=== PATIENT | male | born 1980 | race Caucasian/White ===

== ENCOUNTER 2019-04-04 08:03 | Outpatient (CLI) | payer OTHER, SELFPAY ==
--- NOTE | 2019-04-12 01:43 | SLEEP_ITS ---
Split-Night Study DATE OF STUDY: 04/04/2019 ORDERING PHYSICIAN: Master Vegas M.D. REASON FOR THE STUDY: Obstructive sleep apnea syndrome. HISTORY: This patient is a 38-year-old male, 68 inches tall, weighing 240 pounds with a body mass index of 36.5. He has a history of congestive heart failure. He frequently snores and it is constantly loud enough that others complain about it. He frequently wakes up at night with heartburn and belching. He occasionally has trouble sleeping with a cold. He does not gasp for breath at night. He frequently has breathing problems at night reported to him by others. He rarely sweats excessively at night. He frequently falls asleep during the day occasionally, involuntarily, but never while driving or with physical effort. He does not have loss of muscle tone with strong emotion, daytime difficulties due to sleepiness because he is unemployed, nor does he feel paralyzed on waking or falling asleep. He occasionally has vivid dreamlike scenes upon awakening or falling asleep. He is never afraid to go to sleep. He occasionally has nightmares, occasionally remembers his dreams, frequently has racing thoughts with constant feelings of sadness, depression and anxiety. He occasionally has muscular tension. Occasionally notices parts of his body jerking. He does not kick at night or have crawly achy feelings in his legs. He does not have jaw pain at night. He does not grind his teeth at night. He occasionally is bothered by pain during the day. He has never awakened with pain at night. He frequently wakes up with stiff or achy muscles in the morning. He has dizziness, fatigue, memory problems, fainting spells, concentration difficulties, depression and feels very stressed. Normal bedtime is 11 p.m., taking an hour to fall asleep typically waking 4-5 times at night for 5 minutes. During this time, he will use the bathroom, eat or smoke a cigarette. He wakes for the day at 9 or 10 am. Weekend schedule reveals that he goes to bed an hour later, wakes up at the same time. He does take naps. A short nap is not refreshing. He is usually drowsy in the morning for 2 hours. He feels better in the afternoon than the morning. MEDICAL COMORBIDITIES: Congestive heart failure, depression, nonrheumatic mitral valve disease, mitral regurgitation, nonischemic congestive cardiomyopathy, acute systolic heart failure, which is currently chronic heart failure, obesity, and dyslipidemia. MEDICATIONS: 1. Carvedilol 1 b.i.d. 2. Furosemide daily. 3. Lisinopril daily. HABITS: Tobacco a half pack per day. Caffeine, soda, and tea 2-3 times per day. No alcohol. DESCRIPTION OF THE STUDY: On the [place] Sleepiness Scale his score 16. This was conducted as a split-night nocturnal polysomnogram using the same and multiple channel system including EOG, EEG, submental EMG, EKG, nasal and oral airflow using thermistors and nasal pressure sensors, chest and abdominal belts, body position data and pulse oximetry. The study was scored using CMS guidelines. During the baseline portion, recording time was 180 minutes. Sleep time 158.4 minutes. Sleep efficiency 88.1%. Sleep latency 2.9 minutes. REM latency 19.5 minutes very short. He had 16 awakenings and spent 18.5 minutes awake after sleep onset. Sleep architecture showed 12.3% stage 1 sleep, 79.8% stage 2 sleep, no stage 3 sleep and 7.9% stage REM. He slept supine 75.6% of this portion. The remainder was nonsupine. Sleep architecture was very fragmented with small, short episodes of REM with interruptions and return to wakefulness. The overall apnea-hypopnea index was 18.6 all obstructive events. He had 2 obstructive apneas, 4 obstructive hypopneas in supine non-REM for an index of 23.3. Three obst
== END 2019-04-04 08:04 | disposition home or self-care (01) ==
LOC: ANHCSM 08:03
PROVIDERS: Visit Provider Specialist
DX: G47.33 Obstructive sleep apnea (adult) (pediatric) (principal)
CPT/HCPCS: 95811

== ENCOUNTER 2019-04-10 22:29 | Observation (INO) | payer OTHER, SELFPAY ==
--- NOTE | ~2019-04-10 | XR_ITS ---
EXAMINATION: XR chest 2V 04/10/2019 23:32 INDICATION: Cough and dyspnea PROCEDURE: 2 view chest COMPARISON: 12/24/2018 FINDINGS: The lungs are clear. The cardiomediastinal silhouette is enlarged There are no pleural eff usions. There is no pneumothorax suspected. IMPRESSION: 1: NO ACUTE CARDIOPULMONARY DISEASE. Reviewed, dictated and finalized at location A. ER COPPER
[2019-04-10 22:46] VITALS: BP 133/92; PULSE 86; RESP 16; TEMP 36.3; O2SAT 97
--- NOTE | 2019-04-10 22:55 | ECG_ITS ---
Measurements Intervals [place] Rate: 84 P: 44 [place]: 162 QRS: -34 QRSD: 169 T: 64 QT: 417 QTc: 495 Interpretive Statements SINUS RHYTHM POSSIBLE LEFT ATRIAL ENLARGEMENT LEFT AXIS DEVIATION LEFT BUNDLE BRANCH BLOCK BASELINE ARTIFACT- I, III, AVL, V1 ABNORMAL ECG Electronically Signed On 04-11-2019 7:00:54 HORSEBACK EXCAVATOR by Fawad Murdock D.O.
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
[2019-04-10 23:27] LABS: Basophils Absolute Auto 0.1 K/mm3 (0.0-0.1); Basophils Percent Auto 0.8 % (0.2-1.2); Eosinophils Absolute Auto 0.4 K/mm3 (0-0.3); Eosinophils Percent Auto 3.7 % (0-4.4); Hematocrit 38.8 % (42.0-52.0); Hemoglobin 13.1 g/dL (14.0-18.0); Immature Granulocyte Absolute 0.04 K/mm3 (0.00-0.031); Immature Granulocyte Percent A 0.4 % (0-0.5); Lymphocytes Absolute Auto 2.87 K/mm3 (0.9-3.2); Lymphocytes Percent Auto 29.5 % (18.3-44.2); Mean Corpuscular HGB Conc 33.8 g/dl (32-36); Mean Corpuscular Hemoglobin 30.5 pg (26-34); Mean Corpuscular Volume 90.2 fl (80-100); Mean Platelet Volume 9.6 fl (7.4-10.4); Monocytes Absolute Auto 0.8 K/mm3 (0.1-0.6); Monocytes Percent Auto 7.8 % (2.6-8.5); Neutrophils Absolute Auto 5.6 K/mm3 (1.3-6.7); Neutrophils Percent Auto 57.8 % (45.5-73.1); Platelet Count Result 307 k/mm3 (150-375); White Blood Count 9.7 K/mm3 (4.5-10.0)
[2019-04-10 23:35] LABS: INR 0.9; Partial Thromboplastin Time 28.6 SECONDS (22.3-36.8); Prothrombin Time 11.4 Seconds (11.1-14.7)
[2019-04-10 23:41] LABS: Blood Urea Nitrogen 13 mg/dL (9-20); Carbon Dioxide 26 mmol/L (22-30); Chloride 100 mmol/L (98-107); Estimated Glomerular Filt Rate > 60; Glucose 105 mg/dL (75-110); Potassium 4.2 mmol/L (3.4-5.0); Sodium 138 mmol/L (137-145)
[2019-04-10 23:48] VITALS: BP 119/78; PULSE 79; RESP 20; O2SAT 98
[2019-04-10 23:53] LABS: NT Pro B Type Natriuretic Pept 1060 PG/ML (5-100); Troponin I < 0.012 ng/mL (0.000-0.034)
[2019-04-11] VITALS (19 sets, daily range): BP systolic 110–146; BP diastolic 55–96; PULSE 75–96; RESP 12–20; TEMP 36.1–36.9; O2SAT 96–100; BMI 38.9
[2019-04-11] MEDS: FUROSEMIDE INJ 40 MG/4 ML VIAL IV PUSH (00:46)
--- NOTE | 2019-04-11 02:16 | ECG_ITS ---
Measurements Intervals [place] Rate: 85 P: 50 [place]: 164 QRS: -39 QRSD: 166 T: 75 QT: 415 QTc: 496 Interpretive Statements SINUS RHYTHM POSSIBLE LEFT ATRIAL ENLARGEMENT LEFT AXIS DEVIATION LEFT BUNDLE BRANCH BLOCK ABNORMAL ECG Electronically Signed On 04-11-2019 8:15:14 BILINGUAL SALES REPRESENTATIVE by Fawad Murdock D.O.
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
[2019-04-11 02:27] LABS: Amphetamine Screen Urine Positive (Negative); Barbiturate Screen Urine Negative (Negative); Benzodiazepines Screen Urine Negative (Negative); Cannabinoid Screen Urine Negative (Negative); Cocaine Screen Urine Negative (Negative); Methadone Screen Urine Negative (Negative); Opiate Screen Urine Negative (Negative); Phencyclidine Screen Urine Negative (Negative)
[2019-04-11 05:07] LABS: Basophils Absolute Auto 0.1 K/mm3 (0.0-0.1); Basophils Percent Auto 0.8 % (0.2-1.2); Eosinophils Absolute Auto 0.4 K/mm3 (0-0.3); Eosinophils Percent Auto 4.1 % (0-4.4); Hematocrit 39.9 % (42.0-52.0); Hemoglobin 13.7 g/dL (14.0-18.0); Immature Granulocyte Absolute 0.04 K/mm3 (0.00-0.031); Immature Granulocyte Percent A 0.5 % (0-0.5); Lymphocytes Percent Auto 27.1 % (18.3-44.2); Mean Corpuscular HGB Conc 34.3 g/dl (32-36); Mean Corpuscular Hemoglobin 30.7 pg (26-34); Mean Corpuscular Volume 89.5 fl (80-100); Mean Platelet Volume 9.4 fl (7.4-10.4); Monocytes Absolute Auto 0.7 K/mm3 (0.1-0.6); Monocytes Percent Auto 7.6 % (2.6-8.5); Neutrophils Absolute Auto 5.3 K/mm3 (1.3-6.7); Neutrophils Percent Auto 59.9 % (45.5-73.1); Platelet Count Result 310 k/mm3 (150-375); Red Blood Count 4.46 M/mm3 (4.6-6.20); Red Cell Distribution Width 12.8 % (11.5-14.5); White Blood Count 8.9 K/mm3 (4.5-10.0)
[2019-04-11 05:22] LABS: Blood Urea Nitrogen 13 mg/dL (9-20); Calcium 9.1 mg/dL (8.4-10.2); Carbon Dioxide 30 mmol/L (22-30); Chloride 96 mmol/L (98-107); Estimated CRCL calculation 131 ml/min; Estimated Glomerular Filt Rate > 60; Glucose 116 mg/dL (75-110); Potassium 3.7 mmol/L (3.4-5.0); Sodium 140 mmol/L (137-145)
[2019-04-11 05:32] LABS: Troponin I < 0.012 ng/mL (0.000-0.034)
--- NOTE | 2019-04-11 05:37 | ADMGEN ---
This patient, Isaiah La, was admitted to IMU Room 212-01. Patient/family oriented to hospital policies and general routines including ID bracelet, bed and alarms, visiting hours, pain management, procedures, bathroom and other care routines, personal items, smoking policy, room service/diet, and visiting hours. Valuables list has been completed. Information on how to activate the Rapid Response Team has been discussed. Patient/Family are encouraged to report perceived risks to care and to ask questions if they do not understand what they are told or what they should do.
[2019-04-11 07:55] LABS: Glucose Point of Care 149 (65-105)
[2019-04-11 08:52] LABS: Troponin I < 0.012 ng/mL (0.000-0.034)
--- NOTE | 2019-04-11 11:13 | PM.IMPN ---
Progress Note: A&P Assessment and Plan (1) Chest pain: Qualifiers: Chest pain type: unspecified Qualified Code(s): R07.9 - Chest pain, unspecified Code(s): R07.9 - Chest pain, unspecified Status: Acute Assessment and Plan: Cardiac chest pain appears unlikley. TROP x3 are negative. Continue to observe in IMU. Continue to watch for any further chest pain. Chest pain atypical appear musculosketal. Awaiting to see cardiology. Pt needs to be medical stable prior to placement. (2) Congestive heart failure: Qualifiers: Heart failure chronicity: acute Heart failure type: unspecified Qualified Code(s): I50.9 - Heart failure, unspecified Code(s): I50.9 - Heart failure, unspecified Status: Chronic Assessment and Plan: CHroic and stable. Systolic CHF. Continue home Coreg, Lisinopril and Lasix. (3) Methamphetamine use: Code(s): F15.10 - Other stimulant abuse, uncomplicated Status: Chronic Assessment and Plan: The patient continues to use IV methamphetamine. pt is going through withdrawl at the moment. (4) IV drug abuse: Code(s): F19.10 - Other psychoactive substance abuse, uncomplicated Status: Chronic Assessment and Plan: Pt going through withdrawl at the moment, pt wants to go to drug rehab program. Awaiting placement. (5) Tobacco dependence: Code(s): F17.200 - Nicotine dependence, unspecified, uncomplicated Status: Chronic Assessment and Plan: Smoking cessation adviced Subjective Date/time seen: 04/11/19 11:13 Interval history: 39 year old male with known nonischemic cardiomyopathy with chronic systolic heart failure known to chronically be an IV drug user for the past 20 years who presented to the [facility] with a complaint of intermittent bilateral chest pain for the past week. Pt denies chest pain today. Pt is going though shakes and shivers by the bedside, withdrawing off methamphetamines. Review of Systems Review of Systems: All systems reviewed & are unremarkable except as noted in HPI and below Constitutional: Constitutional: Reports excessive sweating Comments: Shakes and shivers Cardiovascular: Cardiovascular: Denies chest pain, Denies chest pain at rest, Denies chest pain with activity and Denies dyspnea Respiratory: Respiratory: Denies cough, Denies excessive phlegm production, Denies dyspnea and Denies dyspnea on exertion Gastrointestinal: Gastrointestinal: Denies no additional gastrointestinal complaints Neurologic: Reports tremor(s) Comments: Shivers Exam Const: Nutritional Appearance: obese Orientation/consciousness: patient oriented x3 Other: Shakes and shivers HENMT: Head: normal to inspection General nose exam: Normal external nose present Face and sinus: normal facial exam Mouth: Yes Normal oral and palatal mucosa present and Yes oropharynx normal Eyes: Pupils: Equal, round and reactive pupils present EOM: EOMs intact bilaterally Neck: Neck: supple and no JVD Thyroid: thyroid normal Lymphatic: lymphadenopathy not noted Resp: Effort & Inspection: normal respiratory effort Auscultation: clear to auscultation bilaterally Cardio: Rate: regular rate Rhythm: regular rhythm Heart sounds: no murmurs GI: Inspection: normal to inspection Auscultation: normal bowel sounds Skin: General skin exam: normal color Neuro: General: patient oriented x3 Cranial nerves: Yes CN's II-XII intact bilaterally and Yes Equal, round and reactive pupils present Speech: normal speech Motor exam (neuro): 5/5 motor strength present throughout Sensory Exam: normal sensation Extrem: General: normal to inspection and no edema Other: Iv drug user Psych: Other: Shakes and shivers Objective Data Vital Signs Vital Signs: Vital Signs - 24 hr 04/10/19 22:46 04/10/19 23:48 04/11/19 00:46 Temperature 36.3 C L Pulse Rate 86 79 81 Respiratory Rate 16 20 16 Blood P
[2019-04-11 12:05] LABS: Glucose Point of Care 204 (65-105)
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
[2019-04-11] MEDS: PANTOPRAZOLE 40 MG TABLET PO (17:09)
[2019-04-12] VITALS (16 sets, daily range): BP systolic 118–160; BP diastolic 77–102; PULSE 79–108; RESP 16–22; TEMP 36.1–37; O2SAT 97–100
[2019-04-12] MEDS: NITROGLYCERIN SL 0.4 MG TABLET SUBLINGUAL (00:10)
--- NOTE | 2019-04-12 00:50 | ECG_ITS ---
Measurements Intervals [place] Rate: 86 P: 47 [place]: 167 QRS: -25 QRSD: 170 T: 78 QT: 413 QTc: 497 Interpretive Statements SINUS RHYTHM POSSIBLE LEFT ATRIAL ENLARGEMENT LEFT BUNDLE BRANCH BLOCK ABNORMAL ECG Electronically Signed On 04-12-2019 8:35:02 RN COMPLEX CARE by Fawad Murdock D.O.
[2019-04-12 01:01] LABS: Troponin I < 0.012 ng/mL (0.000-0.034)
[2019-04-12] MEDS: PANTOPRAZOLE 40 MG TABLET PO (08:20)
--- NOTE | 2019-04-12 14:24 | PM.IMPN ---
Progress Note: A&P Assessment and Plan (1) Chest pain: Qualifiers: Chest pain type: unspecified Qualified Code(s): R07.9 - Chest pain, unspecified Code(s): R07.9 - Chest pain, unspecified Status: Acute Assessment and Plan: Cardiac chest pain appears unlikely. TROP x3 are negative. Continue to observe in IMU. Continue to watch for any further chest pain. Chest pain atypical appear musculosketal or drug withdrawl related. Cardiology feels chest pain is non cardiac. Pt had a recent heart cath no significant heart disease noted (2) Congestive heart failure: Qualifiers: Heart failure chronicity: acute Heart failure type: unspecified Qualified Code(s): I50.9 - Heart failure, unspecified Code(s): I50.9 - Heart failure, unspecified Status: Chronic Assessment and Plan: Chronic and stable. Systolic CHF. Continue home Coreg, Lisinopril and Lasix. (3) Methamphetamine use: Code(s): F15.10 - Other stimulant abuse, uncomplicated Status: Chronic Assessment and Plan: The patient continues to use IV methamphetamine. pt is going through withdrawl at the moment. Benzos IV and clonidine orally ordered for pt. (4) IV drug abuse: Code(s): F19.10 - Other psychoactive substance abuse, uncomplicated Status: Chronic Assessment and Plan: Pt going through withdrawl at the moment, difficult to place in drug rehab due to his medical co-morbidities (5) Tobacco dependence: Code(s): F17.200 - Nicotine dependence, unspecified, uncomplicated Status: Chronic Assessment and Plan: Smoking cessation adviced Subjective Date/time seen: 04/12/19 14:24 Interval history: 39 year old male with known nonischemic cardiomyopathy with chronic systolic heart failure known to chronically be an IV drug user for the past 20 years who presented to the [facility] with a complaint of intermittent bilateral chest pain for the past week. Pt denies chest pain today. Pt is going though shakes and shivers by the bedside, withdrawing off methamphetamines. Review of Systems Review of Systems: All systems reviewed & are unremarkable except as noted in HPI and below Constitutional: Constitutional: Reports excessive sweating Cardiovascular: Cardiovascular: Denies chest pain, Denies chest pain at rest, Denies chest pain with activity, Denies dyspnea and Denies dyspnea on exertion Respiratory: Respiratory: Denies cough, Denies excessive phlegm production, Denies dyspnea and Denies dyspnea on exertion Gastrointestinal: Gastrointestinal: Denies no additional gastrointestinal complaints Neurologic: Reports tremor(s) Endocrine: Endocrine: Reports excessive sweating Exam Const: General: cooperative, no acute distress, alert and awake Nutritional Appearance: obese Orientation/consciousness: patient oriented x3 Other: Shakes and shivers HENMT: Head: normal to inspection General nose exam: Normal external nose present Face and sinus: normal facial exam Mouth: Yes Normal oral and palatal mucosa present and Yes oropharynx normal Eyes: Pupils: Equal, round and reactive pupils present EOM: EOMs intact bilaterally Neck: Neck: supple and no JVD Thyroid: thyroid normal Lymphatic: lymphadenopathy not noted Resp: Effort & Inspection: normal respiratory effort Auscultation: clear to auscultation bilaterally Cardio: Rate: regular rate Rhythm: regular rhythm Heart sounds: no murmurs GI: Inspection: normal to inspection Auscultation: normal bowel sounds Skin: General skin exam: normal color Neuro: General: patient oriented x3 Cranial nerves: Yes CN's II-XII intact bilaterally and Yes Equal, round and reactive pupils present Speech: normal speech Motor exam (neuro): 5/5 motor strength present throughout Sensory Exam: normal sensation Extrem: General: normal to inspection and no edema Other: Iv drug user Psych: Mental Status: mental st
--- NOTE | 2019-04-12 16:37 | PM.PNCARD ---
Progress Note: A&P Assessment and Plan (1) Tobacco dependence: Code(s): F17.200 - Nicotine dependence, unspecified, uncomplicated Status: Chronic (2) IV drug abuse: Code(s): F19.10 - Other psychoactive substance abuse, uncomplicated Status: Chronic (3) Chest pain: Qualifiers: Chest pain type: unspecified Qualified Code(s): R07.9 - Chest pain, unspecified Code(s): R07.9 - Chest pain, unspecified Status: Acute Assessment and Plan: So far cardiac enzyme negative, EKG is unremarkable, he had cardiac catheterization last admission showed no significant coronary disease. His pain seems to be due to upper airway infection with pleurisy, he also has a the GERD, symptomatic treatment for the time being, no need for any cardiac further workup (4) Atypical chest pain: Code(s): R07.89 - Other chest pain Status: Acute Assessment and Plan: Likely is noncardiac, had cardiac catheterization last admission. He seems to be pain free now, okay to be discharged home (5) Non-ischemic cardiomyopathy: Code(s): I42.8 - Other cardiomyopathies Status: Acute Assessment and Plan: Currently on Coreg and lisinopril continue Additional Plan Okay to be discharged home, follow up with me in 1-2 weeks Subjective Date/time seen: 04/12/19 16:37 Feels much better today, no shortness breath, orthopnea improved no chest pain Exam Narrative: Exam Narrative: Awake alert oriented x3 not in acute distress Neck is supple no obvious JVD, no carotid bruit Chest: Good air entry bilaterally, lungs are clear to auscultation and percussion bilaterally Cardiovascular: Regular rate and rhythm, 2/6 systolic murmur noted left sternal border Abdomen: Soft nontender bowel sounds positive Extremities: No edema has good pulses distally bilaterally Objective Data Vital Signs Vital Signs: Vital Signs - 24 hr 04/11/19 17:18 04/11/19 18:00 04/11/19 20:00 Temperature 36.1 C L Pulse Rate 96 89 91 Respiratory Rate 20 Blood Pressure 137/91 H Pulse Oximetry 99 04/11/19 20:51 04/11/19 22:00 04/12/19 00:00 Temperature 36.4 C L 36.2 C L Pulse Rate 77 86 99 Respiratory Rate 20 18 Blood Pressure 146/82 H 143/102 H Pulse Oximetry 100 100 04/12/19 00:08 04/12/19 02:00 04/12/19 04:00 Temperature 37.0 C Pulse Rate 87 84 82 Respiratory Rate 22 H Blood Pressure 160/91 H 138/79 Pulse Oximetry 97 97 04/12/19 05:54 04/12/19 08:00 04/12/19 10:00 Temperature 36.1 C L Pulse Rate 87 86 84 Respiratory Rate 20 Blood Pressure 121/85 Pulse Oximetry 97 04/12/19 12:00 04/12/19 14:00 Temperature 36.6 C Pulse Rate 88 87 Respiratory Rate 18 Blood Pressure 129/80 Pulse Oximetry 98 Intake/Output Intake/Output: Intake & Output 04/09/19 04/10/19 04/11/19 04/12/19 23:59 23:59 23:59 23:59 Intake Total 1680 730 Output Total 2150 Balance -470 730 Meds/Results Medications: Active Medications Generic Name Dose Route Start Last Admin Trade Name Freq PRN Reason Stop Dose Admin Carvedilol 12.5 mg 04/12/19 17:00 Coreg PO BID MAYELA Clonidine HCl 0.05 mg 04/12/19 21:00 Catapres PO Q12HR MAYELA Furosemide 40 mg 04/13/19 09:00 Lasix Tablet PO DAILY MAYELA Lisinopril 20 mg 04/13/19 09:00 Prinivil PO QAM MAYELA Lorazepam 0.5 mg 04/11/19 11:31 Ativan Inj IV PUSH Q6H PRN Anxiety Morphine Sulfate 2 mg 04/12/19 01:02 Morphine Sulfate Inj IV PUSH ONCE PRN Chest Pain Nitroglycerin 0.4 mg 04/11/19 02:17 04/12/19 00:10 Nitrostat Subl 0.4 Mg (1/150) SUBLINGUAL 0.4 mg Q5MIN PRN Administration Chest Pain Pantoprazole Sodium 40 mg 04/11/19 17:12 04/12/19 08:20 Protonix PO 40 mg QAM MAYELA Administration Radiology Results: ITS Impressions Chest X-Ray 04/10/19 23:41 IMPRESSION: 1: NO ACUTE CARDIOPULMONARY DISEASE. Labs L
[2019-04-12] MEDS: carvediloL 12.5 MG TABLET PO (18:52)
[2019-04-12] MEDS: LORAZEPAM INJ 2 MG/ML VIAL 0.5 MG IV PUSH (20:14)
[2019-04-13] VITALS (8 sets, daily range): BP systolic 113–128; BP diastolic 68–88; PULSE 83–112; RESP 16–66; TEMP 36.3–36.6; O2SAT 95–100
[2019-04-13] MEDS: LORAZEPAM INJ 2 MG/ML VIAL 0.5 MG IV PUSH (04:37)
[2019-04-13 05:44] LABS: Blood Urea Nitrogen 12 mg/dL (9-20); Calcium 8.9 mg/dL (8.4-10.2); Carbon Dioxide 27 mmol/L (22-30); Chloride 100 mmol/L (98-107); Estimated CRCL calculation 134 ml/min; Estimated Glomerular Filt Rate > 60; Glucose 97 mg/dL (75-110); Sodium 138 mmol/L (137-145)
[2019-04-13] MEDS: lisinopriL 20 MG TABLET PO (09:35)
[2019-04-13] MEDS: FUROSEMIDE 40 MG TABLET PO (09:35)
[2019-04-13] MEDS: carvediloL 12.5 MG TABLET PO (09:35)
[2019-04-13] MEDS: PANTOPRAZOLE 40 MG TABLET PO (09:35)
--- NOTE | 2019-04-13 12:42 | PC.NURSE ---
pt was seen by Daja and was told if ok with Cardiology that he could go home. Pt started to take everything off, tele monitor, gown, etc. Stated that he wanted to leave now, he had a ride on the way. RN explained that Cardiology still had to sign off to agree for him to go home. Pt was very agitated but did allow for RN to put tele back on.
--- NOTE | 2019-04-13 12:50 | PM.DS ---
DS: Diagnosis Admitting Diagnosis Admitting Diagnosis: Chest pain, unspecified Discharge Diagnosis (1) Chest pain: Qualifiers: Chest pain type: unspecified Qualified Code(s): R07.9 - Chest pain, unspecified Code(s): R07.9 - Chest pain, unspecified Status: Acute Assessment and Plan: Cardiac chest pain appears unlikely. TROP x3 are negative. Continue to observe in IMU. Continue to watch for any further chest pain. Chest pain atypical appear musculosketal or drug withdrawl related. Cardiology feels chest pain is non cardiac. Pt had a recent heart cath no significant heart disease noted (2) Congestive heart failure: Qualifiers: Heart failure chronicity: acute Heart failure type: unspecified Qualified Code(s): I50.9 - Heart failure, unspecified Code(s): I50.9 - Heart failure, unspecified Status: Chronic Assessment and Plan: Chronic and stable. Systolic CHF. Continue home Coreg, Lisinopril and Lasix. (3) Methamphetamine use: Code(s): F15.10 - Other stimulant abuse, uncomplicated Status: Chronic Assessment and Plan: The patient continues to use IV methamphetamine. pt is going through withdrawl at the moment. Benzos IV and clonidine orally ordered for pt. (4) IV drug abuse: Code(s): F19.10 - Other psychoactive substance abuse, uncomplicated Status: Chronic Assessment and Plan: Pt going through withdrawl at the moment, difficult to place in drug rehab due to his medical co-morbidities (5) Tobacco dependence: Code(s): F17.200 - Nicotine dependence, unspecified, uncomplicated Status: Chronic Assessment and Plan: Smoking cessation adviced DS: Summary Hospital Course Hospital Course: Admission from April 11, 2019: chest pain for the last week+ Narrative: This is a 39 year old male with known nonischemic cardiomyopathy with chronic systolic heart failure known to chronically be an IV drug user for the past 20 years who presented to the [facility] with a complaint of intermittent bilateral chest pain for the past week. He describes his chest pain as exertional in nature and his pain feels like a tightness . He denies any associated shortness of breath, nausea, or lightheadedness. His last cardiac angiogram was December 2018 and he had a clean cath at that time. He denies any other symptoms such as fevers, cough, shortness of breath, LE swelling, rectal bleeding, dysuria, palpitations or syncope. The patient admits that he last used IV crack this past weekend. He continues to smoke 2-3 cigarettes daily. He would like to get a referral to drug rehab. Tonight he denies any other symptoms. Patient with discharged April 14, 1999 Pre School Teacher was consulted this hospital stable to determine the patient's chest pain was not cardiac related. Patient does have a drug use possible cause for chest. Patient did that he like to go to rehab, unfortunatly there was being space available in rehab. Patient was not going through any withdrawal day of discharge. Patient able to tolerate all meals , slept well and ambulate at baseline. Patient denies SOB, CP, palpitation, extremity numbness, lightheadness, dizziness, constipation, diarrhea, or chills or fever. Patient agree that they are ready for discharge Time Spent with Patient Time attestation: Total time spent providing and/or coordinating discharge services:60 Exam Const: General: cooperative, no acute distress, alert and awake Nutritional Appearance: obese Orientation/consciousness: patient oriented x3 Other: HENMT: Head: normal to inspection General nose exam: Normal external nose present Face and sinus: normal facial exam Mouth: Yes Normal oral and palatal mucosa present and Yes oropharynx normal Eyes: Pupils: Equal, round and reactive pupils present EOM: EOMs intact bilaterally Neck: Neck: supple and no JVD Thyroid: thyroid normal Lympha
== END 2019-04-13 13:50 | disposition home or self-care (01) ==
LOC: ANHED 04-11 02:25 → ANHIMU 04-11 04:51
PROVIDERS: Family Medicine; Admitting Provider Family Medicine; Emergency Provider Emergency Medicine; Visit Provider Family Medicine
DX: R07.89 Other chest pain (principal); I11.0 Hypertensive heart disease with heart failure; I50.22 Chronic systolic (congestive) heart failure; F15.93 Other stimulant use, unspecified with withdrawal; F19.939 Other psychoactive substance use, unspecified with withdrawal, unspecified; F17.210 Nicotine dependence, cigarettes, uncomplicated; K21.9 Gastro-esophageal reflux disease without esophagitis; E78.5 Hyperlipidemia, unspecified; I25.2 Old myocardial infarction; I42.8 Other cardiomyopathies; Z79.899 Other long term (current) drug therapy
CPT/HCPCS: 36415; 71046; 80048; 80307; 83880; 84484; 85025; 85610; 85730; 93005; 96374; 99285; A9270; G0378; G0379; J1940; J2060

== ENCOUNTER 2019-05-27 22:04 | Emergency (ER) | payer OTHER, SELFPAY ==
--- NOTE | ~2019-05-27 | XR_ITS ---
EXAMINATION: XR chest 1V portable DATE: 05/27/2019 22:25 INDICATION: Shortness of breath. TECHNIQUE: A single frontal view of the chest was obtained. COMPARISON: Chest 2 views 04/10/2019 FINDINGS: The chest demonstrates clear lungs without pneumonia, pleural effusion, or pneumothorax. Th e heart size is normal. IMPRESSION: 1. No acute cardiopulmonary disease. Reviewed, dictated and finalized at location A.
[2019-05-27 22:11] VITALS: BP 151/88; PULSE 97; RESP 20; TEMP 36.6; O2SAT 100
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
--- NOTE | 2019-05-27 22:27 | ECG_ITS ---
Measurements Intervals [place] Rate: 85 P: 47 TN: 173 QRS: -27 QRSD: 178 T: 76 QT: 418 QTc: 500 Interpretive Statements SINUS RHYTHM LEFT BUNDLE BRANCH BLOCK ABNORMAL ECG Electronically Signed On 05-28-2019 7:14:03 CDT by Fawad Murdock D.O.
[2019-05-27 22:38] LABS: Basophils Percent Auto 0.4 % (0.2-1.2); Eosinophils Absolute Auto 0.2 K/mm3 (0-0.3); Eosinophils Percent Auto 1.9 % (0-4.4); Immature Granulocyte Absolute 0.04 K/mm3 (0.00-0.031); Immature Granulocyte Percent A 0.4 % (0-0.5); Lymphocytes Absolute Auto 1.56 K/mm3 (0.9-3.2); Lymphocytes Percent Auto 14.6 % (18.3-44.2); Mean Corpuscular HGB Conc 32.6 g/dl (32-36); Mean Corpuscular Hemoglobin 30.2 pg (26-34); Mean Corpuscular Volume 92.9 fl (80-100); Mean Platelet Volume 9.5 fl (7.4-10.4); Monocytes Absolute Auto 0.3 K/mm3 (0.1-0.6); Monocytes Percent Auto 3.1 % (2.6-8.5); Neutrophils Absolute Auto 8.5 K/mm3 (1.3-6.7); Neutrophils Percent Auto 79.6 % (45.5-73.1); Platelet Count Result 356 k/mm3 (150-375); Red Blood Count 4.63 M/mm3 (4.6-6.20); Red Cell Distribution Width 13.2 % (11.5-14.5); White Blood Count 10.7 K/mm3 (4.5-10.0)
[2019-05-27 22:50] LABS: Blood Urea Nitrogen 13 mg/dL (9-20); Calcium 9.6 mg/dL (8.4-10.2); Carbon Dioxide 31 mmol/L (22-30); Chloride 99 mmol/L (98-107); Estimated CRCL calculation 107 ml/min; Estimated Glomerular Filt Rate > 60; Glucose 160 mg/dL (75-110); Potassium 4.4 mmol/L (3.4-5.0); Sodium 135 mmol/L (137-145)
[2019-05-27] MEDS: ACETAMINOPHEN 325 MG TABLET 650 MG PO (22:55)
[2019-05-27 22:59] LABS: NT Pro B Type Natriuretic Pept 2110 PG/ML (5-100)
[2019-05-27 23:30] VITALS: BP 149/87; PULSE 89; RESP 18; O2SAT 99
== END 2019-05-27 23:30 | disposition home or self-care (01) ==
PROVIDERS: Emergency Provider Emergency Medicine
DX: J06.9 Acute upper respiratory infection, unspecified (principal); F17.210 Nicotine dependence, cigarettes, uncomplicated; I50.9 Heart failure, unspecified; I11.0 Hypertensive heart disease with heart failure; E78.5 Hyperlipidemia, unspecified; I25.2 Old myocardial infarction; I42.8 Other cardiomyopathies
CPT/HCPCS: 36415; 71045; 80048; 83880; 85025; 93005; 99283; A9270

== ENCOUNTER 2019-12-04 12:04 | Emergency (ER) | payer OTHER, SELFPAY ==
[2019-12-04 12:06] VITALS: BP 111/73; PULSE 88; RESP 20; TEMP 35.6; O2SAT 99
[2019-12-04 12:21] LABS: Basophils Absolute Auto 0.1 K/mm3 (0.0-0.1); Basophils Percent Auto 0.8 % (0.2-1.2); Eosinophils Absolute Auto 0.2 K/mm3 (0-0.3); Eosinophils Percent Auto 2.1 % (0-4.4); Hematocrit 44.8 % (42.0-52.0); Immature Granulocyte Absolute 0.06 K/mm3 (0.00-0.031); Immature Granulocyte Percent A 0.5 % (0-0.5); Lymphocytes Percent Auto 18.8 % (18.3-44.2); Mean Corpuscular HGB Conc 33.5 g/dl (32-36); Mean Corpuscular Hemoglobin 32.6 pg (26-34); Mean Corpuscular Volume 97.4 fl (80-100); Mean Platelet Volume 9.7 fl (7.4-10.4); Monocytes Absolute Auto 0.7 K/mm3 (0.1-0.6); Monocytes Percent Auto 6.5 % (2.6-8.5); Neutrophils Percent Auto 71.3 % (45.5-73.1); Platelet Count Result 386 k/mm3 (150-375); Red Cell Distribution Width 13.2 % (11.5-14.5); White Blood Count 11.2 K/mm3 (4.5-10.0)
[2019-12-04 12:36] LABS: Alanine Aminotransferase 24 U/L (4-50); Alkaline Phosphatase 91 U/L (38-126); Anion Gap 6 mmol/L (8-16); Aspartate Amino Transferase 32 U/L (17-59); Bilirubin,Total 0.5 mg/dL (0.2-1.3); Blood Urea Nitrogen 21 mg/dL (9-20); Calcium 9.7 mg/dL (8.4-10.2); Carbon Dioxide 29 mmol/L (22-30); Chloride 101 mmol/L (98-107); Estimated CRCL calculation 111 ml/min; Estimated Glomerular Filt Rate > 60; Glucose 130 mg/dL (75-110); Potassium 4.9 mmol/L (3.4-5.0); Sodium 136 mmol/L (137-145)
--- NOTE | 2019-12-04 12:50 | PC.NURSE ---
Patient walked out of ED stating I'm leaving.
== END 2019-12-04 12:50 | disposition left against medical advice (07) ==
LOC: ANHED 12:52
PROVIDERS: PCP Emergency Medicine
DX: R23.1 Pallor (principal)
CPT/HCPCS: 36415; 80053; 85025; 99199

== ENCOUNTER 2020-02-21 21:27 | Observation (INO) | payer OTHER, SELFPAY ==
--- NOTE | ~2020-02-21 | XR_ITS ---
EXAMINATION: XR chest 2V DATE: 02/21/2020 22:11 INDICATION: Shortness of breath and left-sided chest pain. TECHNIQUE: PA and lateral views of the chest were obtained. COMPARISON: Chest radiograph date FINDINGS: The lungs remain clear with no focal airspace opacities, pulmonary edema, pleural effusion or pneumot horax. Cardiomegaly. Single lead pacemaker/AICD with lead tip projecting over the apex of the right v entricle. IMPRESSION: 1. Cardiomegaly. Reviewed, dictated and finalized at location A. AL LOGISTICS MANAGER IMPRESSION: 1. Cardiomegaly.
[2020-02-21 21:30] VITALS: BP 127/87; PULSE 120; RESP 28; TEMP 36.8
[2020-02-21 21:36] VITALS: BP 127/87; PULSE 117; RESP 27; TEMP 36.8; O2SAT 100
--- NOTE | 2020-02-21 21:39 | ECG_ITS ---
Measurements Intervals [place] Rate: 120 P: 48 GA: 139 QRS: -40 QRSD: 170 T: 99 QT: 361 QTc: 510 Interpretive Statements SINUS TACHYCARDIA LEFT AXIS DEVIATION LEFT BUNDLE BRANCH BLOCK ABNORMAL ECG Electronically Signed On 02-22-2020 8:08:00 COSMETIC SALES ASSISTANT by Fawad Murdock D.O.
[2020-02-21] MEDS: ASPIRIN 81 MG CHEWABLE TABLET 324 MG PO (21:50)
[2020-02-21 21:56] LABS: Basophils Absolute Auto 0.1 K/mm3 (0.0-0.1); Basophils Percent Auto 0.6 % (0.2-1.2); Eosinophils Absolute Auto 0.2 K/mm3 (0-0.3); Eosinophils Percent Auto 1.1 % (0-4.4); Hematocrit 40.8 % (42.0-52.0); Hemoglobin 13.6 g/dL (14.0-18.0); Immature Granulocyte Absolute 0.06 K/mm3 (0.00-0.031); Immature Granulocyte Percent A 0.4 % (0-0.5); Lymphocytes Absolute Auto 2.31 K/mm3 (0.9-3.2); Mean Corpuscular HGB Conc 33.3 g/dl (32-36); Mean Corpuscular Hemoglobin 32.6 pg (26-34); Mean Corpuscular Volume 97.8 fl (80-100); Mean Platelet Volume 9.2 fl (7.4-10.4); Monocytes Absolute Auto 0.9 K/mm3 (0.1-0.6); Monocytes Percent Auto 6.1 % (2.6-8.5); Neutrophils Percent Auto 75.8 % (45.5-73.1); Platelet Count Result 356 k/mm3 (150-375); Red Blood Count 4.17 M/mm3 (4.6-6.20); Red Cell Distribution Width 13.5 % (11.5-14.5); White Blood Count 14.5 K/mm3 (4.5-10.0)
[2020-02-21 21:59] LABS: INR 0.9; Prothrombin Time 13.2 Seconds (11.1-14.7)
[2020-02-21 22:00] VITALS: BP 138/98; PULSE 115; RESP 24; O2SAT 99
[2020-02-21 22:00] LABS: Partial Thromboplastin Time 30.6 SECONDS (22.3-36.8)
[2020-02-21 22:43] LABS: Anion Gap 6 mmol/L (8-16); Blood Urea Nitrogen 20 mg/dL (9-20); Calcium 9.1 mg/dL (8.4-10.2); Carbon Dioxide 31 mmol/L (22-30); Chloride 99 mmol/L (98-107); Estimated CRCL calculation 99 ml/min; Estimated Glomerular Filt Rate > 60; Glucose 166 mg/dL (75-110); Troponin I 0.056 ng/mL (0.000-0.034)
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
[2020-02-21 23:00] VITALS: BP 142/78; PULSE 115; RESP 23; O2SAT 96
[2020-02-21 23:05] LABS: NT Pro B Type Natriuretic Pept 1670 PG/ML (5-100)
[2020-02-21 23:28] LABS: Potassium 4.1 mmol/L (3.4-5.0); Sodium 136 mmol/L (137-145)
[2020-02-21] MEDS: MORPHINE SULFATE (*CRX) 4 MG/ML INJ IV PUSH (23:43)
[2020-02-21] MEDS: FUROSEMIDE INJ 40 MG/4 ML VIAL IV PUSH (23:43)
[2020-02-22] VITALS (17 sets, daily range): BP systolic 97–140; BP diastolic 65–101; PULSE 61–118; RESP 18–26; TEMP 36.5–37.1; O2SAT 95–97; BMI 44.4
--- NOTE | 2020-02-22 00:10 | ECG_ITS ---
Measurements Intervals [place] Rate: 112 P: 53 MA: 150 QRS: -42 QRSD: 170 T: 105 QT: 382 QTc: 522 Interpretive Statements SINUS TACHYCARDIA LEFT ATRIAL ENLARGEMENT LEFT AXIS DEVIATION LEFT BUNDLE BRANCH BLOCK ABNORMAL ECG Electronically Signed On 02-22-2020 8:10:14 MANAGEMENT ASSISTANT by Fawad Murdock D.O.
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
--- NOTE | 2020-02-22 00:20 | ADMGEN ---
This patient, Isaiah La, was admitted to IMU Room 213-01. Patient/family oriented to hospital policies and general routines including ID bracelet, bed and alarms, visiting hours, pain management, procedures, bathroom and other care routines, personal items, smoking policy, room service/diet, and visiting hours. Information on how to activate the Rapid Response Team has been discussed. Patient/Family are encouraged to report perceived risks to care and to ask questions if they do not understand what they are told or what they should do.
[2020-02-22 00:56] LABS: Add Urine Microscopic? NO; Appearance Urine Clear (Clear); Bilirubin Urine Negative (Negative); Blood Urine Negative (Negative); Color Urine Yellow (Yellow); Glucose Urine UA Negative (Negative); Ketones Urine Negative (Negative); Leukocyte Esterase Ur Negative LEU/UL (Negative); Nitrate Urine Negative (Negative); Protein Urine Negative (Negative); Specific Grav Ur 1.013 (1.001-1.035); Urobilinogen Urine Negative mg/dL (<2.0)
[2020-02-22 01:11] LABS: Barbiturate Screen Urine Negative (Negative); Benzodiazepines Screen Urine Negative (Negative)
[2020-02-22 01:33] LABS: Troponin I 0.054 ng/mL (0.000-0.034)
[2020-02-22 01:35] LABS: Cannabinoid Screen Urine Negative (Negative); Cocaine Screen Urine Negative (Negative); Methadone Screen Urine Negative (Negative); Opiate Screen Urine Positive (Negative); Phencyclidine Screen Urine Negative (Negative)
[2020-02-22 03:15] LABS: Amphetamine Screen Urine Positive (Negative)
[2020-02-22 03:43] LABS: Basophils Absolute Auto 0.1 K/mm3 (0.0-0.1); Basophils Percent Auto 0.5 % (0.2-1.2); Eosinophils Absolute Auto 0.2 K/mm3 (0-0.3); Eosinophils Percent Auto 1.6 % (0-4.4); Hemoglobin 12.6 g/dL (14.0-18.0); Immature Granulocyte Absolute 0.03 K/mm3 (0.00-0.031); Immature Granulocyte Percent A 0.3 % (0-0.5); Lymphocytes Absolute Auto 2.25 K/mm3 (0.9-3.2); Lymphocytes Percent Auto 19.2 % (18.3-44.2); Mean Corpuscular HGB Conc 33.2 g/dl (32-36); Mean Corpuscular Hemoglobin 31.6 pg (26-34); Mean Corpuscular Volume 95.2 fl (80-100); Mean Platelet Volume 8.9 fl (7.4-10.4); Monocytes Absolute Auto 0.9 K/mm3 (0.1-0.6); Monocytes Percent Auto 7.4 % (2.6-8.5); Neutrophils Absolute Auto 8.3 K/mm3 (1.3-6.7); Platelet Count Result 338 k/mm3 (150-375); Red Blood Count 3.99 M/mm3 (4.6-6.20); Red Cell Distribution Width 13.2 % (11.5-14.5); White Blood Count 11.7 K/mm3 (4.5-10.0)
[2020-02-22 03:50] LABS: Hemoglobin A1C 6.3 % (<5.7)
[2020-02-22 03:56] LABS: Anion Gap 5 mmol/L (8-16); Blood Urea Nitrogen 19 mg/dL (9-20); Carbon Dioxide 32 mmol/L (22-30); Chloride 100 mmol/L (98-107); Estimated CRCL calculation 99 ml/min; Estimated Glomerular Filt Rate > 60; Glucose 114 mg/dL (75-110); Magnesium 2.1 mg/dL (1.6-2.3); Sodium 137 mmol/L (137-145)
[2020-02-22 04:15] LABS: Troponin I 0.055 ng/mL (0.000-0.034)
[2020-02-22 04:22] LABS: Potassium 4.1 mmol/L (3.4-5.0)
--- NOTE | 2020-02-22 09:16 | PM.CNCAR ---
Assessment and Plan Assessment and plan (1) Elevated troponin: Code(s): R77.8 - Other specified abnormalities of plasma proteins Status: Acute Assessment and Plan: Patient is a 39-year-old white man with history of heart failure with reduced ejection fraction with nonischemic cardiomyopathy, status post ICD (01/09/2020, [employer], Dr. Swain), left bundle-branch block, hypertension, dyslipidemia, methamphetamine use (for 20 years), tobacco dependence, medical noncompliance, was seen in cardiac consultation for chief complaint of chest pain. -Troponin I was initially elevated 0.056, then 0.054, then 0.055, with minimal elevation and flat trend not suggestive of non ST elevation myocardial infarction. -his minimal troponin elevation is occurring in the setting of acute on chronic heart failure with reduced ejection fraction. -continue aspirin. -his atypical presenting chest pain is much improved. EKG with chronic left bundle-branch block. -Previously, in the setting of mild flat troponin elevation and acute congestive heart failure, he had LHC on 12/26/2018. RCA: Dominant vessel, showed mid RCA significant irregularity with a 25% disease. -obtain fasting lipid panel. (2) Acute exacerbation of CHF (congestive heart failure): Qualifiers: Heart failure type: unspecified Qualified Code(s): I50.9 - Heart failure, unspecified Code(s): I50.9 - Heart failure, unspecified Status: Acute Assessment and Plan: -he has acute on chronic heart failure with preserved ejection fraction and nonischemic cardiomyopathy, occurring in the setting of noncompliance with a low-sodium diet, noncompliance with his medications, continued methamphetamine use/exposure, and noncompliance with CPAP. -the importance of compliance for these multiple issues was addressed in detail with the patient. -he needs CPAP initiation as an outpatient for his moderate sleep apnea. -continue diuresis with Lasix 40 mg IV b.i.d. with careful monitoring of renal function and electrolytes. Continue his outpatient lisinopril and Aldactone. -increased carvedilol to his outpatient regimen of 25 mg b.i.d. given his persistent resting sinus tachycardia, although he was not compliant with his cardiovascular medications with the exception of Lasix for the last 2 weeks. -obtain interrogation of his recent [employer] ICD. -no need to repeat echo as he had recent echo as below. -Recently, he had an echocardiogram 11/23/19: LV chamber is moderately dilated. LV wall thickness is mildly increased. LV systolic function is severely reduced. The LVEF is 25-30% (abnormal). Right ventricle is top normal in size with low normal systolic function. Left atrium chamber is mildly dilated. There is moderate mitral regurgitation. There is mild tricuspid regurgitation. Moderate elevation of estimated RV systolic pressure. The estimated RV systolic pressure is 50 mmHg. There is trace posterior pericardial effusion. Sinus tachycardia. (3) Methamphetamine use: Code(s): F15.10 - Other stimulant abuse, uncomplicated Status: Chronic Assessment and Plan: -the importance of cessation of methamphetamine use/exposure was emphasized with the patient. (4) Tobacco abuse: Code(s): Z72.0 - Tobacco use Status: Acute Assessment and Plan: -the importance of tobacco cessation was emphasized with the patient. (5) Atypical chest pain: Code(s): R07.89 - Other chest pain Status: Acute Assessment and Plan: -he had atypical chest pain improved with walking and with stretching. -His atypical chest pain is currently much improved. (6) Person under investigation for COVID-19: Code(s): Z20.828 - Contact with and (suspected) exposure to other viral communicable diseases Status: Acute Assessment and Plan: -COVID-19 PCR pending as per primary service. History of Present Illness History of Present Illness Consult date/time: 02/22/20
[2020-02-22] MEDS: carvediloL 12.5 MG TABLET 25 MG PO (10:35)
[2020-02-22] MEDS: SPIRONOLACTONE 25 MG TABLET PO (10:37)
[2020-02-22] MEDS: lisinopriL 20 MG TABLET PO (10:37)
[2020-02-22] MEDS: ASPIRIN 81 MG ENTERIC TABLET PO (10:37)
[2020-02-22] MEDS: ENOXAPARIN 40 MG/0.4 ML SYRINGE SUB-Q (10:38)
[2020-02-22] MEDS: FUROSEMIDE INJ 40 MG/4 ML VIAL IV PUSH ×2 (10:38→20:05)
--- NOTE | 2020-02-22 16:48 | PM.IMPN ---
Progress Note: A&P Assessment and Plan (1) Chest pain at rest: Code(s): R07.9 - Chest pain, unspecified Status: Acute Assessment and Plan: The patient has been placed in Observation status. r/o ACS- Trend troponin, telemetry, monitor for chest pain. Continue morphine IV for chest pain pain. Appreciate Cardiology input. (2) Acute exacerbation of CHF (congestive heart failure): Qualifiers: Heart failure type: unspecified Qualified Code(s): I50.9 - Heart failure, unspecified Code(s): I50.9 - Heart failure, unspecified Status: Acute Assessment and Plan: r/o Acute systolic heart failure exacerbation. (3) Person under investigation for COVID-19: Code(s): Z20.828 - Contact with and (suspected) exposure to other viral communicable diseases Status: Acute Assessment and Plan: The patient has been swabbed for COVID-19. Continue droplet isolation. Continue supportive care. COVID-19 results pending. (4) Abnormal glucose: Code(s): R73.09 - Other abnormal glucose Status: Acute Assessment and Plan: r/o diabetes mellitus. Check HgbA1c. (5) Leukocytosis: Qualifiers: Leukocytosis type: unspecified Qualified Code(s): D72.829 - Elevated white blood cell count, unspecified Code(s): D72.829 - Elevated white blood cell count, unspecified Status: Acute Assessment and Plan: No signs of acute infection. (6) Elevated troponin: Code(s): R77.8 - Other specified abnormalities of plasma proteins Status: Acute Assessment and Plan: r/o ACS vs. troponin leak from heart failure. Trend troponin. (7) HTN (hypertension): Qualifiers: Hypertension type: unspecified Qualified Code(s): I10 - Essential (primary) hypertension Code(s): I10 - Essential (primary) hypertension Status: Chronic Assessment and Plan: Monitor blood pressure. Continue lisinopril and Coreg. (8) Normocytic anemia: Code(s): D64.9 - Anemia, unspecified Status: Chronic Assessment and Plan: Likely anemia of chronic disease. (9) Tobacco dependence: Code(s): F17.200 - Nicotine dependence, unspecified, uncomplicated Status: Chronic Assessment and Plan: Smoking cessation advised Subjective Date/time seen: 02/22/20 16:48 Interval history: 39 year old severe nonischemic cardiomyopathy s/p ACID placement approximately 1 month ago who presented to the hospital today with a complaint of severe left sided chest pain that started while at rest today. Pt is awaiting covid test results, cleared from cardiology point of view can be transferred to medical floor Review of Systems Review of Systems: All systems reviewed & are unremarkable except as noted in HPI and below Exam Const: General: cooperative, alert and awake Nutritional Appearance: obese Orientation/consciousness: patient oriented x3 HENMT: Head: normal to inspection General nose exam: Normal external nose present Face and sinus: normal facial exam Mouth: Yes Normal oral and palatal mucosa present and Yes oropharynx normal Eyes: Pupils: Equal, round and reactive pupils present EOM: EOMs intact bilaterally Neck: Neck: supple and no JVD Thyroid: thyroid normal Resp: Effort & Inspection: tachypneic Cardio: Rate: tachycardic Rhythm: regular rhythm Heart sounds: no murmurs GI: Inspection: normal to inspection Auscultation: normal bowel sounds Skin: General skin exam: normal color and no rashes or lesions noted Neuro: General: patient oriented x3 Cranial nerves: Yes CN's II-XII intact bilaterally and Yes Equal, round and reactive pupils present Speech: normal speech Motor exam (neuro): 5/5 motor strength present throughout Sensory Exam: normal sensation Extrem: General: normal to inspection and edema bilateral Psych: Mental Status: mental status grossly normal Affect: normal affect Objective Data Vit
[2020-02-22 18:38] LABS: SARS-CoV-2 RNA PCR Negative
--- NOTE | 2020-02-22 19:20 | PC.NURSE ---
This patient, Isaiah La, was transferred to [facility] on 02/22/20 at 1915. Personal belongings sent with patient. Report given to Berenice FLORES. Appropriate documentation sent with patient.
[2020-02-22] MEDS: MELATONIN 3 MG TABLET PO (20:05)
[2020-02-22] MEDS: carvediloL 25 MG TABLET PO (20:05)
[2020-02-22] MEDS: HYDROcodone/acetaminophen (*CRX) 5-325 MG TABLET 1 TAB PO (20:09)
[2020-02-23] VITALS (13 sets, daily range): BP systolic 83–126; BP diastolic 56–82; PULSE 76–101; RESP 16–22; TEMP 36–36.6; O2SAT 92–99
[2020-02-23 05:29] LABS: Basophils Absolute Auto 0.1 K/mm3 (0.0-0.1); Basophils Percent Auto 0.8 % (0.2-1.2); Eosinophils Absolute Auto 0.3 K/mm3 (0-0.3); Hematocrit 40.5 % (42.0-52.0); Hemoglobin 13.3 g/dL (14.0-18.0); Immature Granulocyte Absolute 0.02 K/mm3 (0.00-0.031); Immature Granulocyte Percent A 0.2 % (0-0.5); Lymphocytes Absolute Auto 2.23 K/mm3 (0.9-3.2); Lymphocytes Percent Auto 25.7 % (18.3-44.2); Mean Corpuscular HGB Conc 32.8 g/dl (32-36); Mean Corpuscular Hemoglobin 31.5 pg (26-34); Mean Platelet Volume 9.4 fl (7.4-10.4); Monocytes Absolute Auto 0.6 K/mm3 (0.1-0.6); Monocytes Percent Auto 7.2 % (2.6-8.5); Neutrophils Absolute Auto 5.5 K/mm3 (1.3-6.7); Neutrophils Percent Auto 63.1 % (45.5-73.1); Platelet Count Result 343 k/mm3 (150-375); Red Blood Count 4.22 M/mm3 (4.6-6.20); Red Cell Distribution Width 13.2 % (11.5-14.5); White Blood Count 8.7 K/mm3 (4.5-10.0)
[2020-02-23 05:40] LABS: Anion Gap 4 mmol/L (8-16); Blood Urea Nitrogen 24 mg/dL (9-20); Calcium 9.1 mg/dL (8.4-10.2); Carbon Dioxide 34 mmol/L (22-30); Chloride 98 mmol/L (98-107); Cholesterol 196 mg/dL (0-200); Estimated CRCL calculation 90 ml/min; Estimated Glomerular Filt Rate > 60; Glucose 128 mg/dL (75-110); HDL Direct 28 mg/dL; Magnesium 2.2 mg/dL (1.6-2.3); Potassium 4.1 mmol/L (3.4-5.0); Sodium 136 mmol/L (137-145); Triglycerides 216 mg/dL (<150)
[2020-02-23 05:50] LABS: LDL Cholesterol Direct 147 mg/dL
[2020-02-23] MEDS: FUROSEMIDE INJ 40 MG/4 ML VIAL IV PUSH ×2 (08:32→20:07)
[2020-02-23] MEDS: SPIRONOLACTONE 25 MG TABLET PO (08:33)
[2020-02-23] MEDS: lisinopriL 20 MG TABLET PO (08:33)
[2020-02-23] MEDS: ENOXAPARIN 40 MG/0.4 ML SYRINGE SUB-Q (08:33)
[2020-02-23] MEDS: ASPIRIN 81 MG ENTERIC TABLET PO (08:33)
[2020-02-23] MEDS: carvediloL 25 MG TABLET PO ×2 (08:33→20:07)
--- NOTE | 2020-02-23 09:02 | PC.NURSE ---
patient requests to be placed on oxygen. pt reports feeling short of breath after sleeping for extended amounts of time. educated pt on oxygen use and when clinically necessary. continuous pulse ox applied. will monitor oxygen saturations while pt sleeps.
--- NOTE | 2020-02-23 09:46 | PM.PNCARD ---
Progress Note: A&P Assessment and Plan (1) Elevated troponin: Code(s): R77.8 - Other specified abnormalities of plasma proteins Status: Acute Assessment and Plan: Patient is a 39-year-old white man with history of heart failure with reduced ejection fraction with nonischemic cardiomyopathy, status post ICD (01/09/2020, [employer], Dr. Swain), left bundle-branch block, hypertension, dyslipidemia, methamphetamine use (for 20 years), tobacco dependence, medical noncompliance, was seen in cardiac consultation for chief complaint of chest pain. -Troponin I was initially elevated 0.056, then 0.054, then 0.055, with minimal elevation and flat trend not suggestive of non ST elevation myocardial infarction. -his minimal troponin elevation is occurring in the setting of acute on chronic heart failure with reduced ejection fraction. -continue aspirin. -his atypical presenting chest pain is much improved. EKG with chronic left bundle-branch block. -Previously, in the setting of mild flat troponin elevation and acute congestive heart failure, he had LHC on 12/26/2018. RCA: Dominant vessel, showed mid RCA significant irregularity with a 25% disease. -obtained fasting lipid panel with LDL 147, so initiated atorvastatin 40 mg q.h.s.. (2) Acute exacerbation of CHF (congestive heart failure): Qualifiers: Heart failure type: unspecified Qualified Code(s): I50.9 - Heart failure, unspecified Code(s): I50.9 - Heart failure, unspecified Status: Acute Assessment and Plan: -he has acute on chronic heart failure with preserved ejection fraction and nonischemic cardiomyopathy, occurring in the setting of noncompliance with a low-sodium diet, noncompliance with his medications, continued methamphetamine use/exposure, and noncompliance with CPAP. -the importance of compliance for these multiple issues was addressed in detail with the patient. -he needs CPAP initiation as an outpatient for his moderate sleep apnea. -continue diuresis with Lasix 40 mg IV b.i.d. with careful monitoring of renal function and electrolytes. Continue his outpatient lisinopril and Aldactone. -increased carvedilol to his outpatient regimen of 25 mg b.i.d. given his persistent resting sinus tachycardia, although he was not compliant with his cardiovascular medications with the exception of Lasix for the last 2 weeks. -obtain interrogation of his recent [employer] ICD. -no need to repeat echo as he had recent echo as below. -Recently, he had an echocardiogram 11/23/19: LV chamber is moderately dilated. LV wall thickness is mildly increased. LV systolic function is severely reduced. The LVEF is 25-30% (abnormal). Right ventricle is top normal in size with low normal systolic function. Left atrium chamber is mildly dilated. There is moderate mitral regurgitation. There is mild tricuspid regurgitation. Moderate elevation of estimated RV systolic pressure. The estimated RV systolic pressure is 50 mmHg. There is trace posterior pericardial effusion. Sinus tachycardia. (3) Methamphetamine use: Code(s): F15.10 - Other stimulant abuse, uncomplicated Status: Chronic Assessment and Plan: -the importance of cessation of methamphetamine use/exposure was emphasized with the patient. (4) Tobacco abuse: Code(s): Z72.0 - Tobacco use Status: Acute Assessment and Plan: -the importance of tobacco cessation was emphasized with the patient. (5) Atypical chest pain: Code(s): R07.89 - Other chest pain Status: Acute Assessment and Plan: -he had atypical chest pain improved with walking and with stretching. -His atypical chest pain is currently much improved. (6) Person under investigation for COVID-19: Code(s): Z20.828 - Contact with and (suspected) exposure to other viral communicable diseases Status: Acute Assessment and Plan: -COVID-19 PCR negative. Subjective Date/time seen: 02/23/20 09:46 Xiomara
--- NOTE | 2020-02-23 10:19 | PC.NURSE ---
pt continuously dropped while sleeping, into the 70's, 74% being the lowest pulse ox reading noted on the monitor. He would immediately wake himself and return to 97%. RN questioned patient regarding sleep apnea. Stated he had a sleep study performed in March 2019. He has home orders to obtain a cpap machine but has not received it yet. 2L NC placed on patient while sleeping. Will continue to monitor pulse oximetry.
--- NOTE | 2020-02-23 14:59 | PM.IMPN ---
Progress Note: A&P Assessment and Plan (1) Chest pain at rest: Code(s): R07.9 - Chest pain, unspecified Status: Resolved (2) Acute exacerbation of CHF (congestive heart failure): Qualifiers: Heart failure type: unspecified Qualified Code(s): I50.9 - Heart failure, unspecified Code(s): I50.9 - Heart failure, unspecified Status: Acute Assessment and Plan: r/o Acute systolic heart failure exacerbation.Continue to diuresis until mat, Pt really wants to go home mat (3) Person under investigation for COVID-19: Code(s): Z20.828 - Contact with and (suspected) exposure to other viral communicable diseases Status: Ruled-out Assessment and Plan: The patient has been swabbed for COVID-19. RULED OUT (4) Abnormal glucose: Code(s): R73.09 - Other abnormal glucose Status: Acute Assessment and Plan: r/o diabetes mellitus. Check HgbA1c. (5) Leukocytosis: Qualifiers: Leukocytosis type: unspecified Qualified Code(s): D72.829 - Elevated white blood cell count, unspecified Code(s): D72.829 - Elevated white blood cell count, unspecified Status: Acute Assessment and Plan: No signs of acute infection. (6) Elevated troponin: Code(s): R77.8 - Other specified abnormalities of plasma proteins Status: Acute Assessment and Plan: r/o ACS vs. troponin leak from heart failure. Trend troponin. (7) HTN (hypertension): Qualifiers: Hypertension type: unspecified Qualified Code(s): I10 - Essential (primary) hypertension Code(s): I10 - Essential (primary) hypertension Status: Chronic Assessment and Plan: Monitor blood pressure. Continue lisinopril and Coreg. (8) Normocytic anemia: Code(s): D64.9 - Anemia, unspecified Status: Chronic Assessment and Plan: Likely anemia of chronic disease. (9) Tobacco dependence: Code(s): F17.200 - Nicotine dependence, unspecified, uncomplicated Status: Chronic Assessment and Plan: Smoking cessation advised Subjective Date/time seen: 02/23/20 14:59 Interval history: 39 year old severe nonischemic cardiomyopathy s/p ACID placement approximately 1 month ago who presented to the hospital today with a complaint of severe left sided chest pain that started while at rest today. Pt is a smoker and uses methamphetamines. Pt has not been taking his medications correctly, non compliance admitted volume overloaded. Review of Systems Review of Systems: All systems reviewed & are unremarkable except as noted in HPI and below Exam Const: General: cooperative, alert and awake Nutritional Appearance: obese Orientation/consciousness: patient oriented x3 HENMT: Head: normal to inspection General nose exam: Normal external nose present Face and sinus: normal facial exam Mouth: Yes Normal oral and palatal mucosa present and Yes oropharynx normal Eyes: Pupils: Equal, round and reactive pupils present EOM: EOMs intact bilaterally Neck: Neck: supple and no JVD Thyroid: thyroid normal Cardio: Rate: tachycardic Rhythm: regular rhythm Heart sounds: no murmurs GI: Inspection: normal to inspection Auscultation: normal bowel sounds Skin: General skin exam: normal color and no rashes or lesions noted Neuro: General: patient oriented x3 Cranial nerves: Yes CN's II-XII intact bilaterally and Yes Equal, round and reactive pupils present Speech: normal speech Motor exam (neuro): 5/5 motor strength present throughout Sensory Exam: normal sensation Extrem: General: normal to inspection and edema bilateral Psych: Mental Status: mental status grossly normal Affect: normal affect Objective Data Vital Signs Vital Signs: Vital Signs - 24 hr 02/22/20 16:00 02/22/20 19:26 02/22/20 20:00 Temperature 37.1 C 36.9 C Pulse Rate 61 93 85 Respiratory Rate 22 H 20 Blood Pressure 112/88 110/75 Pulse Oximetry 97 95
--- NOTE | 2020-02-23 17:04 | PC.NURSE ---
Interrogation of [employer] ICD completed with equipment borrowed from ED.
[2020-02-23] MEDS: NICOTINE (*PBKC) 14 MG PATCH 1 PATCH TRANSDERM (17:09)
[2020-02-23] MEDS: MELATONIN 3 MG TABLET PO (20:07)
[2020-02-23] MEDS: ATORVASTATIN 40 MG TABLET PO (20:07)
[2020-02-23] MEDS: HYDROcodone/acetaminophen (*CRX) 5-325 MG TABLET 1 TAB PO (20:10)
[2020-02-23] MEDS: MORPHINE SULFATE (*CRX) 4 MG/ML INJ IV PUSH (23:41)
[2020-02-24] VITALS (8 sets, daily range): BP systolic 91–115; BP diastolic 66–83; PULSE 83–96; RESP 17–20; TEMP 30.1–36.6; O2SAT 95–99
[2020-02-24] MEDS: carvediloL 25 MG TABLET PO (08:25)
[2020-02-24] MEDS: NICOTINE (*PBKC) 14 MG PATCH 1 PATCH TRANSDERM (08:25)
[2020-02-24] MEDS: SPIRONOLACTONE 25 MG TABLET PO (08:25)
[2020-02-24] MEDS: ASPIRIN 81 MG ENTERIC TABLET PO (08:25)
[2020-02-24] MEDS: ENOXAPARIN 40 MG/0.4 ML SYRINGE SUB-Q (08:26)
[2020-02-24] MEDS: FUROSEMIDE INJ 40 MG/4 ML VIAL IV PUSH (08:26)
[2020-02-24] MEDS: lisinopriL 20 MG TABLET PO (08:26)
--- NOTE | 2020-02-24 13:06 | PM.DS ---
DS: Discharge Diagnosis Discharge Diagnosis (1) Acute exacerbation of CHF (congestive heart failure): Qualifiers: Heart failure type: unspecified Qualified Code(s): I50.9 - Heart failure, unspecified Code(s): I50.9 - Heart failure, unspecified Status: Acute (2) Elevated troponin: Code(s): R77.8 - Other specified abnormalities of plasma proteins Status: Acute (3) Normocytic anemia: Code(s): D64.9 - Anemia, unspecified Status: Chronic (4) Tobacco abuse: Code(s): Z72.0 - Tobacco use Status: Acute (5) Non-ischemic cardiomyopathy: Code(s): I42.8 - Other cardiomyopathies Status: Acute (6) Impaired glucose tolerance: Code(s): R73.02 - Impaired glucose tolerance (oral) Status: Acute DS: Summary Time Spent with Patient Time attestation: Total time spent providing and/or coordinating discharge services: Exam Narrative: Exam Narrative: HEENT: EOMI, PERRL, sclerae nonicteric, pharyngeal mucosa pink and intact NECK: No JVD CHEST: Clear to auscultation. Normal effort. HEART: NL S1/S2, regular, no murmur ABDOMEN: BS+, soft, nontender, no mass, no bruits EXTREMITIES: No cyanosis, edema, or clubbing NEUROLOGIC: CN intact and symmetric to inspection. MUSCULOSKELETAL: Tone and strength symmetric. PSYCH: Alert. Oriented to person, place, and time. Discharge Plan Discharge Consulting providers: Master Vegas Discharging Clinician: Kulwinder De Leon Patient Disposition: Home, Self-Care Activity: no straining Diet: heart healthy and diabetic Patient Instructions: Heart Failure (DC), Chest Pain (DC) Stand Alone Forms: General Discharge Information Follow-up/Referrals: Master Vegas MD [Physician] - 1 Week Discharge Medications: Continued spironolactone 25 mg Tablet 25 mg PO DAILY RF: 0 furosemide 40 mg tablet 40 mg PO BID RF: 0 carvedilol [Coreg] 12.5 mg tablet 25 mg PO DAILY RF: 0 lisinopril 20 mg Tablet 20 mg PO QAM Qty: 30 RF: 2 Date of admission: 02/21/20 23:22 Primary Care Provider: Mo Barfield Admitting Provider: Tunde Suazo Attending physician on admission: Tunde Suazo Condition: Stable Quality VTE Prophylaxis VTE prophylaxis: pharmacologic ordered
--- NOTE | 2020-02-24 13:25 | PM.PNCARD ---
Progress Note: A&P Assessment and Plan (1) Elevated troponin: Code(s): R77.8 - Other specified abnormalities of plasma proteins Status: Acute Assessment and Plan: Patient is a 39-year-old white man with history of heart failure with reduced ejection fraction with nonischemic cardiomyopathy, status post ICD (01/09/2020, [employer], Dr. Swain), left bundle-branch block, hypertension, dyslipidemia, methamphetamine use (for 20 years), tobacco dependence, medical noncompliance, was seen in cardiac consultation for chief complaint of chest pain. -Troponin I was initially elevated 0.056, then 0.054, then 0.055, with minimal elevation and flat trend not suggestive of non ST elevation myocardial infarction. -his minimal troponin elevation is occurring in the setting of acute on chronic heart failure with reduced ejection fraction. -continue aspirin. -his atypical presenting chest pain is much improved. EKG with chronic left bundle-branch block. -Previously, in the setting of mild flat troponin elevation and acute congestive heart failure, he had LHC on 12/26/2018. RCA: Dominant vessel, showed mid RCA significant irregularity with a 25% disease. -obtained fasting lipid panel with LDL 147, so initiated atorvastatin 40 mg q.h.s.. (2) Acute exacerbation of CHF (congestive heart failure): Qualifiers: Heart failure type: unspecified Qualified Code(s): I50.9 - Heart failure, unspecified Code(s): I50.9 - Heart failure, unspecified Status: Acute Assessment and Plan: -he has acute on chronic heart failure with preserved ejection fraction and nonischemic cardiomyopathy, occurring in the setting of noncompliance with a low-sodium diet, noncompliance with his medications, continued methamphetamine use/exposure, and noncompliance with CPAP. -the importance of compliance for these multiple issues was addressed in detail with the patient. -he needs CPAP initiation as an outpatient for his moderate sleep apnea. -given his episode of hypothermia and diaphoresis with some associated dyspnea on the morning of 02/24/2020, possibly when he was awakening from a brief daytime nap, monitor for apnea and monitor pulse oximetry. -continue diuresis with Lasix 40 mg IV b.i.d. with careful monitoring of renal function and electrolytes. Continue his outpatient lisinopril and Aldactone. -increased carvedilol to his outpatient regimen of 25 mg b.i.d. given his persistent resting sinus tachycardia, although he was not compliant with his cardiovascular medications with the exception of Lasix for the last 2 weeks. -obtained good interrogation of his recent Medtronic ICD 02/23/2020. -no need to repeat echo as he had recent echo as below. -Recently, he had an echocardiogram 11/23/19: LV chamber is moderately dilated. LV wall thickness is mildly increased. LV systolic function is severely reduced. The LVEF is 25-30% (abnormal). Right ventricle is top normal in size with low normal systolic function. Left atrium chamber is mildly dilated. There is moderate mitral regurgitation. There is mild tricuspid regurgitation. Moderate elevation of estimated RV systolic pressure. The estimated RV systolic pressure is 50 mmHg. There is trace posterior pericardial effusion. Sinus tachycardia. (3) Methamphetamine use: Code(s): F15.10 - Other stimulant abuse, uncomplicated Status: Chronic Assessment and Plan: -the importance of cessation of methamphetamine use/exposure was emphasized with the patient. -given his episode of hypothermia, consider possible sepsis with endocarditis, but patient denies any recent IV drug use, with last IV drug use 1 year ago. (4) Tobacco abuse: Code(s): Z72.0 - Tobacco use Status: Acute Assessment and Plan: -the importance of tobacco cessation was emphasized with the patient. (5) Atypical chest pain: Code(s): R07.89 - Other chest pain Status: Acute Assessment and Plan: -he had atypical c
--- NOTE | 2020-02-24 15:44 | PM.DS ---
DS: Admitting Diagnosis Admitting Diagnosis Admitting Diagnosis: chest pain DS: Discharge Diagnosis Discharge Diagnosis (1) Acute exacerbation of CHF (congestive heart failure): Qualifiers: Heart failure type: unspecified Qualified Code(s): I50.9 - Heart failure, unspecified Code(s): I50.9 - Heart failure, unspecified Status: Acute Assessment and Plan: Resolved Encouraged medication adherence and low salt diet. (2) Elevated troponin: Code(s): R77.8 - Other specified abnormalities of plasma proteins Status: Acute Assessment and Plan: due to cardiomyopathy (3) Normocytic anemia: Code(s): D64.9 - Anemia, unspecified Status: Chronic Assessment and Plan: Likely anemia of chronic disease. (4) Tobacco abuse: Code(s): Z72.0 - Tobacco use Status: Acute Assessment and Plan: Encouraged to quit smoking (5) Non-ischemic cardiomyopathy: Code(s): I42.8 - Other cardiomyopathies Status: Acute (6) Impaired glucose tolerance: Code(s): R73.02 - Impaired glucose tolerance (oral) Status: Acute Assessment and Plan: Discussed need to eat regularly and avoid refined sugar DS: Summary Hospital Course Reason for hospitalization: chest discomfort and dyspnea Hospital Course: 39 y/o male with known nonischemic cardiomyopathy was noncompliant with diet and meds. He became increasingly sob with ADLS with associated mild chest discomfort. Troponin was elevated but relatively flat, cxr with cardiomegaly, EKG with LBBB. He responded well to restarting medications and administration of IV furosemide. He was comfortable, tolerating diet, and performin ADLs on day of discharge. Prior to lunch he did experience sweats and lightheadedness that resolved with eating. His cardiac rhythm was sinus during the spell and his vitals remained stable. Time Spent with Patient Time attestation: Total time spent providing and/or coordinating discharge services: 35 min Exam Narrative: Exam Narrative: HEENT: EOMI, PERRL, sclerae nonicteric, pharyngeal mucosa pink and intact NECK: No JVD, adenopathy, or thyromegaly CHEST: Clear to auscultation. Normal effort. HEART: NL S1/S2, regular, no murmur ABDOMEN: BS+, soft, nontender, no mass, no bruits EXTREMITIES: No cyanosis, edema, or clubbing NEUROLOGIC: CN intact and symmetric to inspection. MUSCULOSKELETAL: Tone and strength symmetric. PSYCH: Alert. Oriented to person, place, and time. Discharge Plan Discharge Consulting providers: Master Vegas Discharging Clinician: Kulwinder De Leon Patient Disposition: Home, Self-Care Activity: no straining Diet: heart healthy and diabetic Discharge Instructions: Follow up with [facility] [phone] for further testing to obtain CPAP machine SABRA. Patient Instructions: Heart Failure (DC), Chest Pain (DC), Sleep Apnea (DC), How to Stop Smoking (DC) Stand Alone Forms: General Discharge Information Follow-up/Referrals: Master Vegas MD [Physician] - 1 Week (Needs f/u for med compliance, sleep study for cpap titration, lab. ) Discharge Medications: Continued spironolactone 25 mg Tablet 25 mg PO DAILY RF: 0 furosemide 40 mg tablet 40 mg PO BID RF: 0 carvedilol [Coreg] 12.5 mg tablet 25 mg PO DAILY RF: 0 lisinopril 20 mg Tablet 20 mg PO QAM Qty: 30 RF: 2 Date of admission: 02/21/20 23:22 Primary Care Provider: Mo Barfield Admitting Provider: Tunde Suazo Attending physician on admission: Tunde Suazo Condition: Stable Quality VTE Prophylaxis VTE prophylaxis: pharmacologic ordered
--- NOTE | 2020-02-24 15:55 | PC.NURSE ---
pt scratching at legs, reddened circles around eyes, sat straight up in bed and started to vocalize, I am leaving, I cannot stay here anymore. repeatedly. RN asked the pt why he felt he needed to leave, I am fine. I don't need to be here anymore. . Dr. Webber contacted, stressed the importance that the patient follows up with sleep center for moderate sleep apnea chris and cardiology in [address] Webber would like to discourage discharge and monitor an additional night but will leave final decision up to Hospitalist. When approached, pt declined to stay. Dr. De Leon contacted, will write discharge orders.
== END 2020-02-24 16:30 | disposition home or self-care (01) ==
LOC: ANHED 21:42 → ANHIMU 23:37 → ANHCPC 02-24 13:08 → ANHIMU 02-27 13:27
PROVIDERS: Internal Medicine Cardiovascular Disease; Admitting Provider Family Medicine; Emergency Provider Emergency Medicine; PCP Emergency Medicine; Visit Provider Internal Medicine
DX: R07.89 Other chest pain (principal); R06.02 Shortness of breath; I11.0 Hypertensive heart disease with heart failure; I50.9 Heart failure, unspecified; I42.8 Other cardiomyopathies; R73.09 Other abnormal glucose; D72.829 Elevated white blood cell count, unspecified; R77.8 Other specified abnormalities of plasma proteins; D64.9 Anemia, unspecified; Z20.828 Contact with and (suspected) exposure to other viral communicable diseases; I44.7 Left bundle-branch block, unspecified; E78.5 Hyperlipidemia, unspecified; I25.2 Old myocardial infarction; F17.210 Nicotine dependence, cigarettes, uncomplicated; F15.90 Other stimulant use, unspecified, uncomplicated; Z95.810 Presence of automatic (implantable) cardiac defibrillator; Z79.899 Other long term (current) drug therapy
CPT/HCPCS: 36415; 71046; 80048; 80061; 80307; 81003; 83036; 83735; 83880; 84443; 84484; 85025; 85610; 85730; 93005; 96372; 96374; 96375; 96376; 99285; A9270; C9803; G0378; G0379; J1650; J1940; J2270; U0003

== ENCOUNTER → 2020-04-15 03:26 | Outpatient (CLI) | payer OTHER, SELFPAY ==
[2020-04-15 20:35] LABS: SARS-CoV-2 RNA PCR Negative
== END ==
PROVIDERS: PCP Emergency Medicine; Visit Provider Internal Medicine Critical Care Medicine
DX: Z01.812 Encounter for preprocedural laboratory examination (principal); Z20.822 Contact with and (suspected) exposure to COVID-19
CPT/HCPCS: C9803; U0003; U0005

== ENCOUNTER 2020-04-17 09:06 | Outpatient (CLI) | payer OTHER, SELFPAY ==
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
[2020-05-02 18:29] VITALS: BMI 36.5
== END 2020-04-17 09:07 | disposition home or self-care (01) ==
LOC: ANHCSM 09:07
PROVIDERS: PCP Emergency Medicine; Visit Provider Specialist
DX: G47.33 Obstructive sleep apnea (adult) (pediatric) (principal)
CPT/HCPCS: 95811

== ENCOUNTER 2020-06-05 14:51 | Emergency (ER) | payer OTHER, SELFPAY ==
--- NOTE | ~2020-06-05 | XR_ITS ---
EXAMINATION: XR chest 2V DATE: 06/05/2020 15:30 INDICATION: Shortness of breath TECHNIQUE: PA and lateral views of the chest are obtained. COMPARISON: 02/21/2020 FINDINGS: Cardiomegaly is noted. There is a single lead pacemaker the left chest wall which ends with its lead in the right ventricle. A mild diffuse interstitial pattern is present. There is no pleural effusion or pneumothorax. The visualized osseous structures are unremarkable. IMPRESSION: 1. Cardiomegaly with possible mild pulmonary edema. Reviewed, dictated and finalized at location B.
--- NOTE | 2020-06-05 14:54 | ECG_ITS ---
Measurements Intervals [place] Rate: 70 P: 49 AK: 158 QRS: -38 QRSD: 185 T: 67 QT: 452 QTc: 491 Interpretive Statements SINUS RHYTHM WITH SECOND DEGREE AV BLOCK, TYPE I ([place]) LEFT AXIS DEVIATION LEFT BUNDLE BRANCH BLOCK BASELINE ARTIFACT- I, II, III, AVR, AVL ABNORMAL ECG Electronically Signed On 06-05-2020 17:21:35 CDT by Fawad Murdock D.O.
[2020-06-05 15:01] VITALS: BP 127/97; PULSE 38; RESP 20; TEMP 35.7; O2SAT 99
[2020-06-05 15:09] VITALS: BP 134/75; PULSE 102; RESP 28; O2SAT 100
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
[2020-06-05 15:23] VITALS: PULSE 98
[2020-06-05 15:23] LABS: Basophils Absolute Auto 0.1 K/mm3 (0.0-0.1); Basophils Percent Auto 0.7 % (0.2-1.2); Eosinophils Absolute Auto 0.2 K/mm3 (0-0.3); Eosinophils Percent Auto 1.8 % (0-4.4); Hematocrit 42.7 % (42.0-52.0); Immature Granulocyte Absolute 0.04 K/mm3 (0.00-0.031); Immature Granulocyte Percent A 0.4 % (0-0.5); Lymphocytes Absolute Auto 2.44 K/mm3 (0.9-3.2); Lymphocytes Percent Auto 23.6 % (18.3-44.2); Mean Corpuscular HGB Conc 32.8 g/dl (32-36); Mean Corpuscular Hemoglobin 31.7 pg (26-34); Mean Corpuscular Volume 96.6 fl (80-100); Mean Platelet Volume 9.7 fl (7.4-10.4); Monocytes Absolute Auto 0.8 K/mm3 (0.1-0.6); Monocytes Percent Auto 7.7 % (2.6-8.5); Neutrophils Absolute Auto 6.8 K/mm3 (1.3-6.7); Neutrophils Percent Auto 65.8 % (45.5-73.1); Platelet Count Result 289 k/mm3 (150-375); Red Blood Count 4.42 M/mm3 (4.6-6.20); Red Cell Distribution Width 13.4 % (11.5-14.5); White Blood Count 10.3 K/mm3 (4.5-10.0)
[2020-06-05 15:34] LABS: Anion Gap 5 mmol/L (8-16); Blood Urea Nitrogen 26 mg/dL (9-20); Calcium 9.3 mg/dL (8.4-10.2); Carbon Dioxide 34 mmol/L (22-30); Chloride 99 mmol/L (98-107); Estimated CRCL calculation 84 ml/min; Estimated Glomerular Filt Rate 56; Glucose 138 mg/dL (75-110); Sodium 138 mmol/L (137-145)
[2020-06-05 15:47] LABS: NT Pro B Type Natriuretic Pept 1100 PG/ML (5-100); Troponin I 0.018 ng/mL (0.000-0.034)
[2020-06-05 16:00] VITALS: BP 128/77; PULSE 98; RESP 20; O2SAT 96
[2020-06-05 16:07] LABS: Prothrombin Time 13.4 Seconds (11.1-14.7)
[2020-06-05 16:08] LABS: Partial Thromboplastin Time 30.3 SECONDS (22.3-36.8)
[2020-06-05 17:08] VITALS: BP 134/105; PULSE 82; RESP 19; O2SAT 98
--- NOTE | 2020-06-05 18:05 | PC.NURSE ---
Patient witnessed walking out of the ED at this time through emergency doors. Patient in no distress at this time.
== END 2020-06-05 18:06 | disposition left against medical advice (07) ==
LOC: ANHED 15:38
PROVIDERS: Emergency Provider Emergency Medicine; PCP Physician Assistant
DX: I42.8 Other cardiomyopathies (principal); I44.1 Atrioventricular block, second degree; G47.33 Obstructive sleep apnea (adult) (pediatric); I50.9 Heart failure, unspecified; I11.0 Hypertensive heart disease with heart failure; E78.5 Hyperlipidemia, unspecified; I25.2 Old myocardial infarction; Z95.810 Presence of automatic (implantable) cardiac defibrillator; F17.210 Nicotine dependence, cigarettes, uncomplicated; I51.7 Cardiomegaly; I44.7 Left bundle-branch block, unspecified
CPT/HCPCS: 36415; 71046; 80048; 83735; 83880; 84484; 85025; 85610; 85730; 93005; 99284

== ENCOUNTER 2020-08-11 09:24 | Outpatient (CLI) | payer OTHER, SELFPAY ==
--- NOTE | 2020-08-11 14:03 | WPDSIXMINUTE ---
Six Minute Walk Procedure Procedure Performed Pulmonary Stress Test (6 min walk) Six Minute Walk This is a 6 minutes walk test. The test was performed and interpreted in accordance with the 2014 ERS/ATS task force guidelines. Findings: The patient's resting room air oxygen saturation measured by pulse oximetry was 96% and her heart rate was 45 bpm. Patient ambulated for 305 meters and oxygen saturation remained 92 to 99%. Heart rate at the end of the study was 77 bpm. The patient did not qualify for supplemental oxygen at rest or with ambulation. There are no prior studies for comparison.
--- NOTE | 2020-08-11 14:04 | WPDPFTINT ---
PFT Procedure Performed PFT Procedure Performed Spirometry with Pre/Post Bronchodilator Plethysmography (Lung Vol) Diffusing Cap (DLCO) Flow Vol Loop PFT Interpretation This is a pulmonary function test with pre and post-bronchodilator spirometry, plethysmography and diffusing capacity. The test was performed and results interpreted in accordance with the 2019 and 2005 ATS/ERS Task Force guidelines respectively using the Global Lung Function Initiative-2012 reference equations. Patient demonstrated good effort and cooperation. Reproducibility criteria were met. The quality of the pre bronchodilator spirometry maneuver was Grade B and post bronchodilator spirometry maneuver was Grade B. Findings: Spirometry: The contour the inspiratory and expiratory flow tracing are normal. The pre bronchodilator FVC is 2.90 L, 60% predicted. The pre bronchodilator FEV1 is 2.34 L, 60% predicted. The FEV1: FVC ratio was 81%. The post bronchodilator FVC 2.87 L, representing 1% decrease. The post bronchodilator FEV1 is 2.28 L, representing a 3% decrease. Plethysmography,: The total lung capacity is 5.48 L, 84% predicted. Functional residual capacity is 2.52 L, 77% predicted. The residual volume is 2.43 L, 137% predicted. Diffusing capacity: The absolute diffusion capacity is 22.5, 71% predicted. The diffusing capacity corrected for alveolar volume is 5.37, 109% predicted. Impression: The spirometry is normal without evidence of an obstructive abnormality. There is no significant improvement after inhaling a single dose of albuterol. The lung volumes are normal. The FEV1is moderately decreased with normal expiratory flows and no evidence of an obstructive or restrictive abnormality, This is an abnormal but nonspecific finding. The absolute diffusing capacity is mildly decreased and normalizes when corrected for alveolar volume. There are no prior studies for comparison
== END 2020-08-11 09:25 | disposition home or self-care (01) ==
PROVIDERS: PCP Physician Assistant; Visit Provider Internal Medicine Critical Care Medicine
DX: R06.02 Shortness of breath (principal); Z72.0 Tobacco use
CPT/HCPCS: 94060; 94618; 94726; 94729

== ENCOUNTER → 2020-11-11 04:26 | Outpatient (CLI) | payer OTHER, SELFPAY ==
[2020-11-11 18:19] LABS: SARS-CoV-2 RNA PCR Negative
== END ==
PROVIDERS: PCP Family Medicine; Visit Provider Family Medicine
DX: R50.9 Fever, unspecified (principal); Z20.822 Contact with and (suspected) exposure to COVID-19
CPT/HCPCS: C9803; U0003; U0005

== ENCOUNTER 2021-01-28 12:39 | Outpatient (CLI) | payer OTHER, SELFPAY ==
--- NOTE | ~2021-01-28 | XR_ITS ---
EXAMINATION: XR chest 2V DATE: 01/28/2021 13:10 INDICATION: Shortness of breath. TECHNIQUE: Frontal and lateral views of the chest were obtained. COMPARISON: Chest 2 views 06/05/2020, chest CT 12/24/2018 FINDINGS: The lung volumes are small. No pneumonia, pleural effusion, or pneumothorax. Cardiomegaly i s noted. There is a left chest pacer/defibrillator with lead in right ventricle. IMPRESSION: 1. Cardiomegaly. Reviewed, dictated and finalized at location A. RAL OPERATIONS AGENT IMPRESSION: 1. Cardiomegaly.
--- NOTE | ~2021-01-28 | NM_ITS ---
EXAMINATION: NM pulmonary perfusion DATE: 01/28/2021 13:12 INDICATION: Shortness of breath. TECHNIQUE: 5 mCi Tc-99m MAA was administered intravenously for perfusion images. Scintigraphic image s of the chest were obtained. COMPARISON: Chest 2 views 01/28/2021 FINDINGS: Perfusion images show a small defect in left upper lobe. IMPRESSION: 1. Pulmonary embolism absent (low probability for pulmonary embolism). Reviewed, dictated and finalized at location A. ESS CLERK
== END 2021-01-28 12:40 | disposition home or self-care (01) ==
LOC: ANHIMG 12:40
PROVIDERS: PCP Family Medicine; Visit Provider Nurse Practitioner Family
DX: R06.02 Shortness of breath (principal); I50.9 Heart failure, unspecified; I51.7 Cardiomegaly
CPT/HCPCS: 71046; 78580; A9540

== ENCOUNTER 2021-05-12 09:04 | Inpatient (IN) | payer OTHER, SELFPAY ==
[2021-05-12] VITALS (25 sets, daily range): BP systolic 134–168; BP diastolic 72–109; PULSE 79–100; RESP 20–247; TEMP 35.7–36.9; O2SAT 80–99; BMI 45.2; BMI 48.5
--- NOTE | 2021-05-12 | ECHO_ITS ---
Patient Info Name: Isaiah La Age: 41 years : 1980 Gender: Male Ht: 69 in Wt: 306 lbs BSA: 2.67 m2 HR: 90 bpm BP: 147 / 109 mmHg Heart Rhythm: Sinus Rhythm Exam Date: 05/12/2021 2:22 PM Exam Location: [facility] Patient Status: Inpatient Admit Date: 05/12/2021 Staff Ordering Physician: Ilya Zamora M.A., MD Cloud Software Engineer: Chilo Johnson RDCS, RT Attending Provider: Ilya Zamora M.A., MD Referring Physician: Jesse ALEMAN; Exam Type: CA echo dop color flow w con Study Info Indications I50.9 - Heart failure, unspecified Complete two-dimensional, color flow and Doppler transthoracic echocardiogram is performed with contrast to opacify the left ventricle and to improve the deliniation of the left ventricle endocardial borders. Strain analysis performed. Summary 1. Complete two-dimensional, color flow and Doppler transthoracic echocardiogram is performed with contrast to opacify the left ventricle and to improve the deliniation of the left ventricle endocardial borders. 2. Strain analysis performed. 3. Left ventricular chamber dimension is severely enlarged. 4. Left ventricular systolic function is severely reduced, estimated at 15-20%. 5. Left ventricular septal wall motion is abnormal with septal motion related to bundle branch block. 6. The left ventricular diastolic function is abnormal. 7. Global longitudinal strain is abnormal at -5 %. 8. Left atrial chamber dimension is mildly enlarged. 9. There is severe mitral valve regurgitation. 10. There is mild to moderate tricuspid valve regurgitation. 11. Severe pulmonary hypertension, estimated pulmonary arterial systolic pressure is 86 mmHg. 12. There is mild pulmonic regurgitation. Left Ventricle Left ventricular chamber dimension is severely enlarged. Left ventricular systolic function is severely reduced, estimated at 15-20%. Left ventricular septal wall motion is abnormal with septal motion related to bundle branch block. The left ventricular diastolic function is abnormal. Global longitudinal strain is abnormal at -5 %. Right Ventricle Right ventricular chamber dimension is normal. Right ventricular systolic function is normal. Left Atria Left atrial chamber dimension is mildly enlarged. Right Atria Right atrial chamber dimension is normal. Atrial Septum Intact interatrial septum visualized by color flow imaging. Aortic Valve The aortic valve is probable trileaflet. There is mild aortic valve sclerosis. There is no aortic valve stenosis. There is trace aortic valve regurgitation. Pulmonic Valve The pulmonic valve is normal. There is no pulmonic valve stenosis. There is mild pulmonic regurgitation. Mitral Valve The mitral valve has normal leaflets. There is no mitral valve stenosis. There is severe mitral valve regurgitation. Tricuspid Valve The tricuspid valve leaflets are normal. There is no significant tricuspid valve stenosis. There is mild to moderate tricuspid valve regurgitation. Severe pulmonary hypertension, estimated pulmonary arterial systolic pressure is 86 mmHg. Pericardium/Pleural The pericardium appears normal. There is trivial pericardial effusion. Inferior Vena Cava Dilated inferior vena cava with >50% collapse upon inspiration consistent with elevated right atrial pressure, 15 mmHg. Aorta The aortic root size at the sinus of Valsalva is normal. The prox ascending aorta size is normal. Left Ventricular Ou
--- NOTE | ~2021-05-12 | XR_ITS ---
EXAMINATION: XR chest 1V portable INDICATION: Shortness of breath TECHNIQUE: Portable AP chest at 0948 hours COMPARISON: 01/28/2021 FINDINGS: Cardiomegaly is noted. There is a mild diffuse interstitial pattern. A single lead pacemake r of the left chest wall ends with lead in the right ventricle. There is no pleural effusion or pneum othorax. IMPRESSION: 1. Cardiomegaly with mild pulmonary edema. Reviewed, dictated and finalized at location B.
--- NOTE | ~2021-05-12 | CT_ITS ---
EXAMINATION: CTA chest PE protocol DATE: 05/12/2021 10:10 INDICATION: Shortness of breath. Elevated d-dimer. TECHNIQUE: Computed tomography (CT) pulmonary angiogram of the chest was performed with 100 mL Omnipa que-350 intravenous contrast. Additional 3D reconstructions utilizing coronal maximum intensity proje ction (MIP) were performed. Automated exposure control and iterative reconstruction technique were em ployed. The dose-length product was 942.06 mGy-cm. COMPARISON: None FINDINGS: Excellent contrast opacification of the pulmonary arteries. There is mild streak artifact from dense contrast in the superior vena cava and right atrium. Mild to moderate scattered respiratory motion ar tifact most prominent at the bilateral lung bases which decreases sensitivity and specificity in some of the segmental and subsegmental pulmonary arteries primarily in the basilar segments of the bilate ral lower lobes. No definite pulmonary embolism. Subtle mosaic attenuation throughout both lungs most likely atelectasis related to suboptimal inspiratory effort although differential would include less likely minimal pulmonary edema or even less likely pneumonia. No pleural effusion. Cardiomegaly with prominent left ventricular enlargement. Single lead pacemaker/AICD with lead tip terminating near th e apex of the right ventricle. No pericardial effusion. Thoracic aorta is normal in caliber with no d issection. No pathologically enlarged thoracic lymphadenopathy. Recess portion of the upper abdomen a re unremarkable. Mild thoracic spondylosis. IMPRESSION: 1. No pulmonary embolism. Sensitivity decreased in some of the smaller segmental and subsegmental pul monary arteries at the lung bases due to respiratory motion. 2. Subtle mosaic attenuation which in order of likelihood could represent atelectasis related to subo ptimal inspiratory effort, minimal pulmonary edema or pneumonia. 3. Cardiomegaly with prominent left ventricular enlargement. Reviewed, dictated and finalized at location A. IMPRESSION: 1. No pulmonary embolism. Sensitivity decreased in some of the smaller segmenta l and subsegmental pulmonary arteries at the lung bases due to respiratory trina on. 2. Subtle mosaic attenuation which in order of likelihood could represent atele ctasis related to suboptimal inspiratory effort, minimal pulmonary edema or pne umonia. 3. Cardiomegaly with prominent left ventricular enlargement.
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
--- NOTE | 2021-05-12 09:17 | ECG_ITS ---
Measurements Intervals [place] Rate: 81 P: 59 NM: 167 QRS: -35 QRSD: 181 T: 91 QT: 400 QTc: 466 Interpretive Statements SINUS RHYTHM WITH FREQUENT SUPRAVENTRICULAR PREMATURE COMPLEXES TYPE 1 SECOND-DEGREE AV BLOCK POSSIBLE RIGHT ATRIAL ENLARGEMENT [0.25mV P WAVE] LEFT ATRIAL ENLARGEMENT [-0.15mV P WAVE IN V1/V2] MARKED LEFT AXIS DEVIATION [QRS AXIS < -30] LEFT BUNDLE BRANCH BLOCK [120+ ms QRS DURATION, 80+ ms Q/S IN V1/V2, 85+ ms R IN I/aVL/V5/V6] ABNORMAL ECG COMPARED TO ECG 06/05/2020 14:57:54 NO SIGNIFICANT CHANGES Electronically Signed On 05-12-2021 11:22:40 CDT by Geovanni Eid M.D.
[2021-05-12 09:29] LABS: Basophils Absolute Auto 0.1 K/mm3 (0.0-0.1); Basophils Percent Auto 0.8 % (0.2-1.2); Eosinophils Absolute Auto 0.2 K/mm3 (0-0.3); Eosinophils Percent Auto 2.1 % (0-4.4); Hematocrit 44.7 % (42.0-52.0); Hemoglobin 14.2 g/dL (14.0-18.0); Immature Granulocyte Absolute 0.03 K/mm3 (0.00-0.031); Immature Granulocyte Percent A 0.3 % (0-0.5); Lymphocytes Absolute Auto 2.08 K/mm3 (0.9-3.2); Lymphocytes Percent Auto 20.1 % (18.3-44.2); Mean Corpuscular HGB Conc 31.8 g/dl (32-36); Mean Corpuscular Hemoglobin 31.4 pg (26-34); Mean Corpuscular Volume 98.9 fl (80-100); Mean Platelet Volume 9.4 fl (7.4-10.4); Monocytes Absolute Auto 0.8 K/mm3 (0.1-0.6); Monocytes Percent Auto 7.6 % (2.6-8.5); Neutrophils Absolute Auto 7.2 K/mm3 (1.3-6.7); Neutrophils Percent Auto 69.1 % (45.5-73.1); Platelet Count Result 362 k/mm3 (150-375); Red Blood Count 4.52 M/mm3 (4.6-6.20); Red Cell Distribution Width 14.1 % (11.5-14.5); White Blood Count 10.4 K/mm3 (4.5-10.0)
[2021-05-12] MEDS: IPRATROPIUM BR 0.02% INH SOLN 0.5 MG/2.5 ML VIAL INHALATION (09:34)
[2021-05-12] MEDS: ALBUTEROL SULFATE NEB 2.5 MG/0.5 ML INH 5 MG INHALATION (09:34)
[2021-05-12 09:38] LABS: Alanine Aminotransferase 27 U/L (4-50); Albumin Level 4.2 g/dL (3.5-5.1); Alkaline Phosphatase 121 U/L (38-126); Anion Gap 6 mmol/L (8-16); Aspartate Amino Transferase 45 U/L (17-59); Bilirubin,Total 0.3 mg/dL (0.2-1.3); Blood Urea Nitrogen 28 mg/dL (9-20); Carbon Dioxide 33 mmol/L (22-30); Chloride 100 mmol/L (98-107); Estimated CRCL calculation 93 ml/min; Estimated Glomerular Filt Rate 60; Glucose 146 mg/dL (65-110); Magnesium 2.2 mg/dL (1.6-2.3); Potassium 4.1 mmol/L (3.4-5.0); Sodium 139 mmol/L (137-145)
[2021-05-12 09:47] LABS: NT Pro B Type Natriuretic Pept 3440 pg/mL (5-100)
[2021-05-12 09:48] LABS: Partial Thromboplastin Time 30.5 SECONDS (22.3-36.8); Prothrombin Time 12.7 Seconds (11.1-14.7)
[2021-05-12 09:51] LABS: D Dimer 0.71 ug/mL (<0.48)
[2021-05-12 09:54] LABS: Troponin I 0.048 ng/mL (0.000-0.034)
[2021-05-12 11:14] LABS: Troponin I 0.048 ng/mL (0.000-0.034)
[2021-05-12] MEDS: FUROSEMIDE INJ 40 MG/4 ML VIAL IV PUSH ×2 (12:11→16:05)
[2021-05-12] MEDS: methylPREDNISolone SOD SUCC 125 MG VIAL IV PUSH (12:11)
[2021-05-12] MEDS: ASPIRIN 81 MG CHEWABLE TABLET 324 MG PO (12:11)
--- NOTE | 2021-05-12 12:54 | ADMGEN ---
This patient, Isaiah La, was admitted to IMU Room 202-01. Patient/family oriented to hospital policies and general routines including ID bracelet, bed and alarms, visiting hours, pain management, procedures, bathroom and other care routines, personal items, smoking policy, room service/diet, and visiting hours. Information on how to activate the Rapid Response Team has been discussed. Patient/Family are encouraged to report perceived risks to care and to ask questions if they do not understand what they are told or what they should do.
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
[2021-05-12 13:56] LABS: Magnesium 2.2 mg/dL (1.6-2.3)
[2021-05-12 14:16] LABS: Troponin I 0.047 ng/mL (0.000-0.034)
[2021-05-12 14:26] LABS: Hemoglobin A1C 6.7 % (<5.7)
[2021-05-12 14:28] LABS: Procalcitonin 0.2 ng/mL
[2021-05-12] MEDS: PERFLUTREN LIPID MICROSPHERES 1.5 ML VIAL DILUTED TO 10 ML TOTAL VOLUME IV PUSH (14:29)
--- NOTE | 2021-05-12 14:47 | PM.CNCAR ---
Assessment and Plan Assessment and plan (1) Congestive heart failure due to cardiomyopathy: Code(s): I50.9 - Heart failure, unspecified; I42.9 - Cardiomyopathy, unspecified Status: Acute Assessment and Plan: Acute on chronic systolic heart failure. Multifactorial decompensation. This is in part related to worsening cardiomyopathy, mitral regurgitation as well as dietary indiscretion. IV furosemide 40 mg IV q.12 hours. Carvedilol 25 mg p.o. b.i.d. and continue losartan 100 mg daily. Patient is also on spironolactone 25 mg daily and this will be continued and up titrated as able. Patient has follow-up at [facility]. intake and output and daily weights. 2D echocardiogram with Doppler to be ordered and reviewed. Basic metabolic panel daily. Intake/output and daily weights (2) Obstructive sleep apnea: Code(s): G47.33 - Obstructive sleep apnea (adult) (pediatric) Status: Acute Assessment and Plan: Will order respiratory therapy to set up BiPAP (3) Elevated troponin: Code(s): R77.8 - Other specified abnormalities of plasma proteins Status: Acute Assessment and Plan: This is not related to acute coronary syndrome. Will DC further troponin. His troponin elevation is related heart failure not acute coronary syndrome (4) HTN (hypertension): Qualifiers: Hypertension type: unspecified Qualified Code(s): I10 - Essential (primary) hypertension Code(s): I10 - Essential (primary) hypertension Status: Chronic Assessment and Plan: Elevated. Resume the above medications and will up titrate spironolactone and add to regimen as needed (5) Tobacco dependence: Code(s): F17.200 - Nicotine dependence, unspecified, uncomplicated Status: Chronic Assessment and Plan: Tobacco abuse consult performed (6) Drug use: Code(s): F19.90 - Other psychoactive substance use, unspecified, uncomplicated Status: Acute Assessment and Plan: Drug use/methamphetamine counseling performed (7) Left bundle branch block (LBBB): Code(s): I44.7 - Left bundle-branch block, unspecified Status: Acute Assessment and Plan: Certainly an etiology to his cardiomyopathy. Reportedly in the process of having an LV lead placed for resynchronization which I am in agreement with. This will be performed at [place] (8) Non-ischemic cardiomyopathy: Code(s): I42.8 - Other cardiomyopathies Status: Acute Assessment and Plan: Worsening (9) Mitral regurgitation: Qualifiers: Cardiac valve disease etiology: nonrheumatic Qualified Code(s): I34.0 - Nonrheumatic mitral (valve) insufficiency Code(s): I34.0 - Nonrheumatic mitral (valve) insufficiency Status: Acute Assessment and Plan: Likely worsening and related to dilated cardiomyopathy (10) Tobacco abuse: Code(s): Z72.0 - Tobacco use Status: Acute History of Present Illness History of Present Illness Consult date/time: 05/12/21 14:47 Requesting physician: Ilya Zamora M.A., MD Consult reason: congestive heart failure Reason For Visit: Congestive Heart Failure Narrative: Reason for consultation: Congestive heart failure Requesting provider: Dr. Zamora Date of service 05/12/2021 History patient 41-year-old male who has a history of severe nonischemic cardiomyopathy. He does have a history of methamphetamine use. Formally saw Dr. richard and now sees Dr. Pérez at [facility]. He came to the hospital because of worsening shortness of breath. He states that Dr. Pérez recommended him be admitted a couple weeks ago he tried to avoid admission. Regardless so he has been having worsening shortness of breath for a few weeks and especially bad over the past couple of days. He has had worsening swelling also during the same timeframe. He is still smoking but has been compliant with medications. He also states that
[2021-05-12] MEDS: NICOTINE (*PBKC) 21 MG PATCH 1 PATCH TRANSDERM (16:03)
[2021-05-12] MEDS: HYDROcodone/acetaminophen (*CRX) 5-325 MG TABLET 1 TAB PO (16:08)
[2021-05-12 18:36] LABS: Troponin I 0.041 ng/mL (0.000-0.034)
--- NOTE | 2021-05-12 19:58 | ECG_ITS ---
Measurements Intervals [place] Rate: 82 P: 54 NM: 177 QRS: -35 QRSD: 186 T: 81 QT: 449 QTc: 527 Interpretive Statements SINUS RHYTHM WITH FREQUENT SUPRAVENTRICULAR PREMATURE COMPLEXES POSSIBLE RIGHT ATRIAL ENLARGEMENT [0.25mV P WAVE] LEFT ATRIAL ENLARGEMENT [-0.15mV P WAVE IN V1/V2] MARKED LEFT AXIS DEVIATION [QRS AXIS < -30] LEFT BUNDLE-BRANCH BLOCK BLOCKED PREMATURE ATRIAL CONTRACTIONS ABNORMAL ECG Electronically Signed On 05-13-2021 13:54:04 CDT by Geovanni Eid M.D.
[2021-05-12 20:11] LABS: Troponin I 0.037 ng/mL (0.000-0.034)
[2021-05-12] MEDS: NITROGLYCERIN SL 0.4 MG TABLET SUBLINGUAL (20:12)
[2021-05-12] MEDS: MORPHINE SULFATE (*CRX) 4 MG/ML INJ IV PUSH (20:44)
[2021-05-12] MEDS: carvediloL 25 MG TABLET PO (21:08)
[2021-05-13] VITALS (17 sets, daily range): BP systolic 95–149; BP diastolic 48–96; PULSE 51–112; RESP 12–24; TEMP 36.2–36.8; O2SAT 91–99
[2021-05-13] MEDS: HYDROcodone/acetaminophen (*CRX) 5-325 MG TABLET 1 TAB PO (02:43)
--- NOTE | 2021-05-13 05:05 | ECG_ITS ---
Measurements Intervals [place] Rate: 57 P: 54 [place]: 173 QRS: -12 QRSD: 190 T: 38 QT: 527 QTc: 517 Interpretive Statements SINUS BRADYCARDIA WITH FREQUENT SUPRAVENTRICULAR PREMATURE COMPLEXES 2:1 HEART BLOCK RIGHT ATRIAL ENLARGEMENT [0.3mV P WAVE] LEFT ATRIAL ENLARGEMENT [-0.15mV P WAVE IN V1/V2] LEFT BUNDLE-BRANCH BLOCK ABNORMAL ECG Electronically Signed On 05-13-2021 14:01:38 CDT by Geovanni Eid M.D.
[2021-05-13 08:14] LABS: Basophils Percent Auto 0.1 % (0.2-1.2); Hematocrit 43.7 % (42.0-52.0); Hemoglobin 14.1 g/dL (14.0-18.0); Immature Granulocyte Absolute 0.09 K/mm3 (0.00-0.031); Immature Granulocyte Percent A 0.5 % (0-0.5); Lymphocytes Absolute Auto 0.76 K/mm3 (0.9-3.2); Lymphocytes Percent Auto 4.3 % (18.3-44.2); Mean Corpuscular HGB Conc 32.3 g/dl (32-36); Mean Corpuscular Hemoglobin 31.1 pg (26-34); Mean Corpuscular Volume 96.5 fl (80-100); Mean Platelet Volume 9.5 fl (7.4-10.4); Monocytes Absolute Auto 0.6 K/mm3 (0.1-0.6); Monocytes Percent Auto 3.5 % (2.6-8.5); Neutrophils Percent Auto 91.6 % (45.5-73.1); Platelet Count Result 363 k/mm3 (150-375); Red Blood Count 4.53 M/mm3 (4.6-6.20); Red Cell Distribution Width 13.8 % (11.5-14.5); White Blood Count 17.5 K/mm3 (4.5-10.0)
[2021-05-13 08:25] LABS: Alanine Aminotransferase 26 U/L (4-50); Albumin Level 4.1 g/dL (3.5-5.1); Alkaline Phosphatase 111 U/L (38-126); Anion Gap 7 mmol/L (8-16); Aspartate Amino Transferase 45 U/L (17-59); Bilirubin,Total 0.5 mg/dL (0.2-1.3); Blood Urea Nitrogen 32 mg/dL (9-20); Carbon Dioxide 31 mmol/L (22-30); Chloride 98 mmol/L (98-107); Estimated CRCL calculation 108 ml/min; Estimated Glomerular Filt Rate > 60; Glucose 181 mg/dL (65-110); Magnesium 2.5 mg/dL (1.6-2.3); Potassium 4.3 mmol/L (3.4-5.0); Sodium 136 mmol/L (137-145)
--- NOTE | 2021-05-13 09:33 | PM.PNCARD ---
Progress Note: A&P Assessment and Plan (1) Congestive heart failure due to cardiomyopathy: Code(s): I50.9 - Heart failure, unspecified; I42.9 - Cardiomyopathy, unspecified Status: Acute Assessment and Plan: Acute on chronic systolic heart failure. Multifactorial decompensation. This is in part related to worsening cardiomyopathy, mitral regurgitation as well as dietary indiscretion and continued methamphetamine use. Continue IV furosemide 40 mg IV q.12 hours. Will switch losartan to Entresto 24/26 mg p.o. b.i.d.. DC spironolactone given his gynecomastia. Will up titrate Entresto before increasing carvedilol (2) Obstructive sleep apnea: Code(s): G47.33 - Obstructive sleep apnea (adult) (pediatric) Status: Acute Assessment and Plan: BiPAP (3) Elevated troponin: Code(s): R77.8 - Other specified abnormalities of plasma proteins Status: Acute Assessment and Plan: This is not related to acute coronary syndrome. (4) HTN (hypertension): Qualifiers: Hypertension type: unspecified Qualified Code(s): I10 - Essential (primary) hypertension Code(s): I10 - Essential (primary) hypertension Status: Chronic Assessment and Plan: Elevated. Changes as detailed above (5) Tobacco dependence: Code(s): F17.200 - Nicotine dependence, unspecified, uncomplicated Status: Chronic Assessment and Plan: Tobacco abuse consult performed (6) Drug use: Code(s): F19.90 - Other psychoactive substance use, unspecified, uncomplicated Status: Acute Assessment and Plan: Drug use/methamphetamine counseling performed (7) Left bundle branch block (LBBB): Code(s): I44.7 - Left bundle-branch block, unspecified Status: Acute Assessment and Plan: Certainly an etiology to his cardiomyopathy. Reportedly in the process of having an LV lead placed for resynchronization which I am in agreement with. This will be performed at [place] (8) Non-ischemic cardiomyopathy: Code(s): I42.8 - Other cardiomyopathies Status: Acute Assessment and Plan: Worsening (9) Mitral regurgitation: Qualifiers: Cardiac valve disease etiology: nonrheumatic Qualified Code(s): I34.0 - Nonrheumatic mitral (valve) insufficiency Code(s): I34.0 - Nonrheumatic mitral (valve) insufficiency Status: Acute Assessment and Plan: Likely worsening and related to dilated cardiomyopathy (10) Tobacco abuse: Code(s): Z72.0 - Tobacco use Status: Acute Subjective Date/time seen: 05/13/21 09:33 Interval history: 41 old non ischemic cardiomyopathy admitted for worsening shortness of breath Date of service 05/13/2021: He now admits that he is still routinely using methamphetamines. He does describe some vague chest discomfort especially at night or when he is lying down. Shortness of breath has improved and swelling has improved. Review of Systems Review of Systems: All systems reviewed & are unremarkable except as noted in HPI and below Constitutional: Constitutional: Denies excessive sweating, Denies headache(s) and Reports weakness Eyes: Eyes: Denies blurry vision ENT: Reports Normal hearing present, Denies headache(s) and Denies neck pain Cardiovascular: Cardiovascular: Denies chest pain, Reports pedal edema, Reports leg edema, Reports dyspnea and Reports dyspnea on exertion Respiratory: Respiratory: Reports dyspnea and Reports dyspnea on exertion Gastrointestinal: Gastrointestinal: Denies abdominal pain Genitourinary: Genitourinary: Denies dysuria Musculoskeletal: Musculoskeletal: Denies neck pain Integumentary/Breasts: Skin/Breast: Denies dry skin Neurologic: Reports Normal hearing present, Denies headache(s) and Reports weakness Psychiatric: Psychiatric: Denies anxiety Endocrine: Endocrine: Denies excessive sweating Hematologic/Lymphatic: Hematologic/Lymphatic: Denies
[2021-05-13] MEDS: FUROSEMIDE INJ 40 MG/4 ML VIAL IV PUSH ×2 (11:20→17:24)
[2021-05-13] MEDS: SACUBITRIL/VALSARTAN 24-26 MG TABLET 1 TAB PO ×2 (11:20→20:25)
[2021-05-13] MEDS: ENOXAPARIN 40 MG/0.4 ML SYRINGE SUB-Q (11:20)
[2021-05-13] MEDS: carvediloL 25 MG TABLET PO ×2 (11:22→20:25)
[2021-05-13] MEDS: NICOTINE (*PBKC) 21 MG PATCH 1 PATCH TRANSDERM (14:19)
--- NOTE | 2021-05-13 16:20 | PC.NURSE ---
[facility] flyer was given to patient.
--- NOTE | 2021-05-13 16:35 | PM.IMPN ---
Progress Note: A&P Additional Plan 41 years old male with past medical history of CHF hypertension methamphetamine abuse presented to the hospital with shortness of breath started 1 week ago worsening gradually worsening associated with cough and wheezing 1)Acute Resp Distress: 2/2 acute on chronic systolic heart failure. Multifactorial decompensation. This is in part related to worsening cardiomyopathy, mitral regurgitation as well as dietary indiscretion. Appreciate cardiology help C/w lasix Strict I/O's Keep K>4, mag>2 c/w coreg Started on entresto Needs outpatient psychosocial help for drug abuse 2)DVT ppx:Lovenox 3)Code:Full 4)Dispo:pending improvement Time Spent With Patient Time with patient: 15 - 25 minutes Subjective Date/time seen: 05/13/21 16:35 no acute events overnight Review of Systems Review of Systems: All systems reviewed & are unremarkable except as noted in HPI and below Constitutional: Constitutional: Reports no additional constitutional complaints Eyes: Eyes: Reports no additional eye complaints ENT: Reports system reviewed and no additional complaints, except as documented Cardiovascular: Cardiovascular: Reports leg edema Respiratory: Respiratory: Reports dyspnea Gastrointestinal: Gastrointestinal: Reports no additional gastrointestinal complaints Musculoskeletal: Musculoskeletal: Reports no additional musculoskeletal complaints Psychiatric: Psychiatric: Reports no additional psychiatric complaints Exam Const: General: no acute distress HENMT: Mouth: Yes Abnormal oral and palatal mucosa present Eyes: Sclera: sclerae normal Pupils: Equal, round and reactive pupils present Neck: Neck: supple Resp: Other: decreased breath sounds B/L Cardio: Rate: regular rate Rhythm: regular rhythm GI: GI Palp: Yes Soft to palpation Auscultation: normal bowel sounds Skin: General skin exam: normal color Extrem: General: pedal edema Psych: Mental Status: mental status grossly normal Objective Data Vital Signs Vital Signs: Vital Signs - 24 hr 05/12/21 16:56 05/12/21 17:09 05/12/21 18:00 Temperature 96.2 F L Pulse Rate 89 89 Respiratory Rate 26 H 24 H Blood Pressure 154/98 H Pulse Oximetry 93 94 05/12/21 19:44 05/12/21 20:56 05/12/21 21:10 Temperature 97.4 F L Pulse Rate 81 81 Respiratory Rate 247 H 20 Blood Pressure 152/84 H Pulse Oximetry 95 91 92 05/12/21 22:00 05/13/21 00:00 05/13/21 01:53 Temperature 97.6 F Pulse Rate 86 85 85 Respiratory Rate 20 Blood Pressure 130/77 Pulse Oximetry 91 05/13/21 04:00 05/13/21 06:00 05/13/21 07:40 Temperature 97.9 F 97.7 F Pulse Rate 76 80 112 H Respiratory Rate 24 H 12 Blood Pressure 149/96 H 142/85 H Pulse Oximetry 98 98 05/13/21 08:00 05/13/21 10:00 05/13/21 11:22 Temperature Pulse Rate 63 76 79 Respiratory Rate 12 Blood Pressure Pulse Oximetry 99 05/13/21 12:00 05/13/21 14:00 Temperature 97.4 F L Pulse Rate 74 64 Respiratory Rate 12 Blood Pressure 147/75 H Pulse Oximetry 99 Intake/Output Intake/Output: Intake & Output 05/10/21 05/11/21 05/12/21 05/13/21 23:59 23:59 23:59 23:59 Intake Total 720 1580 Output Total 850 2700 Balance -130 -1120 Meds/Results Medications: Active Medications Generic Name Dose Route Start Last Admin Trade Name Freq PRN Reason Stop Dose Admin Hydrocodone Bitart/Acetaminophen 1 tab 05/12/21 13:04 05/13/21 02:43 Hydrocodone/Acetaminophen (*Crx) 5-325 Mg Tablet PO 1 tab Q4H PRN Administration Moderate Pain (4-6) Albuterol 2.5 mg 05/12/21 13:08 Albuterol Sulfate Neb 2.5 Mg/0.5 Ml Inh INHALATION Q6HRT PRN Shortness Of Breath Bisacodyl 5 mg 05/12/21 13:04 Bisacodyl 5 Mg Tablet Ec PO DAILY PRN Constipation Carvedilol 25 mg 05/13/21 09:00 05/13/21 11:22 Carvedilol 25 Mg Tablet PO 25 mg Q12HR MAYELA Administration Chlordiazepoxide HCl 25 mg 05/12
[2021-05-13 17:30] LABS: Basophils Percent Auto 0.2 % (0.2-1.2); Hematocrit 43.4 % (42.0-52.0); Immature Granulocyte Absolute 0.06 K/mm3 (0.00-0.031); Immature Granulocyte Percent A 0.3 % (0-0.5); Lymphocytes Absolute Auto 1.09 K/mm3 (0.9-3.2); Lymphocytes Percent Auto 5.9 % (18.3-44.2); Mean Corpuscular HGB Conc 32.3 g/dl (32-36); Mean Corpuscular Hemoglobin 31.3 pg (26-34); Mean Corpuscular Volume 96.9 fl (80-100); Mean Platelet Volume 9.7 fl (7.4-10.4); Monocytes Absolute Auto 0.9 K/mm3 (0.1-0.6); Monocytes Percent Auto 4.7 % (2.6-8.5); Neutrophils Absolute Auto 16.3 K/mm3 (1.3-6.7); Neutrophils Percent Auto 88.9 % (45.5-73.1); Platelet Count Result 372 k/mm3 (150-375); Red Blood Count 4.48 M/mm3 (4.6-6.20); Red Cell Distribution Width 14.1 % (11.5-14.5); White Blood Count 18.3 K/mm3 (4.5-10.0)
[2021-05-13 17:40] LABS: Alanine Aminotransferase 26 U/L (4-50); Albumin Level 4.1 g/dL (3.5-5.1); Alkaline Phosphatase 114 U/L (38-126); Anion Gap 5 mmol/L (8-16); Aspartate Amino Transferase 38 U/L (17-59); Bilirubin,Total 0.3 mg/dL (0.2-1.3); Blood Urea Nitrogen 30 mg/dL (9-20); Calcium 8.8 mg/dL (8.4-10.2); Carbon Dioxide 34 mmol/L (22-30); Chloride 98 mmol/L (98-107); Estimated CRCL calculation 108 ml/min; Estimated Glomerular Filt Rate > 60; Glucose 297 mg/dL (65-110); Sodium 137 mmol/L (137-145)
[2021-05-14] VITALS (14 sets, daily range): BP systolic 100–131; BP diastolic 69–86; PULSE 41–74; RESP 20–24; TEMP 35.6–36.4; O2SAT 90–100
[2021-05-14] MEDS: MELATONIN 3 MG TABLET PO (03:22)
[2021-05-14 05:46] LABS: Magnesium 2.5 mg/dL (1.6-2.3)
[2021-05-14] MEDS: ENOXAPARIN 40 MG/0.4 ML SYRINGE SUB-Q (08:40)
[2021-05-14] MEDS: FUROSEMIDE INJ 40 MG/4 ML VIAL IV PUSH (08:40)
[2021-05-14] MEDS: NICOTINE (*PBKC) 21 MG PATCH 1 PATCH TRANSDERM (08:41)
[2021-05-14] MEDS: carvediloL 25 MG TABLET PO (08:44)
[2021-05-14] MEDS: SACUBITRIL/VALSARTAN 24-26 MG TABLET 1 TAB PO (08:44)
[2021-05-14 08:52] LABS: Glucose Point of Care 113 mg/dl (65-105)
--- NOTE | 2021-05-14 10:22 | PM.PNCARD ---
Progress Note: A&P Assessment and Plan (1) Congestive heart failure due to cardiomyopathy: Code(s): I50.9 - Heart failure, unspecified; I42.9 - Cardiomyopathy, unspecified Status: Acute Assessment and Plan: Acute on chronic systolic heart failure. Multifactorial decompensation. This is in part related to worsening cardiomyopathy, mitral regurgitation as well as dietary indiscretion and continued methamphetamine use. Continue IV furosemide 40 mg IV q.12 hours. Continue Entresto and carvedilol. Up titrate Entresto as able (2) Obstructive sleep apnea: Code(s): G47.33 - Obstructive sleep apnea (adult) (pediatric) Status: Acute Assessment and Plan: BiPAP (3) Elevated troponin: Code(s): R77.8 - Other specified abnormalities of plasma proteins Status: Acute Assessment and Plan: This is not related to acute coronary syndrome. (4) HTN (hypertension): Qualifiers: Hypertension type: unspecified Qualified Code(s): I10 - Essential (primary) hypertension Code(s): I10 - Essential (primary) hypertension Status: Chronic Assessment and Plan: Elevated. Changes as detailed above (5) Tobacco dependence: Code(s): F17.200 - Nicotine dependence, unspecified, uncomplicated Status: Chronic Assessment and Plan: Tobacco abuse consult performed (6) Drug use: Code(s): F19.90 - Other psychoactive substance use, unspecified, uncomplicated Status: Acute Assessment and Plan: Drug use/methamphetamine counseling performed (7) Left bundle branch block (LBBB): Code(s): I44.7 - Left bundle-branch block, unspecified Status: Acute Assessment and Plan: Certainly an etiology to his cardiomyopathy. Reportedly in the process of having an LV lead placed for resynchronization which I am in agreement with. This will be performed at [facility] (8) Non-ischemic cardiomyopathy: Code(s): I42.8 - Other cardiomyopathies Status: Acute Assessment and Plan: Worsening (9) Mitral regurgitation: Qualifiers: Cardiac valve disease etiology: nonrheumatic Qualified Code(s): I34.0 - Nonrheumatic mitral (valve) insufficiency Code(s): I34.0 - Nonrheumatic mitral (valve) insufficiency Status: Acute Assessment and Plan: Severe and related to dilated cardiomyopathy (10) Tobacco abuse: Code(s): Z72.0 - Tobacco use Status: Acute (11) Heart block: Code(s): I45.9 - Conduction disorder, unspecified Status: Acute Assessment and Plan: He is going out of 2-1 heart block. Will have X-IO interrogate his device and increase his lower rate limit to 50 beats per minute. Subjective Date/time seen: 05/14/21 10:22 Interval history: 41 old non ischemic cardiomyopathy admitted for worsening shortness of breath Date of service 05/13/2021: He now admits that he is still routinely using methamphetamines. He does describe some vague chest discomfort especially at night or when he is lying down. Shortness of breath has improved and swelling has improved. Date of service 05/14/2021: Wants to go home. Swelling and shortness of breath or still present but better. No chest discomfort this morning. He is going in and out of 2-1 heart block with heart rate around 40 and he does start to pace Review of Systems Review of Systems: All systems reviewed & are unremarkable except as noted in HPI and below Constitutional: Constitutional: Denies excessive sweating, Denies headache(s) and Reports weakness Eyes: Eyes: Denies blurry vision ENT: Reports Normal hearing present, Denies headache(s) and Denies neck pain Cardiovascular: Cardiovascular: Denies chest pain, Reports pedal edema, Reports leg edema, Reports dyspnea and Reports dyspnea on exertion Respiratory: Respiratory: Reports dyspnea and Reports dyspnea on exertion Gastrointestinal: Gastrointestinal:
--- NOTE | 2021-05-14 13:28 | PM.IMPN ---
Progress Note: A&P Assessment and Plan (1) Congestive heart failure due to cardiomyopathy: Code(s): I50.9 - Heart failure, unspecified; I42.9 - Cardiomyopathy, unspecified Status: Acute Assessment and Plan: Chest x-ray with cardiomegaly and mild pulmonary edema CTA negative for PE, subtle mosaic attenuation could represent atelectasis minimal pulmonary edema or pneumonia. BNP elevated at 3440. Patient treated for Acute on chronic systolic CHF exacerbation Monitor intake and output Daily weights Cardiology consult IV diuresis with Lasix 40 mg IV b.i.d. Also on Entresto and Coreg. Switched from losartan to Entresto. Spironolactone discontinued due to gynecomastia. Echo with ejection fraction 15-20%, left ventricular septal wall motion abnormal related to left bundle branch block, severe pulmonary hypertension with estimated pulmonary artery systolic pressure 86 mm Hg severe mitral regurgitation and [id number] tricuspid regurgitation (2) Obstructive sleep apnea: Code(s): G47.33 - Obstructive sleep apnea (adult) (pediatric) Status: Acute Assessment and Plan: Resume home medication Uses BiPAP at night Currently given CPAP at night (3) Impaired glucose tolerance: Code(s): R73.02 - Impaired glucose tolerance (oral) Status: Acute Assessment and Plan: Monitor (4) Elevated troponin: Code(s): R77.8 - Other specified abnormalities of plasma proteins Status: Acute Assessment and Plan: Probably NSTEMI type 2 secondary to demand ischemia secondary to CHF echo cardiology consult (5) Normocytic anemia: Code(s): D64.9 - Anemia, unspecified Status: Chronic Assessment and Plan: Workup as outpatient (6) HTN (hypertension): Qualifiers: Hypertension type: unspecified Qualified Code(s): I10 - Essential (primary) hypertension Code(s): I10 - Essential (primary) hypertension Status: Chronic Assessment and Plan: Uncontrolled pending home medication reconciliation Coreg was restarted (7) Methamphetamine use: Code(s): F15.10 - Other stimulant abuse, uncomplicated Status: Chronic Assessment and Plan: Counseling (8) Mitral regurgitation: Qualifiers: Cardiac valve disease etiology: nonrheumatic Qualified Code(s): I34.0 - Nonrheumatic mitral (valve) insufficiency Code(s): I34.0 - Nonrheumatic mitral (valve) insufficiency Status: Acute Assessment and Plan: Pending echo Additional Plan DVT ppx:Lovenox Code:Full Dispo:pending improvement Subjective Date/time seen: 05/14/21 13:28 Interval history: 41 old non ischemic cardiomyopathy admitted for worsening shortness of breath Overnight has been bradycardic. Biology following. Feeling tired denies any shortness of breath leg swelling is getting better. No fever chills cough no chest pain Review of Systems Review of Systems: All systems reviewed & are unremarkable except as noted in HPI and below Exam Narrative: Const: General: no acute distress HENMT: Mouth: Yes Abnormal oral and palatal mucosa present Eyes: Sclera: sclerae normal Pupils: Equal, round and reactive pupils present Neck: Neck: supple Resp: Other: decreased breath sounds B/L no respiratory distress Cardio: Rate: Bradycardic Rhythm: regular rhythm sinus rhythm on telemetry GI: GI Palp: Yes Soft to palpation Auscultation: normal bowel sounds Skin: General skin exam: normal color Extrem: General: 1+ edema bilateral lower extremity, no cyanosis or clubbing Psych: Mental Status: mental status grossly normal Objective Data Vital Signs Vital Signs: Vital Signs - 24 hr 05/13/21 14:00 05/13/21 16:00 05/13/21 18:00 Temperature 97.1 F L Pulse Rate 64 78 68 Respiratory Rate 12 Blood Pressure 143/75 H Pulse Oximetry 98 05/13/21 19:58 05/13/21 20:00 05/13/21 20:25 Temperature 98.3 F Pulse Rate 54 L 57
--- NOTE | 2021-05-14 15:16 | PCCCNOTE ---
On 05/14/21, the student, [Ceci Gutierrez], provided care and completed [facility] documentation on this patient. I have reviewed the student's documentation and agree with the findings.
--- NOTE | 2021-05-14 18:27 | PM.DS ---
DS: Admitting Diagnosis Discharge Date 05/14/21 Admitting Diagnosis chest pain shortness of breath DS: Discharge Diagnosis Discharge Diagnosis (1) Congestive heart failure due to cardiomyopathy: Code(s): I50.9 - Heart failure, unspecified; I42.9 - Cardiomyopathy, unspecified Status: Acute Assessment and Plan: Chest x-ray with cardiomegaly and mild pulmonary edema CTA negative for PE, subtle mosaic attenuation could represent atelectasis minimal pulmonary edema or pneumonia. BNP elevated at 3440. Patient treated for Acute on chronic systolic CHF exacerbation Monitor intake and output Daily weights Cardiology consult IV diuresis with Lasix 40 mg IV b.i.d. Also on Entresto and Coreg. Switched from losartan to Entresto. Spironolactone discontinued due to gynecomastia. Echo with ejection fraction 15-20%, left ventricular septal wall motion abnormal related to left bundle branch block, severe pulmonary hypertension with estimated pulmonary artery systolic pressure 86 mm Hg severe mitral regurgitation and [id number] tricuspid regurgitation (2) Obstructive sleep apnea: Code(s): G47.33 - Obstructive sleep apnea (adult) (pediatric) Status: Acute Assessment and Plan: Resume home medication Uses BiPAP at night Currently given CPAP at night (3) Impaired glucose tolerance: Code(s): R73.02 - Impaired glucose tolerance (oral) Status: Acute Assessment and Plan: Monitor (4) Elevated troponin: Code(s): R77.8 - Other specified abnormalities of plasma proteins Status: Acute Assessment and Plan: Probably NSTEMI type 2 secondary to demand ischemia secondary to CHF echo cardiology consult (5) Normocytic anemia: Code(s): D64.9 - Anemia, unspecified Status: Chronic Assessment and Plan: Workup as outpatient (6) HTN (hypertension): Qualifiers: Hypertension type: unspecified Qualified Code(s): I10 - Essential (primary) hypertension Code(s): I10 - Essential (primary) hypertension Status: Chronic Assessment and Plan: Uncontrolled pending home medication reconciliation Coreg was restarted (7) Methamphetamine use: Code(s): F15.10 - Other stimulant abuse, uncomplicated Status: Chronic Assessment and Plan: Counseling (8) Mitral regurgitation: Qualifiers: Cardiac valve disease etiology: nonrheumatic Qualified Code(s): I34.0 - Nonrheumatic mitral (valve) insufficiency Code(s): I34.0 - Nonrheumatic mitral (valve) insufficiency Status: Acute Assessment and Plan: echo with ejection fraction 15-20% (9) AV block: Code(s): I44.30 - Unspecified atrioventricular block Status: Acute Assessment and Plan: patient had in an out to is to 1 heart block. Device interrogation was done and lower rate limit was increased to 50 beats per minute by Cardiology during the hospital stay DS: Summary Hospital Course Hospital Course: patient left against medical advice. Regarding his hospital course see above Time Spent with Patient Time attestation: Total time spent providing and/or coordinating discharge services: 20 minutes in documentation Exam Narrative: Const: General: no acute distress HENMT: Mouth: Yes Abnormal oral and palatal mucosa present Eyes: Sclera: sclerae normal Pupils: Equal, round and reactive pupils present Neck: Neck: supple Resp: Other: decreased breath sounds B/L no respiratory distress Cardio: Rate: Bradycardic Rhythm: regular rhythm sinus rhythm on telemetry GI: GI Palp: Yes Soft to palpation Auscultation: normal bowel sounds Skin: General skin exam: normal color Extrem: General: 1+ edema bilateral lower extremity, no cyanosis or clubbing Psych: Mental Status: mental status grossly normal DS: Data Data Completed and Pending Completed studies during hospitalization: Exam Type: CA echo dop color flow w con
--- NOTE | 2021-05-14 18:28 | PC.NURSE ---
Patient notified of risks of leaving AMA. [ Dorian and Dr. Eid ] notified. Follow up instructions given to patient. Patient signed AMA form. IV removed, monitor removed.
== END 2021-05-14 18:26 | disposition left against medical advice (07) | DRG 194 ==
LOC: ANHED 11:19 → ANHIMU 11:46
PROVIDERS: Internal Medicine; Admitting Provider Internal Medicine; Emergency Provider Nurse Practitioner Family; PCP Family Medicine; Visit Provider Internal Medicine
DX: I11.0 Hypertensive heart disease with heart failure (principal); I50.23 Acute on chronic systolic (congestive) heart failure; G47.33 Obstructive sleep apnea (adult) (pediatric); R73.02 Impaired glucose tolerance (oral); I21.A1 Myocardial infarction type 2; D64.9 Anemia, unspecified; F15.10 Other stimulant abuse, uncomplicated; I34.0 Nonrheumatic mitral (valve) insufficiency; I44.0 Atrioventricular block, first degree; E78.5 Hyperlipidemia, unspecified; L30.9 Dermatitis, unspecified; I42.0 Dilated cardiomyopathy; F17.210 Nicotine dependence, cigarettes, uncomplicated; I25.2 Old myocardial infarction
CPT/HCPCS: 36415; 71045; 71275; 80053; 82948; 83036; 83735; 83880; 84145; 84443; 84484; 85025; 85380; 85610; 85730; 93005; 93306; 94640; 96372; 96374; 96375; 96376; 99285; A9270; C8929; G0378; G0379; J1650; J1940; J2270; J2930; Q9957; Q9967

== ENCOUNTER 2021-06-04 10:22 | Outpatient (CLI) | payer OTHER, SELFPAY ==
[2021-06-04 10:50] LABS: Anion Gap 4 mmol/L (8-16); Blood Urea Nitrogen 30 mg/dL (9-20); Calcium 8.7 mg/dL (8.4-10.2); Carbon Dioxide 34 mmol/L (22-30); Chloride 97 mmol/L (98-107); Estimated Glomerular Filt Rate 60; Glucose 199 mg/dL (65-110); Potassium 5.2 mmol/L (3.4-5.0); Sodium 135 mmol/L (137-145)
== END 2021-06-04 10:23 | disposition home or self-care (01) ==
PROVIDERS: PCP Family Medicine
DX: I42.0 Dilated cardiomyopathy (principal)
CPT/HCPCS: 36415; 80048

== ENCOUNTER 2021-08-04 10:06 | Outpatient (CLI) | payer MEDICARE, MEDICAID, SELFPAY ==
[2021-08-04 10:54] LABS: Anion Gap 4 mmol/L (8-16); Blood Urea Nitrogen 26 mg/dL (9-20); Calcium 9.1 mg/dL (8.4-10.2); Carbon Dioxide 37 mmol/L (22-30); Chloride 97 mmol/L (98-107); Estimated Glomerular Filt Rate 47; Glucose 129 mg/dL (65-110); Potassium 3.2 mmol/L (3.4-5.0); Sodium 138 mmol/L (137-145)
[2021-08-04 11:04] LABS: NT Pro B Type Natriuretic Pept 3270 pg/mL (5-100)
== END 2021-08-04 10:07 | disposition home or self-care (01) ==
LOC: ANHLAB 10:15
PROVIDERS: PCP Family Medicine
DX: I50.42 Chronic combined systolic (congestive) and diastolic (congestive) heart failure (principal); R60.9 Edema, unspecified; R06.02 Shortness of breath
CPT/HCPCS: 36415; 80048; 83880

== ENCOUNTER 2021-11-06 11:08 | Outpatient (CLI) | payer MEDICARE, MEDICAID, SELFPAY ==
--- NOTE | ~2021-11-06 | US_ITS ---
EXAMINATION: US renal BI DATE: 11/06/2021 11:55 INDICATION: Chronic kidney disease stage III TECHNIQUE: Multiple grayscale and Doppler ultrasound images of the kidneys were obtained. COMPARISON: None. FINDINGS: The right kidney measures 11.3 x 6.5 x 6.9 cm. The left kidney measures 11.2 x 6.9 x 5.3 cm . The kidneys demonstrate normal parenchymal echogenicity. There is no hydronephrosis. The bladder is normal. IMPRESSION: 1. Normal kidneys without hydronephrosis. Reviewed, dictated and finalized at location B.
[2021-11-06 12:21] LABS: Appearance Urine Clear (Clear); Bilirubin Urine Negative (Negative); Blood Urine Negative (Negative); Color Urine Yellow (Yellow); Glucose Urine UA 2+ mg/dL (Negative); Ketones Urine Negative (Negative); Leukocyte Esterase Ur Negative LEU/UL (Negative); Nitrate Urine Negative (Negative); Protein Urine Negative (Negative); Specific Grav Ur 1.015 (1.001-1.035); Urobilinogen Urine 0.2 mg/dL (<2.0)
[2021-11-06 12:26] LABS: Total Protein Urine Random 19 mg/dL
[2021-11-06 12:31] LABS: Sodium Urine Random 87 meq/L
[2021-11-06 12:36] LABS: Mucus Urine Rare /lpf; RBC Urine 0-2 /hpf (0-2); WBC Urine 0-3 /hpf
[2021-11-06 12:43] LABS: Add Urine Microscopic? YES
[2021-11-06 12:48] LABS: Complement C3 162 mg/dL (88-165)
[2021-11-06 12:49] LABS: Albumin Level 4.4 g/dL (3.5-5.1); Anion Gap 15 mmol/L (8-16); Blood Urea Nitrogen 27 mg/dL (9-20); Calcium 9.4 mg/dL (8.4-10.2); Carbon Dioxide 33 mmol/L (22-30); Chloride 90 mmol/L (98-107); Estimated Glomerular Filt Rate 51; Glucose 130 mg/dL (65-110); Phosphorus 4.8 mg/dL (2.5-4.5); Potassium 2.8 mmol/L (3.4-5.0); Sodium 138 mmol/L (137-145)
[2021-11-06 12:58] LABS: Eosinophil Urine None Seen % (None Seen)
[2021-11-10 14:11] LABS: Total Protein/Creatinine Ratio 279 mg/g creat (25-148)
[2021-11-10 17:20] LABS: Albumin 3.5 g/dL (3.8-4.8); Alpha 1 Globulin 0.4 g/dL (0.2-0.3); Beta 1 Globulin 0.6 g/dL (0.4-0.6); Gamma Globulin 2.1 g/dL (0.8-1.7); Protein, Total 8.1 g/dL (6.1-8.1)
[2021-11-11 08:19] LABS: Kappa\\Lambda Light Chains 1.28 (0.26-1.65); Lambda Light Chain 56.5 mg/L (5.7-26.3)
[2021-11-12 13:14] LABS: Anti Glomerular Basement Memb <1.0 AI (<1.0)
[2021-11-12 23:15] LABS: ANCA Screen Negative (Negative)
== END 2021-11-06 11:09 | disposition home or self-care (01) ==
LOC: ANHIMG 11:24
PROVIDERS: PCP Family Medicine; Visit Provider Internal Medicine Nephrology
DX: I12.9 Hypertensive chronic kidney disease with stage 1 through stage 4 chronic kidney disease, or unspecified chronic kidney disease (principal); N18.31 Chronic kidney disease, stage 3a; R80.8 Other proteinuria; E11.29 Type 2 diabetes mellitus with other diabetic kidney complication
CPT/HCPCS: 36415; 76775; 80069; 81001; 81050; 82570; 82595; 83520; 83883; 84155; 84156; 84165; 84166; 84300; 85999; 86036; 86038; 86160; 86225

== ENCOUNTER 2021-11-12 13:43 | Outpatient (CLI) | payer MEDICARE, MEDICAID, SELFPAY ==
[2021-11-12 15:55] LABS: Albumin Level 3.9 g/dL (3.5-5.1); Anion Gap 10 mmol/L (8-16); Blood Urea Nitrogen 19 mg/dL (9-20); Calcium 9.3 mg/dL (8.4-10.2); Carbon Dioxide 31 mmol/L (22-30); Chloride 98 mmol/L (98-107); Estimated Glomerular Filt Rate 55; Glucose 151 mg/dL (65-110); Magnesium 2.2 mg/dL (1.6-2.3); Phosphorus 3.9 mg/dL (2.5-4.5); Potassium 3.4 mmol/L (3.4-5.0); Sodium 139 mmol/L (137-145)
== END 2021-11-12 13:44 | disposition home or self-care (01) ==
PROVIDERS: PCP Family Medicine; Referring Provider Internal Medicine Nephrology; Visit Provider Internal Medicine Nephrology
DX: E87.6 Hypokalemia (principal)
CPT/HCPCS: 36415; 80069; 83735

== ENCOUNTER 2022-11-03 21:29 | Observation (INO) | payer OTHER, SELFPAY ==
[2022-11-03] VITALS (7 sets, daily range): BP systolic 116–137; BP diastolic 79–93; PULSE 70–92; RESP 20–30; TEMP 36.7; O2SAT 92–97
--- NOTE | ~2022-11-03 | XR_ITS ---
EXAMINATION: XR chest 2V DATE: 11/03/2022 22:35 INDICATION: Chest pain TECHNIQUE: PA and lateral views of the chest are obtained. COMPARISON: 05/12/2021 FINDINGS: Cardiomegaly is noted. There are minimal airspace opacities of the right lung base. No pleu ral effusion or pneumothorax. A triple lead cardiac pacemaker of the left chest wall ends with leads in expected locations. There is mild thoracic spondylosis. IMPRESSION: 1. Cardiomegaly. 2. Minimal airspace opacity of the right lung base, consistent with atelectasis versus pneumonia vers us pulmonary edema. Reviewed, dictated and finalized at location F. IMPRESSION: 1. Cardiomegaly. 2. Minimal airspace opacity of the right lung base, consistent with atelectasis versus pneumonia versus pulmonary edema.
--- NOTE | 2022-11-03 22:03 | ECG_ITS ---
Measurements Intervals Page Rate: 78 P: 128 TN: 134 QRS: -75 QRSD: 197 T: -30 QT: 479 QTc: 547 Interpretive Statements ELECTRONIC ATRIAL PACEMAKER WITH INHIBITION ELECTRONIC VENTRICULAR PACEMAKER NO FURTHER INTERPRETATION IS POSSIBLE ATYPICAL ECG COMPARED TO ECG 05/13/2021 05:12:20 ELECTRONIC PACEMAKER NOW PRESENT Electronically Signed On 11-04-2022 6:34:47 CDT by Fawad Murdock D.O.
[2022-11-03 22:55] LABS: Basophils Absolute Auto 0.1 K/mm3 (0.0-0.1); Basophils Percent Auto 0.7 % (0.2-1.2); Eosinophils Absolute Auto 0.2 K/mm3 (0-0.3); Eosinophils Percent Auto 2.2 % (0-4.4); Hematocrit 46.8 % (42.0-52.0); Hemoglobin 15.6 g/dL (14.0-18.0); Immature Granulocyte Absolute 0.02 K/mm3 (0.00-0.031); Immature Granulocyte Percent A 0.2 % (0-0.5); Lymphocytes Percent Auto 18.9 % (18.3-44.2); Mean Corpuscular HGB Conc 33.3 g/dl (32-36); Mean Corpuscular Hemoglobin 31.4 pg (26-34); Mean Corpuscular Volume 94.2 fl (80-100); Monocytes Absolute Auto 0.6 K/mm3 (0.1-0.6); Monocytes Percent Auto 6.1 % (2.6-8.5); Neutrophils Absolute Auto 7.6 K/mm3 (1.3-6.7); Neutrophils Percent Auto 71.9 % (45.5-73.1); Platelet Count Result 325 k/mm3 (150-375); Red Blood Count 4.97 M/mm3 (4.6-6.20); Red Cell Distribution Width 13.9 % (11.5-14.5); White Blood Count 10.6 K/mm3 (4.5-10.0)
[2022-11-03 23:07] LABS: Alanine Aminotransferase 20 U/L (6-50); Alkaline Phosphatase 135 U/L (38-126); Anion Gap 7 mmol/L (8-16); Aspartate Amino Transferase 30 U/L (17-59); Bilirubin,Total 1.1 mg/dL (0.2-1.3); Blood Urea Nitrogen 17 mg/dL (9-20); Calcium 9.3 mg/dL (8.4-10.2); Carbon Dioxide 33 mmol/L (22-30); Chloride 97 mmol/L (98-107); Estimated CRCL calculation 105 ml/min; Estimated Glomerular Filt Rate > 60; Glucose 123 mg/dL (65-110); Potassium 3.5 mmol/L (3.4-5.0); Sodium 137 mmol/L (137-145)
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
[2022-11-04] VITALS (19 sets, daily range): BP systolic 104–147; BP diastolic 54–99; PULSE 70–86; RESP 16–26; TEMP 36.4–36.6; O2SAT 93–98; BMI 41.1; BMI 39.8
[2022-11-04] LABS: Magnesium 2.1 mg/dL (1.6-2.3)
--- NOTE | 2022-11-04 | ECHO_ITS ---
Patient Info Name: Isaiah La Age: 42 years : 1980 Gender: Male Ht: 68 in Wt: 262 lbs BSA: 2.44 m2 HR: 73 bpm BP: 128 / 73 mmHg Heart Rhythm: Sinus Rhythm Technical Quality: Poor Exam Date: 11/04/2022 11:42 AM Exam Location: [facility] Pulmonary Exam Room: 251 Patient Status: Inpatient Admit Date: 11/04/2022 Staff Ordering Physician: Enmanuel Muñoz MD Dynamic Balancer: Hawa Shahid RDCS Attending Provider: Oleg Rosado MD Referring Physician: Wanda RUIZ; Exam Type: CA echo dop color flow w con Study Info Indications - chf AICD Complete two-dimensional, color flow and Doppler transthoracic echocardiogram is performed with contrast to opacify the left ventricle and to improve the deliniation of the left ventricle endocardial borders. Contrast/Agitated Saline Contrast/Ag. Saline: Definity Amount: 2.00 ml Administered By: Hawa Shahid [facility] Existing IV Access: Yes IV Access Condition: patent with no signs of infiltration Reason for Poor Study: patient body habitus Summary 1. Severe left ventricular dilation with severe global systolic dysfunction/low ejection fraction. 2. Moderate left atrial enlargement. 3. Mild mitral regurgitation. 4. Permanent pacemaker/ICD leads are visualized. 5. Compared with echocardiogram in April of 2021 LV ejection fraction may be slightly improved and mitral regurgitation is no longer severe. Left Ventricle Left ventricular chamber dimension is severely enlarged. Left ventricular systolic function is severely reduced, estimated at 15-20%. The left ventricular diastolic function is grade I diastolic dysfunction. Right Ventricle Right ventricular chamber dimension is mildly enlarged. Linear artifact in right ventricle suggestive of catheter(s), pacemaker lead(s), or ICD lead(s). Left Atria Left atrial chamber dimension is moderately enlarged. Right Atria Right atrial chamber dimension is mildly enlarged. Linear artifact in the right atrium suggestive of catheter(s), pacemaker lead(s), or ICD lead(s). Aortic Valve The aortic valve is normal. Pulmonic Valve The pulmonic valve is not well visualized. Mitral Valve The mitral valve has normal leaflets. There is mild mitral valve regurgitation. Tricuspid Valve The tricuspid valve leaflets are normal. There is mild tricuspid valve regurgitation. Pericardium/Pleural The pericardium appears normal. Aorta The aortic root size at the sinus of Valsalva is normal. Left Ventricular Outflow Tract Name Value Normal LVOT 2D LVOT Diameter 2.13 cm LVOT Doppler LVOT Peak Gradient 3 mmHg LVOT Mean Gradient 2 mmHg LVOT VTI 14.27 cm LVOT VTI/AV VTI Ratio 0.61 LVOT Stroke Volume 51.03 ml LVOT CO 13.75 l/min LVOT CI 6.01 L/min/m2 Pulmonic Valve Name Value Normal
[2022-11-04 00:04] LABS: Prothrombin Time 13.8 Seconds (11.1-14.7)
[2022-11-04 00:05] LABS: Partial Thromboplastin Time 33.2 SECONDS (22.3-36.8)
[2022-11-04 00:12] LABS: NT Pro B Type Natriuretic Pept 5170 pg/mL (19.9-100)
[2022-11-04] MEDS: FUROSEMIDE INJ 40 MG/4 ML VIAL IV PUSH ×2 (01:08→08:47)
[2022-11-04 03:08] LABS: Appearance Urine Clear (Clear); Bacteria Urine None Seen /hpf; Bilirubin Urine Negative (Negative); Blood Urine Negative (Negative); Color Urine Yellow (Yellow); Glucose Urine UA Negative (Negative); Ketones Urine Negative (Negative); Leukocyte Esterase Ur Negative LEU/UL (Negative); Nitrate Urine Negative (Negative); Non Pathogenic Casts 0-2; Protein Urine Trace mg/dL (Negative); RBC Urine 0-2 /hpf (0-2); Specific Grav Ur 1.007 (1.001-1.035); Squamous Epithelial Cell Urine None seen /hpf (Few); Urobilinogen Urine 0.2 mg/dL (<2.0); WBC Urine 0-5 /hpf; pH Urine 7.5 (5.0-9.0)
[2022-11-04 03:13] LABS: Add Urine Microscopic? YES
[2022-11-04 03:26] LABS: Troponin I 0.033 ng/mL (0.000-0.034)
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
--- NOTE | 2022-11-04 04:31 | ADMGEN ---
This patient, Isaiah La, was admitted to 2 Medical Room 251-01. Patient/family oriented to hospital policies and general routines including ID bracelet, bed and alarms, visiting hours, pain management, procedures, bathroom and other care routines, personal items, smoking policy, room service/diet, and visiting hours. Information on how to activate the Rapid Response Team has been discussed. Patient/Family are encouraged to report perceived risks to care and to ask questions if they do not understand what they are told or what they should do.
[2022-11-04] MEDS: BELLADONNA ALK/PHENOB ELIX 10 ML, MAG HYDROX/ALUMINUM HYD/SIMETH 30 ML, LIDOCAINE HCL 2... PO (06:24)
[2022-11-04] MEDS: AZITHROMYCIN 500 MG/NS 250 ML 500 MG/250 ML BAG 150 MG IVPB (06:27)
[2022-11-04] MEDS: SODIUM CHLORIDE 0.9% IV 1,000 ML 65 ML IV CONT (06:44)
[2022-11-04] MEDS: ALBUTEROL SULFATE NEB 2.5 MG/3 ML INH INHALATION ×2 (07:55→11:14)
[2022-11-04] MEDS: IPRATROPIUM BR 0.02% INH SOLN 0.5 MG/2.5 ML VIAL INHALATION ×2 (07:55→11:14)
[2022-11-04] MEDS: carvediloL 12.5 MG TABLET PO (08:48)
[2022-11-04] MEDS: cefTRIAXone 2 GM/NS 100 ML 2 GM/100 ML BAG IVPB (08:48)
[2022-11-04] MEDS: LOSARTAN POTASSIUM 50 MG TABLET PO (08:48)
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
[2022-11-04] MEDS: PERFLUTREN LIPID MICROSPHERES 1.5 ML VIAL DILUTED TO 10 ML TOTAL VOLUME IV PUSH (11:40)
--- NOTE | 2022-11-04 14:07 | PC.NURSE ---
On 11/04/22, the student, [Debi Bryant], provided care and completed [facility] documentation on this patient. I have reviewed the student's documentation and agree with the findings.
--- NOTE | 2022-11-04 14:18 | IVDEFINITY ---
Prior to administration of IV Definity the patient was educated on the risks and benefits of the imaging enhancing agent including potential adverse side effects. The patient verbalized understanding. Allergies were verified. No exclusion criteria were identified and at least one of the following inclusion criteria were met: 1) physician request, 2) patient technically difficult to image (per the [place] [employer] guidelines of two or more segments not discernable within the apical view), or 3) questionable left ventricular function. ?
--- NOTE | 2022-11-05 10:31 | PM.DS ---
DS: Admitting Diagnosis Discharge Date 11/04/22 Admitting Diagnosis CHF exacerbation DS: Discharge Diagnosis Discharge Diagnosis (1) Acute on chronic systolic heart failure: Code(s): I50.23 - Acute on chronic systolic (congestive) heart failure Status: Acute DS: Summary Hospital Course Hospital Course: patient admitted with CHF exacerbation. He left AMA Time Spent with Patient Time attestation: Total time spent providing and/or coordinating discharge services: Discharge Plan Discharge Consulting providers: Phoebe Neville; Fawad Murdock; Francis Baxter Discharging Clinician: Oleg Rosado Patient Disposition: Left Against Medical Advice Patient Instructions: Heart Failure (GEN), How to Stop Smoking (DC) Discharge Medications: No Action losartan 100 mg tablet 50 mg PO DAILY furosemide 40 mg tablet 80 mg PO DAILY Rx Instructions: Take 1 tablet by mouth daily until further instructions from your Travelers' Aid Worker carvedilol [Coreg] 12.5 mg tablet 12.5 mg PO Q12H Rx Instructions: Take 1 tablet by mouth twice daily until further instructions from your Travelers' Aid Worker potassium chloride 20 mEq tablet extended release 20 meq PO DAILY Rx Instructions: pt states he takes 20meq in the AM and 10meq in the PM Ozempic 0.25 mg or 0.5 mg (2 mg/3 mL) pen injector 0.25 mg SUBCUT WEEKLY Date of admission: 11/04/22 02:05 Primary Care Provider: Citlaly,Kenyatta Admitting Provider: Enmanuel Muñoz V. Attending physician on admission: Oleg Rosado Condition: Stable
== END 2022-11-04 15:00 | disposition left against medical advice (07) ==
LOC: ANHED 11-04 02:16 → ANH2MED 11-04 03:05
PROVIDERS: Admitting Provider Internal Medicine; Emergency Provider Emergency Medicine; PCP Family Medicine; Visit Provider Hospitalist
DX: I11.0 Hypertensive heart disease with heart failure (principal); I50.23 Acute on chronic systolic (congestive) heart failure; Z95.810 Presence of automatic (implantable) cardiac defibrillator; I34.0 Nonrheumatic mitral (valve) insufficiency; J44.9 Chronic obstructive pulmonary disease, unspecified; E78.5 Hyperlipidemia, unspecified; I25.2 Old myocardial infarction; I42.8 Other cardiomyopathies; R91.8 Other nonspecific abnormal finding of lung field; G47.33 Obstructive sleep apnea (adult) (pediatric); F17.210 Nicotine dependence, cigarettes, uncomplicated; F15.10 Other stimulant abuse, uncomplicated; Z82.49 Family history of ischemic heart disease and other diseases of the circulatory system; Z79.85 Long-term (current) use of injectable non-insulin antidiabetic drugs; Z79.899 Other long term (current) drug therapy
CPT/HCPCS: 36415; 71046; 80053; 81001; 83735; 83880; 84484; 85025; 85610; 85730; 93005; 94640; 96374; 96375; 96376; 99285; A9270; C8929; G0378; J0456; J0696; J1940; J7030; Q9957

== ENCOUNTER 2023-09-12 16:13 | Inpatient (IN) | payer MEDICARE, MEDICAID, SELFPAY ==
[2023-09-12] VITALS (14 sets, daily range): BP systolic 111–136; BP diastolic 72–88; PULSE 102–113; RESP 15–30; TEMP 36.3–36.4; O2SAT 86–99; BMI 37.0
--- NOTE | ~2023-09-12 | XR_ITS ---
EXAMINATION: XR chest 2V Exam Date/Time: 09/12/2023 16:50 CDT HISTORY: cp Comparison: None. RESULT: Lines, tubes, and devices: Left chest pacer/CD with intact leads. Lungs and pleura: Moderate diffuse interstitial opacities. Streaky subsegmental bibasilar airspace o pacities. Cardiomediastinal silhouette: Stable cardiomegaly. Other: No acute osseous or upper abdominal finding. IMPRESSION: Moderate interstitial edema. Subsegmental bibasilar atelectasis/consolidation. Reviewed, dictated and finalized at location K.
--- NOTE | ~2023-09-12 | US_ITS ---
US abdomen limited INDICATION: Elevated bilirubin PROCEDURE: Realtime right upper abdominal ultrasound. COMPARISON: No prior studies for comparison. FINDINGS: The pancreas is normal without focal mass or pancreatic ductal dilation. Liver echotexture is normal without focal mass or intrahepatic biliary dilatation. There is normal directional flow i n the portal vein. The gallbladder is normal without stones, gallbladder wall thickening or pericholecystic fluid. Comm on bile duct measures 6 mm. No sonographic Johnson's sign. IMPRESSION: 1: Normal limited abdominal ultrasound. Reviewed, dictated and finalized at location B.
--- NOTE | ~2023-09-12 | US_ITS ---
EXAMINATION: US venous doppler [facility] DATE: 09/12/2023 21:55 INDICATION: bilateral lower extremity edema . TECHNIQUE: Grayscale images without and with compression and Doppler images of the bilateral lower ex tremity veins were obtained. COMPARISON: 12/28/2018 FINDINGS: The right common femoral vein, profunda (deep) femoral vein, femoral vein, popliteal vein, peroneal v ein, posterior tibial veins, and greater saphenous vein are patent. The left common femoral vein, profunda (deep) femoral vein, femoral vein, popliteal vein, peroneal v ein, posterior tibial veins, and greater saphenous vein are patent. IMPRESSION: Patent bilateral lower extremity veins. No evidence of deep venous thrombosis. Reviewed, dictated and finalized at location K.
--- NOTE | 2023-09-12 16:22 | ECG_ITS ---
Test Date: 2023-09-12 16:13:13 Measurements Intervals [place] Rate: 112 P: 41 ID: [id number] QRS: -42 QRSD: 166 T: 75 QT: 386 QTc: 528 Interpretive Statements ATRIAL SENSE- ELECTRONIC VENTRICULAR PACEMAKER UNDERLING SINUS TACHYCARDIA BASELINE ARTIFACT- I, II, III, AVR, AVL NO FURTHER INTERPRETATION IS POSSIBLE ABNORMAL ECG No previous ECG available for comparison Electronically Signed On 09-13-2023 07:08:21 CDT by Fawad Murdock D.O.
[2023-09-12] MEDS: ASPIRIN 81 MG CHEWABLE TABLET 324 MG PO (16:34)
[2023-09-12 16:57] LABS: Basophils Absolute Auto 0.1 K/mm3 (0.0-0.1); Eosinophils Absolute Auto 0.4 K/mm3 (0-0.3); Eosinophils Percent Auto 6.4 % (0-4.4); Hematocrit 37.4 % (42.0-52.0); Hemoglobin 11.3 g/dL (14.0-18.0); Immature Granulocyte Absolute 0.01 K/mm3 (0.00-0.031); Immature Granulocyte Percent A 0.2 % (0-0.5); Lymphocytes Absolute Auto 0.91 K/mm3 (0.9-3.2); Mean Corpuscular HGB Conc 30.2 g/dl (32-36); Mean Corpuscular Hemoglobin 30.5 pg (26-34); Mean Corpuscular Volume 100.8 fl (80-100); Mean Platelet Volume 10.8 fl (7.4-10.4); Monocytes Absolute Auto 0.4 K/mm3 (0.1-0.6); Monocytes Percent Auto 6.3 % (2.6-8.5); Neutrophils Absolute Auto 4.3 K/mm3 (1.3-6.7); Neutrophils Percent Auto 71.1 % (45.5-73.1); Platelet Count Result 259 k/mm3 (150-375); Red Blood Count 3.71 M/mm3 (4.6-6.20); Red Cell Distribution Width 18.1 % (11.5-14.5); White Blood Count 6.1 K/mm3 (4.5-10.0)
[2023-09-12] MEDS: BUMETANIDE INJ 1 MG/4 ML VIAL IV PUSH (17:01)
[2023-09-12 17:07] LABS: Alanine Aminotransferase 25 U/L (6-50); Alkaline Phosphatase 94 U/L (38-126); Anion Gap 13 mmol/L (4-12); Aspartate Amino Transferase 42 U/L (17-59); Bilirubin,Total 3.8 mg/dL (0.2-1.3); Blood Urea Nitrogen 26 mg/dL (9-20); Carbon Dioxide 25 mmol/L (22-30); Chloride 98 mmol/L (98-107); Estimated CRCL calculation 64 ml/min; Estimated Glomerular Filt Rate 47; Glucose 124 mg/dL (65-110); Lipase 54 U/L (23-300); Sodium 136 mmol/L (137-145)
--- NOTE | 2023-09-12 17:07 | PC.NURSE ---
Pt requesting to get out of bed to pee. RN told pt he was not to get out of bed as he is a fall risk and had a near syncope earlier today. Pt stated, I'm not a baby, I guarantee I won't be staying here long. I'll piss all over everywhere. I don't care who it gets on. RN educated pt on how to properly use a urinal. When trying to verify pt name and before giving medication pt refused to give RN his real name and and then used a baby voice when giving his name and stating If I'm treated like a child, I will act like one
[2023-09-12 17:11] LABS: INR 1.4; Prothrombin Time 17.8 Seconds (11.1-14.7)
[2023-09-12 17:19] LABS: Troponin I 0.033 ng/mL (0.000-0.034)
[2023-09-12 17:57] LABS: NT Pro B Type Natriuretic Pept 8750 pg/mL (19.9-100)
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
--- NOTE | 2023-09-12 18:42 | PC.NURSE ---
This RN saw pt attempting to get out of bed, this RN entered pt room and asked what he was doing. Pt stated I'm leaving and I'm taking my IV's with me. Nobody has been in to see me . This RN told pt that he has been seen by an ED provider and that this nurse has been in the room to check on him as well. This RN informed EDP who came to bedside and educated pt on the importance of staying and being admitted to the hospital and the risks involved with leaving AMA. Pt agreeable to stay and be admitted
[2023-09-12] MEDS: ONDANSETRON INJ 4 MG/2 ML VIAL IV PUSH (18:45)
[2023-09-12] MEDS: MORPHINE SULFATE (*CRX) 4 MG/ML INJ IV PUSH (18:47)
--- NOTE | 2023-09-12 20:24 | ADMGEN ---
This patient, Isaiah La, was admitted to IMU Room 205-02. Patient/family oriented to hospital policies and general routines including ID bracelet, bed and alarms, visiting hours, pain management, procedures, bathroom and other care routines, personal items, smoking policy, room service/diet, and visiting hours. Information on how to activate the Rapid Response Team has been discussed. Patient/Family are encouraged to report perceived risks to care and to ask questions if they do not understand what they are told or what they should do. Patient arrived on the unit at 1925.
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
[2023-09-12 20:50] LABS: Immature Reticulocyte Fraction 29.8 % (3.0-15.9); Reticulocyte Hemoglobin Conten 29.1 pg (28.2-36.6); Reticulocyte Percent 3.99 % (0.7-4.3); Reticulocytes Absolute 0.16 10^6/uL (0.02-0.10)
[2023-09-12 21:00] LABS: Bilirubin,Total 4.1 mg/dL (0.2-1.3); Lactate Dehydrogenase 392 U/L (120-246)
[2023-09-12 21:06] LABS: Iron 82 ug/dL (49-181)
[2023-09-12 21:16] LABS: Percent Iron Saturation 16 % (20-50)
[2023-09-12 21:17] LABS: Troponin I 0.043 ng/mL (0.000-0.034)
[2023-09-12 22:07] LABS: Folic Acid 8.2 ng/mL (2.76->20)
[2023-09-13] VITALS (25 sets, daily range): BP systolic 84–118; BP diastolic 57–85; PULSE 73–114; RESP 12–24; TEMP 36.3–36.8; O2SAT 92–100; BMI 37.0
[2023-09-13 00:33] LABS: Troponin I 0.047 ng/mL (0.000-0.034)
[2023-09-13] MEDS: ACETAMINOPHEN 325 MG TABLET 650 MG PO ×3 (00:56→20:57)
[2023-09-13] MEDS: carvediloL 12.5 MG TABLET PO ×3 (00:57→20:57)
[2023-09-13] MEDS: MORPHINE SULFATE (*CRX) 2 MG/ML INJ IV PUSH ×4 (01:47→18:49)
[2023-09-13 04:37] LABS: Hematocrit 36.2 % (42.0-52.0); Hemoglobin 11.1 g/dL (14.0-18.0); Mean Corpuscular HGB Conc 30.7 g/dl (32-36); Mean Corpuscular Hemoglobin 31.1 pg (26-34); Mean Corpuscular Volume 101.4 fl (80-100); Mean Platelet Volume 10.8 fl (7.4-10.4); Platelet Count Result 232 k/mm3 (150-375); Red Blood Count 3.57 M/mm3 (4.6-6.20); Red Cell Distribution Width 18.2 % (11.5-14.5); White Blood Count 8.4 K/mm3 (4.5-10.0)
[2023-09-13 04:48] LABS: Alanine Aminotransferase 91 U/L (6-50); Albumin Level 3.8 g/dL (3.5-5.1); Alkaline Phosphatase 88 U/L (38-126); Anion Gap 9 mmol/L (4-12); Aspartate Amino Transferase 149 U/L (17-59); Bilirubin,Total 4.5 mg/dL (0.2-1.3); Blood Urea Nitrogen 31 mg/dL (9-20); Calcium 9.1 mg/dL (8.4-10.2); Carbon Dioxide 27 mmol/L (22-30); Chloride 95 mmol/L (98-107); Estimated CRCL calculation 47 ml/min; Estimated Glomerular Filt Rate 33; Glucose 116 mg/dL (65-110); Potassium 5.3 mmol/L (3.4-5.0); Sodium 131 mmol/L (137-145)
[2023-09-13 04:55] LABS: Hemoglobin A1C 6.2 % (<5.7)
[2023-09-13] MEDS: ENOXAPARIN 40 MG/0.4 ML SYRINGE SUB-Q (08:30)
[2023-09-13 11:10] LABS: Glucose Point of Care 137 mg/dl (65-105)
--- NOTE | 2023-09-13 15:05 | PM.IMPN ---
Progress Note: A&P Assessment and Plan (1) CHF exacerbation: Code(s): I50.9 - Heart failure, unspecified Status: Acute Assessment and Plan: Patient presents with SOB, CP and near-syncope while doing a 6 minute walking test EKG showing atrial sensed electronic ventricular pacer CXR showing moderate interstitial edema. BNP 8750. Troponin up but flat at 0.047. Hypoxic on supplemental O2 Echo 10/2022 EF 15-20% with Grade I diastolic dysfunction and mild MR. Acute on chronic systolic congestive heart failure exacerbation. He was started on IV Bumex. Cr 1.6 but climbed to 2.2. Potassium 5.3. BP 88/61 today Could be worsening cardiac failure with HoTN, elevated LFTs and worsening renal failure Hold Bumex and supplemental potassium. Order Echo. Cards consult may need Dobutamine (2) Acute on chronic renal failure: Code(s): N17.9 - Acute kidney failure, unspecified; N18.9 - Chronic kidney disease, unspecified Status: Acute Assessment and Plan: Baseline Cr last year was 1.1-1.4 mostly. Cr 1.6 on admission but now at 2.2 Related to diuretics and/or poor renal perfusion and/or recent drug use Bumex stopped. Anti-HTN meds stopped. Follow UOP, electrolytes and renal function. (3) Chest pain: Code(s): R07.9 - Chest pain, unspecified Status: Acute Assessment and Plan: Probably demand ischemia from poor EF EKG unhelpful Troponin elevated to 0.047 As above (4) Near syncope: Code(s): R55 - Syncope and collapse Status: Acute Assessment and Plan: Related to heart failure probably with inability to provide adequate perfusion with exertion. DDimer elevated. LE venous dopplers negative for DVT. Consider VQ scan but feel PE less likely. (5) Hyperbilirubinemia: Code(s): E80.6 - Other disorders of bilirubin metabolism Status: Acute Assessment and Plan: On admisison, LFTs normal except for TBili of 3.8 that is all indirect. Probably [place]. AST/ALT elevated today felt related to hepatin congestion possibly RUQ US showing no acute findings and no mention of dilated IVC Follow (6) Non-ischemic cardiomyopathy: Code(s): I42.8 - Other cardiomyopathies Status: Acute Assessment and Plan: As above (7) Anemia: Code(s): D64.9 - Anemia, unspecified Status: Acute Assessment and Plan: Hgb in the 11 range. TIBC 516 with TSat 16% but ferritin normal at 128. B12, folate and TSH normal Follow (8) Type 2 diabetes mellitus: Code(s): E11.9 - Type 2 diabetes mellitus without complications Status: Acute Assessment and Plan: A1c 6.2. The patient's blood glucose was reviewed on 09/12 Glucose remains well controlled. Continue AccuCheks covering with sliding scale. Hypoglycemia protocol available as needed. (9) Obstructive sleep apnea: Code(s): G47.33 - Obstructive sleep apnea (adult) (pediatric) Status: Acute Assessment and Plan: Auto-bipap ordered (10) Tobacco abuse: Code(s): Z72.0 - Tobacco use Status: Acute Assessment and Plan: Educated about the benefits of smoking cessation Plan DVT prophylaxis - Lovenox Code status - full Subjective Date/time seen: 09/13/23 15:05 Interval history: 43yo male with CHF with reduced EF,, NICMP status post ICD implantation, HTN, CKD, CARRIE, DM, former methamphetamine user, and history of noncompliance who presented to the ED via EMS for evaluation of shortness of breath and near syncope. Patient not on home oxygen. No chest pain currently but did have chest pain earlier today that he describes radiating down from his right shoulder that lasted 4-5 minutes and associated with shortness of breath. He describes it as ?light? as 3/10 pain. It seemed to improve with deep breathing. It improved with putting his arm over his head. He admits to taking OxyContin from his girlfriend.
[2023-09-13 16:14] LABS: Glucose Point of Care 124 mg/dl (65-105)
[2023-09-13] MEDS: ONDANSETRON INJ 4 MG/2 ML VIAL IV PUSH (18:49)
[2023-09-13 19:24] LABS: Amphetamine Screen Urine Positive (Negative); Barbiturate Screen Urine Negative (Negative); Benzodiazepines Screen Urine Negative (Negative); Cannabinoid Screen Urine Negative (Negative); Cocaine Screen Urine Negative (Negative); Methadone Screen Urine Negative (Negative); Opiate Screen Urine Positive (Negative); Phencyclidine Screen Urine Negative (Negative)
[2023-09-13 19:49] LABS: Alanine Aminotransferase 126 U/L (6-50); Albumin Level 3.8 g/dL (3.5-5.1); Alkaline Phosphatase 79 U/L (38-126); Anion Gap 10 mmol/L (4-12); Aspartate Amino Transferase 182 U/L (17-59); Bilirubin,Total 3.8 mg/dL (0.2-1.3); Blood Urea Nitrogen 36 mg/dL (9-20); Calcium 8.8 mg/dL (8.4-10.2); Carbon Dioxide 28 mmol/L (22-30); Chloride 91 mmol/L (98-107); Estimated CRCL calculation 47 ml/min; Estimated Glomerular Filt Rate 33; Glucose 124 mg/dL (65-110); Potassium 4.6 mmol/L (3.4-5.0); Sodium 129 mmol/L (137-145)
[2023-09-13 20:31] LABS: Glucose Point of Care 134 mg/dl (65-105)
[2023-09-13] MEDS: DOBUTamine 250 MG/D5W 250 ML 250 MG/250 ML BAG 33.12 MG IV CONT (21:35)
[2023-09-14] VITALS (25 sets, daily range): BP systolic 81–106; BP diastolic 43–75; PULSE 68–93; RESP 20–24; TEMP 36.2–36.6; O2SAT 90–99
--- NOTE | 2023-09-14 | ECHO_ITS ---
Patient Info Name: Isaiah La Age: 43 years : 1980 Gender: Male Ht: 68 in Wt: 243 lbs BSA: 2.35 m2 HR: 74 bpm BP: 91 / 60 mmHg Technical Quality: Fair Exam Date: 09/14/2023 9:55 AM Exam Location: Echo Lab Patient Status: Inpatient Admit Date: 09/13/2023 Staff Ordering Physician: Ketan Rausch MD Complaint Inspector: Chilo Thompson RDCS Attending Provider: Ketan Rausch MD Exam Type: CA echo dop color flow w con Study Info Indications - CHF Complete two-dimensional, color flow and Doppler transthoracic echocardiogram is performed with contrast to opacify the left ventricle and to improve the deliniation of the left ventricle endocardial borders. Contrast/Agitated Saline Contrast/Ag. Saline: Definity Amount: 5.00 ml Existing IV Access: Yes Summary 1. Left ventricular chamber dimension is severely enlarged. 2. Left ventricular systolic function is severely reduced, estimated at 15-20%. 3. There is mildly increased left ventricular wall thickness. 4. Right ventricular systolic function is normal. 5. Left atrial chamber dimension is severely enlarged. 6. Right atrial chamber dimension is mildly enlarged. 7. There is moderate to severe mitral valve regurgitation. 8. There is moderate tricuspid valve regurgitation. 9. Dilated inferior vena cava with <50% collapse upon inspiration consistent with elevated right atrial pressure, 15 mmHg. Left Ventricle Left ventricular chamber dimension is severely enlarged. Left ventricular systolic function is severely reduced, estimated at 15-20%. There is mildly increased left ventricular wall thickness. Right Ventricle Linear artifact in right ventricle suggestive of catheter(s), pacemaker lead(s), or ICD lead(s). Right ventricular chamber dimension is normal. Right ventricular systolic function is normal. Left Atria Left atrial chamber dimension is severely enlarged. Right Atria Linear artifact in the right atrium suggestive of catheter(s), pacemaker lead(s), or ICD lead(s). Right atrial chamber dimension is mildly enlarged. Atrial Septum Intact interatrial septum visualized by color flow imaging. Aortic Valve The aortic valve is probable trileaflet. There is no aortic valve stenosis. There is no aortic valve regurgitation. Pulmonic Valve The pulmonic valve is not well visualized. Mitral Valve There is moderate to severe mitral valve regurgitation. Tricuspid Valve There is moderate tricuspid valve regurgitation. Pericardium/Pleural There is no pericardial effusion. Inferior Vena Cava Dilated inferior vena cava with <50% collapse upon inspiration consistent with elevated right atrial pressure, 15 mmHg. Aorta The aortic root size at the sinus of Valsalva is normal. Left Ventricular Outflow Tract Name Value Normal LVOT 2D LVOT Diameter 2.27 cm LVOT Doppler LVOT Peak Gradient 3 mmHg LVOT Mean Gradient 2 mmHg LVOT VTI 12.50 cm LVOT VTI/AV VTI Ratio 0.68 LVOT Stroke Volume 50.69 ml LVOT CO 4.01 l/min LVOT
--- NOTE | 2023-09-14 01:41 | PC.NURSE ---
Patient blood pressure 81/43 (55), asymptomatic. Paged at [phone], returned call at 0139. No new orders at this time.
[2023-09-14] MEDS: ACETAMINOPHEN 325 MG TABLET 650 MG PO ×3 (02:55→13:23)
[2023-09-14] MEDS: DOBUTamine 250 MG/D5W 250 ML 250 MG/250 ML BAG 33.12 MG IV CONT ×2 (04:35→12:10)
[2023-09-14 04:59] LABS: Basophils Absolute Auto 0.1 K/mm3 (0.0-0.1); Basophils Percent Auto 0.8 % (0.2-1.2); Eosinophils Absolute Auto 0.5 K/mm3 (0-0.3); Eosinophils Percent Auto 6.8 % (0-4.4); Hematocrit 34.3 % (42.0-52.0); Hemoglobin 10.6 g/dL (14.0-18.0); Immature Granulocyte Absolute 0.03 K/mm3 (0.00-0.031); Immature Granulocyte Percent A 0.4 % (0-0.5); Lymphocytes Absolute Auto 0.86 K/mm3 (0.9-3.2); Mean Corpuscular HGB Conc 30.9 g/dl (32-36); Mean Corpuscular Hemoglobin 30.9 pg (26-34); Mean Platelet Volume 11.2 fl (7.4-10.4); Monocytes Absolute Auto 0.7 K/mm3 (0.1-0.6); Monocytes Percent Auto 8.7 % (2.6-8.5); Neutrophils Absolute Auto 5.7 K/mm3 (1.3-6.7); Neutrophils Percent Auto 72.3 % (45.5-73.1); Platelet Count Result 214 k/mm3 (150-375); Red Blood Count 3.43 M/mm3 (4.6-6.20); Red Cell Distribution Width 17.5 % (11.5-14.5); White Blood Count 7.9 K/mm3 (4.5-10.0)
[2023-09-14 05:08] LABS: Alanine Aminotransferase 124 U/L (6-50); Albumin Level 3.8 g/dL (3.5-5.1); Alkaline Phosphatase 87 U/L (38-126); Anion Gap 8 mmol/L (4-12); Aspartate Amino Transferase 151 U/L (17-59); Bilirubin,Total 3.9 mg/dL (0.2-1.3); Blood Urea Nitrogen 36 mg/dL (9-20); Calcium 8.9 mg/dL (8.4-10.2); Carbon Dioxide 33 mmol/L (22-30); Chloride 90 mmol/L (98-107); Estimated CRCL calculation 47 ml/min; Estimated Glomerular Filt Rate 33; Glucose 119 mg/dL (65-110); Magnesium 2.2 mg/dL (1.6-2.3); Phosphorus 3.7 mg/dL (2.5-4.5); Potassium 3.6 mmol/L (3.4-5.0); Sodium 131 mmol/L (137-145)
[2023-09-14] MEDS: LORazepam INJ (*CRX) 2 MG/ML VIAL 1 MG IV PUSH (05:08)
--- NOTE | 2023-09-14 05:36 | PC.NURSE ---
Pt has not voided during this shift. Attempted to bladder scan, patient refused. Patient educated, still refused.
[2023-09-14 07:11] LABS: Glucose Point of Care 133 mg/dl (65-105)
[2023-09-14] MEDS: carvediloL 12.5 MG TABLET PO (08:32)
[2023-09-14] MEDS: ENOXAPARIN 40 MG/0.4 ML SYRINGE SUB-Q (08:32)
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
[2023-09-14] MEDS: PERFLUTREN LIPID MICROSPHERES 1.5 ML VIAL DILUTED TO 10 ML TOTAL VOLUME IV PUSH (10:28)
--- NOTE | 2023-09-14 10:28 | IVDEFINITY ---
Prior to administration of IV Definity the patient was educated on the risks and benefits of the imaging enhancing agent including potential adverse side effects. The patient verbalized understanding. Allergies were verified. No exclusion criteria were identified and at least one of the following inclusion criteria were met: 1) physician request, 2) patient technically difficult to image (per the [place] [employer]ocardi[employer] guidelines of two or more segments not discernable within the apical view), or 3) questionable left ventricular function. ?
[2023-09-14] MEDS: BUMETANIDE INJ 1 MG/4 ML VIAL 2 MG IV PUSH (10:55)
[2023-09-14] MEDS: metOLazone 5 MG TABLET PO (10:55)
[2023-09-14 11:24] LABS: Glucose Point of Care 134 mg/dl (65-105)
--- NOTE | 2023-09-14 13:24 | PM.IMPN ---
Progress Note: A&P Assessment and Plan (1) CHF exacerbation: Code(s): I50.9 - Heart failure, unspecified Status: Acute Assessment and Plan: Patient presents with SOB, CP and near-syncope while doing a 6 minute walking test EKG showing atrial sensed electronic ventricular pacer CXR showing moderate interstitial edema. BNP 8750. Troponin up but flat at 0.047. Hypoxic on supplemental O2 Echo 10/2022 EF 15-20% with Grade I diastolic dysfunction and mild MR. Acute on chronic systolic congestive heart failure exacerbation. He was started on IV Bumex. Cr 1.6 but climbed to 2.2. Potassium 5.3. BP 88/61 today Could be worsening cardiac failure with HoTN, elevated LFTs and worsening renal failure Order Echo. Cards consult ON Dobutamine and bumex (2) Acute on chronic renal failure: Code(s): N17.9 - Acute kidney failure, unspecified; N18.9 - Chronic kidney disease, unspecified Status: Acute Assessment and Plan: Baseline Cr last year was 1.1-1.4 mostly. Cr 1.6 on admission but now at 2.2 Related to diuretics and/or poor renal perfusion and/or recent drug use Bumex stopped. Anti-HTN meds stopped. Follow UOP, electrolytes and renal function. (3) Chest pain: Code(s): R07.9 - Chest pain, unspecified Status: Acute Assessment and Plan: Probably demand ischemia from poor EF EKG unhelpful Troponin elevated to 0.047 As above (4) Near syncope: Code(s): R55 - Syncope and collapse Status: Acute Assessment and Plan: Related to heart failure probably with inability to provide adequate perfusion with exertion. DDimer elevated. LE venous dopplers negative for DVT. Consider VQ scan but feel PE less likely. (5) Hyperbilirubinemia: Code(s): E80.6 - Other disorders of bilirubin metabolism Status: Acute Assessment and Plan: On admisison, LFTs normal except for TBili of 3.8 that is all indirect. Probably [place]. AST/ALT elevated today felt related to hepatin congestion possibly RUQ US showing no acute findings and no mention of dilated IVC Follow (6) Non-ischemic cardiomyopathy: Code(s): I42.8 - Other cardiomyopathies Status: Acute Assessment and Plan: As above (7) Anemia: Code(s): D64.9 - Anemia, unspecified Status: Acute Assessment and Plan: Hgb in the 11 range. TIBC 516 with TSat 16% but ferritin normal at 128. B12, folate and TSH normal Follow (8) Type 2 diabetes mellitus: Code(s): E11.9 - Type 2 diabetes mellitus without complications Status: Acute Assessment and Plan: A1c 6.2. The patient's blood glucose was reviewed on 09/12 Glucose remains well controlled. Continue AccuCheks covering with sliding scale. Hypoglycemia protocol available as needed. (9) Obstructive sleep apnea: Code(s): G47.33 - Obstructive sleep apnea (adult) (pediatric) Status: Acute Assessment and Plan: Auto-bipap ordered (10) Tobacco abuse: Code(s): Z72.0 - Tobacco use Status: Acute Assessment and Plan: Educated about the benefits of smoking cessation Plan DVT prophylaxis - Lovenox Code status - full Subjective Date/time seen: 09/14/23 13:24 Interval history: 43yo male with CHF with reduced EF,, NICMP status post ICD implantation, HTN, CKD, CARRIE, DM, former methamphetamine user, and history of noncompliance who presented to the ED via EMS for evaluation of shortness of breath and near syncope. Patient not on home oxygen. No chest pain currently but did have chest pain earlier today that he describes radiating down from his right shoulder that lasted 4-5 minutes and associated with shortness of breath. He describes it as ?light? as 3/10 pain. It seemed to improve with deep breathing. It improved with putting his arm over his head. He admits to taking OxyContin from his girlfriend. He has a history of IV drug use
[2023-09-14 14:54] LABS: Haptoglobin 56 mg/dL (43-212)
--- NOTE | 2023-09-15 16:39 | PM.DS ---
DS: Admitting Diagnosis Discharge Date 09/14/23 Admitting Diagnosis Shortness of breath and near syncope. DS: Discharge Diagnosis Discharge Diagnosis (1) CHF exacerbation: Code(s): I50.9 - Heart failure, unspecified Status: Acute Assessment and Plan: Patient presents with SOB, CP and near-syncope while doing a 6 minute walking test EKG showing atrial sensed electronic ventricular pacer CXR showing moderate interstitial edema. BNP 8750. Troponin up but flat at 0.047. Hypoxic on supplemental O2 Echo 10/2022 EF 15-20% with Grade I diastolic dysfunction and mild MR. Acute on chronic systolic congestive heart failure exacerbation. He was started on IV Bumex. Cr 1.6 but climbed to 2.2. Potassium 5.3. BP 88/61 today Could be worsening cardiac failure with HoTN, elevated LFTs and worsening renal failure Order Echo. Cards consult ON Dobutamine and bumex (2) Acute on chronic renal failure: Code(s): N17.9 - Acute kidney failure, unspecified; N18.9 - Chronic kidney disease, unspecified Status: Acute Assessment and Plan: Baseline Cr last year was 1.1-1.4 mostly. Cr 1.6 on admission but now at 2.2 Related to diuretics and/or poor renal perfusion and/or recent drug use Bumex stopped. Anti-HTN meds stopped. Follow UOP, electrolytes and renal function. (3) Chest pain: Code(s): R07.9 - Chest pain, unspecified Status: Acute Assessment and Plan: Probably demand ischemia from poor EF EKG unhelpful Troponin elevated to 0.047 As above (4) Near syncope: Code(s): R55 - Syncope and collapse Status: Acute Assessment and Plan: Related to heart failure probably with inability to provide adequate perfusion with exertion. DDimer elevated. LE venous dopplers negative for DVT. Consider VQ scan but feel PE less likely. (5) Hyperbilirubinemia: Code(s): E80.6 - Other disorders of bilirubin metabolism Status: Acute Assessment and Plan: On admisison, LFTs normal except for TBili of 3.8 that is all indirect. Probably [place]. AST/ALT elevated today felt related to hepatin congestion possibly RUQ US showing no acute findings and no mention of dilated IVC Follow (6) Non-ischemic cardiomyopathy: Code(s): I42.8 - Other cardiomyopathies Status: Acute Assessment and Plan: As above (7) Anemia: Code(s): D64.9 - Anemia, unspecified Status: Acute Assessment and Plan: Hgb in the 11 range. TIBC 516 with TSat 16% but ferritin normal at 128. B12, folate and TSH normal Follow (8) Type 2 diabetes mellitus: Code(s): E11.9 - Type 2 diabetes mellitus without complications Status: Acute Assessment and Plan: A1c 6.2. The patient's blood glucose was reviewed on 09/12 Glucose remains well controlled. Continue AccuCheks covering with sliding scale. Hypoglycemia protocol available as needed. (9) Obstructive sleep apnea: Code(s): G47.33 - Obstructive sleep apnea (adult) (pediatric) Status: Acute Assessment and Plan: Auto-bipap ordered (10) Tobacco abuse: Code(s): Z72.0 - Tobacco use Status: Acute Assessment and Plan: Educated about the benefits of smoking cessation DS: Summary Hospital Course Hospital Course: 43yo male with CHF with reduced EF,, NICMP status post ICD implantation, HTN, CKD, CARRIE, DM, former methamphetamine user, and history of noncompliance who presented to the ED via EMS for evaluation of shortness of breath and near syncope. Patient not on home oxygen. No chest pain currently but did have chest pain earlier today that he describes radiating down from his right shoulder that lasted 4-5 minutes and associated with shortness of breath. He describes it as ?light? as 3/10 pain. It seemed to improve with deep breathing. It improved with putting his arm over his head. He admits to taking OxyContin from his gi
== END 2023-09-14 15:16 | disposition left against medical advice (07) | DRG 291 ==
LOC: ANHED 18:30 → ANHIMU 18:59
PROVIDERS: Physician Assistant; Admitting Provider Internal Medicine; Emergency Provider Emergency Medicine; PCP Family Medicine; Visit Provider Family Medicine
DX: I13.0 Hypertensive heart and chronic kidney disease with heart failure and stage 1 through stage 4 chronic kidney disease, or unspecified chronic kidney disease (principal); I50.23 Acute on chronic systolic (congestive) heart failure; N17.9 Acute kidney failure, unspecified; E11.22 Type 2 diabetes mellitus with diabetic chronic kidney disease; E78.5 Hyperlipidemia, unspecified; E80.6 Other disorders of bilirubin metabolism; F15.10 Other stimulant abuse, uncomplicated; F17.210 Nicotine dependence, cigarettes, uncomplicated; G47.33 Obstructive sleep apnea (adult) (pediatric); I42.8 Other cardiomyopathies; I25.2 Old myocardial infarction; N18.30 Chronic kidney disease, stage 3 unspecified; R55 Syncope and collapse; Z95.810 Presence of automatic (implantable) cardiac defibrillator; Z91.199 Patient's noncompliance with other medical treatment and regimen due to unspecified reason; Z79.85 Long-term (current) use of injectable non-insulin antidiabetic drugs
CPT/HCPCS: 36415; 71046; 76705; 80053; 80307; 82247; 82248; 82607; 82728; 82746; 82948; 83010; 83036; 83540; 83550; 83615; 83690; 83735; 83880; 84100; 84443; 84484; 85025; 85027; 85046; 85380; 85610; 85730; 93005; 93970; 96372; 96374; 96375; 96376; 99285; A9270; C8929; G0378; J1250; J1650; J1939; J2060; J2270; J2405; Q9957

== ENCOUNTER 2024-07-28 21:30 | Observation (INO) | payer MEDICARE, MEDICAID, SELFPAY ==
--- NOTE | ~2024-07-28 | CT_ITS ---
Clinical Indication: Chest pain, abdominal pain CT Scan of the Chest, Abdomen, and Pelvis with Contrast: Technique: Contiguous sections were acquired throughout the chest, abdomen, and pelvis after intraven ous administration of 100 cc of Omnipaque 350. Dose reduction technique was used on this scan by swati deleon automated exposure control and iterative reconstruction technique. The dose-length product (DL P) was 1435.78 mGy-cm. Comparison 05/12/2021 Findings: There is no evidence of any significant mediastinal, hilar or axillary lymphadenopathy. There is mild cardiomegaly, with pacemaker device. No central pulmonary embolus. There is no evidence of pleural or pericardial effusion. The lungs are clear. No pulmonary nodules or infiltrates are noted. The liver, spleen, gallbladder, adrenals and kidneys are within normal limits. Suspected peripancreat ic inflammatory change. No evidence of aortic aneurysm. No lymphadenopathy. No bowel obstruction or bowel wall thickening. There is no evidence to suggest acute appendicitis. Urinary bladder is unremarkable. No pelvic mass. No pelvic ascites. Impression: Suspected acute pancreatitis, though exam is somewhat degraded by motion artifact. No other acute reality identified. Reviewed, dictated and finalized at [facility]. Impression: Suspected acute pancreatitis, though exam is somewhat degraded by motion artifa ct. No other acute reality identified.
--- NOTE | ~2024-07-28 | XR_ITS ---
Portable chest x-ray Comparison: 09/12/2023 Clinical History: Shortness of breath Findings: Lungs are clear, without focal consolidation or pleural effusion. Cardiomediastinal silho uette is stable, with pacemaker device. Bones and soft tissues are unremarkable. Impression: Clear lungs. Stable cardiomegaly with pacemaker device. Reviewed, dictated and finalized at location . Impression: Clear lungs. Stable cardiomegaly with pacemaker device.
--- OUTSIDE RECORDS SUMMARY | 2024-07-28 21:33 | XMS_ITS | Patient Health Record ---
Author Organization [facility] Address [address] [place] [address] Care Team Providers Care Database Admin Name Role Phone Ritu Hubbard Primary Care Provider Reason For Referral No Information Medications Medication SIG (Take, Route, Fr equency, Duration) Notes Start Date End Date Status Nicotine 21 MG/24HR 1 patch to skin [place] sdermal Once a day Not-Taking Social History Tobacco Use: Social History Observation Description Date Details (start date - stop date) Current Smoker NA - NA Dont use, Tobacco Use/Smoking Question Answer Notes Are you a current smoker How often do you smoke cigarettes? every day How many cigarettes a day do you smoke? 6-10 Are you interested in quitting? Thinking about q uitting Problems Problem Type SNOMED Code ICD Code Onset Dates Problem Status W/U Status Risk Notes Problem [id number] Anxiety (F41.9) Active confirmed Problem [id number] Tobacco use disorder (F17.200) Active confirmed Plan Of Treatment No Information Insurance Providers Payer Name Payer Address Payer Phone Subscriber Number Group Number Insured Name Patient Relationship to Insured Coverage Start Date Coverage End Date [facility] [address] [address] [place] [address] [id number] Isaiah La Self - patient is the insured 7 Medical (General) History Medical History History ICD Code Substance Use Disorder Surgical History Surgery Date(Month/Year) Extractions
--- OUTSIDE RECORDS SUMMARY | 2024-07-28 21:33 | XMS_ITS | Clinical Summary ---
Author Organization [facility] Facility Address [address] [place] [address] Care Team Providers Care C.O.D. Audit Clerk Name Role Phone Unavailable Primary Care Provider Unavailabl e Social History Tobacco Use Types Packs/Day Years Used Date Smoking Tobacco: Never Assessed Sex and Gender Information Value Date Recorded Sex Assigned at Not on file Legal Sex Male 12:14 PM EDT Gender Identity Not on file Sexual Orientation Not on file Plan of Treatment Health Maintenance Due Date Last Done Comments Hepatitis B Vaccine (1 of 3 - 19+ 3-dose series) 04/05 Pneumococcal Vaccine: Peds ( 0 to 5 Years) and At-Risk Patients (6 to 49 Years) (1 of 2 - PCV) 1997 Diabetes: Ophthalmology Exam 12/26/2021 Diabetes: Pedal Pulse Checked 12/26/2021 Diabetes: Sensory Foot Exam 12/26/2021 Diabetes: Visual Foot Exam 12/26/2021 Diabetes: Hemoglobin A1C 03/27/2022 12/25/2021 Influenza Vaccine (Season Ended) 2024 Insurance Medicare
--- OUTSIDE RECORDS SUMMARY | 2024-07-28 21:33 | XMS_ITS | Continuity of Care Document ---
Author Organization [facility] Address [address] [place] [address] Phone Care Team Providers Care Leguillon Debeader Name Role Phone Rubina uDran MD Unavailable Unavailabl e Allergies, Adverse Reactions, [...] Diagnoses Date Provider Providers Copied on [facility], [address], [place], [place], [address] , tel: [phone] Cynthia No Information 1 [address] [place], [place], [address]. tel:[phone] [facility], [address], [place], [place], [address] , [place] tel: [phone] Cynthia ADMINISTRTVE ENCOUNT NEC 1 Renee [address] [place], [place], [address]. tel:[phone] [facility], [address], [place], [place], [address] , tel: [phone] Cynthia ATTN REMOVAL OF SUTURESOPEN WOUND CHEST-COMPL 0 Renee [address] [place], [place], [address]. tel:[phone] [employer] [facility], [address], [place], [place], [address] , [place] tel: [phone] Cynthia IATROGENIC PNEUMOTHORAXTOBACCO USE DISORDER 0 Duran Rubina. [address] [place], [place], [address]. tel:[phone] [employer] [facility], [address], [place], [place], [address] , [place] tel: [phone] Cynthia VENEREAL DIS CONTACT 3-201 0 Duran [address]ina. [address] [place], [place], [address]. tel:[phone] [employer], [address], [place], [place], [address] , tel: [phone] Cynthia MIXED HYPERLIPIDEMIALONG-T ERM USE MEDS NEC 0- 0 Duran Rubina. [address] [place], [place], [address]. tel:[phone] [employer], [address], [place], [place], [address] , [place] tel: [phone] Cynthia CHEST PAIN NOS 3 0 Duran [address]ina. [address] [place], [place], [address]. tel:[phone] [employer] [facility], [address], [place], [place], [address] , [place] tel: [phone] [place] SCREEN LIPOID DISORDERSOBESITY NOSROUTINE MEDICAL EXAM 9 Duran Rubina. [address] [place], [place], [address]. tel:[phone] [employer], [address], [place], [place], [address] , [place] tel: [phone] [place] HISTORY OF TOBACCO USE 9 Duran Rubina. [address] [place], [place], [address]. tel:[phone] Family History Family Member Type Diagnosis Age At Onset No Information Payers Payer name Insurance type Covered libertarian ID Authoriza tion(s) No Information Social History [...]
[2024-07-28 21:34] VITALS: BP 113/88; PULSE 88; RESP 22; TEMP 36.3; O2SAT 98
--- NOTE | 2024-07-28 21:37 | ECG_ITS ---
Test Date: 2024-07-28 21:56:16 Measurements Intervals [place] Rate: 69 P: 147 AL: 162 QRS: 188 QRSD: 173 T: 15 QT: 466 QTc: 502 Interpretive Statements ELECTRONIC ATRIAL PACEMAKER ELECTRONIC VENTRICULAR PACEMAKER BASELINE ARTIFACT- I, III, AVL NO FURTHER INTERPRETATION IS POSSIBLE ATYPICAL ECG Compared to ECG 09/12/2023 16:13:13 Sinus tachycardia no longer present Electronically Signed On 07-29-2024 07:21:40 CDT by Fawad Murdock D.O.
[2024-07-28 21:43] VITALS: BP 127/80; PULSE 85; RESP 28; TEMP 36.6; O2SAT 95
[2024-07-28 21:48] VITALS: PULSE 74; O2SAT 95
[2024-07-28 21:53] LABS: Basophils Absolute Auto 0.1 K/mm3 (0.0-0.1); Basophils Percent Auto 0.9 % (0.2-1.2); Eosinophils Absolute Auto 0.2 K/mm3 (0-0.3); Eosinophils Percent Auto 2.9 % (0-4.4); Hematocrit 42.8 % (42.0-52.0); Hemoglobin 12.6 g/dL (14.0-18.0); Immature Granulocyte Absolute 0.02 K/mm3 (0.00-0.031); Immature Granulocyte Percent A 0.3 % (0-0.5); Lymphocytes Percent Auto 14.7 % (18.3-44.2); Mean Corpuscular HGB Conc 29.4 g/dl (32-36); Mean Corpuscular Volume 91.8 fl (80-100); Mean Platelet Volume 10.1 fl (7.4-10.4); Monocytes Absolute Auto 0.5 K/mm3 (0.1-0.6); Monocytes Percent Auto 6.6 % (2.6-8.5); Neutrophils Absolute Auto 5.6 K/mm3 (1.3-6.7); Neutrophils Percent Auto 74.6 % (45.5-73.1); Platelet Count Result 237 k/mm3 (150-375); Red Blood Count 4.66 M/mm3 (4.6-6.20); White Blood Count 7.5 K/mm3 (4.5-10.0)
[2024-07-28 22:04] LABS: INR 1.4; Prothrombin Time 17.1 Seconds (11.1-14.7)
--- OUTSIDE RECORDS SUMMARY | 2024-07-28 22:06 | XMS_ITS | Continuity of Care Document ---
Author Organization [facility] Address [address] [place] [address] Phone Care Team Providers Care Trailhead Construction Worker Name Role Phone Rubina Duran MD Unavailable [...] Diagnoses Date Provider Providers Copied on Encounter [facility], [address], [place], [place], [address] , tel: [phone] Cynthia No Information 1 Duran Rubina. [address] [place], [place], [address]. tel:[phone] [facility], [address], [place], [place], [address] , [place] tel: [phone] Cynthia ADMINISTRTVE ENCOUNT NEC 1 Duran Rubina. [address] [place], [place], [address]. tel:[phone] [facility], [address], [place], [place], [address] , tel: [phone] Cynthia OPEN WOUND CHEST-COMPLATTN REMOVAL OF SUTURES 0 Renee Shawh. [address] [place], [place], [address]. tel:[phone] [employer], [address], [place], [place], [address] , [place] tel: [phone] Cynthia TOBACCO USE DISORDERIATROGENIC PNEUMOTHORAX 0 Duran Rubina. [address] [place], [place], [address]. tel:[phone] [employer] [facility], [address], [place], [place], [address] , [place] tel: [phone] Cynthia VENEREAL DIS CONTACT [place]- 3-201 0 Duran Ruibna. [address] [place], [place], [address]. tel:[phone] [employer], [address], [place], [place], [address] , [place] tel: [phone] Cynthia LONG-TERM USE MEDS NECMIXED HYPERLIPIDEMIA 0-201 0 Duran Rubina. [address] [place], [place], [address]. tel:[phone] [employer], [address], [place], [place], [address] , [place] tel: [phone] Cynthia CHEST PAIN NOS 3201 0 Duran Rubina. [address] [place], [place], [address]. tel:[phone] [employer], [address], [place], [place], [address] , [place] tel: [phone] [place] ROUTINE MEDICAL EXAMOBESITY NOSSCREEN LIPOID DISORDERS 9 Duran Rubina. [address] [place], [place], [address]. tel:[phone] [employer], [address], [place], [place], [address] , [place] tel: [phone] Cynthia HISTORY OF TOBACCO USE 9 Duran Rubina. [address] [place], [place], [address]. tel:[phone] Family History Family Member Type Diagnosis Age At Onset No Information Payers Payer name Insurance type Covered constitution party ID Authoriza tion(s) No Information Social History [...]
--- OUTSIDE RECORDS SUMMARY | 2024-07-28 22:06 | XMS_ITS | Clinical Summary ---
Author Organization [facility] Facility Address [address] [place] [address] Care Team Providers Care Head Coach Name Role Phone Unavailable Primary Care Provider [...]
[2024-07-28 22:15] LABS: Hypochromasia 1+; Platelet Estimate Adequate (Adequate); Schistocytes None Seen
--- NOTE | 2024-07-28 22:46 | ECG_ITS ---
Test Date: 2024-07-28 23:01:49 Measurements Intervals [place] Rate: 73 P: -46 IN: 159 QRS: 193 QRSD: 168 T: 27 QT: 445 QTc: 491 Interpretive Statements ELECTRONIC ATRIAL PACEMAKER ELECTRONIC VENTRICULAR PACEMAKER BASELINE ARTIFACT- I, II, III, AVR, AVL, AVF, V4-V6 NO SIGNIFICANT CHANGE ATYPICAL ECG Compared to ECG 07/28/2024 21:56:16 No significant changes Electronically Signed On 07-29-2024 07:21:09 CDT by Fawad Murdock D.O.
[2024-07-28] MEDS: ACETAMINOPHEN 325 MG TABLET 650 MG PO (22:56)
[2024-07-28 23:25] LABS: Alanine Aminotransferase 20 U/L (6-50); Albumin Level 4.3 g/dL (3.5-5.1); Alkaline Phosphatase 113 U/L (38-126); Anion Gap 11 mmol/L (4-12); Aspartate Amino Transferase 47 U/L (17-59); Bilirubin,Total 1.1 mg/dL (0.2-1.3); Blood Urea Nitrogen 34 mg/dL (9-20); Calcium 9.4 mg/dL (8.4-10.2); Carbon Dioxide 27 mmol/L (22-30); Chloride 99 mmol/L (98-107); Estimated CRCL calculation 70 ml/min; Estimated Glomerular Filt Rate 55; Glucose 109 mg/dL (65-110); Potassium 4.8 mmol/L (3.4-5.0); Sodium 137 mmol/L (137-145); Total Protein 8.3 g/dL (6.3-8.2)
[2024-07-28 23:38] LABS: Influenza A QL RT-PCR Negative (Negative); Influenza B QL RT-PCR Negative (Negative); RSV RNA, RT-PCR Negative (Negative); SARS-CoV-2 RNA PCR Negative (Negative)
[2024-07-28] MEDS: diazePAM INJ (*CRX) 10 MG/2 ML SYRINGE 5 MG IV PUSH (23:57)
[2024-07-28] MEDS: ASPIRIN 81 MG CHEWABLE TABLET 324 MG PO (23:58)
[2024-07-29 00:23] LABS: NT Pro B Type Natriuretic Pept 9670 pg/mL (19.9-100); Troponin I 0.049 ng/mL (0.000-0.034)
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
[2024-07-29 00:47] LABS: Ethanol < 10 mg/dL (<10)
[2024-07-29] MEDS: BUMETANIDE INJ 1 MG/4 ML VIAL IV PUSH (00:51)
--- NOTE | 2024-07-29 00:56 | ECG_ITS ---
Test Date: 2024-07-29 00:59:10 Measurements Intervals [place] Rate: 71 P: 217 [place]: 158 QRS: 202 QRSD: 170 T: 30 QT: 457 QTc: 498 Interpretive Statements ELECTRONIC ATRIAL PACEMAKER WITH INHIBITION ELECTRONIC VENTRICULAR PACEMAKER NO FURTHER INTERPRETATION IS POSSIBLE ATYPICAL ECG Compared to ECG 07/28/2024 23:01:49 No significant changes Electronically Signed On 07-29-2024 07:20:13 CDT by Fawad Murdock D.O.
[2024-07-29 01:00] VITALS: BP 103/78; PULSE 72; RESP 22; O2SAT 97
--- NOTE | 2024-07-29 01:11 | PC.NURSE ---
Pt is attempting to provide a urine sample at this time.
[2024-07-29 01:26] VITALS: BP 105/70; PULSE 75; RESP 27; O2SAT 94
[2024-07-29 01:37] LABS: Add Urine Microscopic? YES; Appearance Urine Clear (Clear); Bacteria Urine None Seen /hpf; Bilirubin Urine Negative (Negative); Blood Urine Negative (Negative); Color Urine Yellow (Yellow); Glucose Urine UA Negative (Negative); Ketones Urine Negative (Negative); Leukocyte Esterase Ur Negative LEU/UL (Negative); Nitrate Urine Negative (Negative); Non Pathogenic Casts 0-2; Protein Urine 2+ mg/dL (Negative); RBC Urine 0-2 /hpf (0-2); Specific Grav Ur 1.043 (1.001-1.035); Squamous Epithelial Cell Urine None Seen /hpf (Few); WBC Urine 0-5 /hpf (0-3); pH Urine 5.5 (5.0-9.0)
[2024-07-29 01:45] VITALS: BP 112/76; PULSE 76; RESP 18
[2024-07-29 01:51] LABS: Troponin I 0.051 ng/mL (0.000-0.034)
[2024-07-29 01:51] LABS: Amphetamine Screen Urine Positive (Negative); Barbiturate Screen Urine Negative (Negative); Benzodiazepines Screen Urine Negative (Negative); Cannabinoid Screen Urine Negative (Negative); Cocaine Screen Urine Negative (Negative); Methadone Screen Urine Negative (Negative); Opiate Screen Urine Negative (Negative); Phencyclidine Screen Urine Negative (Negative)
[2024-07-29] MEDS: HALOPERIDOL LACTATE 5 MG/ML VIAL IM (01:54)
[2024-07-29 02:02] LABS: Lipase 118 U/L (23-300)
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
[2024-07-29 02:24] LABS: Creatine Kinase 154 U/L (55-170); Magnesium 1.9 mg/dL (1.6-2.3)
[2024-07-29] MEDS: HEPARIN SODIUM 5,000 UNITS/ML VIAL 4000 UNITS IV PUSH (02:32)
[2024-07-29] MEDS: HEPARIN SOD/D5W 100 UNITS/ML 25,000 UNITS/250 ML BAG 10 UNITS IV CONT (02:34)
--- NOTE | 2024-07-29 03:30 | PC.NURSE ---
Per Hospitalist Akbar, heparin medication will be discontinued.
--- NOTE | 2024-07-29 03:30 | PC.NURSE ---
Pt refuses to wear gown.
--- NOTE | 2024-07-29 03:36 | ADMGEN ---
This patient, Isaiah La, was admitted to IMU Room 212-01. Patient/family oriented to hospital policies and general routines including ID bracelet, bed and alarms, visiting hours, pain management, procedures, bathroom and other care routines, personal items, smoking policy, room service/diet, and visiting hours. Information on how to activate the Rapid Response Team has been discussed. Patient/Family are encouraged to report perceived risks to care and to ask questions if they do not understand what they are told or what they should do.
--- NOTE | 2024-07-29 03:54 | PC.NURSE ---
Pt brought to IMU from ED. Pt drowsy upon arrival to IMU. Frequent tremors to BLE. Pt dozing off while staff attempting to ask him questions. Pt states he is falling aslpeep because he has sleep apnea. Pt requested AMA papers. Staff attempted to to discuss benefits of further medical treatment and evaluation. Pt belligerent and cursing at staff. Dr. Webber in IMU. States pt is appropriate to leave AMA. RN removed peripheral IV. Pt signed AMA papers. Pt able to dress self without difficulty. All of pt's belongings sent with pt. Security staff walked pt out of facility. Pt ambulated with steady gait. chief wharfinger and warehouse driver aware.
== END 2024-07-29 03:48 | disposition left against medical advice (07) ==
LOC: ANHED 07-29 02:17 → ANHIMU 07-29 02:58
PROVIDERS: Student in an Organized Health Care Education/Training Program; Admitting Provider Internal Medicine; Emergency Provider Physician Assistant; PCP Family Medicine; Visit Provider Internal Medicine
DX: I13.0 Hypertensive heart and chronic kidney disease with heart failure and stage 1 through stage 4 chronic kidney disease, or unspecified chronic kidney disease (principal); E11.22 Type 2 diabetes mellitus with diabetic chronic kidney disease; N18.31 Chronic kidney disease, stage 3a; I50.23 Acute on chronic systolic (congestive) heart failure; R18.8 Other ascites; R79.89 Other specified abnormal findings of blood chemistry; G47.31 Primary central sleep apnea; G47.33 Obstructive sleep apnea (adult) (pediatric); F17.210 Nicotine dependence, cigarettes, uncomplicated; F15.20 Other stimulant dependence, uncomplicated; I25.2 Old myocardial infarction; I42.8 Other cardiomyopathies; E78.5 Hyperlipidemia, unspecified; F32.A Depression, unspecified; F41.9 Anxiety disorder, unspecified; Z20.822 Contact with and (suspected) exposure to COVID-19; Z79.01 Long term (current) use of anticoagulants; Z79.82 Long term (current) use of aspirin; Z79.899 Other long term (current) drug therapy; Z91.199 Patient's noncompliance with other medical treatment and regimen due to unspecified reason; Z95.0 Presence of cardiac pacemaker; Z99.89 Dependence on other enabling machines and devices
CPT/HCPCS: 36415; 71045; 71275; 74174; 80053; 80307; 81001; 82077; 82550; 83690; 83735; 83880; 84484; 85025; 85610; 85730; 87637; 93005; 96365; 96372; 96375; 99285; A9270; G0378; J1630; J1644; J1939; J3360; Q9967

== ENCOUNTER 2024-10-25 03:52 | Inpatient (IN) | payer MEDICARE, MEDICAID, SELFPAY ==
--- OUTSIDE RECORDS SUMMARY | 2010-10-26 19:00 | XMS_ITS | Continuity of Care Document ---
Author Organization [facility] Address [address] [place] [address] Phone Care Team Providers Care Pharmacy Data Analyst Name Role Phone Rubina Duran MD Unavailable Unavailabl e Allergies, Adverse Reactions, Alerts Substance Reaction Status Criticality No Known Drug Allergies Other Active No I nformation Medications Medication Instructions Dosage Effective Dates (start - stop) Status Comments CHANTIX 1 MG TABLET 1 BID - Active CHANTIX 1MG TABS 1 BID - No Longer Active Advance Directives Directive Yes / No Effective Date File Name No Information Encounters Encounter Description Practice Location Reason(s) For Visit Diagnoses Date Provider Providers Copied on Encounter [facility], [address], [place], [place], [id number] , tel: [phone] Cynthia No Information 1 Duran Rubina. [address] [place], [place], [id number]. tel:[phone] [facility], [address], [place], [place], [id number] , [place] tel: [phone] Cynthia ADMINISTRTVE ENCOUNT NEC 1 Duran Rubina. [address] [place], [place], [address]. tel:[phone] [facility], [address], [place], [place], [address] , tel: [phone] Cynthia OPEN WOUND CHEST-COMPLATTN REMOVAL OF SUTURES 0 Renee Shawh. [address] [place], [place], [id number]. tel:[phone] [facility], [address], [place], [place], [address] , [place] tel: [phone] Cynthia TOBACCO USE DISORDERIATROGENIC PNEUMOTHORAX 0 Duran Rubina. [address] [place], [place], [address]. tel:[phone] [facility], [address], [place], [place], [address] , [place] tel: [phone] Cynthia VENEREAL DIS CONTACT [place]- 3-201 0 Duran Rubina. [address] [place], [place], [address]. tel:[phone] [facility], [address], [place], [place], [address] , [place] tel: [phone] Cynthia LONG-TERM USE MEDS NECMIXED HYPERLIPIDEMIA 0-201 0 Duran Rubina. [address] [place], [place], [address]. tel:[phone] [facility], [address], [place], [place], [address] , [place] tel: [phone] Cynthia CHEST PAIN NOS 3201 0 Duran Rubina. [address] [place], [place], [address]. tel:[phone] [facility], [address], [place], [place], [address] , [place] tel: [phone] [facility] ROUTINE MEDICAL EXAMOBESITY NOSSCREEN LIPOID DISORDERS 9 Duran Rubina. [address] [place], [place], [id number]. tel:[phone] [facility], [address], [place], [place], [address] , [place] tel: [phone] Cynthia HISTORY OF TOBACCO USE 9 Duran Rubina. [address] [place], [place], [address]. tel:[phone] Family History Family Member Type Diagnosis Age At Onset No Information Payers Payer name Insurance type Covered republican ID Authoriza tion(s) No Information Social History Type Description Quantity Date Captured Comments Sex Male Smoking Status No Information Chief Complaint And Reason For Visit No Information Reason For Referral Reason For Referral No Information History Of Present Illness Encounter Date Complaint History Of Prese nt Illness No Information Functional Status Date Functional Assessmen t No Information Instructions Date Instruction Additional Infor mation No Information Assessments Type Assessment Date No Information Patient Care Teams Name Effective Dates (start - stop) Status Members No Information
[2024-10-25] VITALS (20 sets, daily range): BP systolic 101–131; BP diastolic 66–97; PULSE 70–93; RESP 15–22; TEMP 36.3–36.6; O2SAT 92–100; BMI 36.4
--- NOTE | ~2024-10-25 | US_ITS ---
EXAMINATION: US renal BI DATE: 10/28/2024 12:42 INDICATION: Elevated creatinine TECHNIQUE: Multiple ultrasound grayscale images of the kidneys were obtained. COMPARISON: None. FINDINGS: The right kidney measures 12.0 x 6.3 x 4.6 cm. The left kidney measures 11.4 x 6.9 x 5.3 cm. The kidneys demonstrate normal echogenicity. Mild right hydronephrosis. No hydronephrosis in the left kidney. No stones identified. The bladder is normal. IMPRESSION: 1. Mild right hydronephrosis. Otherwise normal kidneys. Reviewed, dictated and finalized at location A.
--- NOTE | ~2024-10-25 | US_ITS ---
EXAMINATION: US abdomen limited DATE: 10/25/2024 08:02 INDICATION: Right upper quadrant abdominal pain. Possible cholecystitis. TECHNIQUE: Multiple grayscale and Doppler ultrasound images of the abdomen were obtained. COMPARISON: None FINDINGS: The pancreatic head and body are normal in appearance. The pancreatic tail is not visualized. Visualized proximal inferior vena cava is normal. Liver has normal echogenicity. There is suggestion of subtle liver surface nodularity on the larger [id number] images however this is not appreciated on the high- resolution high frequency images and this remains equivocal. No liver lesion identified. No intrahepatic biliary duct dilation suspected. Portal venous flow was seen in the hepatopetal, normal direction but with increased pulsatility which can be seen in the setting of congestive heart failure or other cause of elevated right heart pressure. The gallbladder is normal in appearance. There is no cholelithiasis. The common bile duct measures 6 mm, which is normal. Sonographic Johnson sign was reported as negative by the grinder operator external tool. IMPRESSION: 1. Increased portal venous pulsatility consistent with congestive heart failure. 2. Normal gallbladder with no cholelithiasis with negative sonographic Johnson's sign. 3. Suggestion of some liver surface nodularity on the larger [id number]-ma-[id number] images which is not appreciated on the single high-resolution image which remains equivocal for cirrhosis. Reviewed, dictated and finalized at location A. IMPRESSION: 1. Increased portal venous pulsatility consistent with congestive heart failure . 2. Normal gallbladder with no cholelithiasis with negative sonographic Johnson's sign. 3. Suggestion of some liver surface nodularity on the larger [id number]-[id number] imag es which is not appreciated on the single high-resolution image which remains e quivocal for cirrhosis.
--- NOTE | ~2024-10-25 | CT_ITS ---
EXAMINATION: CT abdomen pelvis wo con DATE: 10/25/2024 06:41 INDICATION: Diffuse abdominal pain TECHNIQUE: Computed tomography (CT) of the abdomen and pelvis was performed without intravenous contrast. Automated exposure control and iterative reconstruction technique were employed. The dose-length product was 1382.60 mGy-cm. COMPARISON: 07/28/2024 FINDINGS: Mild emphysema. Moderate radial megaly with prominent left ventricular enlargement. Small amount of atherosclerotic coronary artery calcification. Dual lead pacemaker/AICD seen with leads projecting over the expected locations of the right atrium and right ventricle. No pericardial or pleural effusion. Mild bilateral gynecomastia. Diffuse hepatic steatosis with suggestion of some liver surface nodularity suspicious for cirrhosis. Spleen, pancreas, bilateral adrenal glands and kidneys are normal. Mild and wall thickening of the decompressed gallbladder. Bladder is normal. Bowels including the appendix are normal. There is diffuse intra-abdominal and body wall edema along with small amount of ascites scattered throughout the abdomen and pelvis and extending to a small left inguinal hernia. No abscess or free intraperitoneal gas. No pathologically enlarged abdominal or pelvic lymphadenopathy. Mild thoracic spondylosis and mild bilateral hip osteoarthritis. Relatively symmetric moderate bilateral sa croiliitis with multiple cortical erosions and surrounding ill-defined subarticular sclerosis along the iliac side of the bilateral sacroiliac joints. IMPRESSION: 1. Moderate cardiomegaly. 2. Diffuse intra-abdominal and body wall edema as well as small amount of ascites likely related to congestive heart failure. 3. Diffuse hepatic steatosis with suggestion of some liver surface nodularity raising some suspicion for cirrhosis. 4. Wall thickening of the gallbladder due to at least in part to decompressed state which would argue against acute cholecystitis. This could also be due to congestive heart failure or chronic cholecystitis. If there is continued clinical concern for acute cholecystitis could consider HIDA scan for further evaluation. 5. Mild emphysema. 6. Moderate bilateral sacroiliitis which is relatively symmetric, which can be seen with ankylosing spondylitis, enteropathic arthritis and rheumatoid arthritis with differential also including psoriatic arthritis and reactive arthritis and osteoarthritis. Reviewed, dictated and finalized at location A. IMPRESSION: 1. Moderate cardiomegaly. 2. Diffuse intra-abdominal and body wall edema as well as small amount of ascit es likely related to congestive heart failure. 3. Diffuse hepatic steatosis with suggestion of some liver surface nodularity r aising some suspicion for cirrhosis. 4. Wall thickening of the gallbladder due to at least in part to decompressed s lanier which would argue against acute cholecystitis. This could also be due to c ongestive heart failure or chronic cholecystitis. If there is continued clinica l concern for acute cholecystitis could consider HIDA scan for further evaluati on. 5. Mild emphysema. 6. Moderate bilateral sacroiliitis which is relatively symmetric, which can be seen with ankylosing spondylitis, enteropathic arthritis and rheumatoid arthrit is with differential also including psoriatic arthritis and reactive arthritis and osteoarthritis.
--- NOTE | ~2024-10-25 | XR_ITS ---
EXAM/PROCEDURE: XR chest 2V - 10/25/2024 4:25 CDT HISTORY: 44 years old Male with sob TECHNIQUE: Two view(s) of the chest. COMPARISON: 07/28/2024 FINDINGS: LUNGS/ PLEURA: Mild vascular congestion, bilateral interstitial and alveolar opacities. HEART/ MEDIASTINUM: Mild cardiomegaly is unchanged. BONES: No acute osseous abnormality. OTHER: Visualized upper abdomen is unremarkable. Triple lead AICD with intact leads. IMPRESSION: Moderate cardiomegaly and pulmonary vascular congestion. Superimposed infection cannot be excluded. Reviewed, dictated and finalized at location N.
--- NOTE | 2024-10-25 04:02 | ECG_ITS ---
Test Date: 2024-10-25 04:05:26 Measurements Intervals [place] Rate: 74 P: 184 CT: 164 QRS: 191 QRSD: 176 T: 27 QT: 448 QTc: 499 Interpretive Statements ELECTRONIC ATRIAL PACEMAKER ELECTRONIC BIVENTRICULAR PACEMAKER ABNORMAL RHYTHM ECG Compared to ECG 07/29/2024 00:59:10 No significant changes Electronically Signed On 10-25-2024 11:37:32 CDT by Vito Reyes M.D.
[2024-10-25 04:33] LABS: Hematocrit 42.4 % (42.0-52.0); Hemoglobin 12.8 g/dL (14.0-18.0); Immature Granulocyte Percent A 0.4 % (0-0.5); Lymphocytes Absolute Auto 1.27 K/mm3 (0.9-3.2); Mean Corpuscular HGB Conc 30.2 g/dl (32-36); Mean Corpuscular Hemoglobin 26.8 pg (26-34); Mean Corpuscular Volume 88.7 fl (80-100); Nucleated Red Blood Cells Absolute Auto 0.000 K/mm3 (0.0-0.012); Nucleated Red Blood Cells Perc 0.0 % (0.0-0.2); Platelet Count Result 296 k/mm3 (150-375); Red Blood Count 4.78 M/mm3 (4.6-6.20); White Blood Count 5.7 K/mm3 (4.5-10.0)
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
--- OUTSIDE RECORDS SUMMARY | 2024-10-25 04:47 | XMS_ITS | Patient Health Record ---
Author Organization [facility] Address [address] [place] [address] Care Team Providers Care Manager Division Name Role Phone Ritu Hubbard Primary Care Provider Reason For Referral No Information Medications Medication SIG (Take, Route, Fr equency, Duration) Notes Start Date End Date Status Nicotine 21 MG/24HR 1 patch to skin [place] sdermal Once a day Not-Taking Social History [...] Problem Status W/U Status Risk Notes Problem Anxiety (26423976) Anxiety (F41.9) Active confirmed Problem Tobacco use (772859668) Tobacco use disorder (F17.200) Active confirmed Plan Of Treatment No Information Insurance Providers Payer Name Payer Address Payer Phone Subscriber Number Group Number Insured Name Patient Relationship to Insured Coverage Start Date Coverage End Date [facility] [address] [address] [place] [address] [id number] Isaiah La Self - patient is the insured 7 Medical (General) History Medical History History ICD Code Substance Use Disorder Surgical History Surgery Date(Month/Year) Extractions
--- OUTSIDE RECORDS SUMMARY | 2024-10-25 04:47 | XMS_ITS | Encounter Summary ---
Author Organization [facility] Address [facility] [place] [address] Care Team Providers Care Construction Secretary Name Role Phone Kenyatta Boucher Primary Care Provider [phone] Tone Cisneros MD Unavailable [phone] Dre Matamoros MD Unavailable Robel Basilio MD Unavailable [phone] Carmela Paez MD Unavailable [phone] Minh Sánchez MD Unavailable [phone] Stevo Wild MD Unavailable [phone] Encounter Details Date Type Department Care Team (Late st Contact Info) Description 01/08/2022 Clipabout Message Enc [facility] [facility], [address] [place] [address] Tone Cisneros MD [address] [facility] [address] [place] [address] Cardiac rehab Social History Tobacco Use Types Packs/Day Years Used Date Smoking Tobacco: Every Day Cigarettes 0.5 25 Smokeless Tobacco: Never Alcohol Use Standard Drinks/Week Comments Never 0 (1 standard drink = 0.6 oz pur e alcohol) AUDIT-C Answer Date Recorded Frequency of Alcohol Consumption Never 07/29/2019 Average Number of Drinks Not on file 020 Frequency of Binge Drinking Not on file 08/2019 PHQ-2 Answer Date Recorded PHQ-2 Score - If the patient scores above 3, please move on to questions 3-9 3 12/28/2021 Sex and Gender Information Value Date Recorded Sex Assigned at Male 04/15/2023 8:00 AM DAM TENDER Legal Sex Male 6:53 PM CDT Gender Identity Male 10/12/2021 6:16 AM CDT Sexual Orientation Straight 10/29/2021 5: 40 AM CDT COVID-19 Exposure Response Date Recorded In the last 10 days, have yo u been in contact with someone who was confirmed or suspected to have Coronavirus/COVID-19? No / Unsure 01/01/2022 1:27 PM DAM TENDER documented as of this encounter Functional Status * RETIRED Are you deaf or do you have serious difficulty hearing Answer Date of Assessment Author Status No 08/18/2021 1:47 PM CDT Activ e * RETIRED Are you blind or do you have serious difficulty seeing, even when wearing glasses? Answer Date of Assessment Author Status No 08/18/2021 1:47 PM CDT Activ e * Do you have serious difficulty walking or climbing stairs? Answer Date of Assessment Author Status No 08/18/2021 1:47 PM CDT Radha Dior RN Active * Do you have difficulty dressing or bathing? Answer Date of Assessment Author Status No 08/18/2021 1:47 PM CDT Radha Dior RN Active * Because of a physical, mental, or emotional condition, do you have difficulty doing errands alone such as visiting a doctor's office or shopping? Answer Date of Assessment Author Status No 08/18/2021 1:47 PM CDT Radha Dior RN Active documented as of this encounter Mental Status * Because of a physical, mental, or emotional condition, do you have serious difficulty concentrating, remembering, or making decisions? Answer Entry Date Author Status No 08/18/2021 1:47 PM CDT Radha Dior RN Active documented in this encounter Plan of Treatment Upcoming Encounters Date Type Department Care Team (Late st Contact Info) Description 10/29/2024 11:20 AM CDT Office Visit [facility] Family Medicine - [place] [address], [address] [place] [address] Kenyatta Boucher, [address] [facility] [place] [address] 10/29/2024 1:40 PM CDT Office Visit [facility]ispecialty Care - [facility] [address] [facility] [address] [facility], [address] [place] [address] Robel Basilio MD [address] [facility], [address] [place] [address] 12/17/2024 2:00 PM CDT Office Visit [facility] [facility], [address] [place] [address] Dre Matamoros MD [address] [facility]. [address] [place] [address] 01/14/2025 3:05 PM DAM TENDER Allied Health/Nurse Visit [facility] [facility], [address] [place] [address] Stevo Junior MD [facility]. [address] [place] [address] documented as of this encounter Visit Diagnoses Not on filedocumented in this encounter Additional Health Concerns Infection Onset Date Last Indicated Resolved Time COVID-19 Rule Out 06/24/2023 06/24/2023 06/24/2023 2:10 PM CDT Assessment Noted Time PHQ-9 Depression Total Score: 12 022 1:24 PM DAM TENDER documented as of this encounter Care Teams Construction Secretary Relationship Specialty Start Date End Date Kenyatta Boucher DO [address] [place] [address] PCP - General FAMILY PRACTICE 12/25/21 Tone Cisneros MD [address] [facility] [address] [place] [address] Consulting Physician CARDIOVASCULAR DISEASE 05/04/23 Dre Matamoros MD [facility]. [address] [place] [address] Consulting Physician CLINICAL CARDIAC ELECTROPHYSIOLOGY 05/04/23 Robel Basilio MD [address] [facility] [address] [place] [address] Consulting Physician NEPHROLOGY 05/04/23 Carmela Paez MD [facility] [address] [place], [place] [address] Consulting Physician ANESTHESIOLOGY PAIN MEDICINE 05/04/23 Minh Sánchez MD [address] [facility] [address] [place] [address] Consulting Physician Internal Medicine Pulmonary Disease 05/04/23 Stevo Wild MD [address] [place] [phone] Surgeon SURGERY 08/28/23 documented as of this encounter
--- OUTSIDE RECORDS SUMMARY | 2024-10-25 04:48 | XMS_ITS | Encounter Summary ---
Author Organization [facility] Address [address] [place] [address] Phone Care Team Providers Care Automobile Mechanic Helper Name Role Phone Violetta Trinidad Primary Care Provider + Romeo Neville MD Primary Care Provider [phone] Kenyatta Boucher DO Primary Care Provider [phone] Encounter Details Date Type Department Care Team (Late st Contact Info) Description 07/04/2020 Telephone [facility] Cardiology [address] [facility] [address] [place] [address] [place] [address] Tomas[address] Du, [facility] Social History Tobacco Use Types Packs/Day Years Used Date Smoking Tobacco: Every Day Smokeless Tobacco: Never AUDIT-C Answer Date Recorded Q1: How often do you have a drink containing alc ohol? Never 06/12/2020 Average Number of Drinks Not on file 021 Frequency of Binge Drinking Not on file 05/23 Sex and Gender Information Value Date Recorded Sex Assigned at Not on file Legal Sex Male 11:31 PM BOXING TRAINER Gender Identity Male 02/10/2021 5:34 PM BOXING TRAINER Sexual Orientation Straight 02/10/2021 5: 34 PM BOXING TRAINER documented as of this encounter Plan of Treatment Not on file documented as of this encounter Visit Diagnoses Not on filedocumented in this encounter Additional Health Concerns Infection Onset Date Last Indicated Resolved Time COVID: Suspected 09/08/2023 09/08/2023 09/08/2023 6:41 PM CDT COVID: Suspected 09/27/2023 09/27/2023 09/27/2023 6:33 AM CDT Ring Surveillance: CRE 10/09/2024 10/09/202410/16 7:26 PM CDT documented as of this encounter Care Teams Automobile Mechanic Helper Relationship Specialty Start Date End Date Violetta Trinidad PA PCP - General 04/01/20 08/02/21 Romeo Neville MD [address] [place] [address] PCP - General Family Medicine 08/03/21 09/07/23 Kenyatta Boucher DO [address] [address] [place] [address] PCP - General Family Medicine 09/08/23 documented as of this encounter
--- OUTSIDE RECORDS SUMMARY | 2024-10-25 04:48 | XMS_ITS | Clinical Summary ---
Author Organization [facility] Address [facility] [place] [address] Care Team Providers Care Ignition Expert Name Role Phone CitlalyKenyatta hendrix Primary Care Provider [phone] Tone Cisneros MD Unavailable [phone] Dre Matamoros MD Unavailable Robel Basilio MD Unavailable [phone] Carmela Paez MD Unavailable [phone] Minh Sánchez MD Unavailable [phone] Stevo Wild MD Unavailable [phone] Allergies Active Allergy Reactions Criticality Noted Date Comments Semaglutide(0.25 Or 0.5mg-Dos) Nausea Only 09/2024 Medications apixaban (ELIQUIS) 5 MG tabletIndicati ons:Type 2 diabetes mellitus with other circulatory complication, without long-term current use of insulin ([facility]),Prima ry hypertension Take 1 tablet by mouth twice daily 60 tablet 1 025 Active potassium chloride CR (KLOR-CON M) 20 MEQ tabletIndicati ons:Stage 3a chronic kidney disease (CKD) ([facility]),Esse ntial hypertension,T ype 2 diabetes mellitus with stage 3a chronic kidney disease, without long-term current use of insulin ([facility]),Hypok alemia Take 2 tablets (40 mEq total) by mouth daily. 180 tablet 3 025 Active bumetanide (BUMEX) 1 MG tabletIndicati ons:Chronic systolic heart failure ([facility]) Take 2 tablets by mouth twice daily 120 tablet 2 025 Active aspirin EC (EQ ASPIRIN ADULT LOW DOSE) 81 MG tabletIndicati ons:Obstructiv e sleep apnea syndrome,Smoke r Take 1 tablet (81 mg total) by mouth daily. 90 tablet 3 025 Active Additional Information Patient not taking.Reported on 10/04/2024 ivabradine (CORLANOR) 5 MG tabletIndicati ons:Heart failure with reduced ejection fraction ([facility]) Take 1 tablet (5 mg total) by mouth 2 (two) times daily with meals. 60 tablet 6 025 Active allopurinol (ZYLOPRIM) 100 MG tablet Take 1 tablet (100 mg total) by mouth daily. Active famotidine (PEPCID) 20 MG tabletIndicati ons:Gastroesop hageal Reflux Disease Take 1 tablet (20 mg total) by mouth 2 (two) times daily. Indications: Gastroesophageal Reflux Disease 60 tablet 1 025 Active busPIRone (BUSPAR) 10 MG tablet Take 1 tablet (10 mg total) by mouth 2 (two) times daily. 025 Active albuterol sulfate HFA 108 (90 Base) MCG/ACT inhalerIndicat ions:Shortness of breath INHALE 2 PUFFS BY MOUTH EVERY 6 HOURS NEEDED FOR WHEEZING 9 g 025 Active atorvastatin (LIPITOR) 40 MG tabletIndicati ons:Typical atrial flutter ([facility]) TAKE 1 TABLET BY MOUTH NIGHTLY AT BEDTIME 90 tablet 025 Active albuterol sulfate HFA 108 (90 Base) MCG/ACT inhalerIndicat ions:Shortness of breath INHALE 2 PUFFS BY MOUTH EVERY 6 HOURS NEEDED FOR WHEEZING 9 g 025 2024 Discontinued atorvastatin (LIPITOR) 40 MG tablet Take 1 tablet (40 mg total) by mouth nightly at bedtime. 2024 Discontinued(R eorder) Active Problems Problem Noted Date Diagnosed Date CHF exacerbation ([facility]) 09/01/2024 Acute on chronic systolic CH F (congestive heart failure) ([facility]) 07/29/2024 CHF (congestive heart failure) ([facility]) 06/20/2024 Suicidal behavior with attem pted self-injury ([facility]) 04/23/2024 Morbid (severe) obesity due to excess calories 0 03/01/2024 Acute exacerbation of CHF (c ongestive heart failure) ([facility]) 10/10/2023 Right lower lobe pneumonia 09/27/2023 Sepsis ([facility]) 09/27/2023 CHAN (acute kidney injury) 09/16/2023 Acute cholecystitis 08/28/2023 AMS (altered mental status) 06/22/2023 Acute and chronic respirator y failure with hypoxia ([facility]) 05/20/2023 Acute respiratory failure ([facility]) 04/22 Cervical facet joint syndrome 03/24/2023 Typical atrial flutter ([facility]) 024 Cervical radiculopathy 01/25/2023 CVA (cerebral vascular accident) ([facility]) 12/28/2022 Congestive heart failure wit h left ventricular diastolic dysfunction, acute ([facility]) 04/03/2022 Methamphetamine addiction ([facility]) 07/2021 Substance abuse 12/27/2021 Automatic implantable cardiac defibrillator in s itu 11/20/2021 Heart failure with reduced e jection fraction ([facility]) 08/28/2021 Edema of lower extremity 08/28/2021 Nicotine dependence 08/28/2021 Dyspnea on exertion 08/28/2021 Hypoxemia requiring supplemental oxygen 08/15/19 22 Diabetes mellitus ([facility]) 07/22/2021 Hyperlipidemia 07/22/2021 Hypertriglyceridemia 07/22/2021 Uncontrolled type 2 diabetes mellitus 07/22/2021 Stage 3a chronic kidney disease (CKD) 06/16/2021 Morbid obesity 11/10/2020 Obstructive sleep apnea syndrome 11/10/2020 Acute on chronic combined sy stolic and diastolic heart failure ([facility]) 08/26/2020 Essential hypertension 08/26/2020 Nonischemic dilated cardiomyopathy ([facility]) 08/26/2020 Nonrheumatic mitral valve regurgitation 08/27/19 Chest pain 07/30/2019 Smoker 02/06/2019 Chronic systolic heart failure ([facility]) 02/01/2019 Heart valve disorder 01/09/2019 Methamphetamine dependence, episodic ([facility] 01/09/2019 Resolved Problems Problem Noted Date Diagnosed Date Resolved Date Acute on chronic heart failu re ([facility]) 02/28/2023 06/11/2024 HF (heart failure) ([facility]) 05/27/2022 06/11/2024 CHF exacerbation ([facility]) 08/17/2021 08/22/2021 Hypoxia 08/14/2021 06/11/2024 Shortness of breath 08/14/2021 06/12/19 25 Chronic obstructive lung dis ease ([facility]) 06/16/2021 12/22/2021 Congestive heart failure ([facility]) 11/10/2020 06/11/2024 Dyslipidemia 08/26/2020 11/20/2021 Encounters Date Type Department Care Team Description 10/19/2024 Telephone [facility] [address], [address] [place] [phone] Kenyatta Boucher DO Problem 10/18/2024 Telephone [facility] [place] [address] Roz Dior RN Follow Up Call (CHF discharge callback) 10/16/2024 Travel 10/15/2024 3:00 PM CDT Allied Health/Nurse Visit [facility], [facility] [address] [place] [address] Dre Matamoros MD Remote Device Check 10/12/2024 Telephone [facility] [address], [address] [place] [address] Kenyatta Boucher DO TCM 10/11/2024 Scan HEALTH INFO SRVCS Scanned, Doc [facility] 10/08/2024 Hospital Follow-up Call [facility] [place] [address] Jessica Hollins LPN Follow Up Call ([facility] 10/04-10/06/24) 10/07/2024 Scan HEALTH INFO SRVCS Scanned, [facility] 10/04/2024 10:34 AM CDT - 10/06/2024 2:33 AM CDT Hospital Encounter [facility] [place] [address] Tomeka Lobato MD D'Souza, Dominique C, MD Filipova, Hana, MD Cardiac Problem Discharge Disposition: Left Against Medical Advice 10/04/2024 9:30 AM CDT Office Visit [facility], [address] [address] Tone Cisneros MD Hospital Follow Up (CHF exacerbation) 10/04/2024 Telephone [facility] Family [facility] - [place] [address], [address] [place] [address] Kenyatta Boucher DO Information 10/04/2024 Travel 09/25/2024 Home Care Visit [facility] Home Care [address] [place] [address] Nancy Vargas, RN CASE COMMUNICATION 09/21/2024 1:23 PM CDT - 09/21/2024 11:59 PM CDT Hospital Encounter [facility] [place] [address] Kenyatta Boucher DO Discharge Disposition: Home or Self Care (Routine Discharge) 09/21/2024 1:00 PM CDT Office Visit [facility] [address], [address] [place] [phone] Kenyatta Boucher DO TCM (Pt here for hospital follow up. Pt also c/o not being able to hold anything down. He said he is even throwing up his medication. He said this has been going on since leaving the hospital. Pt says he has not used meth in some time and has stopped smoking. [facility] lab ) 09/21/2024 Telephone [facility] [address], [address] [place] [phone] Kenyatta Boucher DO Results 09/21/2024 Results Follow-Up [facility] [address], [address] [place] [phone] Kenyatta Boucher DO VITAMIN D 25 OH, CBC W/DIFF AUTOMATED, COMPREHENSIVE METABOLIC PANEL, PRO-BRAIN NATRIURETIC PEPTIDE 09/21/2024 Travel 09/20/2024 Telephone [facility] [address], [address] [place] [phone] Kenyatta Boucher DO TCM (Tcm/) 09/18/2024 Telephone [facility] [address], [address] [place] [phone] Kenyatta Boucher DO TCM 09/13/2024 8:30 AM CDT Home Care Visit [address] [place], [place] [id number] April Farr, WELT SEWER VISIT 09/12/[address] [place] [address] [place] [address] Kenyatta Boucher DO Advise 09/11/2024 5:01 PM CDT - 09/17/2024 1:16 PM CDT Hospital Encounter [facility] [place] [address] Shilo Bray MD,PHD Yong Pelayo MD Lamonica, Kandace C, MD Duenas, Vincent J, MD Helmholt, Jennifer, NP Shortness Of Breath Discharge Disposition: Left Against Medical Advice 09/11/2024 Travel 09/11/2024 Telephone [facility] [address], [address] [place] [address] Citlaly, Kenyatta, DO Information 09/07/2024 Telephone [facility], [address] [address] Elizabeth Ojeda, TREE SURGEON HELPER Advise 09/07/2024 Telephone [facility] [address], [address] [place] [phone] Citlaly, Kenyatta, DO TCM 09/07/2024 Hospital Follow-up Call [facility] [place] [address] Jessica Hollins LPN Follow Up Call ([facility] 09/01-08/1724) 09/01/2024 1:59 AM CDT - 09/06/2024 6:05 PM CDT Hospital Encounter [facility] [place] [address] Shilo Bray MD,PHD Yong Pelayo MD Duenas, Vincent J, MD Smith, Lavada J, Daniela Ariza, Rosana Vogel, ANILA Shortness Of Breath Discharge Disposition: Left Against Medical Advice 09/01/2024 Travel 08/27/2024 1:30 PM CDT Office Visit [facility], [address] [address] Tone Cisneros MD Follow Up (CHF) 08/27/2024 Orders Only [facility], [address] [address] Tone Cisneros MD 08/27/2024 Travel 08/15/2024 Telephone [facility] [address], [address] [place] [phone] Kenyatta Boucher DO Problem; Returned Call 08/13/2024 Patient Outreach [facility] [address], [address] [place] [phone] Malcom Garcia CPhT Medication (Ozempic 1mg Medication adherence review.// ) 08/03/2024 Telephone [facility] [address], [address] [place] [phone] Kenyatta Boucher DO TCM 08/03/2024 Hospital Follow-up Call [facility] [place] [address] Jessica Hollins LPN Follow Up Call ([facility] 07/29-08/02/24) 07/29/2024 4:13 PM CDT - 08/02/2024 1:47 PM CDT Hospital Encounter [facility] [place] [address] Med Torrez MD McHale, Sara A, MD Jerkovich, Adria, MD Tran, Emerson Pederson MD Shortness Of Breath Discharge Disposition: Left Against Medical Advice 07/29/2024 Scan [facility] HEALTH INFO SRVCS Scanned, Doc Med Group CT (SCAN); Image (SCAN) 07/29/2024 Travel from Last 3 Months Family History Medical History Relation Comments Alcohol Abuse Father Cancer Father Lung cancer Depression Father Arthritis Maternal Grandfather Cancer Maternal Grandfather Cancer Hyperlipidemia Maternal Grandfather Hypertension Maternal Grandfather Alcohol Abuse Maternal Grandmother Arthritis Maternal Grandmother CHF Arthritis Mother Hypertension Mother Alcohol Abuse Paternal Grandfather Early Paternal Grandfather Heart Disease Paternal Grandfather Hyperlipidemia Paternal Grandfather Relation Status Comments Father Lung cancer Maternal Grandfather Lung cancer Maternal Grandmother Alive Mother Paternal Grandfather Social History Tobacco Use Types Packs/Day Years Used Date Smoking Tobacco: Some Days Cigarettes 0.5 26.6 Started: 03/1998 Passive Smoke Exposure: Current Smokeless Tobacco: Never Tobacco Cessation:Ready to Q uit: No; Counseling Given: Yes Comments:Wish i never started Alcohol Use Standard Drinks/Week Comments Never 0 (1 standard drink = 0.6 oz pur e alcohol) B1300 Health Literacy Answer Date Recor ded How often do you need to hav e someone help you when you read instructions, pamphlets, or other written material from your doctor or pharmacy? Never 10/04/2024 [employer] Answer Date Recorded In the past 12 months has [address], [email or web address], or water [employer] threatened to shut off services in your home? No 10/04/2024 Humiliation, Afraid, Rape, and Kick questionnair e Answer Date Recorded Within the last year, have y ou been afraid of your partner or ex-partner? No 10/04/2024 Within the last year, have y ou been humiliated or emotionally abused in other ways by your partner or ex-partner? No Within the last year, have y ou been kicked, hit, slapped, or otherwise physically hurt by your partner or ex-partner? No 10/04/2024 Within the last year, have y ou been raped or forced to have any kind of sexual activity by your partner or ex-partner? No 10/04/2024 Social Connection and Isolation Panel [NHANES] A nswer Date Recorded In a typical week, how many times do you talk on the phone with family, friends, or neighbors? Patient declined 10/04/2024 How often do you get togethe r with friends or relatives? Patient declined 10/04/2024 How often do you attend tenriism or zoroastrianism serv ices? Patient declined 10/04/2024 Do you belong to any clubs o r organizations such as tenriism groups, unions, fraternal or athletic groups, or school groups? Patient declined 10/04/2024 How often do you attend meet ings of the clubs or organizations you belong to? Patient declined 10/04/2024 Are you , , di vorced, , never , or living with a partner? Never 10/04/2024 AUDIT-C Answer Date Recorded Q1: How often do you have a drink containing alcohol? Never 10/04/2024 Q2: How many drinks containi ng alcohol do you have on a typical day when you are drinking? Patient does not drink Q3: How often do you have si x or more drinks on one occasion? Never 10/04/2024 Overall Financial Resource Strain (CARDIA) Answe r Date Recorded How hard is it for you to pa y for the very basics like food, housing, medical care, and heating? Very hard 10/04/2024 PHQ-2 Answer Date Recorded Patient Health Questionnaire-2 Score 6 03/01/2024 [facility] - Occupational Stress Questionnaire Answer Date Recorded Do you feel stress - tense, restless, nervous, or anxious, or unable to sleep at night because your mind is troubled all the time - these days? Not at all 10/04/2024 Exercise Vital Sign Answer Date Recorde d On average, how many days pe r week do you engage in moderate to strenuous exercise (like a brisk walk)? 0 days 10/04/2024 On average, how many minutes do you engage in exercise at this level? 0 min 10/04/2024 Hunger Vital Sign Answer Date Recorded Within the past 12 months, y ou worried that your food would run out before you got the money to buy more. Never true 10/05/19 25 Within the past 12 months, t he food you bought just didn't last and you didn't have money to get more. Never true 10/04/2024 PRAPARE - Transportation Answer Date Re corded In the past 12 months, has l ack of transportation kept you from medical appointments or from getting medications? No 09/21 In the past 12 months, has l ack of transportation kept you from meetings, work, or from getting things needed for daily living? No 10/04/2024 Housing Stability Vital Sign Answer Forrest e Recorded In the last 12 months, was t here a time when you were not able to pay the mortgage or rent on time? No 05/18/2023 In the last 12 months, how many places have you lived? 1 05/18/2023 In the last 12 months, was t here a time when you did not have a steady place to sleep or slept in a fdc (including now)? No 05/18/2023 Housing Stability Vital Sign Answer Forrest e Recorded In the last 12 months, was t here a time when you were not able to pay the mortgage or rent on time? No 10/04/2024 In the past 12 months, how m any times have you moved where you were living? 1 10/04/2024 At any time in the past 12 m [facility], were you homeless or living in a fdc (including now)? 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 Legal Sex Male 6:53 PM CDT Gender Identity Male 10/12/2021 6:16 AM CDT Sexual Orientation Straight 10/29/2021 5: 40 AM CDT Last Filed Vital Signs Vital Sign Reading Time Taken Comments Blood Pressure 112/83 10/05/2024 11:41 PM CDT Pulse 71 10/05/2024 11:41 PM CDT Temperature 36.4 C (97.6 F) 10/05/2024 11:41 PM CDT Respiratory Rate 20 10/05/2024 11:4 1 PM CDT Oxygen Saturation 100% 10/05/2024 11: 41 PM CDT Inhaled Oxygen Concentration - - Weight 112.5 kg (248 lb 0.3 oz) 025 10:33 AM CDT Height 172.7 cm (5' 8) 10/04/2024 10:3 3 AM CDT Body Mass Index 37.71 10/04/2024 10:33 AM CDT Plan of Treatment Upcoming Encounters Date Type Department Care Team (Late st Contact Info) Description 10/29/2024 11:20 AM CDT Office Visit [facility] Family [facility] - [place] [address] [place] [address] Kenyatta Boucher, DO [address] [place] [address] 10/29/2024 1:40 PM CDT Office Visit [facility] Multispecialty Care - [facility] [address] [place] [address] Robel Basilio MD [address] [place] [address] 12/17/2024 2:00 PM CDT Office [facility] [address] [place] [address] Dre Matamoros MD [facility]. [address] [place] [address] 01/14/2025 3:05 PM DEPUTY SHERIFF LIEUTENANT Allied Health/Nurse [facility], [address] [place] [address] Stevo Junior MD [facility] [place] [address] Health Maintenance Due Date Last Done Comments Colorectal Cancer Screening Colonoscopy (10 Years) 1978 Kidney Health Evaluation 1978 Annual Physical 1981 DTaP, Tdap and Td Vaccines (1 - Tdap) 1997 Hepatitis B Vaccines (1 of 3 - 19+ 3-dose series) 1997 Pneumococcal Vaccine: Pediatrics (0 to 5 Years) and At-Risk Patients (6 to 49 Years) (1 of 2 - PCV) 1997 COVID-19 Vaccine ( - season) 2024 Hemoglobin A1C 04/06/2025 10/04/2024, 10/2024, 06/20/2024, Additional history exists Lipid Panel 10/05/2025 10/05/2024, 0502/2024, 04/30/2024, Additional history exists Diabetes: Retinopathy Eye Exam 06/14/2026 06/14/2024 PHQ-2 (Physician [place]) Completed 03/01/2024 Hepatitis C Completed 10/09/2024, 09/21, 06/26/2023 Meningococcal B Vaccine Aged Out No l onger eligible based on patient's age to complete this topic Meningococcal Vaccine Aged Out No dante bessy eligible based on patient's age to complete this topic RSV Immunizations Under 20 Months Aged Out No longer eligible based on patient's age to complete this topic Goals Goal Patient Goal Type Associated Problems Recent Progress Patient-Stated? Author Patient will return to prior living situation and remain independent in ADLs upon discharge from hospital Lifestyle No Felisha Rene, RN Health - patient able to perform ADLs independently Lifestyle No Lukas Palmer RN Interventions Community Resource Recommendations Community Resource Services Recommended Domains Addressed Status Status Reason/Outcome Date/Time [facility] Financial Assistance Financial Resource Strain Recommended 10/05/2024 7:17 AM CDT [facility] [employer] Book Assistance Financial Resource Strain Recommended 10/05/2024 7:17 AM CDT [facility] Financial Assistance Financial Resource Strain Recommended 10/05/2024 7:17 AM CDT Clinic, [facility] Psychiatry [place] [employer] Detoxification, Safe Housing: Substance Use, Short Term Detoxification, Sober Living Community, Substance Use Recovery Home Tobacco Use, Depression Recommended 09/12/2024 3:32 PM CDT [facility], Mental Health Residential Treatment, Safe Housing: Substance Use, Severe Mental Illness Half-Way, Short Term Detoxification, Sober Living Community, Substance Use Recovery Home Tobacco Use, Depression Recommended 09/12/2024 3:32 PM CDT [facility] Healthcare and Family Services ([facility]) - Healthcare and Family Services ([facility]) Medical Benefits Mental Health Services, Substance Use Services Tobacco Use, Depression Recommended 09/12/2024 3:32 PM CDT from Last 12 Months Medical Devices Implanted Type Area Harp Regulator Device Identifier Shelf Expiration Date Model / Serial / Lot Mdt Icd Med Surg Rn-11/13/2021 Implanted:10/23 by Dre Matamoros MD (Quantity not on file) ICD [employer] CARDIAC RHYTHM AND HEART FAILURE - DIV M [id number] / [id number] / Description:MRI Conditional under following conditions: Static magnetic field of 1.5 T or 3 T, Max spatial gradient field of 2000 Gauss/cm, max slew rate of 200 T/m/s , 1.5 T max whole body GABBI or 2 W/kg in Normal Operating Mode, Head GABBI 3.2 W/kg or less; 3T GABBI must be B1+DIDIER of 2.8 mT or less if isocenter is below C7, No GABBI restrictions on 3 T if isocenter is at or above C7, Implant must be in right or left pectoral Rv Lead- 0 Implanted:Qty: 1 on 01/09/2020 by Farrukh Swain MD Lead Implant Right: Ventricle [employer] CARDIAC RHYTHM AND HEART FAILURE - DIV M [id number] / [id number] / Description:APEX Ra Lead-11/13/2021 Implanted:Qty: 1 on 11/13/2021 by Dre Matamoros MD Lead Implant Right: Atrium [employer] CARDIAC RHYTHM AND HEART FAILURE - DIV M [id number] / [id number] / Description:APPENDAGE Lv Lead-11/13/2021 Implanted:Qty: 1 on 11/13/2021 by Dre Matamoros MD Lead Implant Left: Ventricle [employer] CARDIAC RHYTHM AND HEART FAILURE - DIV M [id number] / [id number] V / Description:Postero-Lateral Cardiac Vein Mesh Bard Marlex 3 X 6 [id number] - [id number] Implanted:Qty: 1 on 05/18/2023 by Lenin Michaud MD at [facility] Mesh Left: Inguinal [employer] - DIV C R [employer] [id number] 10/18/2026 [id number] / / [id number] Procedures Procedure Name Priority Date/Time Associated Diagnosis Comments POCT GLUCOSE - DOCKED DEVICE Routine 10/05/2024 7:44 PM CDT POCT GLUCOSE - DOCKED DEVICE Routine 10/05/2024 3:51 PM CDT POCT GLUCOSE - DOCKED DEVICE Routine 10/05/2024 11:28 AM CDT LIPID PANEL Routine 10/05/2024 6:10 AM CDT MAGNESIUM Routine 10/05/2024 6:10 AM CDT COMPREHENSIVE METABOLIC PANEL Routine 10/05/2024 6:10 AM CDT CBC W/DIFF AUTOMATED Routine 10/05/2024 6:10 AM CDT POCT GLUCOSE - DOCKED DEVICE Routine 10/05/2024 5:45 AM CDT POCT GLUCOSE - DOCKED DEVICE Routine 10/04/2024 8:11 PM CDT DRUG SCREEN RAPID STAT 10/04/2024 2:3 4 PM CDT MAGNESIUM Routine 10/04/2024 1:11 PM CDT TROPONIN, QUANT STAT 10/04/2024 1:11 PM CDT COMPREHENSIVE METABOLIC PANEL STAT 10/04/2024 11:48 AM CDT LACTIC ACID TIMED 10/04/2024 11:40 AM CDT XR CHEST PORTABLE STAT 10/04/2024 11: 32 AM CDT HEMOGLOBIN, GLYCOSYLATED Routine 10/04/2024 11:00 AM CDT PRO-BRAIN NATRIURETIC PEPTIDE STAT 10/04/2024 11:00 AM CDT TROPONIN, QUANT STAT 10/04/2024 11:00 AM CDT CBC W/DIFF AUTOMATED STAT 10/04/2024 11:00 AM CDT ECG 12-LEAD Routine 10/04/2024 10:56 AM CDT CRITICAL CARE Routine 10/04/2024 10:50 AM CDT PRO-BRAIN NATRIURETIC PEPTIDE STAT 09/21/2024 1:28 PM CDT Type 2 diabetes mellitus with other circulatory complication, without long-term current use of insulin ([facility]) Methamphetamine addiction ([facility]) Typical atrial flutter ([facility]) JOSÉ MIGUEL (generalized anxiety disorder) Gastroesophageal reflux disease without esophagitis Acute respiratory distress COMPREHENSIVE METABOLIC PANEL STAT 09/21/2024 1:28 PM CDT Type 2 diabetes mellitus with other circulatory complication, without long-term current use of insulin ([facility]) Methamphetamine addiction ([facility]) Typical atrial flutter ([facility]) JOSÉ MIGUEL (generalized anxiety disorder) Gastroesophageal reflux disease without esophagitis CBC W/DIFF AUTOMATED STAT 09/21/2024 1:28 PM CDT Type 2 diabetes mellitus with other circulatory complication, without long-term current use of insulin ([facility]) Methamphetamine addiction ([facility]) Typical atrial flutter ([facility]) JOSÉ MIGUEL (generalized anxiety disorder) Gastroesophageal reflux disease without esophagitis VITAMIN D, 25 OH Routine 09/21/2024 1:28 PM CDT Vitamin D deficiency POCT GLUCOSE - DOCKED DEVICE Routine 09/17/2024 11:01 AM CDT PRO-BRAIN NATRIURETIC PEPTIDE Routine 09/17/2024 9:14 AM CDT MAGNESIUM STAT 09/17/2024 9:14 AM CDT BASIC METABOLIC PANEL STAT 09/17/2024 9:14 AM CDT CBC W/DIFF AUTOMATED STAT 09/17/2024 9:14 AM CDT POCT GLUCOSE - DOCKED DEVICE Routine 09/17/2024 5:39 AM CDT POCT GLUCOSE - DOCKED DEVICE Routine 09/16/2024 7:48 PM CDT POCT GLUCOSE - DOCKED DEVICE Routine 09/16/2024 3:14 PM CDT MAGNESIUM Routine 09/16/2024 12:56 PM CDT COMPREHENSIVE METABOLIC PANEL Routine 09/16/2024 12:56 PM CDT CBC W/DIFF AUTOMATED Routine 09/16/2024 12:56 PM CDT POCT GLUCOSE - DOCKED DEVICE Routine 09/16/2024 11:02 AM CDT POCT GLUCOSE - DOCKED DEVICE Routine 09/16/2024 6:17 AM CDT POCT GLUCOSE - DOCKED DEVICE Routine 09/15/2024 8:02 PM CDT POCT GLUCOSE - DOCKED DEVICE Routine 09/15/2024 3:02 PM CDT POCT GLUCOSE - DOCKED DEVICE Routine 09/15/2024 11:03 AM CDT BASIC METABOLIC PANEL Routine 09/15/2024 7:09 AM CDT POCT GLUCOSE - DOCKED DEVICE Routine 09/15/2024 6:22 AM CDT POCT GLUCOSE - DOCKED DEVICE Routine 09/14/2024 8:04 PM CDT POCT GLUCOSE - DOCKED DEVICE Routine 09/14/2024 4:33 PM CDT POCT GLUCOSE - DOCKED DEVICE Routine 09/14/2024 11:29 AM CDT BASIC METABOLIC PANEL Routine 09/14/2024 6:01 AM CDT POCT GLUCOSE - DOCKED DEVICE Routine 09/14/2024 5:14 AM CDT POCT GLUCOSE - DOCKED DEVICE Routine 09/13/2024 8:10 PM CDT POCT GLUCOSE - DOCKED DEVICE Routine 09/13/2024 4:13 PM CDT POCT GLUCOSE - DOCKED DEVICE Routine 09/13/2024 10:29 AM CDT BASIC METABOLIC PANEL Routine 09/13/2024 6:17 AM CDT POCT GLUCOSE - DOCKED DEVICE Routine 09/13/2024 5:26 AM CDT POCT GLUCOSE - DOCKED DEVICE Routine 09/12/2024 4:39 PM CDT POCT GLUCOSE - DOCKED DEVICE Routine 09/12/2024 12:30 PM CDT TROPONIN, QUANT STAT 09/12/2024 6:00 AM CDT COMPREHENSIVE METABOLIC PANEL STAT 09/12/2024 6:00 AM CDT MAGNESIUM STAT 09/12/2024 6:00 AM CDT PROTHROMBIN TIME, VENOUS STAT 09/12/2024 6:00 AM CDT CBC W/DIFF AUTOMATED STAT 09/12/2024 6:00 AM CDT POCT GLUCOSE - DOCKED DEVICE Routine 09/11/2024 11:03 PM CDT MAGNESIUM STAT 09/11/2024 5:27 PM CDT PRO-BRAIN NATRIURETIC PEPTIDE STAT 09/11/2024 5:27 PM CDT TROPONIN, QUANT STAT 09/11/2024 5:27 PM CDT COMPREHENSIVE METABOLIC PANEL STAT 09/11/2024 5:27 PM CDT CBC W/DIFF AUTOMATED STAT 09/11/2024 5:27 PM CDT ECG 12-LEAD Routine 09/11/2024 5:20 PM CDT XR CHEST PORTABLE STAT 09/11/2024 5:0 3 PM CDT POCT GLUCOSE - DOCKED DEVICE Routine 09/06/2024 3:33 PM CDT POCT GLUCOSE - DOCKED DEVICE Routine 09/06/2024 11:07 AM CDT PRO-BRAIN NATRIURETIC PEPTIDE Routine 09/06/2024 6:09 AM CDT CBC W/DIFF AUTOMATED Routine 09/06/2024 6:09 AM CDT BASIC METABOLIC PANEL Routine 09/06/2024 6:09 AM CDT POCT GLUCOSE - DOCKED DEVICE Routine 09/06/2024 5:37 AM CDT POCT GLUCOSE - DOCKED DEVICE Routine 09/05/2024 7:33 PM CDT POCT GLUCOSE - DOCKED DEVICE Routine 09/05/2024 3:37 PM CDT POCT GLUCOSE - DOCKED DEVICE Routine 09/05/2024 11:18 AM CDT POCT GLUCOSE - DOCKED DEVICE Routine 09/05/2024 5:20 AM CDT CBC W/DIFF AUTOMATED Routine 09/05/2024 5:10 AM CDT BASIC METABOLIC PANEL Routine 09/05/2024 5:10 AM CDT POCT GLUCOSE - DOCKED DEVICE Routine 09/04/2024 7:19 PM CDT POCT GLUCOSE - DOCKED DEVICE Routine 09/04/2024 3:20 PM CDT POCT GLUCOSE - DOCKED DEVICE Routine 09/04/2024 10:24 AM CDT CBC W/DIFF AUTOMATED Routine 09/04/2024 6:09 AM CDT BASIC METABOLIC PANEL Routine 09/04/2024 6:09 AM CDT POCT GLUCOSE - DOCKED DEVICE Routine 09/04/2024 5:46 AM CDT POCT GLUCOSE - DOCKED DEVICE Routine 09/03/2024 7:28 PM CDT POCT GLUCOSE - DOCKED DEVICE Routine 09/03/2024 3:20 PM CDT POCT GLUCOSE - DOCKED DEVICE Routine 09/03/2024 11:04 AM CDT MAGNESIUM Routine 09/03/2024 6:12 AM CDT BASIC METABOLIC PANEL Routine 09/03/2024 6:12 AM CDT CBC W/DIFF AUTOMATED Routine 09/03/2024 6:12 AM CDT POCT GLUCOSE - DOCKED DEVICE Routine 09/03/2024 5:44 AM CDT POCT GLUCOSE - DOCKED DEVICE Routine 09/02/2024 7:32 PM CDT POCT GLUCOSE - DOCKED DEVICE Routine 09/02/2024 2:40 PM CDT POCT GLUCOSE - DOCKED DEVICE Routine 09/02/2024 10:53 AM CDT BASIC METABOLIC PANEL Routine 09/02/2024 7:31 AM CDT CBC W/DIFF AUTOMATED Routine 09/02/2024 7:31 AM CDT MAGNESIUM Routine 09/02/2024 7:31 AM CDT PROTHROMBIN TIME, VENOUS Routine 09/02/2024 7:31 AM CDT POCT GLUCOSE - DOCKED DEVICE Routine 09/02/2024 6:05 AM CDT POCT GLUCOSE - DOCKED DEVICE Routine 09/01/2024 8:04 PM CDT POCT GLUCOSE - DOCKED DEVICE Routine 09/01/2024 2:47 PM CDT DRUG SCREEN RAPID Routine 09/01/2024 11: 40 AM CDT POCT GLUCOSE - DOCKED DEVICE Routine 09/01/2024 11:07 AM CDT POCT GLUCOSE - DOCKED DEVICE Routine 09/01/2024 6:19 AM CDT LACTIC ACID W REFLEX (SEPSIS) TIMED 09/01/2024 4:32 AM CDT CTA CHEST PE PROTOCOL STAT 09/01/2024 3:33 AM CDT XR CHEST PORTABLE STAT 09/01/2024 2:4 0 AM CDT CULTURE, BACTERIA, BLOOD STAT 09/01/2024 2:15 AM CDT PRO-BRAIN NATRIURETIC PEPTIDE Routine 09/01/2024 2:15 AM CDT TROPONIN, QUANT Routine 09/01/2024 2:15 AM CDT MAGNESIUM STAT 09/01/2024 2:15 AM CDT LACTIC ACID W REFLEX (SEPSIS) STAT 09/01/2024 2:15 AM CDT COMPREHENSIVE METABOLIC PANEL STAT 09/01/2024 2:15 AM CDT CBC W/DIFF AUTOMATED STAT 09/01/2024 2:15 AM CDT CULTURE, BACTERIA, BLOOD STAT 09/01/2024 2:05 AM CDT ECG 12-LEAD STAT 09/01/2024 2:01 AM CDT COMPREHENSIVE METABOLIC PANEL Routine 08/02/2024 6:00 AM CDT MAGNESIUM Routine 08/02/2024 6:00 AM CDT CBC W/DIFF AUTOMATED Routine 08/02/2024 6:00 AM CDT COMPREHENSIVE METABOLIC PANEL Routine 08/01/2024 5:47 AM CDT MAGNESIUM Routine 08/01/2024 5:47 AM CDT CBC W/DIFF AUTOMATED Routine 08/01/2024 5:47 AM CDT CBC W/DIFF AUTOMATED Routine 07/31/2024 5:45 AM CDT MAGNESIUM Routine 07/31/2024 5:45 AM CDT BASIC METABOLIC PANEL Routine 07/31/2024 5:45 AM CDT POCT GLUCOSE - DOCKED DEVICE Routine 07/30/2024 7:18 PM CDT POCT GLUCOSE - DOCKED DEVICE Routine 07/30/2024 3:32 PM CDT POCT GLUCOSE - DOCKED DEVICE Routine 07/30/2024 10:32 AM CDT LACTIC ACID Routine 07/30/2024 9:42 AM CDT BASIC METABOLIC PANEL Routine 07/30/2024 6:54 AM CDT CBC W/DIFF AUTOMATED Routine 07/30/2024 6:54 AM CDT POCT GLUCOSE - DOCKED DEVICE Routine 07/30/2024 5:44 AM CDT DRUG SCREEN RAPID STAT 07/30/2024 3:2 0 AM CDT POCT GLUCOSE - DOCKED DEVICE Routine 07/29/2024 8:37 PM CDT BLOOD GAS, ARTERIAL LAB STAT 07/29/2024 8:25 PM CDT TROPONIN, QUANT STAT 07/29/2024 6:27 PM CDT XR CHEST PORTABLE STAT 07/29/2024 5:0 3 PM CDT POCT GLUCOSE - DOCKED DEVICE Routine 07/29/2024 4:45 PM CDT ECG 12-LEAD Routine 07/29/2024 4:40 PM CDT PROCALCITONIN (PCT) STAT 07/29/2024 4 :31 PM CDT TSH W/REFLEX STAT 07/29/2024 4:31 PM CDT MAGNESIUM STAT 07/29/2024 4:31 PM CDT PRO-BRAIN NATRIURETIC PEPTIDE STAT 07/29/2024 4:31 PM CDT LACTIC ACID W REFLEX (SEPSIS) STAT 07/29/2024 4:31 PM CDT TROPONIN, QUANT STAT 07/29/2024 4:31 PM CDT COMPREHENSIVE METABOLIC PANEL STAT 07/29/2024 4:31 PM CDT CBC W/DIFF AUTOMATED STAT 07/29/2024 4:[address] GENERIC 07/29/2024 IMAGE GENERIC 07/29/2024 DIABETIC RETINOPATHY EXAM (NEGATIVE)(SCAN ORDER) Routine 06/14/2024 HC EIA QL HEPATITIS ABC B AG Routine 06/26/2023 4:00 AM CDT from Last 3 Months or Most Recently Relevant to Health Maintenance Results * (ABNORMAL) POCT glucose (10/05/2024 7:44 PM CDT) Only the most recent of55 resultswithin the time period is included. GLUCOSE POC 109(H) 70 - 99 mg/dL 10/05/2024 7:55 PM CDT [facility] 10/05/2024 7:44 PM CDT us Pearl Cortes MD POCT ORDERABLES - DEVICE Final Result [facility] [address] [place] [address], [place] [phone] * (ABNORMAL) COMPREHENSIVE METABOLIC PANEL (10/05/2024 6:10 AM CDT) Only the most recent of10 resultswithin the time period is included. GLUCOSE 75 70 - 99 MG/DL 10/05/2024 8:00 AM CDT [facility] BUN 33(H) 7 - 18 MG/DL 10/05/2024 8:00 AM CDT [facility] CREATININE S/P/B 2.08(H) 0.7 - 1.3 MG/DL 10/05/2024 8:00 AM CDT [facility] SODIUM S/P/B 136 136 - 145 MMOL/L 10/05/2024 8:00 AM CDT [facility] POTASSIUM S/P/B 3.5 3.5 - 5.1 MMOL/L 10/05/2024 8:00 AM T [facility] CHLORIDE S/P/B 101 97 - 115 MMOL/L 10/05/2024 8:00 AM T [facility] CO2 28.8 21 - 32 MMOL/L 10/05/2024 8:00 AM T [facility] CALCIUM S/P/B 9.3 8.5 - 10.1 MG/DL 10/05/2024 8:00 AM T [facility] BILIRUBIN TOTAL S/P/B 2.9(H) 0.2 - 1.2 MG/DL 10/05/2024 8:00 AM T [facility] Comment: THIS ASSAY IS NOT RECOMMENDED FOR PATIENTS UNDERGOING TREATMENT WITH ELTROMBOPAG DUE TO THE POTENTIAL FOR FALSELY ELEVATED RESULTS. TOTAL PROTEIN S/P/B 7.5 6.4 - 8.2 G/DL 10/05/2024 8:00 AM T [facility] ALBUMIN S/P/B 3.0(L) 3.4 - 5.0 G/DL 10/05/2024 8:00 AM T [facility] AST 61(H) 15 - 37 U/L 10/05/2024 8:00 AM [facility] ALT 99(H) 16 - 60 U/L 10/05/2024 8:00 AM T [facility] ALKALINE PHOSPHATASE S/P/B 137(H) 50 - 136 U/L 10/05/2024 8:00 AM [facility] ANION GAP 6.2 2 - 10 MMOL/L 10/05/2024 8:00 AM T [facility] BUN CREATININE RATIO 15.9 6 - 26 10/05/2024 8:00 AM CDT [facility] A/G RATIO 0.7(L) 1.0 - 2.0 RATIO 10/05/2024 8:00 AM CDT [facility] GFR ESTIMATE 39(L) >90 ML/MIN/1.7 3 M2 10/05/2024 8:00 AM CDT [facility] Comment: NOTE: eGFR is not calculated for patients <18 years of age or gender unknown. This is an estimated GFR calculation using the new CKD EPI creatinine equation without race and so does not require a correction factor for race. This estimated GFR should not be used for calculating drug doses. 10/05/2024 6:10 AM CDT Mikki Moraes MD LABORATORY Final Res ult [facility] [address] [place] [id number], * (ABNORMAL) LIPID PANEL (10/05/2024 6:10 AM CDT) CHOLESTEROL 95 <200 MG/DL 10/05/2024 8:04 AM CDT [facility] TRIGLYCERIDES 83 <150 MG/DL 10/05/2024 8:04 AM CDT [facility] HDL 19(L) >40.0 MG/DL 10/05/2024 8:04 AM CDT [facility] LDL (CALCULATED) 59 <100 MG/DL 10/05/2024 8:04 AM CDT [facility] Comment:CALCULATED USING THE FRIEDEWALD EQUATION NON HDL CHOLESTEROL 76 <130 MG/DL 10/05/2024 8:04 AM CDT [facility] CHOL/HDL RATIO 5.0(H) 0.0 - 4.5 10/05/2024 8:04 AM CDT [facility] VLDL CALCULATION 17 5 - 55 MG/DL 10/05/2024 8:04 AM CDT [facility] LIPID INTERPRETATION 10/05/2024 8:04 AM CDT [facility] Comment: [facility] REPORT RECOMMENDATIONS: ADULT CHILD LOW RISK: CHOLESTEROL <200 <170 TRIGLYCERIDE <150 --- HDL >=60 --- LDL <100 <110 BORDERLINE: CHOLESTEROL 200-239 170-199 TRIGLYCERIDE 150-199 --- HDL 40-59 --- LDL 100-159 110-129 HIGH RISK: CHOLESTEROL >=240 >=200 TRIGLYCERIDE >=200 --- HDL <40 --- LDL >=160 >=130 10/05/2024 6:10 AM CDT Mikki Moraes MD LABORATORY Final Res ult [facility] [address] [place] [id number], [place] [phone] * (ABNORMAL) CBC W/DIFF AUTOMATED (10/05/2024 6:10 AM CDT) Only the most recent of18 resultswithin the time period is included. WBC 5.87 4.5 - 11.0 x10'3/uL 10/05/2024 7:47 AM CDT [facility] RBC 4.43(L) 4.70 - 6.10 x10'6/uL 10/05/2024 7:47 AM CDT [facility] HGB 11.7(L) 14.0 - 18.0 G/DL 10/05/2024 7:47 AM CDT [facility] HCT 38.4(L) 43.0 - 54.0 % 10/05/2024 7:47 AM CDT [facility] MCV 86.7 80.0 - 94.0 FL 10/05/2024 7:47 AM CDT [facility] MCH 26.4(L) 27.0 - 31.0 PG 10/05/2024 7:47 AM CDT [facility] MCHC 30.5(L) 32.0 - 36.0 G/DL 10/05/2024 7:47 AM CDT [facility] RDW 22.4(H) 11.5 - 14.5 % 10/05/2024 7:47 AM CDT [facility] PLT 234 130 - 400 x10'3/uL 10/05/2024 7:47 AM CDT [facility] MPV 10.9 9.3 - 12.2 FL 10/05/2024 7:47 AM CDT [facility] DIFFERENTIAL TYPE AUTOMATED DIFFERENTIAL 10/05/2024 8:19 AM CDT [facility] NEUTROPHILS % 66.6 % 10/05/2024 8:19 AM CDT [facility] LYMPHOCYTES % 18.7 % 10/05/2024 8:19 AM CDT [facility] MONOCYTES % 9.0 % 10/05/2024 8:19 AM T [facility] EOSINOPHILS 4.1 % 10/05/2024 8:19 AM CDT [facility] BASOPHILS 1.4 % 10/05/2024 8:19 AM CDT [facility] IMMATURE GRANS % 0.2 % 10/06/19 8:19 AM CDT [facility] ABS. NEUTROPHILS 3.91 1.80 - 7.70 x10'3/uL 10/05/2024 8:19 AM CDT [facility] ABS. LYMPHOCYTES 1.10 1.00 - 4.80 x10'3/uL 10/05/2024 8:19 AM CDT [facility] ABS. MONOCYTES 0.53 0.30 - 0.82 x10'3/uL 10/05/2024 8:19 AM CDT [facility] ABS. EOSINOPHILS 0.24 0.04 - 0.54 x10'3/uL 10/05/2024 8:19 AM CDT [facility] ABS. BASOPHILS 0.08 0.01 - 0.08 x10'3/uL 10/05/2024 8:19 AM CDT [facility] ABS. IMMATURE GRANULOCYTES 0.01 0.00 - 0.49 x10'3/uL 10/05/2024 8:19 AM CDT [facility] RBC MORPHOLOGY SLIDE REVIEWED 2024 8:19 AM CDT [facility] ANISO 2+ 10/05/2024 8:19 AM CDT [facility] POLY 1+ 10/05/2024 8:19 AM CDT [facility] PLT EST. ADEQUATE 10/05/2024 8:19 AM CDT [facility] 10/05/2024 6:10 AM CDT Mikki Moraes MD LABORATORY Final Res ult [facility] [address] [place] [address], * MAGNESIUM (10/05/2024 6:10 AM CDT) Only the most recent of13 resultswithin the time period is included. MAGNESIUM 1.8 1.8 - 2.4 MG/DL 10/05/2024 8:00 AM CDT [facility] 10/05/2024 6:10 AM CDT us Mikki Moraes MD LABORATORY Final Res ult [facility] [address] [place] [address], [place] [phone] * (ABNORMAL) DRUG SCREEN RAPID (10/04/2024 2:34 PM CDT) Only the most recent of3 resultswithin the time period is included. Pathologist [facility] AMPHETAMINE (U) POSITIVE(A) NEGATIVE 10/05/19 2:59 PM CDT [facility] BARBITURATES SCREEN (U) NEGATIVE NEGATIVE 10/04/2024 2:59 PM CDT [facility] BENZODIAZEPINES SCREEN (U) NEGATIVE NEGATIVE 10/04/2024 2:59 PM CDT [facility] CANNABINOIDS SCREEN (U) NEGATIVE NEGATIVE 10/04/2024 2:59 PM CDT [facility] COCAINE METABOLITES (U) NEGATIVE NEGATIVE 10/04/2024 2:59 PM CDT [facility] METHADONE (U) NEGATIVE NEGATIVE 10/04/2024 2:59 PM CDT [facility] OPIATE SCREEN (U) POSITIVE(A) NEGATIVE 2024 2:59 PM CDT [facility] PHENCYCLIDINE PCP (U) NEGATIVE NEGATIVE 10/04/2024 2:59 PM CDT [facility] Comment: NOTE: RESULTS OF THIS DRUG SCREEN SHOULD BE USED FOR MEDICAL PURPOSES ONLY AND NOT FOR LEGAL OR EMPLOYMENT PURPOSES. POSITIVE RESULTS ARE NOT CONFIRMED. MEDICATIONS CONTAINING EPHEDRINE MAY CAUSE FALSE POSITIVE AMPHETAMINE CALL [phone], LAB, TO REQUEST CONFIRMATION TESTING. IF CREATININE IS <40 mg/dL. RECOLLECTION IS SUGGESTED. AMPHETAMINE- 500 NG/ML BARBITURATE- 200 NG/ML BENZODIAZEPINES- 200 NG/ML THC- 50 NG/ML COCAINE- 150 NG/ML METHADONE- 300 NG/ML OPIATE- 300 MG/ML PCP- 25 NG/ML CREATININE (U) 216.0 39 - 259 MG/DL 10/04/2024 2:59 PM CDT [facility] URINE SPECIMEN / Unknown 10/04/2024 2:34 PM CDT Mikki Moraes MD URINE ORDERABLES Final Re sult Performing Organization Address City/[facility]/ZIP Co de Phone Number [facility] [address] [place] [address], * (ABNORMAL) TROPONIN, QUANT (10/04/2024 1:11 PM CDT) Only the most recent of7 resultswithin the time period is included. TROPONIN I HIGH SENSITIVITY 130(HH) <79 ng/L 10/04/2024 1:49 PM CDT [facility] Comment: NOT CALLED PER CRITICAL VALUE POLICY HIGH DOSES OF BIOTIN, TROPONIN-SPECIFIC AUTOANTIBODIES, AND ANTIBODY THERAPY CONTAINING HAMA MAY INTERFERE WITH THIS TEST RESULT. CORRELATION TO CLINICAL HISTORY AND PRESENTATION RECOMMENDED. 10/04/2024 1:11 PM CDT Tomeka Lobato MD LABORATORY Final Result Performing Organization Address City/[facility] Co de Phone Number [facility] [address] [place] [address], * (ABNORMAL) LACTIC ACID - SINGLE (10/04/2024 11:40 AM CDT) Only the most recent of2 resultswithin the time period is included. LACTIC ACID VENOUS 2.3(H) 0.4 - 2.0 MMOL/L 10/04/2024 12:33 PM CDT [facility] Comment: Critical Result(s) Called at: 12:32:36 on 10/04/2024 by: YUSUF MCMULLEN to and read back by:CHRISTIANE OSBORN AN ORDER FOR A REPEAT LACTIC ACID TEST IS REQUIRED WITHIN 6 HOURS OF DIAGNOSIS ON A PATIENT WITH SEVERE SEPSIS. 10/04/2024 11:4 0 AM CDT Tone Cisneros MD LABORATORY Final Resul t [facility] [address] [place] [address], * XR CHEST PORTABLE (10/04/2024 11:32 AM CDT) Only the most recent of4 resultswithin the time period is included. Anatomical Region Laterality Modality Chest Radiographic Yanira ging 10/04/2024 11:4 3 AM CDT Impressions 10/04/2024 11:51 AM CDT IMPRESSION: Cardiomegaly. Moderate pulmonary vascular congestion with possible mild interstitial edema. Ordered By: GÉNESIS ROBERT Interpreted By: Navin Li, 10/04/2024 11:43 AM Narrative 10/04/2024 11:51 AM CDT [facility] [address] [place], [place] [address] IMAGING STUDIES: XR CHEST PORTABLE DATE: 10/04/2024 10:53 AM HISTORY: fluid overload 44-year-old male. Reported low ejection fraction of 10%. ICD. History of drug use. COMPARISON: Chest portable 09/11/2024 DISCUSSION: Portable AP semiupright view of the chest. Left chest multi lead ICD with stable position of the leads. Stable cardiomegaly. Moderate pulmonary vascular congestion is most prominent in the lower lungs with possible mild interstitial edema. Left lower lung is obscured due to the cardiomegaly. No appreciable focal pulmonary opacity. Degenerative changes spine and shoulders. Procedure Note Navin Li MD - 10/04/2024 [facility] [address] [place], [place] [address] IMAGING STUDIES: XR CHEST PORTABLEDATE: 10/04/2024 10:53 AM HISTORY: fluid overload 44-year-old male. Reported low ejectionfraction of 10%. ICD. History of drug use. COMPARISON: Chest portable 09/11/2024 DISCUSSION: Portable AP semiupright view of the chest. Left chest multi lead ICD with stable position of the leads. Stablecardiomegaly. Moderate pulmonary vascular congestion is most prominent inthe lower lungs with possible mild interstitial edema. Left lower lung is obscured due to the cardiomegaly. No appreciable focalpulmonary opacity. Degenerative changes spine and shoulders. IMPRESSION: Cardiomegaly. Moderate pulmonary vascular congestion with possible mildinterstitial edema. Ordered By: GÉNESIS ROBERT Interpreted By: Navin Li, 10/04/2024 11:43 AM Génesis Robert FACS [employer] Final Resul t * (ABNORMAL) PRO-BRAIN NATRIURETIC PEPTIDE (10/04/2024 11:00 AM CDT) Only the most recent of7 resultswithin the time period is included. PRO-B TYPE NATRIURETIC PEPTIDE 6,900(H) <125 PG/ML 10/04/2024 11:35 AM CDT [facility] Comment: CUT POINTS ESTABLISHED BY [employer] ON NT PROBNP (ICON) STUDY (2006). AGE INDEPENDENT: <300 PG/ML HAS A 99% NEGATIVE PREDICTIVE VALUE FOR EXCLUDING ACUTE CHF <50 YEARS: >450 PG/ML IS CONSISTENT WITH ACUTE CHF 50-75 YEARS: >900 PG/ML IS CONSISTENT WITH ACUTE CHF >75 YEARS: >1800 PG/ML IS CONSISTENT WITH ACUTE CHF IN PATIENTS WITH RENAL INSUFFICIENCY (GFR <60), >1200 PG/ML YIELDS A DIAGNOSTIC SENSITIVITY AND SPECIFICITY OF 89% AND 72% FOR ACUTE CHF. 10/04/2024 11:0 0 AM CDT Tomeka Lobato MD LABORATORY Final Result Performing Organization Address City/[facility]/ZIP Co de Phone Number [facility] [address] [place] [address], * (ABNORMAL) HEMOGLOBIN, GLYCATED (10/04/2024 11:00 AM CDT) HGB A1C 6.4(H) <5.7 % 10/04/2024 2:49 PM CDT [facility] Comment: ADA GUIDELINES 2010 5.7 TO 6.4% INCREASED RISK OF DIABETES > OR = 6.5% CONSISTENT WITH DIABETES ESTIMATED AVG GLUCOSE 137 mg/dL 10/04/2024 2:49 PM CDT [facility] 10/04/2024 11:0 0 AM CDT Mikki Moraes MD LABORATORY Final Res ult Performing Organization Address City/[facility]/ZIP Co de Phone Number [facility] [address] [place] [address], * ECG 12 lead (10/04/2024 10:56 AM CDT) Only the most recent of4 resultswithin the time period is included. 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1980 Requested By: GÉNESIS ROBERT Order Number: [id number] Reading MD: Chun Gan Measurements Intervals [place] Rate: 69 P: 119 ME: 171 QRS: 183 QRSD: 172 T: 22 QT: 430 QTc: 463 Interpretive Statements ELECTRONIC ATRIAL PACEMAKER ELECTRONIC VENTRICULAR PACEMAKER ABNORMAL RHYTHM ECG Compared to ECG 09/11/2024 17:20:31 No significant changes Other ischemic changes, not STEMI Preliminary EKG Interpretation by Tomeka Lobato M.D us Génesis Robert FACS TEACHER ECG ORDERABLES Final Resul t [facility] RAD * Critical Care (10/04/2024 10:50 AM CDT) Tomeka Rajput MD - 10/04/2024 10:50 AM CDT Tomeka Lobato MD 10/04/2024 1:29 PM Critical Care Performed by: Tomeka Lobato MD Authorized by: Mikki Moraes MD Critical care provider statement: Critical care time (minutes): 45 Critical care time was exclusive of: Separately billable procedures and treating other patients and teaching time Critical care was necessary to treat or prevent imminent or life-threatening deterioration of the following conditions: Cardiac failure Critical care was time spent personally by me on the following activities: Development of treatment plan with patient or surrogate, discussions with consultants, evaluation of patient's response to treatment, examination of patient, obtaining history from patient or surrogate, ordering and performing treatments and interventions, ordering and review of laboratory studies, ordering and review of radiographic studies, pulse oximetry, re-evaluation of patient's condition and review of old charts Care discussed with: admitting provider Mikki Moraes MD PROCEDURE/MINOR SURGICAL ORDERABLES Final Result * VITAMIN D 25 OH (09/21/2024 1:28 PM CDT) VITAMIN D 25 HYDROXY S/P/B 54 30 - 100 NG/ML 09/21/2024 2:20 PM CDT [facility] Comment: INTERPRETATION DEFICIENT <20 INSUFFICIENT 20-29 SUFFICIENT 30-100 09/21/2024 1:28 PM CDT us Kenyatta Citlaly DO LABORATORY Final Result [facility] [address] [place] [address], [place] [phone] * (ABNORMAL) BASIC METABOLIC PANEL (09/17/2024 9:14 AM CDT) Only the most recent of11 resultswithin the time period is included. GLUCOSE 147(H) 70 - 99 MG/DL 09/17/2024 9:47 AM CDT [facility] BUN 29(H) 7 - 18 MG/DL 09/17/2024 9:47 AM CDT [facility] CREATININE S/P/B 1.60(H) 0.7 - 1.3 MG/DL 09/17/2024 9:47 AM CDT [facility] SODIUM S/P/B 134(L) 136 - 145 MMOL/L 09/17/2024 9:47 AM CDT [facility] POTASSIUM S/P/B 4.2 3.5 - 5.1 MMOL/L 09/17/2024 9:47 AM CDT [facility] CHLORIDE S/P/B 99 97 - 115 MMOL/L 09/17/2024 9:47 AM CDT [facility] CO2 29.4 21 - 32 MMOL/L 09/17/2024 9:47 AM CDT [facility] CALCIUM S/P/B 8.9 8.5 - 10.1 MG/DL 09/17/2024 9:47 AM CDT [facility] ANION GAP 5.6 2 - 10 MMOL/L 09/17/2024 9:47 AM CDT [facility] BUN CREATININE RATIO 18.1 6 - 26 09/17/2024 9:47 AM CDT [facility] GFR ESTIMATE 53(L) >90 ML/MIN/1.7 3 M2 09/17/2024 9:47 AM CDT [facility] Comment: NOTE: eGFR is not calculated for patients <18 years of age or gender unknown. This is an estimated GFR calculation using the new CKD EPI creatinine equation without race and so does not require a correction factor for race. This estimated GFR should not be used for calculating drug doses. 09/17/2024 9:14 AM CDT Giovanna Marrero TREE SURGEON HELPER LABORATORY Final Resul t [facility] [address] [place] [address], * (ABNORMAL) PROTHROMBIN TIME, VENOUS (09/12/2024 6:00 AM CDT) Only the most recent of2 resultswithin the time period is included. PROTIME 20.0(H) 10.2 - 12.9 SEC 09/12/2024 6:48 AM CDT [facility] INR 1.8 09/12/2024 6:48 AM CDT [facility] Comment: Recommended INR Therapeutic Goals: 2.0-3.0 Routine Therapy 2.5-3.5 Mechanical Prosthetic Valves (High Risk) 09/12/2024 6:00 AM CDT Yong Pelayo MD LABORATORY Final Resul t Performing Organization Address City/[facility] Co de Phone Number [facility] [address] [place] [address], * LACTIC ACID W REFLEX (SEPSIS) (09/01/2024 4:32 AM CDT) Only the most recent of3 resultswithin the time period is included. LACTIC ACID VENOUS 1.2 0.4 - 2.0 MMOL/L 09/01/2024 5:13 AM CDT [facility] 09/01/2024 4:32 AM CDT Shilo Bray MD,PHD LABORATORY Final Resu lt Performing Organization Address [facility] Co de Phone Number [facility] [address] [place] [address], * CTA CHEST PE PROTOCOL (09/01/2024 3:33 AM CDT) Anatomical Region Laterality Modality Chest Computed Tomogra phy 09/01/2024 3:39 AM CDT Impressions 09/01/2024 3:46 AM CDT IMPRESSION: 1. No discrete intraluminal filling defect is seen to suggest acute central, lobar, or segmental pulmonary thromboembolic disease. 2. Mosaic attenuation throughout both lungs that is nonspecific and could be due to small vessel versus small airway disease. 3. Cardiomegaly. 4. Prominence of the main pulmonary artery suggesting elevated pulmonary arterial pressures. 5. Reflux of contrast into the inferior vena cava and hepatic veins indicating elevated right atrial pressure. Referred By: Interpreted By: Sylvain Lester DO, 09/01/2024 3:39 AM Narrative 09/01/2024 3:46 AM CDT [facility] [address] [place], [place] [address] EXAMINATION: CTA CHEST PE PROTOCOL EXAM DATE: 09/01/2024 3:08 AM CLINICAL HISTORY: Shortness of breath for the past couple days. COMPARISON: Chest radiographs 09/01/2024 and 07/29/2024. TECHNIQUE: Axial CT angiography of the chest was performed following intravenous administration of 100 mL of Isovue 370. Coronal and sagittal reformatted images were obtained and reviewed. Coronal maximum intensity projection sequence (MIPS) and 3-D spin reconstruction were obtained and reviewed. A radiation dose lowering technique was used for this procedure, which may include, but is not limited to, dose reduction technique, automated exposure control, the use of iterative reconstruction, ALARA (As Low As Reasonably Achievable) techniques, and Image Gently techniques. FINDINGS: PULMONARY ARTERIAL TREE: There is adequate opacification of the central, lobar, and segmental pulmonary arterial tree; however patient respiratory motion artifact degrades evaluation of the subsegmental pulmonary arterial tree. No discrete intraluminal filling defect is seen to suggest acute central, lobar, or segmental pulmonary thromboembolic disease. MEDIASTINUM: There is cardiomegaly without pericardial effusion. The thoracic aorta is normal in caliber. There is a left anterior chest wall 3-lead pacemaker with lead tips in the right atrium, right ventricle, and coronary sinus. There is prominence of the main pulmonary artery measuring approximately 33 mm in diameter suggesting elevated pulmonary arterial pressures. There are mildly prominent mediastinal and hilar lymph nodes that are likely secondary to chronic congestion. There is no internal mammary chain, axillary, or supraclavicular adenopathy. PLEURAL SPACES: There is no pleural effusion or pneumothorax. LUNGS: Patient respiratory motion artifact degrades evaluation of the lung parenchyma. There is mosaic attenuation throughout both lungs that is nonspecific and could be due to small vessel versus small airway disease. No focal pulmonary consolidation is seen. ABDOMEN: There is reflux of contrast into the inferior vena cava and hepatic veins indicating elevated right atrial pressure. MUSCULOSKELETAL: There is no destructive osseous lesion. Mild degenerative disc disease affects the mid thoracic spine. Procedure Note Sylvain Lester DO - 09/01/2024 [facility] [address] [place], [place] [address] EXAMINATION: CTA CHEST PE PROTOCOL EXAM DATE: 09/01/2024 3:08 AM CLINICAL HISTORY: Shortness of breath for the past couple days. COMPARISON: Chest radiographs 09/01/2024 and 07/29/2024. TECHNIQUE: Axial CT angiography of the chest was performed followingintravenous administration of 100 mL of Isovue 370. Coronal and sagittalreformatted images were obtained and reviewed. Coronal maximum intensityprojection sequence (MIPS) and 3-D spin reconstruction were obtained andreviewed. A radiation dose lowering technique was used for this procedure,which may include, but is not limited to, dose reduction technique,automated exposure control, the use of iterative reconstruction, ALARA (AsLow As Reasonably Achievable) techniques, and Image Gently techniques. FINDINGS: PULMONARY ARTERIAL TREE: There is adequate opacification of the central, lobar, and segmentalpulmonary arterial tree; however patient respiratory motion artifactdegrades evaluation of the subsegmental pulmonary arterial tree. Nodiscrete intraluminal filling defect is seen to suggest acute central,lobar, or segmental pulmonary thromboembolic disease. MEDIASTINUM: There is cardiomegaly without pericardial effusion. The thoracic aorta isnormal in caliber. There is a left anterior chest wall 3-lead pacemakerwith lead tips in the right atrium, right ventricle, and coronary sinus.There is prominence of the main pulmonary artery measuring [id number] mm in diameter suggesting elevated pulmonary arterial pressures. Thereare mildly prominent mediastinal and hilar lymph nodes that are likelysecondary to chronic congestion. There is no internal mammary chain,axillary, or supraclavicular adenopathy. PLEURAL SPACES: There is no pleural effusion or pneumothorax. LUNGS: Patient respiratory motion artifact degrades evaluation of the lungparenchyma. There is mosaic attenuation throughout both lungs that isnonspecific and could be due to small vessel versus small airway disease.No focal pulmonary consolidation is seen. ABDOMEN: There is reflux of contrast into the inferior vena cava and hepatic veinsindicating elevated right atrial pressure. MUSCULOSKELETAL: There is no destructive osseous lesion. Mild degenerative disc diseaseaffects the mid thoracic spine. IMPRESSION: 1. No discrete intraluminal filling defect is seen to suggest acutecentral, lobar, or segmental pulmonary thromboembolic disease. 2. Mosaic attenuation throughout both lungs that is nonspecific and couldbe due to small vessel versus small airway disease. 3. Cardiomegaly. 4. Prominence of the main pulmonary artery suggesting elevated pulmonaryarterial pressures. 5. Reflux of contrast into the inferior vena cava and hepatic veinsindicating elevated right atrial pressure. Referred By: Interpreted By: Sylvain Lester DO, 09/01/2024 3:39 AM Shilo Bray MD,PHD CT Final Resu lt * CULTURE, BACTERIA, BLOOD (09/01/2024 2:15 AM CDT) Only the most recent of2 resultswithin the time period is included. Pathologist [facility] SPEC DESCRIPTION BLOOD 09/01/2024 2:12 AM CDT [facility] SPECIAL REQUESTS NO SPECIAL REQUEST 09/01/2024 2:12 AM CDT [facility] CULTURE RESULT NO GROWTH 5 DAYS 09/06/2024 9:07 AM CDT [facility] BLOOD SPECIMEN OBTAINED FOR BLOOD CULTURE / Unknown 09/01/2024 2:15 AM CDT 09/01/2024 2:25 AM CDT us Shilo Bray MD,PHD MICROBIOLOGY - GENERAL ORD ERABLES Final Result [facility] [address] [place] [address], [place] [phone] * (ABNORMAL) ARTERIAL BLOOD GAS (07/29/2024 8:25 PM CDT) Pathologist [facility] PH ARTERIAL 7.48(H) 7.35 - 7.45 07/29/2024 8:34 PM CDT [facility] PCO2 35.0 35.0 - 45.0 MMHG 07/29/2024 8:34 PM CDT [facility] PO2 104.0 83.0 - 108.0 MMHG 07/29/2024 8:34 PM CDT [facility] TOTAL CO2 ARTERIAL 27.2(H) 19.0 - 24.0 MMOL/L 07/29/2024 8:34 PM CDT [facility] BASE EXCESS 2.8 0.0 - 3.0 MMOL/L 07/29/2024 8:34 PM CDT [facility] O2 SATURATION 98 94.0 - 98.0 % 07/29/2024 8:34 PM CDT [facility] BICARB ARTERIAL 26.1 21.0 - 28.0 MMOL/L 07/29/2024 8:34 PM CDT [facility] MADHU TEST MADHU TEST PERFORMED 07/29/2024 8:32 PM CDT [facility] O2 ADMIN ARTERIAL 50 07/29/2024 8:32 PM CDT [facility] DRAW SITE ARTERIAL LT RADIAL 07/29/2024 8:32 PM CDT [facility] 07/29/2024 8:25 PM CDT us Iman Lake DO LABORATORY Final Result [facility] [address] [place] [address], * PROCALCITONIN (PCT) (07/29/2024 4:31 PM CDT) Pathologist [facility] PROCALCITONIN 0.17 0.00 - 0.49 NG/ML 07/30/2024 12:07 AM CDT [facility] 07/29/2024 4:31 PM CDT Med Torrez MD LABORATORY Final Result Performing Organization Address City/[facility] Co de Phone Number [facility] [address] [place] [address], [place] [phone] * TSH W/REFLEX (07/29/2024 4:31 PM CDT) TSH 1.190 0.358 - 3.74 uIU/ML 07/29/2024 5:26 PM CDT [facility] Comment: HIGH DOSES OF BIOTIN MAY INTERFERE WITH THIS TEST RESULT. CORRELATION TO CLINICAL HISTORY AND PRESENTATION RECOMMENDED. FREE T4 NOT INDICATED 07/29/2024 4:31 PM CDT Med Torrez MD LABORATORY Final Result Performing Organization Address [facility] de Phone Number [facility] [address] [place] [address], [place] [phone] * CT GENERIC (07/29/2024) Anatomical Region Laterality Modality Other 07/29/2024 [employer] [facility] Scanned SCANNING Final Resu lt * IMAGE GENERIC (07/29/2024) Anatomical Region Laterality Modality Other 07/29/2024 [employer] [facility] Scanned SCANNING Final Resu lt * DIABETIC RETINOPATHY EXAM (NEGATIVE) (06/14/2024) [employer] [facility] Scanned SCANNING Final Resu lt Performing Organization Address City/[facility] Co de Phone Number [facility] * HEPATITIS A,B,& C (06/26/2023 4:00 AM CDT) HEPATITIS B SURFACE AG NON-REACTI VE NON-REACTI VE 06/26/2023 6:36 AM CDT [facility] HEP B CORE TOTAL AB NON-REACTI VE NON-REACTI VE 06/26/2023 6:36 AM CDT [facility] HEP B SURFACE AB NON-REACTI VE 06/26/2023 6:36 AM CDT [facility] HAV IGM NON-REACTI VE NON-REACTI VE 06/26/2023 6:36 AM CDT [facility] HEPATITIS C AB NON-REACTI VE NON-REACTI VE 06/26/2023 6:36 AM CDT [facility] 06/26/2023 4:00 AM CDT Emerson Stapleton MD LABORATORY Final Result Performing Organization Address [facility]/State/ZIP Co de Phone Number [facility] [address] [place] [address], [place] [phone] from Last 3 Months or Most Recently Relevant to Health Maintenance Insurance MEDICAID Member Subscriber Plan / Payer (Ef fective 2022-Present) Name:Isaiah La Relation to Subscriber:Self Name:Isaiah La Payer ID:Not on file Group ID:Not on file Type:Not on file [address] Advance Directives Documents on File Type Date Recorded Patient Hot Frame Tender Expl anation Advance Directives and Living Will 08/06/2024 7:32 AM 07/31/2024 POA FOR HEALTH CARE * Full Code (Latest Code Status on File) Date Activated Date Inactivated Comments 10/04/2024 2:10 PM 10/06/2024 4:47 AM * Full Code Date Activated Date Inactivated Comments 09/11/2024 10:54 PM 09/17/2024 3:22 PM * Full Code Date Activated Date Inactivated Comments 09/01/2024 8:31 AM 09/06/2024 8:10 PM * Full Code Date Activated Date Inactivated Comments 09/01/2024 4:55 AM 09/01/2024 8:30 AM * Full Code Date Activated Date Inactivated Comments 07/29/2024 5:55 PM 08/02/2024 3:57 PM Care Teams Ignition Expert Relationship Specialty Start Date End Date Kenyatta Boucher DO [address] [place] [address] [id number] PCP - General FAMILY PRACTICE 12/25/21 Tone Cisneros MD Three [facility] [address] [place] [address] [phone] Consulting Physician CARDIOVASCULAR DISEASE 05/04/23 Dre Matamoros MD Three [facility]. [address] [place] [address] [phone] Consulting Physician CLINICAL CARDIAC ELECTROPHYSIOLOGY 05/04/23 Robel Basilio MD 3 [facility] [address] [place] [address] Consulting Physician NEPHROLOGY 05/04/23 Carmela Paez MD Three [facility] [address] [place] [address] Consulting Physician ANESTHESIOLOGY PAIN MEDICINE 05/04/23 Minh Sánchez MD 3 [facility] [address] [place] [address] Consulting Physician Internal Medicine Pulmonary Disease 05/04/23 Stevo Wild MD [address] [place] [address] [phone] Surgeon SURGERY 08/28/23
--- OUTSIDE RECORDS SUMMARY | 2024-10-25 04:48 | XMS_ITS | Encounter Summary ---
Author Organization [facility] Address [facility] [place] [address] Care Team Providers Care Digital Editor Name Role Phone Romeo Neville MD Primary Care Provider [phone] Kenyatta Boucher DO Primary Care Provider [phone] Tone Cisneros MD Unavailable [phone] Dre Matamoros MD Unavailable Robel Basilio MD Unavailable [phone] Carmela Paez MD Unavailable [phone] Minh Sánchez MD Unavailable [phone] Stevo Wild MD Unavailable [phone] Encounter Details Date Type Department Care Team (Late st Contact Info) Description 10/06/2021 [employer] Message [facility] THREE [facility], [address] [place], [place] [phone] Dre Matamoros MD Three [facility]. [address] [place], [place] [phone] To feel better Social History Tobacco Use Types Packs/Day Years Used Date Smoking Tobacco: Every Day Cigarettes 0.5 25 Smokeless Tobacco: Never Alcohol Use Standard Drinks/Week Comments Never 0 (1 standard drink = 0.6 oz pur e alcohol) AUDIT-C Answer Date Recorded Frequency of Alcohol Consumption Never 07/29/2019 Average Number of Drinks Not on file 020 Frequency of Binge Drinking Not on file 08/2019 Sex and Gender Information Value Date Recorded Sex Assigned at Male 04/15/2023 8:00 AM AUTOMOTIVE INSTRUCTOR Legal Sex Male 6:53 PM CDT Gender Identity Male 10/12/2021 6:16 AM CDT Sexual Orientation Straight 10/29/2021 5: 40 AM CDT COVID-19 Exposure Response Date Recorded In the last 10 days, have yo u been in contact with someone who was confirmed or suspected to have Coronavirus/COVID-19? 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 Thanks Yamilet documented in this encounter Plan of Treatment Upcoming Encounters Date Type Department Care Team (Late st Contact Info) Description 10/29/2024 11:20 AM CDT Office Visit [facility] [place] [address], [address] [place] [address] Kenyatta Boucher, DO [address] [facility] [place] [address] 10/29/2024 1:40 PM CDT Office Visit [facility] [address] [facility], [facility] [address] [place] [address] Robel Basilio MD [address] [place] [address], [facility] [address] [place] [address] 12/17/2024 2:00 PM CDT Office Visit [facility], [facility] [address] [place] [address] Dre Matamoros MD [facility]. [facility] [address] [place] [address] 01/14/2025 3:05 PM AUTOMOTIVE INSTRUCTOR Allied Health/Nurse Visit [facility], [facility] [address] [place], [place] [address] Stevo Junior MD [facility]. [facility] [address] [place], [place] [address] documented as of this encounter Visit Diagnoses Not on filedocumented in this encounter Additional Health Concerns Infection Onset Date Last Indicated Resolved Time COVID-19 Rule Out 11/13/2021 11/13/2021 11/13/2021 9:58 AM CDT COVID-19 Rule Out 06/24/2023 06/24/2023 06/24/2023 2:10 PM CDT documented as of this encounter Care Teams Digital Editor Relationship Specialty Start Date End Date Romeo Neville MD PCP - General HOSPITALIST 08/21/21 12/24/21 Kenyatta Boucher DO [address] [place] [address] [phone] PCP - General FAMILY PRACTICE 12/25/21 Tone Cisneros MD Three [facility] [address] [place], [place] [phone] Consulting Physician CARDIOVASCULAR DISEASE 05/04/23 Dre Matamoros MD Three [facility]. [address] [place], [place] [phone] Consulting Physician CLINICAL CARDIAC ELECTROPHYSIOLOGY 05/04/23 Robel Basilio MD 3 [facility], [address] [place], [place] [phone] Consulting Physician NEPHROLOGY 05/04/23 Carm[facility] [address] [place], [place] [phone] Consulting Physician ANESTHESIOLOGY PAIN MEDICINE 05/04/23 Minh S[facility]chez MD [facility] [address] [place] [address] Consulting Physician Internal Medicine Pulmonary Disease 05/04/23 Stevo Wild MD [address] [place] [address] Surgeon SURGERY 08/28/23 documented as of this encounter
--- OUTSIDE RECORDS SUMMARY | 2024-10-25 04:48 | XMS_ITS | Encounter Summary ---
Author Organization [facility] Address [address] [place] [address] Care Team Providers Care Weigh Machine Operator Name Role Phone Kenyatta Boucher DO Primary Care Provider [phone] Tone Cisneros MD Unavailable [phone] Dre Matamoros MD Unavailable Robel Basilio MD Unavailable [phone] Carmela Paez MD Unavailable [phone] Minh Sánchez MD Unavailable [phone] Stevo Wild MD Unavailable [phone] Encounter Details Date Type Department Care Team (Late st Contact Info) Description 06/22/2022 Viewfinityt Message Enc [facility] Medical Group Family Medicine - [address], [address] [place] [address] Kenyatta Boucher DO [address] [place] [address] Info Social History Tobacco Use Types Packs/Day Years Used Date Smoking Tobacco: Every Day Cigarettes 0.5 25 Smokeless Tobacco: Never Comments:I wish i never woul d have started. Alcohol Use Standard Drinks/Week Comments Never 0 (1 standard drink = 0.6 oz pur e alcohol) Humiliation, Afraid, Rape, and Kick questionnair e Answer Date Recorded Within the last year, have y ou been afraid of your partner or ex-partner? No 04/04/2022 Within the last year, have y ou been humiliated or emotionally abused in other ways by your partner or ex-partner? No Within the last year, have y ou been kicked, hit, slapped, or otherwise physically hurt by your partner or ex-partner? No 04/04/2022 Within the last year, have y ou been raped or forced to have any kind of sexual activity by your partner or ex-partner? No 04/04/2022 AUDIT-C Answer Date Recorded Frequency of Alcohol Consumption Never 07/29/2019 Average Number of Drinks Not on file 020 Frequency of Binge Drinking Not on file 08/2019 Overall Financial Resource Strain (CARDIA) Answe r Date Recorded How hard is it for you to pa y for the very basics like food, housing, medical care, and heating? Not very hard 04/04/2022 PHQ-2 Answer Date Recorded Patient Health Questionnaire-2 Score 0 06/02/2022 Hunger Vital Sign Answer Date Recorded Within the past 12 months, y ou worried that your food would run out before you got the money to buy more. Never true 04/04/19 23 Within the past 12 months, t he food you bought just didn't last and you didn't have money to get more. Never true 04/04/2022 PRAPARE - Transportation Answer Date Re corded In the past 12 months, has l ack of transportation kept you from medical appointments or from getting medications? No 03/24 In the past 12 months, has l ack of transportation kept you from meetings, work, or from getting things needed for daily living? No 04/04/2022 Housing Stability Vital Sign Answer Forrest e Recorded In the last 12 months, was t here a time when you were not able to pay the mortgage or rent on time? No 04/04/2022 In the last 12 months, how many places have you lived? 1 04/04/2022 In the last 12 months, was t here a time when you did not have a steady place to sleep or slept in a fpc (including now)? No 04/04/2022 Sex and Gender Information Value Date Recorded Sex Assigned at Male 04/15/2023 8:00 AM PUBLIC HEALTH VETERINARIAN Legal Sex Male 6:53 PM CDT Gender Identity Male 10/12/2021 6:16 AM CDT Sexual Orientation Straight 10/29/2021 5: 40 AM CDT COVID-19 Exposure Response Date Recorded In the last 10 days, have yo u been in contact with someone who was confirmed or suspected to have Coronavirus/COVID-19? No / Unsure 06/23/2022 10:52 AM CDT documented as of this encounter Functional Status * Are you deaf or do you have serious difficulty hearing Answer Date of Assessment Author Status No 05/27/2022 5:00 PM CDT Oanh Bates RN Active * Are you blind or do you have serious difficulty seeing, even when wearing glasses? Answer Date of Assessment Author Status No 05/27/2022 5:00 PM CDT Oanh Bates RN Active * Do you have serious difficulty walking or climbing stairs? Answer Date of Assessment Author Status No 05/27/2022 5:51 PM CDT Oanh Bates RN Active * Do you have difficulty dressing or bathing? Answer Date of Assessment Author Status No 05/27/2022 5:51 PM CDT Oanh Bates RN Active * Because of a physical, mental, or emotional condition, do you have difficulty doing errands alone such as visiting a doctor's office or shopping? Answer Date of Assessment Author Status No 05/27/2022 5:51 PM CDT Oanh Bates RN Active documented as of this encounter Mental Status * Because of a physical, mental, or emotional condition, do you have serious difficulty concentrating, remembering, or making decisions? Answer Entry Date Author Status No 05/27/2022 5:51 PM CDT Oanh Bates RN Active documented in this encounter Plan of Treatment Upcoming Encounters Date Type Department Care Team (Late st Contact Info) Description 10/29/2024 11:20 AM CDT Office Visit [facility] Medical Group Family Medicine - [address], [address] [place] [address] Kenyatta Boucher DO [address] [place] [address] 10/29/2024 1:40 PM CDT Office Visit [facility] Medical Group Multispecialty Care - [facility] 3 [facility], [facility] [address] [place] [address] Robel Basilio MD 3 [facility], [address] [place] [address] 12/17/2024 2:00 PM CDT Office Visit [facility] THREE [facility], [address] [place] [address] Dre Matamoros MD Three [facility]. [address] [place] [address] 01/14/2025 3:05 PM PUBLIC HEALTH VETERINARIAN Allied Health/Nurse Visit [facility] THREE [facility], [facility] [address] [place] [address] Stevo Junior MD Three [facility]. [facility] [address] [place] [address] documented as of this encounter Visit Diagnoses Not on filedocumented in this encounter Additional Health Concerns Infection Onset Date Last Indicated Resolved Time COVID-19 Rule Out 06/24/2023 06/24/2023 06/24/2023 2:10 PM CDT Assessment Noted Time PHQ-9 Depression Total Score: 0 02/05/20 22 1:34 PM PUBLIC HEALTH VETERINARIAN documented as of this encounter Care Teams Weigh Machine Operator Relationship Specialty Start Date End Date Kenyatta Boucher DO [address] [place] [address] PCP - General FAMILY PRACTICE 12/25/21 Tone Cisneros MD Three [facility] [address] [place] [address] Consulting Physician CARDIOVASCULAR DISEASE 05/04/23 Dre Matamoros MD Three [facility]. [facility] [address] [place] [address] Consulting Physician CLINICAL CARDIAC ELECTROPHYSIOLOGY 05/04/23 Robel Basilio MD 3 [facility], [facility] [address] [place] [address] Consulting Physician NEPHROLOGY 05/04/23 Carmela Paez MD Three [facility] [address] [place] [address] Consulting Physician ANESTHESIOLOGY PAIN MEDICINE 05/04/23 Minh Sánchez MD 3 Health system [address] [place] [address] Consulting Physician Internal Medicine Pulmonary Disease 05/04/23 Stevo Wild MD [address] [place] [id number] Surgeon SURGERY 08/28/23 documented as of this encounter
--- OUTSIDE RECORDS SUMMARY | 2024-10-25 04:48 | XMS_ITS | Encounter Summary ---
Author Organization [facility] Address [address] [place] [address] Care Team Providers Care Ux Information Architect Name Role Phone Citlaly, Kenyatta Primary Care Provider [phone] Tone Cisneros MD Unavailable [phone] Dre Matamoros MD Unavailable Robel Basilio MD Unavailable [phone] Carmela Paez MD Unavailable [phone] Minh Sánchez MD Unavailable [phone] Stevo Wild MD Unavailable [phone] Reason for Visit * Reason Onset Date Comments Returned Call 05/08/2024 Encounter Details Date Type Department Care Team (Late st Contact Info) Description 05/08/2024 [employer] Message Enc [facility] Medical [facility] Family Medicine - [place] [address] [facility], [address] [place] [address] Aaliyah [facility] Provider Scale and BP cuff Social History Tobacco Use Types Packs/Day Years Used Date Smoking Tobacco: Some Days Cigarettes 0.5 25 Started: 03/1998; Last attempted to quit: 03/2023 Passive Smoke Exposure: Past Smokeless Tobacco: Never Comments:Wish i never starte d Alcohol Use Standard Drinks/Week Comments Never 0 (1 standard drink = 0.6 oz pur e alcohol) [facility] Utilities Answer Date Recorded In the past 12 months has th e electric, gas, oil, or water company threatened to shut off services in your home? No 10/11/2023 Humiliation, Afraid, Rape, and Kick questionnair e Answer Date Recorded Within the last year, have y ou been afraid of your partner or ex-partner? No 10/11/2023 Within the last year, have y ou been humiliated or emotionally abused in other ways by your partner or ex-partner? No Within the last year, have y ou been kicked, hit, slapped, or otherwise physically hurt by your partner or ex-partner? No 10/11/2023 Within the last year, have y ou been raped or forced to have any kind of sexual activity by your partner or ex-partner? No 10/11/2023 AUDIT-C Answer Date Recorded Frequency of Alcohol Consumption Never 07/29/2019 Average Number of Drinks Not on file 020 Frequency of Binge Drinking Not on file 08/2019 Overall Financial Resource Strain (CARDIA) Answe r Date Recorded How hard is it for you to pa y for the very basics like food, housing, medical care, and heating? Not hard at all 10/11/2023 PHQ-2 Answer Date Recorded Patient Health Questionnaire-2 Score 6 03/01/2024 Hunger Vital Sign Answer Date Recorded Within the past 12 months, y ou worried that your food would run out before you got the money to buy more. Never true 10/11/19 24 Within the past 12 months, t he food you bought just didn't last and you didn't have money to get more. Never true 10/11/2023 PRAPARE - Transportation Answer Date Re corded In the past 12 months, has l ack of transportation kept you from medical appointments or from getting medications? No 09/22 In the past 12 months, has l ack of transportation kept you from meetings, work, or from getting things needed for daily living? No 10/11/2023 Housing Stability Vital Sign Answer Forrest e [...] place to sleep or slept in a halfway (including now)? No 05/18/2023 Housing Stability Vital Sign Answer Forrest e Recorded In the last 12 months, was t here a time when you were not able to pay the mortgage or rent on time? No 10/11/2023 In the past 12 months, how m any times have you moved where you were living? 1 10/11/2023 At any time in the past 12 m [facility], were you homeless or living in a halfway (including now)? No 10/11/2023 Sex and Gender Information Value Date Recorded Sex Assigned at Male 04/15/2023 8:00 AM DIRECTOR OF STUDENT AID Legal Sex Male 6:53 PM CDT Gender Identity Male 10/12/2021 6:16 AM CDT Sexual Orientation Straight 10/29/2021 5: 40 AM CDT documented as of this encounter Functional Status * Are you deaf or do you have serious difficulty hearing Answer Date of Assessment Author Status No 10/11/2023 2:02 AM CDT Raffi Fernandes RN Active * Are you blind or do you have serious difficulty seeing, even when wearing glasses? Answer Date of Assessment Author Status No 10/11/2023 2:02 AM ELVIAT Raffi Fernandes RN Active * Do you have serious difficulty walking or climbing stairs? Answer Date of Assessment Author Status No 10/11/2023 2:02 AM ELVIAT Raffi Fernandes RN Active * Do you have difficulty dressing or bathing? Answer Date of Assessment Author Status No 10/11/2023 2:02 AM ELVIAT Raffi Fernandes RN Active * Because of a physical, mental, or emotional condition, do you have difficulty doing errands alone such as visiting a doctor's office or shopping? Answer Date of Assessment Author Status No 10/11/2023 2:02 AM ELVIAT Raffi Fernandes RN Active documented as of this encounter Mental Status * Because of a physical, mental, or emotional condition, do you have serious difficulty concentrating, remembering, or making decisions? Answer Entry Date Author Status No 10/11/2023 2:02 AM Raffi Zhang RN Active documented in this encounter Progress Notes * Stacey Bradley MA - 05/09/2024 2:52 PM CDT Patient will be in tomorrow morning between 8:30am - 9:00am to pickling tank operator the scale & BP cuff. documented in this encounter Plan of Treatment Upcoming Encounters Date Type Department Care Team (Late st Contact Info) Description 10/29/2024 11:20 AM CDT Office Visit [facility] Family Medicine - [place] [address] [facility], [address] [place] [id number] Kenyatta Boucher, DO [address] [facility] [place] [address] 10/29/2024 1:40 PM CDT Office Visit [facility] Multispecialty Care - [facility] 3 [facility], [address] [place] [id number] Robel Basilio MD 3 [facility], [address] [place] [address] 12/17/2024 2:00 PM CDT Office Visit [facility] [address] [facility], [address] [place] [address] Dre Matamoros MD [facility]. [address] [place] [address] 01/14/2025 3:05 PM DIRECTOR OF STUDENT AID Allied Health/Nurse Visit [facility] [address] [facility], [address] [place] [address] Stevo Junior MD [facility]. [address] [place] [address] documented as of this encounter Goals Goal Patient Goal Type Associated Problems Recent Progress Patient-Stated? Author Patient will return to prior living situation and remain independent in ADLs upon discharge from hospital Lifestyle No Felisha Rene RN documented as of this encounter Visit Diagnoses Not on filedocumented in this encounter Additional Health Concerns Assessment Noted Time PHQ-9 Depression Total Score: 19 024 1:50 PM CDT documented as of this encounter Care Teams Ux Information Architect Relationship Specialty Start Date End Date Kenyatta Boucher DO [address] [place] [address] PCP - General FAMILY PRACTICE 12/25/21 Tone Cisneros MD Three [facility] [address] [place] [address] Consulting Physician CARDIOVASCULAR DISEASE 05/04/23 Dre Matamoros MD Three [facility]. [facility] [address] [place], [place] [address] Consulting Physician CLINICAL CARDIAC ELECTROPHYSIOLOGY 05/04/23 Robel Basilio MD 3 [facility], [facility] [address] [place] [address] Consulting Physician NEPHROLOGY 05/04/23 Carmela Paez MD Three [facility] [address] [place] [address] Consulting Physician ANESTHESIOLOGY PAIN MEDICINE 05/04/23 Minh Sánchez MD 3 [facility] [address] [place] [address] Consulting Physician Internal Medicine Pulmonary Disease 05/04/23 Stevo Wild MD [address] [place] [id number] Surgeon SURGERY 08/28/23 documented as of this encounter
--- OUTSIDE RECORDS SUMMARY | 2024-10-25 04:48 | XMS_ITS | Encounter Summary ---
Author Organization [facility] Address [address] [place] [address] Care Team Providers Care Reporting Consultant Name Role Phone Citlaly, Kenyatta Primary Care Provider Tone Cisneros MD Unavailable [phone] Dre Matamoros MD Unavailable Robel Basilio MD Unavailable [phone] Carmela Paez MD Unavailable [phone] Minh Sánchez MD Unavailable [phone] Stevo Wild MD Unavailable [phone] Encounter Details Date Type Department Care Team (Late st Contact Info) Description 08/18/2022 MyChart Message Enc [facility] - [facility] [address] [place] [id number] Aaliyah, [facility] Provider Air Quality Message Social History Tobacco Use Types Packs/Day Years [...] place to sleep or slept in a skilled nursing (including now)? No 04/04/2022 Sex and Gender Information Value Date Recorded Sex Assigned at Male 04/15/2023 8:00 AM ART LIBRARIAN Legal Sex Male 6:53 PM CDT Gender Identity Male 10/12/2021 6:16 AM CDT Sexual Orientation Straight 10/29/2021 5: 40 AM CDT COVID-19 Exposure Response Date Recorded In the last 10 days, have edwin de guzman been in contact with someone who was confirmed or suspected to have Coronavirus/COVID-19? No / Unsure 08/02/2022 12:25 PM CDT documented as of this encounter [...] Description 10/29/2024 11:20 AM CDT Office Visit [facility] Family Medicine - [place] [address] [facility], [address] [place] [address] Kenyatta Boucher, [address] [place] [address] 10/29/2024 1:40 PM CDT Office Visit [facility] Medical Group Multispecialty Care - [facility] [address] [facility] [address], [address] [place] [address] Robel Basilio MD 3 [facility], [address] [place] [address] 12/17/2024 2:00 PM CDT [facility] [address] [facility] [address], [address] [place] [address] Dre Matamoros MD Three [facility]. [address] [place] [address] 01/14/2025 3:05 PM ART LIBRARIAN [facility] [address] [place] [address] Stevo Junior MD Three [facility]. [address] [place] [address] documented as of this encounter Visit Diagnoses Not on filedocumented in this encounter Additional Health Concerns Infection Onset Date Last Indicated Resolved Time COVID-19 Rule Out 06/24/2023 06/24/2023 06/24/2023 2:10 PM CDT Assessment Noted Time PHQ-9 Depression Total Score: 0 02/05/20 1:34 PM ART LIBRARIAN documented as of this encounter Care Teams Reporting Consultant Relationship Specialty Start [place] [address] [place] [address] [place] [address] PCP - General FAMILY PRACTICE 12/25/21 Tone Cisneros MD [address] [facility] [address] [place] [address] Consulting Physician CARDIOVASCULAR DISEASE 05/04/23 Dre Matamoros MD Three [facility]. [address] [place] [address] Consulting Physician CLINICAL CARDIAC ELECTROPHYSIOLOGY 05/04/23 Robel Basilio MD 3 [facility], [facility] [address] [place] [address] Consulting Physician NEPHROLOGY 05/04/23 Carmela Paez MD Three [facility] [address] [place] [address] Consulting Physician ANESTHESIOLOGY PAIN MEDICINE 05/04/23 Minh Sánchez MD 3 [facility] [address] [place] [address] Consulting Physician Internal Medicine Pulmonary Disease 05/04/23 Stevo Wild MD [address] [place] [id number] Surgeon SURGERY 08/28/23 documented as of this encounter
--- OUTSIDE RECORDS SUMMARY | 2024-10-25 04:48 | XMS_ITS | Clinical Summary ---
Author Organization [facility] Address [address] [place] [address] Care Team Providers Care Maintenance Department Technician Name Role Phone Kenyatta Boucher DO Primary Care Provider [phone] Source Comments [facility],non-owned Affiliates and Associated Physician Practices is amultiple site organization consisting of ambulatory clinics and hospital sitesin [place], [place], [place] and [place]. This disclosure is being madepursuant to the Care Everywhere program and may not contain all information available regarding this patient. 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 AGENT Gender Identity Not on file Sexual Orientation Not on file Plan of Treatment Health Maintenance Due Date Last Done Comments COLOGUARD (AGES 45-75) - COL ON CA SCREENING 1978 COLON MONITORING 1978 COLONOSCOPY - COLON CA SCREENING 1978 CT COLONOGRAPHY - COLON CA SCREENING 1978 Colorectal Cancer Screening 1978 FIT - COLON CA SCREENING 1978 FLEX SIG - COLON CA SCREENING 1978 HIV SCREENING 1993 DTAP/TDAP/TD VACCINES (1 - Tdap) 1997 HEPATITIS B VACCINE (1 of 3 - 19+ 3-dose series) 1997 COVID-19 VACCINE (2023-2 5 season) 2023 DEPRESSION SCREENING 02/22/2024 MEDICARE AWV CALENDAR YEAR 2024 INFLUENZA VACCINE (#1) 2024 ZOSTER VACCINE (1 of 2) 2028 LIPID TESTING 06/21/2029 06/21/2024 HEPATITIS C SCREENING Completed 06/26/2023 HIB VACCINE Aged Out No longer eligi ble based on patient's age to complete this topic HPV VACCINE Aged Out No longer eligi ble based on patient's age to complete this topic MENINGOCOCCAL (Group B) VACC INE SHARED DECISION-MAKING Aged Out No longer eligibl e based on patient's age to complete this topic MENINGOCOCCAL GROUPS A/C/Y/W VACCINE Aged Out No longer eligible b ased on patient's age to complete this topic PNEUMOCOCCAL VACCINE Aged Out No long er eligible based on patient's age to complete this topic Insurance [facility] MANAGED MEDICARE ADV [facility] MANAGED MEDICARE ADV Care Teams Maintenance Department Technician Relationship Specialty Start Date End Date Kenyatta Boucher DO [address] [place] [address] PCP - General Family Medicine 11/15/23
--- OUTSIDE RECORDS SUMMARY | 2024-10-25 04:48 | XMS_ITS | Encounter Summary ---
Author Organization [facility] Address [address] [place] [address] Care Team Providers Care Construction Carpenter Name Role Phone Kenyatta Boucher DO Primary Care Provider [phone] Tone Cisneros MD Unavailable [phone] Dre Matamoros MD Unavailable Robel Basilio MD Unavailable [phone] Carmela Paez MD Unavailable [phone] Minh Sánchez MD Unavailable [phone] Stevo Wild MD Unavailable [phone] Encounter Details Date Type Department Care Team (Late st Contact Info) Description 11/17/[address] [facility] Family Medicine - [address], [address] [place] [address] Kenyatta Boucher DO [address] [place] [address] diabetes eye exam Social History Tobacco Use Types Packs/Day Years Used Date Smoking Tobacco: Some Days Cigarettes 0.5 25 Started: 03/1998; Last attempted to quit: 03/2023 Passive Smoke Exposure: Past Smokeless Tobacco: Never Comments:Wish i never starte d Alcohol Use Standard Drinks/Week Comments Never 0 (1 standard drink = 0.6 oz pur e alcohol) [facility] Utilities Answer Date Recorded In the past [...] Date Recorded Patient Health Questionnaire-2 Score 6 09/12/2023 Hunger Vital Sign Answer Date Recorded Within [...] place to sleep or slept in a long term (including now)? No 05/18/2023 Housing Stability Vital Sign Answer Ofrrest e Recorded In the last 12 months, was t here a time when you were not able to pay the mortgage or rent on time? No 10/11/2023 In the past 12 months, how m any times have you moved where you were living? 1 10/11/2023 At any time in the past 12 m [facility], were you homeless or living in a long term (including now)? No 10/11/2023 Sex and Gender Information Value Date Recorded Sex Assigned at Male 04/15/2023 8:00 AM PATROL SERGEANT Legal Sex Male 6:53 PM CDT Gender [...] AM CDT Raffi Fernandes RN Active * Do you have serious difficulty walking or climbing stairs? Answer Date of Assessment Author Status No 10/11/2023 2:02 AM CDT Raffi Fernandes RN Active * Do you have difficulty dressing or bathing? Answer Date of Assessment Author Status No 10/11/2023 2:02 AM CDT Raffi Fernandes RN Active * Because of a physical, mental, or emotional condition, do you have difficulty doing errands alone such as visiting a doctor's office or shopping? Answer Date of Assessment Author Status No 10/11/2023 2:02 AM CDT Raffi Fernandes RN Active documented as of this encounter Mental Status * Because of a physical, mental, or emotional condition, do you have serious difficulty concentrating, remembering, or making decisions? Answer Entry Date Author Status No 10/11/2023 2:02 AM CDT Raffi Fernandes RN Active documented in this encounter Plan of Treatment Upcoming Encounters Date Type Department Care Team (Late st Contact Info) Description 10/29/2024 11:20 AM CDT Office Visit [facility] Family Medicine - [place] [address] [facility], [address] [place] [address] Citlaly Kenyatta, DO [address] [place] [address] 10/29/2024 1:40 PM CDT Office Visit [facility] Multispecialty Care - [facility] [address] [facility], [address] [place] [address] Robel Basilio MD [address] [place] [address], [facility] [address] [place] [address] 12/17/2024 2:00 PM CDT [facility], [address] [place] [address] Dre Matamoros MD [facility]. [address] [place] [address] 01/14/2025 3:05 PM PATROL SERGEANT Allied Health/[facility]urse [facility], [address] [place], [place] [address] Stevo Junior MD [facility]. [address] [place], [place] [address] documented as of this encounter Goals Goal [...] as of this encounter Care Teams Construction Carpenter Relationship Specialty Start Date End Date Kenyatta Boucher DO [facility] [place], [place] [id number] PCP - General FAMILY PRACTICE 12/25/21 Tone Cisneros MD Three [facility] [address] [place], [place] [id number] Consulting Physician CARDIOVASCULAR DISEASE 05/04/23 Dre Matamoros MD Three [facility]. [facility] [address] [place], [place] [address] Consulting Physician CLINICAL CARDIAC ELECTROPHYSIOLOGY 05/04/23 Robel Basilio MD 3 [facility] [address] [place], [place] [address] Consulting Physician NEPHROLOGY 05/04/23 Carmela Paez MD Three [facility] [address] [place], [place] [address] Consulting Physician ANESTHESIOLOGY PAIN MEDICINE 05/04/23 Minh Sánchez MD 3 [facility] [address] [place], [place] [address] Consulting Physician Internal Medicine Pulmonary Disease 05/04/23 Stevo Wild MD [address] [place] [id number] Surgeon SURGERY 08/28/23 documented as of this encounter
--- OUTSIDE RECORDS SUMMARY | 2024-10-25 04:48 | XMS_ITS | Encounter Summary ---
Author Organization [facility] Address [facility] [place] [address] Care Team Providers Care Lpn Private Duty Name Role Phone Kenyatta Boucher Primary Care Provider [phone] Tone Cisneros MD Unavailable [phone] Dre Matamoros MD Unavailable Robel Basilio MD Unavailable [phone] Carmela Paez MD Unavailable [phone] Minh Sánchez MD Unavailable [phone] Stevo Wild MD Unavailable [phone] Encounter Details Date Type Department Care Team (Late st Contact Info) Description 02/28/2023 CardioMind Message Enc [facility] THREE [facility], [address] [place], [place] [id number] Dre Matamoros MD Three [facility]. [facility] [address] [place] [address] Mis leading information Social History Tobacco Use Types Packs/Day Years Used Date Smoking Tobacco: Every Day Cigarettes 0.5 25 Smokeless Tobacco: Never Comments:I wish i never woul d have started. Alcohol Use Standard Drinks/Week Comments Never 0 (1 standard drink = 0.6 oz pur e alcohol) [facility] Utilities Answer Date Recorded In the past 12 months has th e electric, gas, oil, or water company threatened to shut off services in your home? No 02/28/2023 Humiliation, Afraid, Rape, and Kick questionnair e Answer Date Recorded Within the last year, have y ou been afraid of your partner or ex-partner? No 02/28/2023 Within the last year, have y ou been humiliated or emotionally abused in other ways by your partner or ex-partner? No Within the last year, have y ou been kicked, hit, slapped, or otherwise physically hurt by your partner or ex-partner? No 02/28/2023 Within the last year, have y ou been raped or forced to have any kind of sexual activity by your partner or ex-partner? No 02/28/2023 AUDIT-C Answer Date Recorded Frequency of Alcohol Consumption Never 07/29/2019 Average Number of Drinks Not on file 020 Frequency of Binge Drinking Not on file 08/2019 Overall Financial Resource Strain (CARDIA) Answe r Date Recorded How hard is it for you to pa y for the very basics like food, housing, medical care, and heating? Not hard at all 02/28/2023 PHQ-2 Answer Date Recorded Patient Health Questionnaire-2 Score 0 01/31/2023 Hunger Vital Sign Answer Date Recorded Within the past 12 months, y ou worried that your food would run out before you got the money to buy more. Never true 02/28/19 24 Within the past 12 months, t he food you bought just didn't last and you didn't have money to get more. Never true 02/28/2023 PRAPARE - Transportation Answer Date Re corded In the past 12 months, has l ack of transportation kept you from medical appointments or from getting medications? No 09/2023 In the past 12 months, has l ack of transportation kept you from meetings, work, or from getting things needed for daily living? No 02/28/2023 Housing Stability Vital Sign Answer Forrest e Recorded In the last 12 months, was t here a time when you were not able to pay the mortgage or rent on time? No 02/28/2023 In the last 12 months, how many places have you lived? 1 02/28/2023 In the last 12 months, was t here a time when you did not have a steady place to sleep or slept in a intermediate (including now)? No 02/28/2023 Sex and Gender Information Value Date Recorded Sex Assigned at Male 04/15/2023 8:00 AM RIBBON BLOCKMAKER Legal Sex Male 6:53 PM CDT Gender Identity Male 10/12/2021 6:16 AM CDT Sexual Orientation Straight 10/29/2021 5: 40 AM CDT documented as of this encounter Functional Status * Question Answer Date of Assessment Author Status Do you have serious difficulty walking or climbing stairs? No 02/28/2023 2:45 PM Irene Velez RN Acti ve * Question Answer Date of Assessment Author Status Do you have difficulty dressing or bathing? No 02/28/2023 2:45 PM Irene Velez RN Active Because of a physical, mental, or emotional condition, do you have difficulty doing errands alone such as visiting a doctor's office or shopping? No 02/28/2023 2:45 PM Maye Velez RN Active * Are you deaf or do you have serious difficulty hearing Answer Date of Assessment Author Status No 02/28/2023 2:45 PM Irene Velez R N Active * Are you blind or do you have serious difficulty seeing, even when wearing glasses? Answer Date of Assessment Author Status No 02/28/2023 2:45 PM Irene Velez R N Active * Do you have serious difficulty walking or climbing stairs? Answer Date of Assessment Author Status No 02/28/2023 2:45 PM Irene Velez R N Active * Do you have difficulty dressing or bathing? Answer Date of Assessment Author Status No 02/28/2023 2:45 PM Irene Velez R N Active * Because of a physical, mental, or emotional condition, do you have difficulty doing errands alone such as visiting a doctor's office or shopping? Answer Date of Assessment Author Status No 02/28/2023 2:45 PM RIBBON BLOCKMAKER Krisby, Irene M, R N Active * Question Answer Date of Assessment Author Status Are you deaf or do you have serious difficulty hearing No 02/28/2023 2:45 PM Irene Velez RN Active Are you blind or do you have serious difficulty seeing, even when wearing glasses? No 02/28/2023 2:45 PM Irene Velez RN Active * Calculated C-SSRS Risk Score (Lifetime/Recent) Answer Date of Assessment Author Status No Risk Indicated 02/28/2023 2:45 PM Irene Velez RN Active * [place] Suicide Severity Rating Scale (Screener/Recent Self-Report) Question Answer Date of Assessment Author Status 1. Wish to be (Past 1 Month) No 02/28/2023 2:45 PM Irene Velez RN Activ e 2. Non-Specific Active Suicidal Thoughts (Past 1 Month) No 02/28/2023 2:45 PM Irene Velez RN Activ e 6. Suicidal Behavior (Lifetime) No 02/28/2023 2:45 PM Irene Velez RN Activ e documented as of this encounter Mental Status * Question Answer Entry Date Author Status Because of a physical, mental, or emotional condition, do you have serious difficulty concentrating, remembering, or making decisions? No 02/28/2023 2:45 PM Irene Velez RN Active * Because of a physical, mental, or emotional condition, do you have serious difficulty concentrating, remembering, or making decisions? Answer Entry Date Author Status No 02/28/2023 2:45 PM Irene Velez R N Active documented in this encounter Progress Notes * Yamilet Harris PA-C - 03/02/2023 2:08 PM CST We will send a message to admitting team about it as they would have been managing this. Ale Woodard ON BLOCKMAKER * Yamilet Harris PA-C - 03/01/2023 10:29 AM CST MICKEYI. ON BLOCKMAKER documented in this encounter Plan of Treatment Upcoming Encounters Date Type Department Care Team (Late st Contact Info) Description 10/29/2024 11:20 AM CDT Office Visit [facility] Family Medicine - [place] [address], [address] [place] [address] Kenyatta Boucher, DO [address] [facility] [place] [address] 10/29/2024 1:40 PM CDT Office Visit [facility] Multispecialty Care - [facility] [address] [facility], [address] [place] [address] Robel Basilio MD [address] [place] [address], [facility] [address] [place] [address] 12/17/2024 2:00 PM CDT Office Visit [facility] THREE [facility], [address] [place] [address] Dre Matamoros MD [facility]. [address] [place] [address] 01/14/2025 3:05 PM RIBBON BLOCKMAKER Allied Health/Nurse [facility], [address] [place], [place] [address] Stevo Junior MD [facility]. [address] [place], [place] [address] documented as of this encounter Goals Goal Patient Goal Type Associated Problems Recent Progress Patient-Stated? Author Patient will return to prior living situation and remain independent in ADLs upon discharge from hospital Lifestyle No Felisha Rene, RN documented as of this encounter Visit Diagnoses Not on filedocumented in this encounter Additional Health Concerns Infection Onset Date Last Indicated Resolved Time COVID-19 Rule Out 06/24/2023 06/24/2023 06/24/2023 2:10 PM CDT Assessment Noted Time PHQ-9 Depression Total Score: 0 02/05/20 1:34 PM RIBBON BLOCKMAKER documented as of this encounter Care Teams Lpn Private Duty Relationship Specialty Start Date End Date Kenyatta Boucher DO [address] [place], [place] [id number] PCP - General FAMILY PRACTICE 12/25/21 Tone Cisneros MD Three [facility] [address] [place], [place] [id number] Consulting Physician CARDIOVASCULAR DISEASE 05/04/23 Dre Matamoros MD [facility]. [facility] [address] [place], [place] [address] Consulting Physician CLINICAL CARDIAC ELECTROPHYSIOLOGY 05/04/23 Robel Basilio MD [address] [place] [address] [address] [place], [place] [address] Consulting Physician NEPHROLOGY 05/04/23 Carmela Paez MD [facility] [address] [place], [place] [address] Consulting Physician ANESTHESIOLOGY PAIN MEDICINE 05/04/23 Minh Sánchez MD [address] [place] [address] [address] [place], [place] [address] Consulting Physician Internal Medicine Pulmonary Disease 05/04/23 Stevo Wild MD [address] [place] [address] Surgeon SURGERY 08/28/23 documented as of this encounter
--- OUTSIDE RECORDS SUMMARY | 2024-10-25 04:48 | XMS_ITS | Encounter Summary ---
Author Organization [facility] Address [address] [place] [address] Care Team Providers Care Ice Cream Truck Driver Name Role Phone Kenyatta Boucher DO Primary Care Provider [phone] Tone Cisneros MD Unavailable [phone] Dre Matamoros MD Unavailable Robel Basilio MD Unavailable [phone] Carmela Paez MD Unavailable [phone] Minh Sánchez MD Unavailable [phone] Stevo Wild MD Unavailable [phone] Encounter Details Date Type Department Care Team (Late st Contact Info) Description 11/18/2023 Umweltecht Message Enc [facility] Family Medicine - [address], [address] [place] [address] Kenyatta Boucher DO [address] [place] [address] Eye exam Social History Tobacco Use Types Packs/Day Years Used Date Smoking Tobacco: Some Days Cigarettes 0.5 25 Started: 03/1998; Last attempted to quit: 03/2023 Passive Smoke Exposure: Past Smokeless Tobacco: Never Comments:Wish i never starte d Alcohol Use Standard Drinks/Week Comments Never 0 (1 standard drink = 0.6 oz pur e alcohol) [facility] Utilities Answer Date Recorded In the past [...] place to sleep or slept in a jail (including now)? No 05/18/2023 Housing Stability Vital [...] in the past 12 m [facility], were you homeless or living in a jail (including now)? No 10/11/2023 Sex and Gender Information Value Date Recorded Sex Assigned at Male 04/15/2023 8:00 AM ELECTRICAL EQUIPMENT TESTER Legal Sex Male 6:53 PM CDT Gender [...] Description 10/29/2024 11:20 AM CDT Office Visit [facility] Family Medicine - [place] [address] [facility], [address] [place] [address] Citlaly Kenyatta, DO [address] [place] [address] 10/29/2024 1:40 PM CDT Office Visit [facility] Multispecialty Care - [facility] 3 [facility], [address] [place] [address] Robel Basilio MD [address] [place] [address], [facility] [address] [place] [address] 12/17/2024 2:00 PM CDT [facility], [address] [place] [address] Dre Matamoros MD [facility]. [address] [place] [address] 01/14/2025 3:05 PM ELECTRICAL EQUIPMENT TESTER Allied Health/Nurse [facility], [address] [place], [place] [address] Stevo Junior MD [facility]. [address] [place], [place] [address] documented as of this encounter Goals Goal [...] documented as of this encounter Care Teams Ice Cream Truck Driver Relationship Specialty Start Date End Date Kenyatta Boucher DO [facility] [place], [place] [phone] PCP - General FAMILY PRACTICE 12/25/21 Tone Cisneros MD Three [facility] [address] [place], [place] [phone] Consulting Physician CARDIOVASCULAR DISEASE 05/04/23 Dre Matamoros MD Three [facility]. [facility] [address] [place], [place] [address] Consulting Physician CLINICAL CARDIAC ELECTROPHYSIOLOGY 05/04/23 Robel Basilio MD 3 [facility], [facility] [address] [place] [address] Consulting Physician NEPHROLOGY 05/04/23 Carmela Paez MD Three [facility] [address] [place], [place] [address] Consulting Physician ANESTHESIOLOGY PAIN MEDICINE 05/04/23 Minh Sánchez MD 3 [facility] [address] [place], [place] [address] Consulting Physician Internal Medicine Pulmonary Disease 05/04/23 Stevo Wild MD [address] [place] [address] Surgeon SURGERY 08/28/23 documented as of this encounter
--- OUTSIDE RECORDS SUMMARY | 2024-10-25 04:48 | XMS_ITS | Encounter Summary ---
Author Organization [facility] Address [place] [address] Care Team Providers Care Oncology Transplant Network Manager Name Role Phone Kenyatta Boucher Primary Care Provider [phone] Tone Cisneros MD Unavailable [phone] Dre Matamoros MD Unavailable Robel Basilio MD Unavailable [phone] Carmela Paez MD Unavailable [phone] Minh Sánchez MD Unavailable [phone] Stevo Wild MD Unavailable [phone] Encounter Details Date Type Department Care Team (Late st Contact Info) Description 08/16/2022 Digital Fortress Message Enc [facility] THREE [facility], [address] [place], [place] [phone] Tone Cisneros MD Three [facility] [address] [place] [address] Health care Social History Tobacco Use Types Packs/Day Years [...] place to sleep or slept in a alf (including now)? No 04/04/2022 Sex and Gender Information Value Date Recorded Sex Assigned at Male 04/15/2023 8:00 AM ENGINE LATHE OPERATOR Legal Sex Male 6:53 PM CDT Gender [...] Bates RN Active documented in this encounter Progress Notes * Roz Dior RN - 08/17/2022 1:43 PM CDT Recommend going to the ED for admission for IV diuresis. Above message from Dr. Cisneros. [employer] message sent to the patient with the above information. documented in this encounter Plan of Treatment Upcoming Encounters Date Type Department Care Team (Late st Contact Info) Description 10/29/2024 11:20 AM CDT Office Visit [facility] Family Medicine - [place] [address] [facility], [address] [place] [address] Kenyatta Boucher, DO [address] [place] [address] 10/29/2024 1:40 PM CDT Office Visit [facility] Multispecialty Care - [address], [facility] [address] [place] [address] Robel Basilio MD [address] [place] [address], [facility] [address] [place] [address] 12/17/2024 2:00 PM CDT [facility], [facility] [address] [place] [address] Dre Matamoros MD [facility]. [facility] [address] [place] [address] 01/14/2025 3:05 PM ENGINE LATHE OPERATOR Allied Health/Nurse [facility], [facility] [address] [place], [place] [address] Stevo Junior MD [facility]. [facility] [address] [place], [place] [address] documented as of this encounter Visit Diagnoses Not on filedocumented in this encounter Additional Health Concerns Infection Onset Date Last Indicated Resolved Time COVID-19 Rule Out 06/24/2023 06/24/202306/24/2023 2:10 PM CDT Assessment Noted Time PHQ-9 Depression Total Score: 0 02/05/20 1:34 PM ENGINE LATHE OPERATOR documented as of this encounter Care Teams Oncology Transplant Network Manager Relationship Specialty Start Date End Date Kenyatta Boucher DO [address] [place] [address] PCP - General FAMILY PRACTICE 12/25/21 Tone Cisneros MD Three [facility] [address] [place], [place] [address] Consulting Physician CARDIOVASCULAR DISEASE 05/04/23 Dre Matamoros MD Three [facility]. [facility] [address] [place] [address] Consulting Physician CLINICAL CARDIAC ELECTROPHYSIOLOGY 05/04/23 Robel Basilio MD 3 [facility], [facility] [address] [place] [address] Consulting Physician NEPHROLOGY 05/04/23 Carmela Paez MD Three [facility] [address] [place] [address] Consulting Physician ANESTHESIOLOGY PAIN MEDICINE 05/04/23 Minh Sánchez MD 3 [facility] [address] [place] [address] Consulting Physician Internal Medicine Pulmonary Disease 05/04/23 Stevo Wild MD [address] [place] [address] Surgeon SURGERY 08/28/23 documented as of this encounter
--- OUTSIDE RECORDS SUMMARY | 2024-10-25 04:48 | XMS_ITS | Encounter Summary ---
Author Organization [facility] Address [facility] [place] [address] Care Team Providers Care Production Sampler Name Role Phone CitlalyKenyatta hendrix Primary Care Provider [phone] Tone Cisneros MD Unavailable [phone] Dre Matamoros MD Unavailable Robel Basilio MD Unavailable [phone] Carmela Paez MD Unavailable [phone] Minh Sánchez MD Unavailable [phone] Stevo Wild MD Unavailable [phone] Encounter Details Date Type Department Care Team (Late st Contact Info) Description 06/23/2022 HobbyTalk Message Enc [facility] Family Medicine [place] [address], [address] [place] [address] Aaliyah, [facility] Provider lab results Social History Tobacco Use Types Packs/Day Years [...] place to sleep or slept in a nursing home (including now)? No 04/04/2022 Sex and Gender Information Value Date Recorded Sex Assigned at Male 04/15/2023 8:00 AM WATER PLUMBER Legal Sex Male 6:53 PM CDT Gender [...] documented in this encounter Progress Notes * Kenyatta Boucher DO - 06/29/2022 12:38 PM CDTFrom: Hiral Pederson To: Isaiah La Sent: 06/23/2022 10:16 AM CDT Subject: lab results Good morning, Per Dr. 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 Boucher at that time. thanks documented in this encounter Plan of Treatment Upcoming Encounters Date Type Department Care Team (Late st Contact Info) Description 10/29/2024 11:20 AM CDT Office Visit [facility] Family Medicine - [place] [address], [address] [place] [address] Kenyatta Boucher, DO [address] [place] [address] 10/29/2024 1:40 PM CDT Office Visit [facility] Multispecialty Care - [facility] [address] [facility], [address] [place] [address] Robel Basilio MD 3 [facility], [facility] [address] [place] [address] 12/17/2024 2:00 PM CDT Office Visit [facility] THREE [facility], [address] [place] [address] Dre Matamoros MD Three [facility]. [facility] [address] [place] [address] 01/14/2025 3:05 PM WATER PLUMBER Allied Health/Nurse Visit [facility] THREE [facility], [address] [place], [place] [address] Stevo Junior MD Three [facility]. [facility] [address] [place], [place] [address] documented as of this encounter Visit Diagnoses Not on filedocumented in this encounter Additional Health Concerns Infection Onset Date Last Indicated Resolved Time COVID-19 Rule Out 06/24/2023 06/24/2023 06/24/2023 2:10 PM CDT Assessment Noted Time PHQ-9 Depression Total Score: 0 02/05/20 22 1:34 PM WATER PLUMBER documented as of this encounter Care Teams Production Sampler Relationship Specialty Start Date End Date Kenyatta Boucher DO [address] [place] [address] PCP - General FAMILY PRACTICE 12/25/21 Tone Cisneros MD Three [facility] [address] [place] [address] Consulting Physician CARDIOVASCULAR DISEASE 05/04/23 Dre Matamoros MD [facility]. [facility] [address] [place] [address] Consulting Physician CLINICAL CARDIAC ELECTROPHYSIOLOGY 05/04/23 Robel Basilio MD [address] [place] [address] [address] [place] [address] Consulting Physician NEPHROLOGY 05/04/23 Carmela Paez MD [facility] [address] [place] [address] Consulting Physician ANESTHESIOLOGY PAIN MEDICINE 05/04/23 Minh Sánchez MD [address] [place] [address] [address] [place] [address] Consulting Physician Internal Medicine Pulmonary Disease 05/04/23 Stevo Wild MD [address] [place] [id number] Surgeon SURGERY 08/28/23 documented as of this encounter
--- OUTSIDE RECORDS SUMMARY | 2024-10-25 04:48 | XMS_ITS | Encounter Summary ---
Author Organization [facility] Address [address] [place] [address] Care Team Providers Care Outside Repairer Special Name Role Phone Kenyatta Boucher DO Primary Care Provider [phone] Tone Cisneros MD Unavailable [phone] Dre Matamoros MD Unavailable Robel Basilio MD Unavailable [phone] Carmela Paez MD Unavailable [phone] Minh Sánchez MD Unavailable [phone] Steov Wild MD Unavailable [phone] Encounter Details Date Type Department Care Team (Late st Contact Info) Description 06/03/2022 Related Content Database (RCDb)t Message Enc [facility] Family Medicine - [address], [address] [place] [address] Kenyatta Boucher DO [address] [place] [address] Request Social History Tobacco Use Types Packs/Day Years [...] Sex Assigned at Male 04/15/2023 8:00 AM SCOUTS Legal Sex Male 6:53 PM CDT Gender Identity Male 10/12/2021 6:16 AM CDT Sexual Orientation Straight 10/29/2021 5: 40 AM CDT COVID-19 Exposure Response Date Recorded In the last 10 days, have yo u been in contact with someone who was confirmed or suspected to have Coronavirus/COVID-19? No / Unsure 06/04/2022 3:52 PM CDT documented as of this encounter [...] Description 10/29/2024 11:20 AM CDT Office Visit [facility] Family Medicine - [address], [address] [place] [address] Kenyatta Boucher DO [address] [place] [address] 10/29/2024 1:40 PM CDT Office Visit [facility] Multispecialty Care - [facility] 3 [facility], [facility] [address] [place] [address] Robel Basilio MD 3 [facility], [address] [place] [address] 12/17/2024 2:00 PM CDT Office Visit [facility] THREE [facility], [address] [place] [address] Dre Matamoros MD Three [facility]. [address] [place] [address] 01/14/2025 3:05 PM SCOUTS Allied Health/Nurse Visit [facility] THREE [facility], [facility] [address] [place] [address] Stevo Junior MD Three [facility]. [facility] [address] [place] [address] documented as of this encounter Visit Diagnoses Not on filedocumented in this encounter Additional Health Concerns Infection Onset Date Last Indicated Resolved Time COVID-19 Rule Out 06/24/2023 06/24/2023 06/24/2023 2:10 PM CDT Assessment Noted Time PHQ-9 Depression Total Score: 0 02/05/20 22 1:34 PM SCOUTS documented as of this encounter Care Teams Outside Repairer Special Relationship Specialty Start Date End Date Kenyatta Boucher DO [address] [facility] [place] [address] PCP - General FAMILY PRACTICE 12/25/21 Tone Cisneros MD Three [facility] [address] [place] [address] Consulting Physician CARDIOVASCULAR DISEASE 05/04/23 Dre Matamoros MD Three [facility]. [facility] [address] [place] [address] Consulting Physician CLINICAL CARDIAC ELECTROPHYSIOLOGY 05/04/23 Robel Basilio MD 3 [facility], [facility] [address] [place] [address] Consulting Physician NEPHROLOGY 05/04/23 Carmela Paez MD Three [facility] [address] [place] [address] Consulting Physician ANESTHESIOLOGY PAIN MEDICINE 05/04/23 Minh Sánchez MD 3 [facility] [address] [place] [address] Consulting Physician Internal Medicine Pulmonary Disease 05/04/23 Stevo Wild MD [address] [place] [id number] Surgeon SURGERY 08/28/23 documented as of this encounter
--- OUTSIDE RECORDS SUMMARY | 2024-10-25 04:48 | XMS_ITS | Encounter Summary ---
Author Organization [facility] Address [address] [place] [address] Care Team Providers Care Rotary Drum Dyer Name Role Phone Kenyatta Boucher DO Primary Care Provider [phone] Tone Cisneros MD Unavailable [phone] Dre Matamoros MD Unavailable Robel Basilio MD Unavailable [phone] Carmela Paez MD Unavailable [phone] Minh Sánchez MD Unavailable [phone] Stevo Wild MD Unavailable [phone] Encounter Details Date Type Department Care Team (Late st Contact Info) Description 02/16/2023 Beyond [employer] Message Enc [facility] Family Medicine - [address], [address] [place] [address] Kenyatta Boucher DO [address] [place] [address] Stomach issues Social History Tobacco Use Types Packs/Day Years [...] afraid of your partner or ex-partner? No 12/28/2022 Within the last year, have y ou been humiliated or emotionally abused in other ways by your partner or ex-partner? No Within the last year, have y ou been kicked, hit, slapped, or otherwise physically hurt by your partner or ex-partner? No 12/28/2022 Within the last year, have y ou been raped or forced to have any kind of sexual activity by your partner or ex-partner? No 12/28/2022 AUDIT-C Answer Date Recorded Frequency of Alcohol Consumption Never 07/29/2019 Average Number of Drinks Not on file 020 Frequency of Binge Drinking Not on file 08/2019 Overall Financial Resource Strain (CARDIA) Answe r Date Recorded How hard is it for you to pa y for the very basics like food, housing, medical care, and heating? Not hard at all 12/28/2022 PHQ-2 Answer Date Recorded Patient Health Questionnaire-2 Score 0 01/31/2023 Hunger Vital Sign Answer Date Recorded Within the past 12 months, y ou worried that your food would run out before you got the money to buy more. Never true 12/29/19 23 Within the past 12 months, t he food you bought just didn't last and you didn't have money to get more. Never true 12/28/2022 PRAPARE - Transportation Answer Date Re corded In the past 12 months, has l ack of transportation kept you from medical appointments or from getting medications? No 08/2022 In the past 12 months, has l ack of transportation kept you from meetings, work, or from getting things needed for daily living? No 12/28/2022 Housing Stability Vital Sign Answer Forrest e Recorded In the last 12 months, was t here a time when you were not able to pay the mortgage or rent on time? No 12/28/2022 In the last 12 months, how many places have you lived? 2 12/28/2022 In the last 12 months, was t here a time when you did not have a steady place to sleep or slept in a skilled nursing (including now)? No 12/28/2022 Sex and Gender Information Value Date Recorded Sex Assigned at Male 04/15/2023 8:00 AM PEDIATRICS PHYSICIAN Legal Sex Male 6:53 PM CDT Gender Identity Male 10/12/2021 6:16 AM CDT Sexual Orientation Straight 10/29/2021 5: 40 AM CDT documented as of this encounter Functional Status * Are you deaf or do you have serious difficulty hearing Answer Date of Assessment Author Status No 12/28/2022 2:58 PM Irene Velez R N Active * Are you blind or do you have serious difficulty seeing, even when wearing glasses? Answer Date of Assessment Author Status No 12/28/2022 2:58 PM Irene Velez R N Active * Do you have serious difficulty walking or climbing stairs? Answer Date of Assessment Author Status No 12/28/2022 2:58 PM Irene Velez R N Active * Do you have difficulty dressing or bathing? Answer Date of Assessment Author Status No 12/28/2022 2:58 PM PEDIATRICS PHYSICIAN Irene Garcia R N Active * Because of a physical, mental, or emotional condition, do you have difficulty doing errands alone such as visiting a doctor's office or shopping? Answer Date of Assessment Author Status No 12/28/2022 2:58 PM Irene Velez R N Active documented as of this encounter Mental Status * Because of a physical, mental, or emotional condition, do you have serious difficulty concentrating, remembering, or making decisions? Answer Entry Date Author Status No 12/28/2022 2:58 PM Irene Velez R N Active documented in this encounter Plan of Treatment Upcoming Encounters Date Type Department Care Team (Late st Contact Info) Description 10/29/2024 11:20 AM CDT Office Visit [facility] Family Medicine - [address], [address] [place] [address] Kenyatta Boucher, DO [address] [place] [address] 10/29/2024 1:40 PM CDT Office Visit [facility] Multispecialty Care - [facility] 3 [facility], [facility] [address] [place] [address] Robel Basilio MD [address] [facility], [facility] [address] [place] [address] 12/17/2024 2:00 PM CDT [facility], [facility] [address] [place] [address] Dre Matamoros MD Three [facility]. [address] [place] [address] 01/14/2025 3:05 PM PEDIATRICS PHYSICIAN Allied [facility] THREE [facility], [facility] [address] [place] [address] Stevo Junior MD Three [facility]. [facility] [address] [place], [place] [address] documented as of this encounter Visit Diagnoses Not on filedocumented in this encounter Additional Health Concerns Infection Onset Date Last Indicated Resolved Time COVID-19 Rule Out 06/24/2023 06/24/2023 06/24/2023 2:10 PM CDT Assessment Noted Time PHQ-9 Depression Total Score: 0 02/05/20 22 1:34 PM PEDIATRICS PHYSICIAN documented as of this encounter Care Teams Rotary Drum Dyer Relationship Specialty Start Date End Date Kenyatta Boucher DO [address] [facility] [place] [address] PCP - General FAMILY PRACTICE 12/25/21 Tone Cisneros MD Three [facility] [address] [place] [address] Consulting Physician CARDIOVASCULAR DISEASE 05/04/23 Dre Matamoros MD Three [facility]. [facility] [address] [place] [address] Consulting Physician CLINICAL CARDIAC ELECTROPHYSIOLOGY 05/04/23 Robel Basilio MD [address] [facility], [facility] [address] [place] [address] Consulting Physician NEPHROLOGY 05/04/23 Carmela Paez MD [facility] [address] [place] [address] Consulting Physician ANESTHESIOLOGY PAIN MEDICINE 05/04/23 Minh Sánchez MD 3 [facility] [address] [place], [place] [address] Consulting Physician Internal Medicine Pulmonary Disease 05/04/23 Stevo Wild MD [address] [place] [id number] Surgeon SURGERY 08/28/23 documented as of this encounter
--- OUTSIDE RECORDS SUMMARY | 2024-10-25 04:48 | XMS_ITS | Encounter Summary ---
Author Organization [facility] Address [facility] [place] [address] Care Team Providers Care Band Top Maker Name Role Phone CitlalyKenyatta hendrix Primary Care Provider Tone Cisneros MD Unavailable [phone] Dre Matamoros MD Unavailable Robel Basilio MD Unavailable [phone] Carmela Paez MD Unavailable [phone] Minh Sánchez MD Unavailable [phone] Stevo Wild MD Unavailable [phone] Encounter Details Date Type Department Care Team (Late st Contact Info) Description 03/09/2023 Duck Duck Moose Message Enc [facility] Family Medicine [place] [address] [place] [address] Aaliyah, [facility] Provider Follow up appointment Social History Tobacco Use Types Packs/Day Years Used Date Smoking Tobacco: Every Day Cigarettes 0.5 25 Smokeless Tobacco: Never Comments:I wish i never woul d have started. Alcohol Use Standard Drinks/Week Comments Never 0 (1 standard drink = 0.6 oz pur e alcohol) [facility] Utilities Answer Date Recorded In the past 12 months has [employer] electric, gas, oil, or water company threatened [...] place to sleep or slept in a senior care (including now)? No 02/28/2023 Sex and Gender Information Value Date Recorded Sex Assigned at Male 04/15/2023 8:00 AM ESTATE CONSERVATOR Legal Sex Male 6:53 PM CDT Gender Identity Male 10/12/2021 6:16 AM CDT Sexual Orientation Straight 10/29/2021 5: 40 AM CDT documented as of this encounter Functional Status * Are you deaf or do you have serious difficulty hearing Answer Date of Assessment Author Status No 02/28/2023 2:45 PM ESTATE CONSERVATOR Irene Garcia R N Active * Are you blind [...] Assessment Author Status No 02/28/2023 2:45 PM ESTATE CONSERVATOR Irene Garcia R N Active * Because of a physical, mental, or emotional condition, do you have difficulty doing errands alone such as visiting a doctor's office or shopping? Answer Date of Assessment Author Status No 02/28/2023 2:45 PM ESTATE CONSERVATOR Irene Garcia R N Active documented as of this [...] Description 10/29/2024 11:20 AM CDT Office Visit [facility] Medical Group Family Medicine [address], [address] [place] [address] Kenyatta Boucher, DO [address] [place] [address] 10/29/2024 1:40 PM CDT Office Visit [facility] Multispecialty Care - [facility] 3 [facility], [address] [place] [address] Robel Basilio MD 3 [facility], [address] [place] [address] 12/17/2024 2:00 PM CDT [facility] THREE [facility], [address] [place] [address] Dre Matamoros MD Three [facility]. [address] [place] [address] 01/14/2025 3:05 PM ESTATE CONSERVATOR Allied Health/Nurse Visit [facility] THREE [facility], [address] [place] [address] Stevo Junior MD Three [facility]. [facility] [address] [place], [place] [address] documented as of this encounter Goals Goal [...] Total Score: 0 02/05/20 22 1:34 PM ESTATE CONSERVATOR documented as of this encounter Care Teams Band Top Maker Relationship Specialty Start Date End Date Kenyatta Boucher DO [address] [facility] [place] [address] PCP - General FAMILY PRACTICE 12/25/21 Tone Cisneros MD Three [facility] [address] [place] [address] Consulting Physician CARDIOVASCULAR DISEASE 05/04/23 Dre Matamoros MD Three [facility]. [address] [place] [address] Consulting Physician CLINICAL CARDIAC ELECTROPHYSIOLOGY 05/04/23 Robel Basilio MD [address] [place] [address], [facility] [address] [place] [address] Consulting Physician NEPHROLOGY 05/04/23 Carmela Paez MD [facility] [address] [place] [address] Consulting Physician ANESTHESIOLOGY PAIN MEDICINE 05/04/23 Minh Sánchez MD [address] [place] [address] [address] [place] [address] Consulting Physician Internal Medicine Pulmonary Disease 05/04/23 Stevo Wild MD [address] [place] [address] Surgeon SURGERY 08/28/23 documented as of this encounter
--- OUTSIDE RECORDS SUMMARY | 2024-10-25 04:48 | XMS_ITS | Encounter Summary ---
Author Organization [facility] Address [address] [place] [address] Phone Care Team Providers Care Veterinary Medicine Doctor Name Role Phone Farrukh Swain MD Primary Care Provider [phone] Unknown, Notinfile Primary Care Provider Unavail able Violetta Trinidad Primary Care Provider + Romeo Neville MD Primary Care Provider [phone] Kenyatta Boucher DO Primary Care Provider [phone] Encounter Details Date Type Department Care Team (Latest Contact Info) Description 12/24/2018 Orders Only [facility] Scanning, Provider Social History Tobacco Use Types Packs/Day Years Used Date Smoking Tobacco: Never Assessed Sex and Gender Information Value Date Recorded Sex Assigned at Not on file Legal Sex Male 11:31 PM CLINICAL PROGRAM CONSULTANT Gender Identity Male 02/10/2021 5:34 PM CLINICAL PROGRAM CONSULTANT Sexual Orientation Straight 02/10/2021 5: 34 PM CLINICAL PROGRAM CONSULTANT documented as of this encounter Progress Notes * Sukhwinder Pérez MD - 12/24/2018 11:59 PM CST Cath reviewed, no significant coronary artery disease. documented in this encounter Plan of Treatment Not on file documented as of this encounter Procedures Procedure Name Priority Date/Time Associated Diagnosis Comments CARDIOLOGY DOCUMENT SCAN 12/24/2018 documented in this encounter Results * SCAN - CARDIOLOGY (12/24/2018) Anatomical Region Laterality Modality Other us Provider Scanning CV CARDIAC SERVICES PROCEDURES Final Result documented in this encounter Visit Diagnoses Not on filedocumented in this encounter Additional Health Concerns Infection Onset Date Last Indicated Resolved Time COVID: Suspected 09/08/2023 09/08/2023 09/08/2023 6:41 PM CDT COVID: Suspected 09/27/2023 09/27/2023 09/27/2023 6:33 AM CDT Ring Surveillance: CRE 10/09/2024 10/09/202410/16 7:26 PM CDT documented as of this encounter Care Teams Veterinary Medicine Doctor Relationship Specialty Start Date End Date Farrukh Swain MD [address] [place] [address] PCP - General 01/03/20 01/05/20 Unknown, Notinfile PCP - General 01/06/20 03/31/20 Violetta Trinidad PA PCP - General 04/01/20 08/02/21 Romeo Neville MD [address] [place] [address] PCP - General Family Medicine 08/03/21 09/07/23 Kenyatta Boucher DO [address] [address] [place] [address] PCP - General Family Medicine 09/08/23 documented as of this encounter
--- OUTSIDE RECORDS SUMMARY | 2024-10-25 04:48 | XMS_ITS | Encounter Summary ---
Author Organization [facility] Address [facility] [place] [address] Care Team Providers Care Unit Control Clerk Name Role Phone Romeo Neville MD Primary Care Provider [phone] Kenyatta Boucher DO Primary Care Provider [phone] Tone Cisneros MD Unavailable [phone] Dre Matamoros MD Unavailable Robel Basilio MD Unavailable [phone] Carmela Paez MD Unavailable [phone] Minh Sánchez MD Unavailable [phone] Stevo Wild MD Unavailable [phone] Encounter Details Date Type Department Care Team (Late st Contact Info) Description 12/14/2021 Share Practice Message Enc [facility], [address] [address] Yamilet Harris PA-C Updating present health Social History Tobacco Use Types Packs/Day Years Used Date Smoking Tobacco: Every Day Cigarettes 0.5 25 Smokeless Tobacco: Never Alcohol Use Standard Drinks/Week Comments Never 0 (1 standard drink = 0.6 oz pur e alcohol) AUDIT-C Answer Date Recorded Frequency of Alcohol Consumption Never 07/29/2019 Average Number of Drinks Not on file 020 Frequency of Binge Drinking Not on file 0608/2019 Sex and Gender Information Value Date Recorded Sex Assigned at Male 04/15/2023 8:00 AM REHABILITATION COUNSELLOR Legal Sex Male 6:53 PM CDT Gender Identity Male 10/12/2021 6:16 AM CDT Sexual Orientation Straight 10/29/2021 5: 40 AM CDT COVID-19 Exposure Response Date Recorded In the last 10 days, have yo u been in contact with someone who was confirmed or suspected to have Coronavirus/COVID-19? No / Unsure 12/11/2021 7:34 AM CDT documented as of this encounter [...] Progress Notes * Yamilet Harris PA-C - 12/14/2021 3:04 PM CDT Pt with increased fatigue since reprogramming. Can we check a remote? Thanks Yamilet documented in this encounter Plan of Treatment Upcoming Encounters Date Type Department Care Team (Late st Contact Info) Description 10/29/2024 11:20 AM CDT Office Visit [facility] [place] [address], [address] [place] [id number] Kenyatta Boucher, DO [address] [facility] [place] [address] 10/29/2024 1:40 PM CDT Office Visit [facility] Multispecialty Care - [facility] [address] [facility], [facility] [address] [place] [id number] Robel Basilio MD [address] [facility], [facility] [address] [place] [address] 12/17/2024 2:00 PM CDT Office Visit [facility] [address] [facility], [address] [place] [address] Dre Matamoros MD Three [facility]. [facility] [address] [place] [address] 01/14/2025 3:05 PM REHABILITATION COUNSELLOR Allied Health/Nurse Visit [facility] [address] [facility], [address] [place], [place] [address] Stevo Junior MD Three [facility]. [facility] [address] [place], [place] [address] documented as of this encounter Visit Diagnoses Not on filedocumented in this encounter Additional Health Concerns Infection Onset Date Last Indicated Resolved Time COVID-19 Rule Out 06/24/2023 06/24/2023 06/24/2023 2:10 PM CDT documented as of this encounter Care Teams Unit Control Clerk Relationship Specialty Start Date End Date Romeo Neville MD PCP - General HOSPITALIST 08/21/21 12/24/21 Kenyatta Boucher DO [address] [place] [address] PCP - General FAMILY PRACTICE 12/25/21 Tone Cisneros MD [address] [facility] [address] [place], [place] [address] Consulting Physician CARDIOVASCULAR DISEASE 05/04/23 Dre Matamoros MD Three [facility]. [facility] [address] [place], [place] [address] Consulting Physician CLINICAL CARDIAC ELECTROPHYSIOLOGY 05/04/23 Robel Basilio MD [address] [facility], [facility] [address] [place] [address] Consulting Physician NEPHROLOGY 05/04/23 Carmela Paez MD Three [facility] [address] [place], [place] [address] Consulting Physician ANESTHESIOLOGY PAIN MEDICINE 05/04/23 Minh Sánchez MD 3 [facility] [address] [place], [place] [address] Consulting Physician Internal Medicine Pulmonary Disease 05/04/23 Stevo Wild MD [address] [place] [address] [address] [place], [place] [id number] Surgeon SURGERY 08/28/23 documented as of this encounter
--- OUTSIDE RECORDS SUMMARY | 2024-10-25 04:48 | XMS_ITS | Clinical Summary ---
Author Organization [facility] Address [address] [place] [address] Care Team Providers Care Software Computer Specialist Name Role Phone Kenyatta Boucher Primary Care Provider [phone] Allergies Active Allergy Reactions Criticality Noted Date Comments Lisinopril Cough High 11/04/2020 Chronic cough. Medications Wixela Inhub 250-50 mcg/dose diskus inhaler INHALE 1 DOSE BY MOUTH TWICE DAILY .RINSE AND SPIT 10/31/19 21 Active albuterol HFA (PROVENTIL HFA,VENTOLIN HFA,PROAIR HFA) 90 mcg/actuation inhaler Inhale 2 puffs every 6 (six) hours as needed for wheezing or shortness of breath 11/11/19 21 Active allopurinoL (ZYLOPRIM) 100 mg tablet Take 1 tablet (100 mg total) by mouth daily 07/23/19 22 Active atorvastatin (LIPITOR) 20 mg tablet Take 1 tablet (20 mg total) by mouth nightly 07/23/19 22 Active potassium chloride ER 20 mEq CR tablet Take 2 tablets (40 mEq total) by mouth daily Active apixaban (ELIQUIS) 5 mg tablet Take 1 tablet (5 mg total) by mouth 2 (two) times a day Active busPIRone (BUSPAR) 10 mg tablet Take 1 tablet (10 mg total) by mouth 2 (two) times a day 08/31/19 25 Active famotidine (PEPCID) 20 mg tablet Take 1 tablet (20 mg total) by mouth 2 (two) times a day 09/22/19 25 Active carvediloL (COREG) 3.125 mg tablet Take 1 tablet (3.125 mg total) by mouth 2 (two) times a day with meals 60 tablet 10/12/19 25 025 Active bumetanide (BUMEX) 1 mg tablet Take 3 tablets (3 mg total) by mouth 2 (two) times a day 180 tablet 10/12/19 25 025 Active aspirin 81 mg enteric coated tablet Take 1 tablet (81 mg total) by mouth daily 06/17/19 22 025 Discontinued(St op Taking at Discharge) carvediloL (COREG) 12.5 mg tablet Take 1 tablet (12.5 mg total) by mouth 2 (two) times a day with meals 09/01/19 24 025 Discontinued(Th erapy completed) bumetanide (BUMEX) 1 mg tablet Take 2 tablets (2 mg total) by mouth 2 (two) times a day 30 tablet 3 10/04/19 24 025 Discontinued(Al ternate therapy) sacubitriL-santiago sartan (ENTRESTO) 24-26 mg tabletIndicati ons:chronic heart failure Take 1 tablet by mouth 2 (two) times a day 60 tablet 3 10/04/19 24 025 Discontinued(Th erapy completed) ivabradine (CORLANOR) 5 mg tablet Take 1 tablet (5 mg total) by mouth 2 (two) times a day with meals 08/28/19 25 025 Discontinued(St op Taking at Discharge) bumetanide (BUMEX) 1 mg tablet Take 2 tablets (2 mg total) by mouth 2 (two) times a day 025 Discontinued carvediloL (COREG) 3.125 mg tablet Take 1 tablet (3.125 mg total) by mouth 2 (two) times a day with meals 60 tablet 10/12/19 25 025 Discontinued cephalexin (KEFLEX) 500 mg capsuleIndicat ions:Skin/Soft Tissue Infection Take 1 capsule (500 mg total) by mouth 4 (four) times a day for 4 days 16 capsule 10/12/19 25 025 Discontinued bumetanide (BUMEX) 1 mg tablet Take 3 tablets (3 mg total) by mouth 2 (two) times a day 180 tablet 10/12/19 025 Discontinued cephalexin (KEFLEX) 500 mg capsuleIndicat ions:Skin/Soft Tissue Infection Take 1 capsule (500 mg total) by mouth 4 (four) times a day for 4 days 16 capsule 10/12/19 25 025 Active Problems Problem Noted Date Diagnosed Date CKD (chronic kidney disease) 10/08/2024 Assessment & Plan (10/11/2024 7:50 AM CDT): Cr at 1.9, elevated from 1.45 on 10/01/24, but patient has been as high at 2.38 on 09/29/24. - Will continue to monitor Cr -10/10 1.7 Assessment & Plan (10/10/2024 7:45 AM CDT): Cr at 1.9, elevated from 1.45 on 10/01/24, but patient has been as high at 2.38 on 09/29/24. - Will continue to monitor Cr -10/10 1.7 Assessment & Plan (10/09/2024 11:40 AM CDT): Cr at 1.9, elevated from 1.45 on 10/01/24, but patient has been as high at 2.38 on 09/29/24. - Will continue to monitor Cr -10/08 Cr 1.8 Assessment & Plan (10/08/2024 6:54 PM CDT): Cr at 1.9, elevated from 1.45 on 10/01/24, but patient has been as high at 2.38 on 09/29/24. - Will continue to monitor Cr Afib 10/08/2024 Assessment & Plan (10/11/2024 7:50 AM CDT): - Continuing home Eliquis 5mg - Continue home Aspirin 81mg Assessment & Plan (10/10/2024 7:45 AM CDT): - Continuing home Eliquis 5mg - Continue home Aspirin 81mg Assessment & Plan (10/09/2024 6:28 AM CDT): - Continuing home Eliquis 5mg - Continue home Aspirin 81mg Assessment & Plan (10/08/2024 6:54 PM CDT): - Continuing home Eliquis 5mg - Continue home Aspirin 81mg Chronic hypoxic respiratory failure 10/08/2024 Assessment & Plan (10/11/2024 7:50 AM CDT): - Patient on 1L nasal canula, sating well (was 98% on RA upon transfer to floor) - Does not use CPAP at home Assessment & Plan (10/10/2024 7:45 AM CDT): - Patient on 1L nasal canula, sating well (was 98% on RA upon transfer to floor) - Does not use CPAP at home Assessment & Plan (10/09/2024 6:28 AM CDT): - Patient on 1L nasal canula, sating well (was 98% on RA upon transfer to floor) - Does not use CPAP at home Assessment & Plan (10/08/2024 7:00 PM CDT): - Patient on 1L nasal canula, sating well (was 98% on RA upon transfer to floor) - Does not use CPAP at home DM2 (diabetes mellitus, type 2) 10/08/2024 Assessment & Plan (10/11/2024 7:50 AM CDT): - LDSSI Assessment & Plan (10/10/2024 7:45 AM CDT): - LDSSI Assessment & Plan (10/09/2024 6:28 AM CDT): - LDSSI Assessment & Plan (10/08/2024 7:06 PM CDT): - LDSSI CARRIE (obstructive sleep apnea) 10/08/2024 Assessment & Plan (10/11/2024 7:50 AM CDT): - Patient on 1L nasal canula, sating well (was 98% on RA upon transfer to floor) - Does not use CPAP at home Assessment & Plan (10/10/2024 7:45 AM CDT): - Patient on 1L nasal canula, sating well (was 98% on RA upon transfer to floor) - Does not use CPAP at home Assessment & Plan (10/09/2024 6:28 AM CDT): - Patient on 1L nasal canula, sating well (was 98% on RA upon transfer to floor) - Does not use CPAP at home Assessment & Plan (10/08/2024 7:00 PM CDT): - Patient on 1L nasal canula, sating well (was 98% on RA upon transfer to floor) - Does not use CPAP at home Gout 10/08/2024 Assessment & Plan (10/11/2024 7:50 AM CDT): - Continue home allopurinol Assessment & Plan (10/10/2024 7:45 AM CDT): - Continue home allopurinol Assessment & Plan (10/09/2024 6:28 AM CDT): - Continue home allopurinol Assessment & Plan (10/08/2024 6:54 PM CDT): - Continue home allopurinol Cellulitis 10/08/2024 Assessment & Plan (10/11/2024 7:50 AM CDT): Patient with warmth and redness of left lower leg. Improving -Cefazolin 2,000mg q8 - Per discussion with antibiotic stewardship, plan for 5 day course (end 10/12) if adequate response (will extend if slow response) - based on 8/20 exam plan to DC with 5 days Keflex Assessment & Plan (10/10/2024 6:22 PM CDT): Patient with warmth and redness of left lower leg. Improving -Cefazolin 2,000mg q8 - Per discussion with antibiotic stewardship, plan for 5 day course (end 10/12) if adequate response (will extend if slow response) - based on 10/10 exam plan to DC with 5 days Keflex Assessment & Plan (10/09/2024 7:50 AM CDT): Patient with warmth and redness of left lower leg. Improving -Cefazolin 2,000mg q8 Assessment & Plan (10/08/2024 7:00 PM CDT): Patient with warmth and redness of left lower leg. -Cefazolin 2,000mg q8 Methamphetamine abuse 10/08/2024 Assessment & Plan (10/11/2024 11:35 AM CDT): Patient interested in entering drug rehab, specifically [facility] in [place]. - Discuss with CM if patient can dc to rehab - SW reaching out, will f/u today 10/10 - as of 10/10, no longer interested in rehab, will go home with mother. This was discussed with patient's mother and she is in agreement Assessment & Plan (10/10/2024 6:22 PM CDT): Patient interested in entering drug rehab, specifically [facility] in [place]. - Discuss with CM if patient can dc to rehab - SW reaching out, will f/u today 10/10 - as of 10/10, no longer interested in rehab, will go home with mother, spoke to her today, she is in agreement Assessment & Plan (10/09/2024 6:28 AM CDT): Patient interested in entering drug rehab, specifically [facility] in [place]. - Discuss with CM if patient can dc to rehab Assessment & Plan (10/08/2024 7:06 PM CDT): Patient interested in entering drug rehab, specifically [facility]. - Discuss with CM if patient can dc to rehab Acute exacerbation of chronic heart failure 09/21 Assessment & Plan (10/11/2024 11:35 AM CDT): Patient with nonischemic cardiomyopathy with HFrEF, EF below 20% s/p AICD on 11/13/2021. Follows with Dr. Cisneros at [facility]. Patient has been inconsistently taking meds given his frequent admission to hospital followed by AMA discharge. 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 - Restarted home Bumex 2mg BID; will increase to 3 mg BID on dc due to inadequate UOP. - Strict I/O, reiterated to patient importance of recording out put. - Holding home ivabradine, will restart on DC -10/09 NSVT on tele ON - Gave PO K 40meq for K3.7 - starting Coreg 3.125 BID. - Interrogated device, No AT pacing Assessment & Plan (10/10/2024 6:22 PM CDT): Patient with nonischemic cardiomyopathy with HFrEF, EF below 20% s/p AICD on 11/13/2021. Follows with Dr. Cisneros at [facility]. Patient has been inconsistently taking meds given his frequent admission to hospital followed by AMA discharge. 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 - Restarted home Bumex 2mg BID - Strict I/O, reiterated to patient importance of recording out put. - Holding home ivabradine, will restart on DC -10/09 NSVT on tele ON - Gave PO K 40meq for K3.7 - starting Coreg 3.125 BID. - Interrogated device, No AT pacing Assessment & Plan (10/09/2024 12:07 PM CDT): Patient with nonischemic cardiomyopathy with HFrEF, EF below 20% s/p AICD on 11/13/2021. Follows with Dr. Cisneros at [facility]. Patient has been inconsistently taking meds given his frequent admission to hospital followed by AMA discharge. 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 - Restarted home Bumex 2mg BID - Strict I/O, reiterated to patient importance of recording out put. - Holding home ivabradine -10/08-10/09 NSVT on tele x2 - Gave mg (mg 1.9 on 2100 labs), only able to tolerate 1/2 bag due to burning at IV - starting Coreg 3.125 BID. Assessment & Plan (10/08/2024 6:54 PM CDT): Patient with nonischemic cardiomyopathy with HFrEF, EF below 20% s/p AICD on 11/13/2021. Patient has been inconsistently taking meds given his frequent admission to hospital followed by AMA discharge. 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 Acute on chronic combined sy stolic and diastolic heart failure 08/26/2020 Nonrheumatic mitral valve regurgitation 08/27/19 21 HLD (hyperlipidemia) 08/26/2020 Assessment & Plan (10/11/2024 7:50 AM CDT): - continue home atorvastatin 20mg daily Assessment & Plan (10/10/2024 7:45 AM CDT): - continue home atorvastatin 20mg daily Assessment & Plan (10/09/2024 6:28 AM CDT): - continue home atorvastatin 20mg daily Assessment & Plan (10/08/2024 6:54 PM CDT): - continue home atorvastatin 20mg daily HTN (hypertension) 08/26/2020 Encounters Date Type Department Care Team Description 10/16/2024 Telephone [facility] [address] [place] [address] Dalia Lee, [facility] 10/16/2024 SHOP/CHAP Initial Outreach [facility] [address] [place] [address] Esther Hamlin [facility] 10/15/2024 Telephone [facility] [address] [place] [address] Dalia Lee, [facility] 10/15/2024 SHOP/CHAP Initial Outreach [facility] [address] [place] [address] Esther Hamlin, [facility] 10/12/2024 Telephone [facility] [address] [place] [address] Dalia Lee, [facility] 10/12/2024 SHOP/CHAP Initial Outreach [facility] [address] [place] [address] Esther Hamlin [facility] 10/12/2024 SHOP/CHAP Initial Eligibility Review [facility] [address] [place] [address] Esther Hamlin [employer] 10/07/2024 6:59 PM CDT - 10/11/2024 12:11 PM CDT Hospital Encounter [facility] [address] [place] [address] Franco Kinsey MD PhD [facility], MD [facility]ier MD PhD Acute exacerbation of chronic heart failure (HCC) (Primary Dx); Cellulitis of left lower extremity; Acute combined systolic and diastolic congestive heart failure (HCC); Acute on chronic combined systolic and diastolic heart failure (HCC); Acute on chronic systolic CHF (congestive heart failure) (HCC); Nonrheumatic mitral valve regurgitation Discharge Disposition: Discharge to home or self care 09/28/2024 7:40 AM CDT - 10/03/2024 1:17 AM CDT Hospital Encounter [place] [address] [facility] [place] [address] Rizwan Estrada DO Ali, Md Shahin, MD Mahasneh, Omar Ali Mohammed, MD Acute combined systolic and diastolic congestive heart failure (HCC) (Primary Dx); CHAN (acute kidney injury) Discharge Disposition: Left Against Medical Advice 09/28/2024 TCC Initial Eligibility Review [facility] [address] [place] [address] Jason Hsu RN from Last 3 Months Medical History Medical History Date Comments CHF (congestive heart failure) (HCC) HTN (hypertension) Family History Medical History Relation Name Comments Hypertension Mother Relation Name Status Comments Mother Social History Tobacco Use Types Packs/Day Years Used Date Smoking Tobacco: Every Day Cigarettes Smokeless Tobacco: Never Tobacco Cessation:Ready to Q uit: Not Asked; Counseling Given: Not Answered Alcohol Use Standard Drinks/Week Comments Not Currently 0 (1 standard drink = 0.6 oz pur e alcohol) Social Connection and Isolation Panel Answer Date Recorded In a typical week, how many times do you talk on the phone with family, friends, or neighbors? More than three times a week 09/30/2023 How often do you get togethe r with friends or relatives? More than three times a week 09/30/2023 How often do you attend chur ch or hoahaoism services? Never 09/30/2023 Do you belong to any clubs o r organizations such as alevism groups, unions, fraternal or athletic groups, or school groups? No 09/30/2023 How often do you attend meet ings of the clubs or organizations you belong to? Never 09/30/2023 Are you , , di vorced, , never , or living with a partner? Living with partner 09/30/2023 AUDIT-C Answer Date Recorded Q1: How often do you have a drink containing alcohol? Never 09/30/2023 Q2: How many drinks containi ng alcohol do you have on a typical day when you are drinking? Patient does not drink Q3: How often do you have si x or more drinks on one occasion? Never 09/30/2023 Overall Financial Resource Strain (CARDIA) Answe r Date Recorded How hard is it for you to pa y for the very basics like food, housing, medical care, and heating? Not very hard 09/28/2024 PHQ-2 Answer Date Recorded PHQ-2 Total Score (If total score is 3 or more points, staff should administer the PHQ-9) 0 10/10/2024 PRAPARE - Transportation Answer Date Re corded In the past 12 months, has l ack of transportation kept you from medical appointments or from getting medications? No 09/2024 In the past 12 months, has l ack of transportation kept you from meetings, work, or from getting things needed for daily living? No 09/28/2024 PHQ-9 Answer Date Recorded PHQ-9 Total Score 1 10/08/2024 Housing Stability Vital Sign Answer Forrest e Recorded In the last 12 months, was t here a time when you were not able to pay the mortgage or rent on time? No 09/30/2023 In the past 12 months, how m any times have you moved where you were living? 0 09/30/2023 At any time in the past 12 m [facility], were you homeless or living in a halfway (including now)? No 09/30/2023 Social Connection and Isolation Panel Answer Date Recorded In a typical week, how many times do you talk on the phone with family, friends, or neighbors? More than three times a week 10/10/2024 How often do you get togethe r with friends or relatives? More than three times a week 10/10/2024 How often do you attend chur ch or hoahaoism services? Never 10/10/2024 Do you belong to any clubs o r organizations such as alevism groups, unions, fraternal or athletic groups, or school groups? No 10/10/2024 How often do you attend meet ings of the clubs or organizations you belong to? Never 10/10/2024 Are you , , di vorced, , never , or living with a partner? Never 10/10/2024 Overall Financial Resource Strain (CARDIA) Answe r Date Recorded How hard is it for you to pa y for the very basics like food, housing, medical care, and heating? Not very hard 10/10/2024 Hunger Vital Sign Answer Date Recorded Within the past 12 months, y ou worried that your food would run out before you got the money to buy more. Never true 10/11/19 Within the past 12 months, t he food you bought just didn't last and you didn't have money to get more. Never true 10/10/2024 PRAPARE - Transportation Answer Date Re corded In the past 12 months, has l ack of transportation kept you from medical appointments or from getting medications? No 09/22 In the past 12 months, has l ack of transportation kept you from meetings, work, or from getting things needed for daily living? No 10/10/2024 Housing Stability Vital Sign Answer Forrest e Recorded In the last 12 months, was t here a time when you were not able to pay the mortgage or rent on time? No 10/10/2024 In the past 12 months, how m any times have you moved where you were living? 0 10/10/2024 At any time in the past 12 m [facility], were you homeless or living in a halfway (including now)? No 10/10/2024 [facility] Utilities Answer Date Recorded In the past 12 months has th e electric, gas, oil, or water company threatened to shut off services in your home? No 10/10/2024 Personal Safety Answer Date Recorded Have you ever been in or are you currently in a harmful physical or emotional relationship or is someone making you feel afraid or unsafe? 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 Obstetrics History Last Filed Vital Signs Vital Sign Reading Time Taken Comments Blood Pressure 96/63 10/11/2024 7:39 AM CDT Pulse 80 10/11/2024 9:24 AM CDT Temperature 36.3 C (97.3 F) 10/11/2024 7:39 AM CDT Respiratory Rate 18 10/11/2024 7:39 AM CDT Oxygen Saturation 100% 10/11/2024 7:39 AM CDT Inhaled Oxygen Concentration - - Weight 102.4 kg (225 lb 12.8 oz) 10/11/2024 4:54 AM CDT Height 172.7 cm (5' 8) 10/08/2024 4:10 PM CDT Body Mass Index 34.33 10/08/2024 4:10 PM CDT Plan of Treatment Health Maintenance Due Date Last Done Comments Albumin Creatinine Ratio, Urine 1978 Colon Cancer Screening-Colonoscopy 1978 Dilated Eye Exam 1978 Foot Exam 1978 DTaP/Tdap/Td Vaccine (1 - Tdap) 1989 Regular Well Visit/Exam 18-64 1996 Pneumococcal vaccine <65 (1 of 2 - PCV) 1997 Influenza Vaccine (#1) 2024 Hemoglobin A1C 04/01/2025 09/29/2024, 08/0 07/2023, 06/12/2020 Lipid Panel 10/05/2025 10/05/2024, 08/0 09/2024, 09/28/2024, Additional history exists Depression Screening 10/07/2025 10/07/2024, 10/08/19 25 eGFR 10/10/2025 10/10/2024, 09/21, 10/08/2024, Additional history exists Hepatitis B Screening Completed 10/08/2024 Hepatitis C Screening Completed 10/08/2024 , 09/08/2023, 06/12/2020 HPV Vaccines Aged Out No longer eligi ble based on patient's age to complete this topic Medical Devices Implanted Type Area Member Of Technical Staff Device Identifier Shelf Expiration Date Model / Serial / Lot Icd ICD Chest Procedures Procedure Name Priority Date/Time Associated Diagnosis Comments POCT GLUCOSE DEVICE Routine 10/11/2024 7 :42 AM CDT TROPONIN I HIGH-SENSITIVITY SERIES (BASELINE, 2HR, 4HR, 6HR) Routine 10/11/2024 6:35 AM CDT POCT GLUCOSE DEVICE Routine 10/11/2024 4 :49 AM CDT EGFR Routine 10/10/2024 8:52 PM CDT DIFFERENTIAL AUTO Routine 10/10/2024 8:5 2 PM CDT MAGNESIUM Routine 10/10/2024 8:52 PM CDT CBC WITH AUTO DIFFERENTIAL Routine 10/10/2024 8:52 PM CDT COMPREHENSIVE METABOLIC PANEL Routine 10/10/2024 8:52 PM CDT POCT GLUCOSE DEVICE Routine 10/10/2024 7 :39 PM CDT POCT GLUCOSE DEVICE Routine 10/10/2024 5 :03 PM CDT POCT GLUCOSE DEVICE Routine 10/10/2024 1 1:59 AM CDT POCT GLUCOSE DEVICE Routine 10/10/2024 7 :40 AM CDT POCT GLUCOSE DEVICE Routine 10/09/2024 1 1:26 PM CDT MAGNESIUM Routine 10/09/2024 8:34 PM CDT EGFR Routine 10/09/2024 8:34 PM CDT DIFFERENTIAL AUTO Routine 10/09/2024 8:3 4 PM CDT CBC WITH AUTO DIFFERENTIAL Routine 10/09/2024 8:34 PM CDT COMPREHENSIVE METABOLIC PANEL Routine 10/09/2024 8:34 PM CDT HEPATITIS B SURFACE ANTIBODY (IMMUNE STATUS) Routine 10/09/2024 8:34 PM CDT POCT GLUCOSE DEVICE Routine 10/09/2024 7 :56 PM CDT POCT GLUCOSE DEVICE Routine 10/09/2024 4 :19 PM CDT POCT GLUCOSE DEVICE Routine 10/09/2024 1 1:53 AM CDT POCT GLUCOSE DEVICE Routine 10/09/2024 7 :48 AM CDT MAGNESIUM Routine 10/08/2024 9:01 PM CDT EGFR Routine 10/08/2024 9:01 PM CDT DIFFERENTIAL AUTO Routine 10/08/2024 9:0 1 PM CDT CBC WITH AUTO DIFFERENTIAL Routine 10/08/2024 9:01 PM CDT COMPREHENSIVE METABOLIC PANEL Routine 10/08/2024 9:01 PM CDT RPR Routine 10/08/2024 9:01 PM CDT HEPATITIS C ANTIBODY Routine 10/08/2024 9:01 PM CDT HEPATITIS B SURFACE ANTIGEN Routine 10/08/2024 9:01 PM CDT HIV 1/2 ANTIBODY PLUS P24 ANTIGEN Routine 10/08/2024 9:01 PM CDT POCT GLUCOSE DEVICE Routine 10/08/2024 7 :46 PM CDT POCT GLUCOSE DEVICE Routine 10/08/2024 4 :36 PM CDT POCT GLUCOSE DEVICE Routine 10/08/2024 1 2:29 PM CDT POCT GLUCOSE DEVICE Routine 10/08/2024 8 :40 AM CDT TROPONIN I HIGH-SENSITIVITY 6-HOUR Timed 10/08/2024 6:22 AM CDT POCT GLUCOSE DEVICE Routine 10/08/2024 4 :57 AM CDT TROPONIN I HIGH-SENSITIVITY 4-HOUR Timed 10/08/2024 4:37 AM CDT TROPONIN I HIGH-SENSITIVITY 2-HOUR Timed 10/08/2024 2:05 AM CDT POCT GLUCOSE DEVICE Routine 10/08/2024 1 2:58 AM CDT ECG 12-LEAD Routine 10/08/2024 12:28 AM CDT TROPONIN I HIGH-SENSITIVITY SERIES (BASELINE, 2HR, 4HR, 6HR) STAT 10/08/2024 12:23 AM CDT URINALYSIS AND REFLEX TO MICROSCOPIC AND CULTURE STAT 10/07/2024 9:27 PM CDT XR CHEST PA LATERAL 2 VIEWS ED 10/07/2024 9:01 PM CDT EGFR STAT 10/07/2024 8:03 PM CDT DIFFERENTIAL AUTO STAT 10/07/2024 8:0 3 PM CDT THYROID FUNCTION CASCADE STAT 10/07/2024 8:03 PM CDT LACTATE STAT 10/07/2024 8:03 PM CDT PRO B-TYPE NATRIURETIC PEPTIDE STAT 10/07/2024 8:03 PM CDT COMPREHENSIVE METABOLIC PANEL STAT 10/07/2024 8:03 PM CDT CBC WITH AUTO DIFFERENTIAL STAT 10/07/2024 8:03 PM CDT EGFR Routine 10/01/2024 5:32 AM CDT DIFFERENTIAL AUTO Routine 10/01/2024 5:3 2 AM CDT CBC WITH AUTO DIFFERENTIAL Routine 10/01/2024 5:32 AM CDT COMPREHENSIVE METABOLIC PANEL Routine 10/01/2024 5:32 AM CDT EGFR Routine 09/30/2024 6:50 AM CDT DIFFERENTIAL AUTO Routine 09/30/2024 6:5 0 AM CDT CBC WITH AUTO DIFFERENTIAL Routine 09/30/2024 6:50 AM CDT MAGNESIUM Routine 09/30/2024 6:50 AM CDT COMPREHENSIVE METABOLIC PANEL Routine 09/30/2024 6:50 AM CDT EGFR Routine 09/29/2024 6:57 AM CDT DIFFERENTIAL AUTO Routine 09/29/2024 6:5 7 AM CDT HEMOGLOBIN A1C Routine 09/29/2024 6:57 AM CDT CBC WITH AUTO DIFFERENTIAL Routine 09/29/2024 6:57 AM CDT TROPONIN T HIGH-SENSITIVITY Routine 09/29/2024 6:57 AM CDT MAGNESIUM Routine 09/29/2024 6:57 AM CDT COMPREHENSIVE METABOLIC PANEL Routine 09/29/2024 6:57 AM CDT TRANSTHORACIC ECHO (TTE) COMPLETE W DOPPLER/CF W CONTRAST Routine 09/28/2024 4:35 PM CDT VITAMIN B12 Timed 09/28/2024 12:48 PM CDT IRON PROFILE W/ IBC Timed 09/28/2024 1 2:48 PM CDT TROPONIN T HIGH-SENSITIVITY 4-HR Timed 09/28/2024 12:48 PM CDT POC BLOOD GAS AND CHEMISTRIES, ARTERIAL Routine 09/28/2024 9:43 AM CDT LIPID PANEL Timed 09/28/2024 9:41 AM CDT TROPONIN T HIGH-SENSITIVITY 2-HOUR Timed 09/28/2024 9:41 AM CDT URINALYSIS, MICROSCOPIC ONLY STAT 09/28/2024 9:07 AM CDT DRUGS OF ABUSE SCREEN, URINE WITHOUT CONFIRMATION STAT 09/28/2024 9:07 AM CDT URINALYSIS AND REFLEX TO MICROSCOPIC AND CULTURE STAT 09/28/2024 9:07 AM CDT XR CHEST 1 VIEW ED 09/28/2024 8:00 AM CDT EGFR STAT 09/28/2024 7:57 AM CDT DIFFERENTIAL AUTO STAT 09/28/2024 7:5 7 AM CDT TROPONIN T HIGH-SENSITIVITY SERIES (BASELINE, 2HR, 4HR, 6HR) STAT 09/28/2024 7:57 AM CDT PRO B-TYPE NATRIURETIC PEPTIDE STAT 09/28/2024 7:57 AM CDT COMPREHENSIVE METABOLIC PANEL STAT 09/28/2024 7:57 AM CDT CBC WITH AUTO DIFFERENTIAL STAT 09/28/2024 7:57 AM CDT POCT GLUCOSE DEVICE Routine 09/28/2024 7 :47 AM CDT ECG 12-LEAD STAT 09/28/2024 7:41 AM CDT from Last 3 Months Results * POCT glucose (10/11/2024 7:42 AM CDT) Pathologist [facility] Glucose, POC 113 70 - 199 mg/dL Blood 10/11/2024 7:42 AM CDT 10/11/2024 7:42 AM CDT Zee Carballo MD PhD LAB POCT ORDERABLE S - DEVICE Final Result Performing Organization Address [facility] de Phone Number [facility] Department [place] [address] * (ABNORMAL) Troponin I high-sensitivity series (baseline, 2hr, 4hr, 6hr) (10/11/2024 6:35 AM CDT) [facility] Trop I hs 42(H) <=35 ng/L Comment: Interpretive Data For further hscTnI resources including the diagnostic algorithm and an aid in interpretation, copy and paste this link: [email or web address] Current Interpretive Data last revised 2019. Blood 10/11/2024 6:35 AM CDT 10/11/2024 7:26 AM CDT us Zee Carballo MD PhD LAB BLOOD ORDERABL ES Final Result Performing Organization Address [facility] Co de Phone Number [facility] Department [place] [address] * POCT glucose (10/11/2024 4:49 AM CDT) [facility] Glucose, POC 94 70 - 199 mg/dL Blood 10/11/2024 4:49 AM CDT 10/11/2024 4:49 AM CDT us Zee Carballo MD PhD LAB POCT ORDERABLE S - DEVICE Final Result Performing Organization Address [facility] Co de Phone Number [facility] Department [place] [address] * (ABNORMAL) eGFR (10/10/2024 8:52 PM CDT) Pathologist [facility] eGFR 56(L) >=60 mL/min/1. 73 m2 Comment: Interpretive Data Reference Interval Normal >/= 90 mL/min/1.73m2 Mildly decreased* 60 - 89 mL/min/1.73m2 Mildly to moderately decreased 45 - 59 mL/min/1.73m2 Moderately to severely decreased 30 - 44 mL/min/1.73m2 Severely decreased 15 - 29 mL/min/1.73m2 Kidney Failure < 15 mL/min/1.73m2 *Relative to young adult level Estimated glomerular filtration rate is determined by the 2020 CKD-EPI equation recommended by the National Kidney Foundation (A Unifying Approach to GFR Estimation: Recommendations of the NKF-ASK Task Force on Reassessing the Inclusion of Race in Diagnosing Kidney Disease, JASN 2020). The CKD-EPI equation should not be used for patients with unstable renal function and has not been validated in children and those over 70. Current interpretive data was last reviewed 2020. Blood 10/10/2024 8:52 PM CDT 10/10/2024 9:27 PM CDT us Roz Paz MD LAB BLOOD ORDERABLES Final Result Performing Organization Address [facility] Co de Phone Number [facility] [place] [address] * Differential, auto (10/10/2024 8:52 PM CDT) Pathologist [facility] Neutrophil abs 3.32 1.50 - 6.50 K/cumm Imm gran abs 0.01 0.00 - 0.10 K/cumm [facility] Lymphocyte abs 0.88 0.80 - 3.30 K/cumm [facility] Monocyte abs 0.44 0.20 - 0.80 K/cumm [facility] Eosinophil abs 0.18 0.00 - 0.50 K/cumm [facility] Basophil abs 0.09 0.00 - 0.10 K/cumm [facility] Neutrophil pct 67.5 % [facility] Comment: Interpretive Data Percent cell count reference ranges are not reported, since discordance with absolute values may lead to misinterpretation of CBC data. Current Interpretive Data was last revised on 2017. Imm gran pct 0.2 % [facility] Comment: Interpretive Data Percent cell count reference ranges are not reported, since discordance with absolute values may lead to misinterpretation of CBC data. Current Interpretive Data was last revised on 2017. Lymphocyte pct 17.9 % [facility] Comment: Interpretive Data Percent cell count reference ranges are not reported, since discordance with absolute values may lead to misinterpretation of CBC data. Current Interpretive Data was last revised on 2017. Monocyte pct 8.9 % [facility] Comment: Interpretive Data Percent cell count reference ranges are not reported, since discordance with absolute values may lead to misinterpretation of CBC data. Current Interpretive Data was last revised on 2017. Eosinophil pct 3.7 % [facility] Comment: Interpretive Data Percent cell count reference ranges are not reported, since discordance with absolute values may lead to misinterpretation of CBC data. Current Interpretive Data was last revised on 2017. Basophil pct 1.8 % [facility] Comment: Interpretive Data Percent cell count reference ranges are not reported, since discordance with absolute values may lead to misinterpretation of CBC data. Current Interpretive Data was last revised on 2017. Blood 10/10/2024 8:52 PM CDT 10/10/2024 9:26 PM CDT us Roz Paz MD LAB BLOOD ORDERABLES Final Result [facility] Department [place] [address] * (ABNORMAL) CBC with auto differential (10/10/2024 8:52 PM CDT) WBC 4.92 3.80 - 9.90 K/cumm Hgb 12.2(L) 13.0 - 17.5 g/dL [facility] Hct 39.2 38.9 - 50.3 % [facility] Plt 181 150 - 400 K/cumm [facility] MPV 10.6 9.1 - 12.3 fL [facility] RBC 4.57 4.30 - 5.80 M/cumm [facility] MCV 85.8 81.3 - 96.4 fL [facility] MCH 26.7(L) 27.1 - 33.3 pg [facility] MCHC 31.1(L) 32.3 - 35.7 g/dL [facility] RDW CV 22.6(H) 11.1 - 14.9 % [facility] RDW SD 67.4(H) 35.7 - 48.1 fL [facility] NRBC abs 0.00 0.00 - 0.01 K/cumm [facility] Blood 10/10/2024 8:52 PM CDT 10/10/2024 9:26 PM CDT us Roz Paz MD LAB BLOOD ORDERABLES Final Result [facility] [place] [address] * Magnesium (10/10/2024 8:52 PM CDT) [facility] Magnesium 2.1 1.4 - 2.5 mg/dL Blood 10/10/2024 8:52 PM CDT 10/10/2024 9:27 PM CDT us Zee Carballo MD PhD LAB BLOOD ORDERABL ES Final Result [facility] [place] [address] * (ABNORMAL) Comprehensive metabolic panel (10/10/2024 8:52 PM CDT) Sodium 137 135 - 145 mmol/L Potassium, pl 3.5 3.3 - 4.9 mmol/L [facility] Chloride 94(L) 97 - 110 mmol/L [facility] CO2 32 22 - 32 mmol/L [facility] Anion gap 11 2 - 15 mmol/L [facility] BUN 34(H) 6 - 25 mg/dL [facility] Creatinine 1.55(H) 0.80 - 1.30 mg/dL [facility] Glucose 126 70 - 199 mg/dL [facility] Comment: Interpretive Data Fasting glucose >/= 126 mg/dl is diagnostic for diabetes. Fasting is defined as no caloric intake for at least 8 hours. Fasting glucose between 100 mg/dl to 125 mg/dl is diagnostic of prediabetes. In a patient with classic symptoms of hyperglycemia or hyperglycemic crisis, a random glucose >/= 200 mg/dl is diagnostic for diabetes. In the absence of unequivocal hyperglycemia, results should be confirmed by repeat testing. The classification and Diagnosis of Diabetes Diabetes Care 2021; 46: S19-S40. Current interpretive data was last revised 2022. Calcium 8.9 8.5 - 10.3 mg/dL [facility] Bilirubin, total 1.6(H) 0.1 - 1.2 mg/dL [facility] Protein, pl 7.5 6.5 - 8.5 g/dL [facility] Albumin 3.2(L) 3.5 - 5.0 g/dL [facility] Alk phos 125 40 - 130 Units/L [facility] ALT 25 7 - 55 Units/L [facility] AST 51(H) 10 - 50 Units/L [facility] Blood 10/10/2024 8:52 PM CDT 10/10/2024 9:27 PM CDT us Roz Paz MD LAB BLOOD ORDERABLES Final Result [facility] [place] [address] * POCT glucose (10/10/2024 7:39 PM CDT) Glucose, POC 121 70 - 199 mg/dL Blood 10/10/2024 7:39 PM CDT 10/10/2024 7:39 PM CDT Zee Carballo MD PhD LAB POCT ORDERABLE S - DEVICE Final Result Performing Organization Address City/[facility] Co de Phone Number [facility] [place] [address] * POCT glucose (10/10/2024 5:03 PM CDT) Glucose, POC 126 70 - 199 mg/dL Blood 10/10/2024 5:03 PM CDT 10/10/2024 5:03 PM CDT Zee Carballo MD PhD LAB POCT ORDERABLE S - DEVICE Final Result Performing Organization Address [facility] Co de Phone Number [facility] [place] [address] * POCT glucose (10/10/2024 11:59 AM CDT) Glucose, POC 108 70 - 199 mg/dL Blood 10/10/2024 11:5 9 AM CDT 10/10/2024 11:59 AM CDT Zee Carballo MD PhD LAB POCT ORDERABLE S - DEVICE Final Result Performing Organization Address City/[facility] Co de Phone Number [facility] [place] [address] * POCT glucose (10/10/2024 7:40 AM CDT) Glucose, POC 92 70 - 199 mg/dL Blood 10/10/2024 7:40 AM CDT 10/10/2024 7:40 AM CDT Zee Carballo MD PhD LAB POCT ORDERABLE S - DEVICE Final Result [facility] [place] [address] * POCT glucose (10/09/2024 11:26 PM CDT) Glucose, POC 185 70 - 199 mg/dL Blood 10/09/2024 11:2 6 PM CDT 10/09/2024 11:26 PM CDT Zee Carballo MD PhD LAB POCT ORDERABLE S - DEVICE Final Result Performing Organization Address [facility] Co de Phone Number [facility] [place] [address] * (ABNORMAL) eGFR (10/09/2024 8:34 PM CDT) eGFR 47(L) >=60 mL/min/1. 73 m2 Comment: Interpretive Data Reference Interval Normal >/= 90 mL/min/1.73m2 Mildly decreased* 60 - 89 mL/min/1.73m2 Mildly to moderately decreased 45 - 59 mL/min/1.73m2 Moderately to severely decreased 30 - 44 mL/min/1.73m2 Severely decreased 15 - 29 mL/min/1.73m2 Kidney Failure < 15 mL/min/1.73m2 *Relative to young adult level Estimated glomerular filtration rate is determined by the 2020 CKD-EPI equation recommended by the National Kidney Foundation (A Unifying Approach to GFR Estimation: Recommendations of the NKF-ASK Task Force on Reassessing the Inclusion of Race in Diagnosing Kidney Disease, JASN 2020). The CKD-EPI equation should not be used for patients with unstable renal function and has not been validated in children and those over 70. Current interpretive data was last reviewed 2020. Blood 10/09/2024 8:34 PM CDT 10/09/2024 9:29 PM CDT us Roz Paz MD LAB BLOOD ORDERABLES Final Result [facility] [place] [address] * Differential, auto (10/09/2024 8:34 PM CDT) Neutrophil abs 3.83 1.50 - 6.50 K/cumm Imm gran abs 0.02 0.00 - 0.10 K/cumm [facility] Lymphocyte abs 0.99 0.80 - 3.30 K/cumm [facility] Monocyte abs 0.52 0.20 - 0.80 K/cumm [facility] Eosinophil abs 0.15 0.00 - 0.50 K/cumm [facility] Basophil abs 0.10 0.00 - 0.10 K/cumm [facility] Neutrophil pct 68.2 % [facility] Comment: Interpretive Data Percent cell count reference ranges are not reported, since discordance with absolute values may lead to misinterpretation of CBC data. Current Interpretive Data was last revised on 2017. Imm gran pct 0.4 % [facility] Comment: Interpretive Data Percent cell count reference ranges are not reported, since discordance with absolute values may lead to misinterpretation of CBC data. Current Interpretive Data was last revised on 2017. Lymphocyte pct 17.6 % [facility] Comment: Interpretive Data Percent cell count reference ranges are not reported, since discordance with absolute values may lead to misinterpretation of CBC data. Current Interpretive Data was last revised on 2017. Monocyte pct 9.3 % [facility] Comment: Interpretive Data Percent cell count reference ranges are not reported, since discordance with absolute values may lead to misinterpretation of CBC data. Current Interpretive Data was last revised on 2017. Eosinophil pct 2.7 % [facility] Comment: Interpretive Data Percent cell count reference ranges are not reported, since discordance with absolute values may lead to misinterpretation of CBC data. Current Interpretive Data was last revised on 2017. Basophil pct 1.8 % [facility] Comment: Interpretive Data Percent cell count reference ranges are not reported, since discordance with absolute values may lead to misinterpretation of CBC data. Current Interpretive Data was last revised on 2017. Blood 10/09/2024 8:34 PM CDT 10/09/2024 9:26 PM CDT us Roz Paz MD LAB BLOOD ORDERABLES Final Result [facility] Department [place] [address] * (ABNORMAL) CBC with auto differential (10/09/2024 8:34 PM CDT) WBC 5.61 3.80 - 9.90 K/cumm Hgb 13.5 13.0 - 17.5 g/dL [facility] Hct 44.1 38.9 - 50.3 % [facility] Plt 192 150 - 400 K/cumm [facility] MPV 10.4 9.1 - 12.3 fL [facility] RBC 5.08 4.30 - 5.80 M/cumm [facility] MCV 86.8 81.3 - 96.4 fL [facility] MCH 26.6(L) 27.1 - 33.3 pg [facility] MCHC 30.6(L) 32.3 - 35.7 g/dL [facility] RDW CV 23.2(H) 11.1 - 14.9 % [facility] RDW SD 69.7(H) 35.7 - 48.1 fL [facility] NRBC abs 0.00 0.00 - 0.01 K/cumm [facility] Blood 10/09/2024 8:34 PM CDT 10/09/2024 9:26 PM CDT us Roz Paz MD LAB BLOOD ORDERABLES Final [place] [address] * Hepatitis B surface antibody (immune status) Blood (10/09/2024 8:34 PM CDT) [facility] HBsAb (immune status) Nonreactive Comment:This result is consi stent with a lack of immunity to Hepatitis B Virus when used in the setting of routine screening. Current interpretative data was last revised on 21 Blood 10/09/2024 8:34 PM CDT 10/09/2024 9:29 PM CDT Zee Carballo MD PhD LAB MICROBIOLOGY - GENER[place] [address] * Magnesium (10/09/2024 8:34 PM CDT) [facility] Magnesium 2.2 1.4 - 2.5 mg/dL Blood 10/09/2024 8:34 PM CDT 10/09/2024 9:29 PM CDT Zee Carballo MD PhD LAB BLOOD ORDERABL ES Final Result Performing Organization Address City/[facility]/ZIP Co de Phone Number [facility] [place] [place] [address] * (ABNORMAL) Comprehensive metabolic panel (10/09/2024 8:34 PM CDT) [facility] Sodium 137 135 - 145 mmol/L Potassium, pl 3.7 3.3 - 4.9 mmol/L [facility] Chloride 89(L) 97 - 110 mmol/L [facility] CO2 35(H) 22 - 32 mmol/L [facility] Anion gap 13 2 - 15 mmol/L [facility] BUN 38(H) 6 - 25 mg/dL [facility] Creatinine 1.77(H) 0.80 - 1.30 mg/dL [facility] Glucose 62(L) 70 - 199 mg/dL [facility] Comment: Interpretive Data Fasting glucose >/= 126 mg/dl is diagnostic for diabetes. Fasting is defined as no caloric intake for at least 8 hours. Fasting glucose between 100 mg/dl to 125 mg/dl is diagnostic of prediabetes. In a patient with classic symptoms of hyperglycemia or hyperglycemic crisis, a random glucose >/= 200 mg/dl is diagnostic for diabetes. In the absence of unequivocal hyperglycemia, results should be confirmed by repeat testing. The classification and Diagnosis of Diabetes Diabetes Care 2021; 46: S19-S40. Current interpretive data was last revised 2022. Calcium 9.3 8.5 - 10.3 mg/dL [facility] Bilirubin, total 2.3(H) 0.1 - 1.2 mg/dL [facility] Protein, pl 8.9(H) 6.5 - 8.5 g/dL [facility] Albumin 4.0 3.5 - 5.0 g/dL [facility] Alk phos 150(H) 40 - 130 Units/L [facility] ALT 44 7 - 55 Units/L [facility] AST 64(H) 10 - 50 Units/L [facility] Blood 10/09/2024 8:34 PM CDT 10/09/2024 9:29 PM CDT us Roz Paz MD LAB BLOOD ORDERABLES Final Result [facility] [place] [address] * POCT glucose (10/09/2024 7:56 PM CDT) [facility] Signature Glucose, POC 79 70 - 199 mg/dL Blood 10/09/2024 7:56 PM CDT 10/09/2024 7:56 PM CDT us Zee Carballo MD PhD LAB POCT ORDERABLE S - DEVICE Final Result [facility] [place] [address] * POCT glucose (10/09/2024 4:19 PM CDT) Glucose, POC 94 70 - 199 mg/dL Blood 10/09/2024 4:19 PM CDT 10/09/2024 4:19 PM CDT Zee Carballo MD PhD LAB POCT ORDERABLE S - DEVICE Final Result Performing Organization Address [facility] [place] [address] * POCT glucose (10/09/2024 11:53 AM CDT) Glucose, POC 122 70 - 199 mg/dL Blood 10/09/2024 11:5 3 AM CDT 10/09/2024 11:53 AM CDT Zee Carballo MD PhD LAB POCT ORDERABLE S - DEVICE Final Result Performing Organization Address City/[facility]/ZIP Co de Phone Number [facility] [address] * POCT glucose (10/09/2024 7:48 AM CDT) Glucose, POC 102 70 - 199 mg/dL Blood 10/09/2024 7:48 AM CDT 10/09/2024 7:48 AM CDT us Zee Carballo MD PhD LAB POCT ORDERABLE S - DEVICE Final Result Performing Organization Address City/[facility]/ZIP Co de Phone Number [facility] [place] [address] * (ABNORMAL) eGFR (10/08/2024 9:01 PM CDT) [facility] eGFR 46(L) >=60 mL/min/1. 73 m2 Comment: Interpretive Data Reference Interval Normal >/= 90 mL/min/1.73m2 Mildly decreased* 60 - 89 mL/min/1.73m2 Mildly to moderately decreased 45 - 59 mL/min/1.73m2 Moderately to severely decreased 30 - 44 mL/min/1.73m2 Severely decreased 15 - 29 mL/min/1.73m2 Kidney Failure < 15 mL/min/1.73m2 *Relative to young adult level Estimated glomerular filtration rate is determined by the 2020 CKD-EPI equation recommended by the National Kidney Foundation (A Unifying Approach to GFR Estimation: Recommendations of the NKF-ASK Task Force on Reassessing the Inclusion of Race in Diagnosing Kidney Disease, JASN 2020). The CKD-EPI equation should not be used for patients with unstable renal function and has not been validated in children and those over 70. Current interpretive data was last reviewed 2020. Blood 10/08/2024 9:01 PM CDT 10/08/2024 9:56 PM CDT us Roz Paz MD LAB BLOOD ORDERABLES Final Result [facility] [place] [address] * (ABNORMAL) Differential, auto (10/08/2024 9:01 PM CDT) [facility] Neutrophil abs 4.34 1.50 - 6.50 K/cumm Imm gran abs 0.02 0.00 - 0.10 K/cumm [facility] Lymphocyte abs 0.79(L) 0.80 - 3.30 K/cumm [facility] Monocyte abs 0.58 0.20 - 0.80 K/cumm [facility] Eosinophil abs 0.16 0.00 - 0.50 K/cumm [facility] Basophil abs 0.10 0.00 - 0.10 K/cumm [facility] Neutrophil pct 72.4 % [facility] Comment: Interpretive Data Percent cell count reference ranges are not reported, since discordance with absolute values may lead to misinterpretation of CBC data. Current Interpretive Data was last revised on 2017. Imm gran pct 0.3 % [facility] Comment: Interpretive Data Percent cell count reference ranges are not reported, since discordance with absolute values may lead to misinterpretation of CBC data. Current Interpretive Data was last revised on 2017. Lymphocyte pct 13.2 % [facility] Comment: Interpretive Data Percent cell count reference ranges are not reported, since discordance with absolute values may lead to misinterpretation of CBC data. Current Interpretive Data was last revised on 2017. Monocyte pct 9.7 % [facility] Comment: Interpretive Data Percent cell count reference ranges are not reported, since discordance with absolute values may lead to misinterpretation of CBC data. Current Interpretive Data was last revised on 2017. Eosinophil pct 2.7 % [facility] Comment: Interpretive Data Percent cell count reference ranges are not reported, since discordance with absolute values may lead to misinterpretation of CBC data. Current Interpretive Data was last revised on 2017. Basophil pct 1.7 % [facility] Comment: Interpretive Data Percent cell count reference ranges are not reported, since discordance with absolute values may lead to misinterpretation of CBC data. Current Interpretive Data was last revised on 2017. Blood 10/08/2024 9:01 PM CDT 10/08/2024 9:56 PM CDT us Roz Paz MD LAB BLOOD ORDERABLES Final Result [facility] [place] [address] * HIV 1/2 Antibody plus p24 Antigen Blood (10/08/2024 9:01 PM CDT) HIV 1/2 ab + p24 ag Nonreactive Nonreactive Comment:Nonreactive for HIV- 1 antigen and HIV-1/HIV-2 antibodies. No laboratory evidence of HIV infection. If acute HIV infection is suspected, consider testing for HIV-1 RNA. Current interpretive data was last revised on 21. Blood 10/08/2024 9:01 PM CDT 10/08/2024 9:56 PM CDT us Roz Paz MD LAB MICROBIOLOGY - G ENERAL ORDERABLES Final Result Performing Organization Address City/[facility]/ZIP Co de Phone Number [facility] [place] [address] * (ABNORMAL) CBC with auto differential (10/08/2024 9:01 PM CDT) [facility] WBC 5.99 3.80 - 9.90 K/cumm Hgb 12.1(L) 13.0 - 17.5 g/dL [facility] Hct 38.8(L) 38.9 - 50.3 % [facility] Plt 202 150 - 400 K/cumm [facility] MPV 10.7 9.1 - 12.3 fL [facility] RBC 4.60 4.30 - 5.80 M/cumm [facility] MCV 84.3 81.3 - 96.4 fL [facility] MCH 26.3(L) 27.1 - 33.3 pg [facility] MCHC 31.2(L) 32.3 - 35.7 g/dL [facility] RDW CV 22.9(H) 11.1 - 14.9 % [facility] RDW SD 68.4(H) 35.7 - 48.1 fL [facility] NRBC abs 0.00 0.00 - 0.01 K/cumm [facility] Blood 10/08/2024 9:01 PM CDT 10/08/2024 9:56 PM CDT us Roz Paz MD LAB BLOOD ORDERABLES Final Result Performing Organization Address City/[facility]/ZIP Co de Phone Number [facility] [place] [address] * Hepatitis C antibody Blood (10/08/2024 9:01 PM CDT) Pathologist [facility] Hep C Ab Nonreactive Nonreactive Comment:Antibodies to HCV no t detected. Does NOT exclude the possibility of recent exposure to HCV. Current interpretive data was last revised on 21 Blood 10/08/2024 9:01 PM CDT 10/08/2024 9:56 PM CDT us Roz Paz MD LAB MICROBIOLOGY - G ENERAL ORDERABLES Final Result [facility] [place] [address] * RPR Blood (10/08/2024 9:01 PM CDT) Pathologist [facility] RPR Nonreactive Nonreactive Blood 10/08/2024 9:01 PM CDT 10/08/2024 9:56 PM CDT us Roz Paz MD LAB MICROBIOLOGY - G ENERAL ORDERABLES Final Result Performing Organization Address City/[facility]/ZIP Co de Phone Number [facility] [place] [address] * Hepatitis B Surface Antigen Blood (10/08/2024 9:01 PM CDT) Pathologist [facility] HepBsAg Nonreactive Nonreactive Blood 10/08/2024 9:01 PM CDT 10/08/2024 9:56 PM CDT Roz Paz MD LAB MICROBIOLOGY - G ENERAL ORDERABLES Final Result Performing Organization Address City/[facility] Co de Phone Number [facility] [place] [address] * Magnesium (10/08/2024 9:01 PM CDT) Pathologist [facility] Magnesium 1.9 1.4 - 2.5 mg/dL Blood 10/08/2024 9:01 PM CDT 10/08/2024 9:56 PM CDT us Roz Paz MD LAB BLOOD ORDERABLES Final Result [facility] [place] [address] * (ABNORMAL) Comprehensive metabolic panel (10/08/2024 9:01 PM CDT) Sodium 140 135 - 145 mmol/L Potassium, pl 3.7 3.3 - 4.9 mmol/L [facility] Comment:Repeated and Verifie d Chloride 97 97 - 110 mmol/L [facility] CO2 29 22 - 32 mmol/L [facility] Anion gap 14 2 - 15 mmol/L [facility] BUN 38(H) 6 - 25 mg/dL [facility] Creatinine 1.80(H) 0.80 - 1.30 mg/dL [facility] Glucose 116 70 - 199 mg/dL [facility] Comment: Interpretive Data Fasting glucose >/= 126 mg/dl is diagnostic for diabetes. Fasting is defined as no caloric intake for at least 8 hours. Fasting glucose between 100 mg/dl to 125 mg/dl is diagnostic of prediabetes. In a patient with classic symptoms of hyperglycemia or hyperglycemic crisis, a random glucose >/= 200 mg/dl is diagnostic for diabetes. In the absence of unequivocal hyperglycemia, results should be confirmed by repeat testing. The classification and Diagnosis of Diabetes Diabetes Care 2021; 46: S19-S40. Current interpretive data was last revised 2022. Calcium 9.2 8.5 - 10.3 mg/dL [facility] Bilirubin, total 2.1(H) 0.1 - 1.2 mg/dL [facility] Protein, pl 7.6 6.5 - 8.5 g/dL [facility] Albumin 3.5 3.5 - 5.0 g/dL [facility] Alk phos 130 40 - 130 Units/L [facility] ALT 57(H) 7 - 55 Units/L [facility] Comment:Reviewed AST 71(H) 10 - 50 Units/L [facility] Comment:Reviewed Blood 10/08/2024 9:01 PM CDT 10/08/2024 9:56 PM CDT Roz Paz MD LAB BLOOD ORDERABLES Final Result Performing Organization Address City/[facility]/ZIP Co de Phone Number [facility] [place] [address] * POCT glucose (10/08/2024 7:46 PM CDT) Glucose, POC 139 70 - 199 mg/dL Blood 10/08/2024 7:46 PM CDT 10/08/2024 7:46 PM CDT Roz Paz MD LAB POCT ORDERABLES - DEVICE Final Result Performing Organization Address City/[facility] Co de Phone Number [facility] [place] [address] * POCT glucose (10/08/2024 4:36 PM CDT) Glucose, POC 133 70 - 199 mg/dL Blood 10/08/2024 4:36 PM CDT 10/08/2024 4:36 PM CDT Roz Paz MD LAB POCT ORDERABLES - DEVICE Final Result Performing Organization Address City/[facility] Co de Phone Number [facility] [place] [address] * POCT glucose (10/08/2024 12:29 PM CDT) Glucose, POC 100 70 - 199 mg/dL Blood 10/08/2024 12:2 9 PM CDT 10/08/2024 12:29 PM CDT Zee Carballo MD PhD LAB POCT ORDERABLE S - DEVICE Final Result Performing Organization Address [facility] Co de Phone Number [facility] [place] [address] * POCT glucose (10/08/2024 8:40 AM CDT) Glucose, POC 114 70 - 199 mg/dL Blood 10/08/2024 8:40 AM CDT 10/08/2024 8:40 AM CDT Zee Carballo MD PhD LAB POCT ORDERABLE S - DEVICE Final Result Performing Organization Address [facility] [place] [address] * (ABNORMAL) Troponin I high-sensitivity 6-hour (10/08/2024 6:22 AM CDT) Trop I hs 46(H) <=35 ng/L Comment: Interpretive Data For further hscTnI resources including the diagnostic algorithm and an aid in interpretation, copy and paste this link: https://bjhlab.testcatalog.org/show/hsTrop-1 Current Interpretive Data last revised 2019. Trop I hs delta -3 ng/L [facility] Trop I hs interp Insignificant [facility] Blood 10/08/2024 6:22 AM CDT 10/08/2024 6:35 AM CDT Yoav Bernal MD LAB BLOOD ORDERABLES Final Result Performing Organization Address [facility] Co de Phone Number [facility] [place] [address] * POCT glucose (10/08/2024 4:57 AM CDT) Glucose, POC 131 70 - 199 mg/dL Blood 10/08/2024 4:57 AM CDT 10/08/2024 4:57 AM CDT us Roz Paz MD LAB POCT ORDERABLES - DEVICE Final Result Performing Organization Address [facility] de Phone Number [facility] [place] [address] * (ABNORMAL) Troponin I high-sensitivity 4-hour (10/08/2024 4:37 AM CDT) Trop I hs 49(H) <=35 ng/L Comment: Interpretive Data For further hscTnI resources including the diagnostic algorithm and an aid in interpretation, copy and paste this link: https://Motomotives.SafeNet.org/show/hsTrop-1 Current Interpretive Data last revised 2019. Trop I hs delta 0 ng/L [facility] Trop I hs interp Insignificant [facility] Blood 10/08/2024 4:37 AM CDT 10/08/2024 4:47 AM CDT us Yoav Bernal MD LAB BLOOD ORDERABLES Final Result Performing Organization Address [facility] [place] [address] * (ABNORMAL) Troponin I high-sensitivity 2-hour (10/08/2024 2:05 AM CDT) Trop I hs 44(H) <=35 ng/L Comment: Interpretive Data For further hscTnI resources including the diagnostic algorithm and an aid in interpretation, copy and paste this link: https://Motomotives.SafeNet.org/show/[email or web address]-1 Current Interpretive Data last revised 2019. Trop I hs delta -5 ng/L [facility] Trop I hs interp Equivocal [facility] Blood 10/08/2024 2:05 AM CDT 10/08/2024 2:25 AM CDT us Yoav Bernal MD LAB BLOOD ORDERABLES Final Result Performing Organization Address [facility] Co de Phone Number [facility] [place] [address] * POCT glucose (10/08/2024 12:58 AM CDT) [facility] Glucose, POC 121 70 - 199 mg/dL Blood 10/08/2024 12:5 8 AM CDT 10/08/2024 12:58 AM CDT us Franco Kinsey MD PhD LAB POCT ORDERABLES - DEVICE Final Result Performing Organization Address [facility] de Phone Number [facility] [place] [address] * ECG 12-LEAD (10/08/2024 12:28 AM CDT) Narrative [facility] - 10/08/2024 12:28 AM CDT Franco Kinsey MD PhD 10/08/2024 12:28 AM ECG 12 lead Date/Time: 10/08/2024 12:28 AM Performed by: Franco Kinsey MD PhD Authorized by: Yoav Bernal MD Comments: (00:15) ventricularly paced rhythm at 73 beats per minute. Abnormal EKG. Similar to previous EKG from September 28, 2024. us Yoav Bernal MD ECG ORDERABLES Final Resul t Performing Organization Address [facility] Co de Phone Number [facility] * (ABNORMAL) Troponin I high-sensitivity series (baseline, 2hr, 4hr, 6hr) (10/08/2024 12:23 AM CDT) [facility] Trop I hs 49(H) <=35 ng/L Comment: Interpretive Data For further hscTnI resources including the diagnostic algorithm and an aid in interpretation, copy and paste this link: https://bjhlab.testcatalog.org/show/hsTrop-1 Current Interpretive Data last revised 2019. Blood 10/08/2024 12:2 3 AM CDT 10/08/2024 12:32 AM CDT Yoav Bernal MD LAB BLOOD ORDERABLES Final Result Performing Organization Address [facility] Co de Phone Number [facility] [place] [address] * Urinalysis reflex to microscopic and culture Urine (10/07/2024 9:27 PM CDT) Color, ur Straw Yellow Clarity, ur Clear Clear [facility] Specific gravity, ur 1.012 1.003 - 1.030 [facility] pH, urine 6.0 [facility] Comment: Interpretive Data U rine pH is affected by diet, medications, systemic acid-base disturbances, and renal tubular function. pH may affect urinary stone formation. For example, urine pH below 6.0 may help reduce the tendency for calcium phosphate stones and pH greater than 6.0 may reduce the tendency for uric acid stone formation. Source: [facility] Current Interpretive Data was last revised on 2017 Protein, ur ql Negative Negative [facility] Glucose, ur ql Negative Negative [facility] Ketones, ur Negative Negative [facility] Bilirubin, ur Negative Negative [facility] Blood, ur Negative Negative [facility] Urobilinogen, ur <2.0 <2.0 mg/dL [facility] Nitrite, ur Negative Negative [facility] Leukocyte esterase, ur Negative Negative [facility] UA reflex comment Reflex conditions for microscopic UA and culture not met. [facility] Urine 10/07/2024 9:27 PM CDT 10/07/2024 9:34 PM CDT us Dea Cid MD LAB MICROBIOLOGY - GENERAL ORDERABLES Final Result Performing Organization Address City/[facility]/ZIP Co de Phone Number [facility] [place] [address] * XR Chest PA Lateral 2 Views (10/07/2024 9:01 PM CDT) Anatomical Region Laterality Modality Body, Chest N/A Computed Radiogr aphy 10/07/2024 10:0 4 PM CDT Impressions 10/08/2024 9:39 AM CDT Left subclavian approach 3-lead cardiac pacemaker defibrillator with leads in appropriate position. Perihilar opacities with increased interstitial markings likely representing mild pulmonary edema which has decreased when compared to prior exam. Stable cardiomegaly. No pneumothorax, pleural effusion, or consolidation. Dictated by: Minh Prince M.D. The radiology attending physician has personally reviewed this study, and had reviewed and/or edited this written report and agrees with it. Electronically signed by: Tunde Turk M.D. Narrative 10/08/2024 9:39 AM CDT EXAMINATION: XR CHEST PA LATERAL 2 VIEWS HISTORY: Concern for heart failure exacerbation. COMPARISON: Multiple prior radiographs most recently 10/10/2024 Procedure Note Tunde Turk MD - 10/08/2024 EXAMINATION: XR CHEST PA LATERAL 2 VIEWS HISTORY: Concern for heart failure exacerbation. COMPARISON: Multiple prior radiographs most recently 10/10/2024 IMPRESSION: Left subclavian approach 3-lead cardiac pacemaker defibrillator with leads in appropriate position. Perihilar opacities with increased interstitial markings likely representing mild pulmonary edema which has decreased when compared to prior exam. Stable cardiomegaly. No pneumothorax, pleural effusion, or consolidation. Dictated by: Minh Prince M.D. The radiology attending physician has personally reviewed this study, and had reviewed and/or edited this written report and agrees with it. Electronically signed by: Tunde Turk M.D. Yoav Bernal MD IMG XR PROCEDURES Final Res ult * (ABNORMAL) Lactate (10/07/2024 8:03 PM CDT) Lactate 2.1(H) 0.7 - 2.0 mmol/L Blood 10/07/2024 8:03 PM CDT 10/07/2024 8:13 PM CDT Dea Cid MD LAB BLOOD ORDERABLES Final Result [facility] [place] [address] * (ABNORMAL) eGFR (10/07/2024 8:03 PM CDT) Pathologist [facility] eGFR 42(L) >=60 mL/min/1. 73 m2 Comment: Interpretive Data Reference Interval Normal >/= 90 mL/min/1.73m2 Mildly decreased* 60 - 89 mL/min/1.73m2 Mildly to moderately decreased 45 - 59 mL/min/1.73m2 Moderately to severely decreased 30 - 44 mL/min/1.73m2 Severely decreased 15 - 29 mL/min/1.73m2 Kidney Failure < 15 mL/min/1.73m2 *Relative to young adult level Estimated glomerular filtration rate is determined by the 2020 CKD-EPI equation recommended by the National Kidney Foundation (A Unifying Approach to GFR Estimation: Recommendations of the NKF-ASK Task Force on Reassessing the Inclusion of Race in Diagnosing Kidney Disease, JASN 2020). The CKD-EPI equation should not be used for patients with unstable renal function and has not been validated in children and those over 70. Current interpretive data was last reviewed 2020. Blood 10/07/2024 8:03 PM CDT 10/07/2024 8:13 PM CDT Dea Cid MD LAB BLOOD ORDERABLES Final Result [facility] [place] [address] * Differential, auto (10/07/2024 8:03 PM CDT) [facility] Neutrophil abs 4.50 1.50 - 6.50 K/cumm Imm gran abs 0.01 0.00 - 0.10 K/cumm [facility] Lymphocyte abs 0.97 0.80 - 3.30 K/cumm [facility] Monocyte abs 0.64 0.20 - 0.80 K/cumm [facility] Eosinophil abs 0.19 0.00 - 0.50 K/cumm [facility] Basophil abs 0.10 0.00 - 0.10 K/cumm [facility] Neutrophil pct 70.1 % [facility] Comment: Interpretive Data Percent cell count reference ranges are not reported, since discordance with absolute values may lead to misinterpretation of CBC data. Current Interpretive Data was last revised on 2017. Imm gran pct 0.2 % [facility] Comment: Interpretive Data Percent cell count reference ranges are not reported, since discordance with absolute values may lead to misinterpretation of CBC data. Current Interpretive Data was last revised on 2017. Lymphocyte pct 15.1 % [facility] Comment: Interpretive Data Percent cell count reference ranges are not reported, since discordance with absolute values may lead to misinterpretation of CBC data. Current Interpretive Data was last revised on 2017. Monocyte pct 10.0 % [facility] Comment: Interpretive Data Percent cell count reference ranges are not reported, since discordance with absolute values may lead to misinterpretation of CBC data. Current Interpretive Data was last revised on 2017. Eosinophil pct 3.0 % [facility] Comment: Interpretive Data Percent cell count reference ranges are not reported, since discordance with absolute values may lead to misinterpretation of CBC data. Current Interpretive Data was last revised on 2017. Basophil pct 1.6 % [facility] Comment: Interpretive Data Percent cell count reference ranges are not reported, since discordance with absolute values may lead to misinterpretation of CBC data. Current Interpretive Data was last revised on 2017. Blood 10/07/2024 8:03 PM CDT 10/07/2024 8:13 PM CDT us Dea Cid MD LAB BLOOD ORDERABLES Final Result [facility] [place] [address] * (ABNORMAL) Pro B-type natriuretic peptide (10/07/2024 8:03 PM CDT) NT-proBNP 8,816(H) <=300 pg/mL Comment: Interpretive Comments: A. Dyspnea in Acute Care Setting All Ages: < 300 pg/ml, acute heart failure unlikely. < 50 yrs: 300 - 450 pg/ml, further investigation warranted. > 450 pg/ml, acute heart failure likely. 50 - 74 yrs: 300 - 900 pg/ml, further investigation warranted. > 900 pg/ml, acute heart failure likely . > or = 75 yrs: 450 - 1800 pg/ml, further investigation warranted. > 1800 pg/ml, acute heart failure likely. B. Non-acute Setting < 75 yrs < 125 pg/ml, rules out heart failure. > or = 125 pg/ml, further investigation warranted. > or = 75 yrs < 450 pg/ml, rules out heart failure. > or = 450 pg/ml, further investigation warranted. - Knowledge of each individual patient's NT-proBNP range may be more useful than using similar cut-points for every patient. Please note that marked elevations in NT-proBNP levels may be observed in state other than Left Ventricular Congestive Failure, including: acute coronary syndromes, right heart strain/failure (including pulmonary embolism and cor pulmonale), critical illness, renal failure, as well as advanced age. - References: 1. Hua HIDALGO et.al. Eur Heart J. 2006:27:330-337. 2. Milena RW, Brina AM. J. AM Gonzalez Cardiol: Cardiovasc Imag. 2009;2: 216- 225. Interpretive Data Last Revised Date: 2017. Blood 10/07/2024 8:03 PM CDT 10/07/2024 8:13 PM CDT us Dea Cid MD LAB BLOOD ORDERABLES Final Result [facility] [place] [address] * Thyroid Function Gosper (10/07/2024 8:03 PM CDT) [facility] TSH 1.94 0.30 - 4.20 mcIUnit/mL Blood 10/07/2024 8:03 PM CDT 10/07/2024 8:13 PM CDT Dea Cid MD LAB BLOOD ORDERABLES Final Result Performing Organization Address City/[facility]/ZIP Co de Phone Number [facility] [place] [address] * (ABNORMAL) CBC with auto differential (10/07/2024 8:03 PM CDT) [facility] WBC 6.41 3.80 - 9.90 K/cumm Hgb 12.6(L) 13.0 - 17.5 g/dL [facility] Hct 40.7 38.9 - 50.3 % [facility] Plt 289 150 - 400 K/cumm [facility] MPV 11.7 9.1 - 12.3 fL [facility] RBC 4.81 4.30 - 5.80 M/cumm [facility] MCV 84.6 81.3 - 96.4 fL [facility] MCH 26.2(L) 27.1 - 33.3 pg [facility] MCHC 31.0(L) 32.3 - 35.7 g/dL [facility] RDW CV 23.3(H) 11.1 - 14.9 % [facility] RDW SD 67.8(H) 35.7 - 48.1 fL [facility] NRBC abs 0.00 0.00 - 0.01 K/cumm [facility] Blood 10/07/2024 8:03 PM CDT 10/07/2024 8:13 PM CDT Dea Cid MD LAB BLOOD ORDERABLES Final Result [facility] [place] [address] * (ABNORMAL) Comprehensive metabolic panel (10/07/2024 8:03 PM CDT) Sodium 136 135 - 145 mmol/L Potassium, pl See Comment 3.3 - 4.9 mmol/L [facility] Comment:Credited; Hemolyzed Specimen Chloride 95(L) 97 - 110 mmol/L [facility] CO2 28 22 - 32 mmol/L [facility] Anion gap 13 2 - 15 mmol/L [facility] BUN 40(H) 6 - 25 mg/dL [facility] Creatinine 1.96(H) 0.80 - 1.30 mg/dL [facility] Glucose 62(L) 70 - 199 mg/dL [facility] Comment: Interpretive Data Fasting glucose >/= 126 mg/dl is diagnostic for diabetes. Fasting is defined as no caloric intake for at least 8 hours. Fasting glucose between 100 mg/dl to 125 mg/dl is diagnostic of prediabetes. In a patient with classic symptoms of hyperglycemia or hyperglycemic crisis, a random glucose >/= 200 mg/dl is diagnostic for diabetes. In the absence of unequivocal hyperglycemia, results should be confirmed by repeat testing. The classification and Diagnosis of Diabetes Diabetes Care 202; 46: S19-S40. Current interpretive data was last revised 2022. Calcium 9.9 8.5 - 10.3 mg/dL [facility] Bilirubin, total 3.0(H) 0.1 - 1.2 mg/dL [facility] Protein, pl 8.1 6.5 - 8.5 g/dL [facility] Albumin 3.6 3.5 - 5.0 g/dL [facility] Alk phos 136(H) 40 - 130 Units/L [facility] Comment:Hemolyzed; result ma y be falsely decreased ALT See Comment 7 - 55 Units/L [facility] Comment:Credited; Hemolyzed Specimen AST See Comment 10 - 50 Units/L [facility] Comment:Credited; Hemolyzed Specimen Blood 10/07/2024 8:03 PM CDT 10/07/2024 8:13 PM CDT us Dea Cid MD LAB BLOOD ORDERABLES Final Result [facility] [place] [address] * eGFR (10/01/2024 5:32 AM CDT) eGFR 60 >=60 mL/min/1. 73 m2 Comment: Interpretive Data Reference Interval Normal >/= 90 mL/min/1.73m2 Mildly decreased* 60 - 89 mL/min/1.73m2 Mildly to moderately decreased 45 - 59 mL/min/1.73m2 Moderately to severely decreased 30 - 44 mL/min/1.73m2 Severely decreased 15 - 29 mL/min/1.73m2 Kidney Failure < 15 mL/min/1.73m2 *Relative to young adult level Estimated glomerular filtration rate is determined by the 2020 CKD-EPI equation recommended by the National Kidney Foundation (A Unifying Approach to GFR Estimation: Recommendations of the NKF-ASK Task Force on Reassessing the Inclusion of Race in Diagnosing Kidney Disease, JASN 2020). The CKD-EPI equation should not be used for patients with unstable renal function and has not been validated in children and those over 70. Current interpretive data was last reviewed 2020. Testing performed by: [address] [address] Blood 10/01/2024 5:32 AM CDT 10/01/2024 5:48 AM CDT us Alfreda Covarrubias NP LAB BLOOD ORDERABLES Final R esult Performing Organization Address City/[facility]/ZIP Co de Phone Number [facility] [address] [facility] [place] [address] * Differential, auto (10/01/2024 5:32 AM CDT) Neutrophil abs 4.40 1.50 - 6.50 K/cumm Comment:Testing performed by : [address] [address] Imm gran abs 0.01 0.00 - 0.10 K/cumm [facility] Comment:Testing performed by : [address] [place] [address] Lymphocyte abs 0.93 0.80 - 3.30 K/cumm [facility] Comment:Testing performed by : [address] [address] Monocyte abs 0.53 0.20 - 0.80 K/cumm [facility] Comment:Testing performed by : [address] [address] Eosinophil abs 0.19 0.00 - 0.50 K/cumm [facility] Comment:Testing performed by : [address], [place]., [address] Basophil abs 0.07 0.00 - 0.10 K/cumm [facility] Comment:Testing performed by : [address] [address] [facility]rophil pct 71.8 % [facility] Comment: Interpretive Data Percent cell count reference ranges are not reported, since discordance with absolute values may lead to misinterpretation of CBC data. Current Interpretive Data was last revised on 2017. Testing performed by: [address] [address] Imm gran pct 0.2 % [facility] Comment: Interpretive Data Percent cell count reference ranges are not reported, since discordance with absolute values may lead to misinterpretation of CBC data. Current Interpretive Data was last revised on 2017. Testing performed by: [address] [address] Lymphocyte pct 15.2 % [facility] Comment: Interpretive Data Percent cell count reference ranges are not reported, since discordance with absolute values may lead to misinterpretation of CBC data. Current Interpretive Data was last revised on 2017. Testing performed by: [address] [address] Monocyte pct 8.6 % CERNER Comment: Interpretive Data Percent cell count reference ranges are not reported, since discordance with absolute values may lead to misinterpretation of CBC data. Current Interpretive Data was last revised on 2017. Testing performed by: [address] [address] Eosinophil pct 3.1 % CERNER Comment: Interpretive Data Percent cell count reference ranges are not reported, since discordance with absolute values may lead to misinterpretation of CBC data. Current Interpretive Data was last revised on 2017. Testing performed by: [address] [address] Basophil pct 1.1 % NARCISO CHAPARRO Comment: Interpretive Data Percent cell count reference ranges are not reported, since discordance with absolute values may lead to misinterpretation of CBC data. Current Interpretive Data was last revised on 2017. Testing performed by: [address] [address] Blood 10/01/2024 5:32 AM CDT 10/01/2024 5:51 AM CDT us Alfreda Covarrubias NP LAB BLOOD ORDERABLES Final R esult NARCISO CHAPARRO [facility] [place] [address] * (ABNORMAL) CBC with auto differential (10/01/2024 5:32 AM CDT) WBC 6.13 3.80 - 9.90 K/cumm Comment:Testing performed by : [address] [address] Hgb 11.1(L) 13.0 - 17.5 g/dL NARCISO CHAPARRO Comment:Testing performed by : [address] [address] Hct 37.3(L) 38.9 - 50.3 % NARCISO CHAPARRO Comment:Testing performed by : [address] [address] Plt 256 150 - 400 K/cumm NARCISO CHAPARRO Comment:Testing performed by : [address] [address] MPV 10.8 9.1 - 12.3 fL NARCISO CHAPARRO Comment:Testing performed by : [address] [address] RBC 4.28(L) 4.30 - 5.80 M/cumm NARCISO CHAPARRO Comment:Testing performed by : [address] [address] MCV 87.1 81.3 - 96.4 fL NARCISO Comment:Testing performed by : [address] [address] MCH 25.9(L) 27.1 - 33.3 pg NARCISO Comment:Testing performed by : [address] [address] MCHC 29.8(L) 32.3 - 35.7 g/dL NARCISO Comment:Testing performed by : [address] [address] RDW CV 19.6(H) 11.1 - 14.9 % NARCISO Comment:Testing performed by : [address] [address] RDW SD 61.0(H) 35.7 - 48.1 fL NARCISO Comment:Testing performed by : [address] [address] NRBC abs 0.08(H) 0.00 - 0.01 K/cumm NARCISO Comment:Testing performed by : [address] [address] Blood 10/01/2024 5:32 AM CDT 10/01/2024 5:51 AM CDT us Alfreda Covarrubias OPTOMETRY ASSISTANT LAB BLOOD ORDERABLES Final R esult NARCISO 5086 [facility] Department of Laboratories [place], [place] [id number] * (ABNORMAL) Comprehensive metabolic panel (10/01/2024 5:32 AM CDT) Sodium 137 135 - 145 mmol/L Comment:Testing performed by : [address] [address] Potassium, pl 3.7 3.3 - 4.9 mmol/L NARCISO Comment:Testing performed by : [address] [address] Chloride 98 97 - 110 mmol/L [facility] Comment:Testing performed by : [address] [address] CO2 28 22 - 32 mmol/L NARCISO Comment:Testing performed by : [address] [address] Anion gap 11 2 - 15 mmol/L NARCISO Comment:Testing performed by : [address] [address] BUN 34(H) 6 - 25 mg/dL [facility] Comment:Testing performed by : [address], [place]., [address] Creatinine 1.45(H) 0.80 - 1.30 mg/dL NARCISO Comment:Testing performed by : [address] [address] Glucose 98 70 - 199 mg/dL [facility] Comment: Interpretive Data Fasting glucose >/= 126 mg/dl is diagnostic for diabetes. Fasting is defined as no caloric intake for at least 8 hours. Fasting glucose between 100 mg/dl to 125 mg/dl is diagnostic of prediabetes. In a patient with classic symptoms of hyperglycemia or hyperglycemic crisis, a random glucose >/= 200 mg/dl is diagnostic for diabetes. In the absence of unequivocal hyperglycemia, results should be confirmed by repeat testing. The classification and Diagnosis of Diabetes Diabetes Care 202; 46: S19-S40. Current interpretive data was last revised 2022. Testing performed by: [address] [address] Calcium 9.6 8.5 - 10.3 mg/dL [facility] Comment:Testing performed by : [address] [address] Bilirubin, total 1.7(H) 0.1 - 1.2 mg/dL [facility] Comment:Testing performed by : [address] [address] Protein, pl 7.5 6.5 - 8.5 g/dL [facility] Comment:Testing performed by : [address] [address] Albumin 3.4(L) 3.5 - 5.0 g/dL NARCISO CHAPARRO Comment:Testing performed by : [facility], [address] [place] [address]., [address] Alk phos 148(H) 40 - 130 Units/L NARCISO CHAPARRO Comment:Testing performed by : [address] [address] ALT 225(H) 7 - 55 Units/L NARCISO CHAPARRO Comment:Testing performed by : [address] [address] AST 165(H) 10 - 50 Units/L NARCISO Comment:Testing performed by : [address] [address] Blood 10/01/2024 5:32 AM CDT 10/01/2024 5:48 AM CDT us Alfreda Covarrubias NP LAB BLOOD ORDERABLES Final R esult NARCISO 2263 [facility] Department [place] [address] * (ABNORMAL) eGFR (09/30/2024 6:50 AM CDT) eGFR 50(L) >=60 mL/min/1. 73 m2 Comment: Interpretive Data Reference Interval Normal >/= 90 mL/min/1.73m2 Mildly decreased* 60 - 89 mL/min/1.73m2 Mildly to moderately decreased 45 - 59 mL/min/1.73m2 Moderately to severely decreased 30 - 44 mL/min/1.73m2 Severely decreased 15 - 29 mL/min/1.73m2 Kidney Failure < 15 mL/min/1.73m2 *Relative to young adult level Estimated glomerular filtration rate is determined by the 2020 CKD-EPI equation recommended by the National Kidney Foundation (A Unifying Approach to GFR Estimation: Recommendations of the NKF-ASK Task Force on Reassessing the Inclusion of Race in Diagnosing Kidney Disease, JASN 2020). The CKD-EPI equation should not be used for patients with unstable renal function and has not been validated in children and those over 70. Current interpretive data was last reviewed 2020. Testing performed by: [address] [address] Blood 09/30/2024 6:50 AM CDT 09/30/2024 7:21 AM CDT us Alfreda Marci ASHLEY LAB BLOOD ORDERABLES Final R esult [facility] 1424 [facility] Department [place] [address] * (ABNORMAL) Differential, auto (09/30/2024 6:50 AM CDT) Neutrophil abs 4.32 1.50 - 6.50 K/cumm Comment:Testing performed by : [address] [address] Imm gran abs 0.02 0.00 - 0.10 K/cumm NARCISO Comment:Testing performed by : [address] [address] Lymphocyte abs 0.73(L) 0.80 - 3.30 K/cumm NARCISO Comment:Testing performed by : [address] [address] Monocyte abs 0.61 0.20 - 0.80 K/cumm NARCISO Comment:Testing performed by : [address] [address] Eosinophil abs 0.41 0.00 - 0.50 K/cumm NARCISO Comment:Testing performed by : [address] [address] Basophil abs 0.07 0.00 - 0.10 K/cumm NARCISO Comment:Testing performed by : [address] [address] Neutrophil pct 70.1 % NARCISO Comment: Interpretive Data Percent cell count reference ranges are not reported, since discordance with absolute values may lead to misinterpretation of CBC data. Current Interpretive Data was last revised on 2017. Testing performed by: [address] [address] Imm gran pct 0.3 % [facility] Comment: Interpretive Data Percent cell count reference ranges are not reported, since discordance with absolute values may lead to misinterpretation of CBC data. Current Interpretive Data was last revised on 2017. Testing performed by: [address] [address] Lymphocyte pct 11.9 % [facility] Comment: Interpretive Data Percent cell count reference ranges are not reported, since discordance with absolute values may lead to misinterpretation of CBC data. Current Interpretive Data was last revised on 2017. Testing performed by: [address] [address] Monocyte pct 9.9 % [facility] Comment: Interpretive Data Percent cell count reference ranges are not reported, since discordance with absolute values may lead to misinterpretation of CBC data. Current Interpretive Data was last revised on 2017. Testing performed by: [address] [address] Eosinophil pct 6.7 % [facility] Comment: Interpretive Data Percent cell count reference ranges are not reported, since discordance with absolute values may lead to misinterpretation of CBC data. Current Interpretive Data was last revised on 2017. Testing performed by: [address] [address] Basophil pct 1.1 % [facility] Comment: Interpretive Data Percent cell count reference ranges are not reported, since discordance with absolute values may lead to misinterpretation of CBC data. Current Interpretive Data was last revised on 2017. Testing performed by: [address] [address] Blood 09/30/2024 6:50 AM CDT 09/30/2024 7:21 AM CDT us Alfreda Covarrubias NP LAB BLOOD ORDERABLES Final R esult NARCISO CHAPARRO 4774 [facility] Department of Laboratories [place], [place] [id number] * (ABNORMAL) CBC with auto differential (09/30/2024 6:50 AM CDT) [facility] WBC 6.16 3.80 - 9.90 K/cumm Comment:Testing performed by : [address], [address] Hgb 11.0(L) 13.0 - 17.5 g/dL NARCISO Comment:Testing performed by : [address], [address] Hct 36.2(L) 38.9 - 50.3 % NARCISO Comment:Testing performed by : [address], [address] Plt 244 150 - 400 K/cumm NARCISO Comment:Testing performed by : [address], [address] MPV 11.0 9.1 - 12.3 fL NARCISO Comment:Testing performed by : [address], [address] RBC 4.28(L) 4.30 - 5.80 M/cumm NARCISO Comment:Testing performed by : [address], [address] MCV 84.6 81.3 - 96.4 fL NARCISO Comment:Testing performed by : [address] [address] MCH 25.7(L) 27.1 - 33.3 pg NARCISO Comment:Testing performed by : [address], [address] MCHC 30.4(L) 32.3 - 35.7 g/dL NARCISO Comment:Testing performed by : [address], [address] RDW CV 19.1(H) 11.1 - 14.9 % NARCISO Comment:Testing performed by : [address], [address] RDW SD 57.9(H) 35.7 - 48.1 fL NARCISO Comment:Testing performed by : [address], [address] NRBC abs 0.04(H) 0.00 - 0.01 K/cumm CERNER Comment:Testing performed by : [address] [address] Blood 09/30/2024 6:50 AM CDT 09/30/2024 7:21 AM CDT Alfreda [place] OPTOMETRY ASSISTANT LAB BLOOD ORDERABLES Final R esult Performing Organization Address City/[facility] Co de Phone Number PATRICIA[address] [place] [address] * Magnesium (09/30/2024 6:50 AM CDT) Magnesium 2.4 1.4 - 2.5 mg/dL Comment:Testing performed by : [address] [address] Blood 09/30/2024 6:50 AM CDT 09/30/2024 7:21 AM CDT Alfreda Marci OPTOMETRY ASSISTANT LAB BLOOD ORDERABLES Final R esult Performing Organization Address City/[facility] Co de Phone Number [address] [address] * (ABNORMAL) Comprehensive metabolic panel (09/30/2024 6:50 AM CDT) Sodium 138 135 - 145 mmol/L Comment:Testing performed by : [address] [address] Potassium, pl 3.4 3.3 - 4.9 mmol/L NARCISO Comment:Testing performed by : [address] [address] Chloride 99 97 - 110 mmol/L NARCISO Comment:Testing performed by : [address] [address] CO2 26 22 - 32 mmol/L NARCISO CHAPARRO Comment:Testing performed by : [address] [address] Anion gap 13 2 - 15 mmol/L NARCISO Comment:Testing performed by : [address] [address] BUN 44(H) 6 - 25 mg/dL NARCISO Comment:Testing performed by : [address] [address] Creatinine 1.68(H) 0.80 - 1.30 mg/dL NARCISO Comment:Testing performed by : [address] [address] Glucose 119 70 - 199 mg/dL NARCISO Comment: Interpretive Data Fasting glucose >/= 126 mg/dl is diagnostic for diabetes. Fasting is defined as no caloric intake for at least 8 hours. Fasting glucose between 100 mg/dl to 125 mg/dl is diagnostic of prediabetes. In a patient with classic symptoms of hyperglycemia or hyperglycemic crisis, a random glucose >/= 200 mg/dl is diagnostic for diabetes. In the absence of unequivocal hyperglycemia, results should be confirmed by repeat testing. The classification and Diagnosis of Diabetes Diabetes Care 202; 46: S19-S40. Current interpretive data was last revised 2022. Testing performed by: [address] [address] Calcium 9.3 8.5 - 10.3 mg/dL NARCISO Comment:Testing performed by : [address] [address] Bilirubin, total 1.7(H) 0.1 - 1.2 mg/dL NARCISO Comment:Testing performed by : [address] [address] Protein, pl 7.2 6.5 - 8.5 g/dL NARCISO Comment:Testing performed by : [address] [address] Albumin 3.3(L) 3.5 - 5.0 g/dL NARCISO Comment:Testing performed by : [address] [address] Alk phos 143(H) 40 - 130 Units/L NARCISO Comment:Testing performed by : [address] [address] ALT 269(H) 7 - 55 Units/L NARCISO Comment:Testing performed by : [facility], [address] [place] [address]., [address] AST 232(H) 10 - 50 Units/L NARCISO Comment:Testing performed by : [facility], [address] [place] [address]., [address] Blood 09/30/2024 6:50 AM CDT 09/30/2024 7:21 AM CDT [facility] Marci OPTOMETRY ASSISTANT LAB BLOOD ORDERABLES Final R esult Performing Organization Address [facility] Co de Phone Number PATRICIA[address] [place] [address] * (ABNORMAL) Troponin T high-sensitivity (09/29/2024 6:57 AM CDT) Trop T hs 70(H) <=22 ng/L Comment: Interpretive Data For further hscTnT resources including the diagnostic algorithm and an aid in interpretation, copy and paste this link: [email or web address].testcatalog.org/show/[email or web address] Current Interpretive Data last revised 2019. Testing performed by: [facility], [address] [place] [address]., [address] Blood 09/29/2024 6:57 AM CDT 09/29/2024 7:24 AM CDT Alfreda Marci OPTOMETRY ASSISTANT LAB BLOOD ORDERABLES Final R esult Performing Organization Address [facility] Co de Phone Number PATRICIA[address] [place] [address] * (ABNORMAL) eGFR (09/29/2024 6:57 AM CDT) eGFR 33(L) >=60 mL/min/1. 73 m2 Comment: Interpretive Data Reference Interval Normal >/= 90 mL/min/1.73m2 Mildly decreased* 60 - 89 mL/min/1.73m2 Mildly to moderately decreased 45 - 59 mL/min/1.73m2 Moderately to severely decreased 30 - 44 mL/min/1.73m2 Severely decreased 15 - 29 mL/min/1.73m2 Kidney Failure < 15 mL/min/1.73m2 *Relative to young adult level Estimated glomerular filtration rate is determined by the 2020 CKD-EPI equation recommended by the National Kidney Foundation (A Unifying Approach to GFR Estimation: Recommendations of the NKF-ASK Task Force on Reassessing the Inclusion of Race in Diagnosing Kidney Disease, JASN 202). The CKD-EPI equation should not be used for patients with unstable renal function and has not been validated in children and those over 70. Current interpretive data was last reviewed 2020. Testing performed by: [address] [address] Blood 09/29/2024 6:57 AM CDT 09/29/2024 7:24 AM CDT us Alfreda Covarrubias NP LAB BLOOD ORDERABLES Final R esult NARCISO [address] Department of Laboratories [place], [place] [id number] * (ABNORMAL) Differential, auto (09/29/2024 6:57 AM CDT) Neutrophil abs 4.14 1.50 - 6.50 K/cumm Comment:Testing performed by : [address] [address] Imm gran abs 0.02 0.00 - 0.10 K/cumm NARCISO Comment:Testing performed by : [address] [address] Lymphocyte abs 0.78(L) 0.80 - 3.30 K/cumm NARCISO Comment:Testing performed by : [address] [address] Monocyte abs 0.59 0.20 - 0.80 K/cumm NARCISO Comment:Testing performed by : [address] [address] Eosinophil abs 0.41 0.00 - 0.50 K/cumm NARCISO Comment:Testing performed by : [address] [address] Basophil abs 0.09 0.00 - 0.10 K/cumm NARCISO Comment:Testing performed by : [address] [address] Neutrophil pct 68.7 % [facility] Comment: Interpretive Data Percent cell count reference ranges are not reported, since discordance with absolute values may lead to misinterpretation of CBC data. Current Interpretive Data was last revised on 2017. Testing performed by: [address] [address] Imm gran pct 0.3 % [facility] Comment: Interpretive Data Percent cell count reference ranges are not reported, since discordance with absolute values may lead to misinterpretation of CBC data. Current Interpretive Data was last revised on 2017. Testing performed by: [address] [address] Lymphocyte pct 12.9 % [facility] Comment: Interpretive Data Percent cell count reference ranges are not reported, since discordance with absolute values may lead to misinterpretation of CBC data. Current Interpretive Data was last revised on 2017. Testing performed by: [address] [address] Monocyte pct 9.8 % [facility] Comment: Interpretive Data Percent cell count reference ranges are not reported, since discordance with absolute values may lead to misinterpretation of CBC data. Current Interpretive Data was last revised on 2017. Testing performed by: [address] [address] Eosinophil pct 6.8 % [facility] Comment: Interpretive Data Percent cell count reference ranges are not reported, since discordance with absolute values may lead to misinterpretation of CBC data. Current Interpretive Data was last revised on 2017. Testing performed by: [address] [address] Basophil pct 1.5 % [facility] Comment: Interpretive Data Percent cell count reference ranges are not reported, since discordance with absolute values may lead to misinterpretation of CBC data. Current Interpretive Data was last revised on 2017. Testing performed by: [address] [place]., [address] Blood 09/29/2024 6:57 AM CDT 09/29/2024 7:23 AM CDT us Alfreda Covarrubias NP LAB BLOOD ORDERABLES Final R esult NARCISO 45[address] [facility] [place] [address] * (ABNORMAL) CBC with auto differential (09/29/2024 6:57 AM CDT) WBC 6.03 3.80 - 9.90 K/cumm Comment:Testing performed by : [address] [address] Hgb 10.5(L) 13.0 - 17.5 g/dL NARCISO Comment:Testing performed by : [address] [address] Hct 34.8(L) 38.9 - 50.3 % NARCISO Comment:Testing performed by : [address] [address] Plt 252 150 - 400 K/cumm NARCISO Comment:Testing performed by : [address] [address] MPV 10.8 9.1 - 12.3 fL NARCISO Comment:Testing performed by : [address] [address] RBC 4.05(L) 4.30 - 5.80 M/cumm NARCISO Comment:Testing performed by : [address] [address] MCV 85.9 81.3 - 96.4 fL NARCISO Comment:Testing performed by : [address] [address] MCH 25.9(L) 27.1 - 33.3 pg NARCISO CHAPARRO Comment:Testing performed by : [address] [address] MCHC 30.2(L) 32.3 - 35.7 g/dL NARCISO CHAPARRO Comment:Testing performed by : [address] [address] RDW CV 19.1(H) 11.1 - 14.9 % NARCISO Comment:Testing performed by : [address] [address] RDW SD 59.2(H) 35.7 - 48.1 fL NARCISO Comment:Testing performed by : [address] [address] NRBC abs 0.05(H) 0.00 - 0.01 K/cumm NARCISO Comment:Testing performed by : [address] [address] Blood 09/29/2024 6:57 AM CDT 09/29/2024 7:23 AM CDT us Alfreda [place] OPTOMETRY ASSISTANT LAB BLOOD ORDERABLES Final R esult Performing Organization Address City/[facility] Co de Phone Number [address] [place] [address] * Magnesium (09/29/2024 6:57 AM CDT) Pathologist [facility] Magnesium 2.4 1.4 - 2.5 mg/dL Comment:Testing performed by : [address] [address] Blood 09/29/2024 6:57 AM CDT 09/29/2024 7:24 AM CDT Alfreda [place] OPTOMETRY ASSISTANT LAB BLOOD ORDERABLES Final R esult Performing Organization Address City/[facility] Co de Phone Number [address] [place] [address] * (ABNORMAL) Hemoglobin A1c (09/29/2024 6:57 AM CDT) Hgb A1C 6.6(H) 4.0 - 5.6 % Comment:Testing performed by : [address] [place] [address] Estimated Average Glucose 143 mg/dL NARCISO Comment: The ADA recommends reporting an estimated Average Glucose (eAG) with all Hemoglobin A1c results using the equation derived from a study of 507 normal and diabetic adults. Minority populations were underrepresented and children were not included. (Diabetes Care 31:0244-3565, 2008). The eAG is not equivalent to a fasting glucose. Testing performed by: [address] [address] Blood 09/29/2024 6:57 AM CDT 09/29/2024 7:23 AM CDT Ronnie Pena MD LAB BLOOD ORDERABLES Fi nal Result NARCISO 45[address] [facility] [place] [address] * (ABNORMAL) Comprehensive metabolic panel (09/29/2024 6:57 AM CDT) Sodium 136 135 - 145 mmol/L Comment:Testing performed by : [address] [address] Potassium, pl 3.7 3.3 - 4.9 mmol/L NARCISO Comment:Testing performed by : [address] [address] Chloride 98 97 - 110 mmol/L NARCISO Comment:Testing performed by : [address] [address] CO2 24 22 - 32 mmol/L NARCISO Comment:Testing performed by : [address] [address] Anion gap 14 2 - 15 mmol/L NARCISO Comment:Testing performed by : [address] [address] BUN 59(H) 6 - 25 mg/dL NARCISO Comment:Testing performed by : [address] [address] Creatinine 2.38(H) 0.80 - 1.30 mg/dL NARCISO Comment:Testing performed by : [address] [address] Glucose 103 70 - 199 mg/dL NARCISO Comment: Interpretive Data Fasting glucose >/= 126 mg/dl is diagnostic for diabetes. Fasting is defined as no caloric intake for at least 8 hours. Fasting glucose between 100 mg/dl to 125 mg/dl is diagnostic of prediabetes. In a patient with classic symptoms of hyperglycemia or hyperglycemic crisis, a random glucose >/= 200 mg/dl is diagnostic for diabetes. In the absence of unequivocal hyperglycemia, results should be confirmed by repeat testing. The classification and Diagnosis of Diabetes Diabetes Care 2021; 46: S19-S40. Current interpretive data was last revised 2022. Testing performed by: [address] [address] Calcium 9.3 8.5 - 10.3 mg/dL NARCISO Comment:Testing performed by : [address] [address] Bilirubin, total 2.2(H) 0.1 - 1.2 mg/dL [facility]Testing performed by : [address] [address] Protein, pl 7.3 6.5 - 8.5 g/dL NARCISO Comment:Testing performed by : [address] [address] Albumin 3.4(L) 3.5 - 5.0 g/dL [facility] Comment:Testing performed by : [address] [address] Alk phos 143(H) 40 - 130 Units/L [facility] Comment:Testing performed by : [address] [address] ALT 334(H) 7 - 55 Units/L [facility] Comment:Testing performed by : [address] [address] AST 354(H) 10 - 50 Units/L [facility] Comment:Testing performed by : [address] [address] Blood 09/29/2024 6:57 AM CDT 09/29/2024 7:24 AM CDT us Alfreda Marci OPTOMETRY ASSISTANT LAB BLOOD ORDERABLES Final R esult NARCISO 45[address] [facility] [place] [address] * TRANSTHORACIC ECHO (TTE) COMPLETE W DOPPLER/CF W CONTRAST (09/28/2024 4:35 PM CDT) Estimated EF 25-30 % CONS SCIMAGE EF Mod BP 26 % CONS SCIMAGE Anatomical Region Laterality Modality Ultrasound 09/28/2024 3:51 PM CDT Narrative 09/29/2024 6:30 PM CDT Transthoracic Echocardiographic Report Patient Name: ISAIAH LA J : 1980 (44y 5m) Gender: M Study Date: 09/28/2024 03:51:26 PM Ht(Inch): 68 Wt(Lb): 242.99 BSA: 2.3 Clothing Patternmaker: Janet Lyn RDCS Location: [id number] Order Provider: RONNIE PENA Heart Rate: 71 BMI: 36.94 BP: 131 / 91 Ref Provider: RONNIE PENA PROCEDURES: Echocardiographic Report: ([id number]) Transthoracic complete echo with contrast, 2D, spectral and tissue Doppler, color flow Doppler, M-mode. Contrast: A contrast injection of Definity was performed to improve assessment of LV function. Definity Lot Number: [id number]. INDICATIONS: Congestive heart failure. FINDINGS: Left Ventricle: Severely dilated left ventricle cavity . Mild concentric left ventricular hypertrophy. Severely depressed left ventricular systolic function. The Ejection Fraction (Servin's) is measured at 26 %. The Ejection Fraction is visually estimated to be 25-30 %. Diastolic Function Left ventricular diastolic parameters are consistent with Grade III diastolic dysfunction (elevated LA pressure, restrictive physiology). No Thrombus noted in Left Ventricle. Regional Wall Motion: There is severe global hypokinesis. Right Ventricle: Right ventricular dilatation. Normal right ventricular systolic function. Wire noted in the right heart. Left Atrium: Severely dilated left atrium. Right Atrium: Severely dilated right atrium. Atrial Septum: The interatrial septum is normal in appearance. Mitral Valve: There is severe mitral regurgitation. No mitral valve stenosis. The mean transmitral gradient is: 5 mmHg. Aortic Valve: Trileaflet aortic valve. No aortic regurgitation seen. No aortic valve stenosis. The mean transaortic gradient is 4 mmHg. Tricuspid Valve: There is moderate to severe tricuspid regurgitation. The estimated right ventricular systolic pressure is 52 mmHg. Estimated pulmonary artery systolic pressure is consistent with moderate pulmonary hypertension (45-60mmHg). Pulmonic Valve: There is mild pulmonic regurgitation. Aorta: Normal aortic root. IVC: IVC Not well visualized due to poor echo windows. The estimated RA pressure is 8 mmHg. CONCLUSIONS: 1. Severely dilated left ventricle cavity . Mild concentric left ventricular hypertrophy. Severely depressed left ventricular systolic function. The Ejection Fraction (Servin's) is measured at 26 %. The Ejection Fraction is visually estimated to be 25-30 %. Diastolic Function Left ventricular diastolic parameters are consistent with Grade III diastolic dysfunction (elevated LA pressure, restrictive physiology). No Thrombus noted in Left Ventricle. 2. Right ventricular dilatation. Normal right ventricular systolic function. Wire noted in the right heart. 3. Severely dilated left atrium. 4. There is severe mitral regurgitation. 5. There is mild pulmonic regurgitation. 6. There is moderate to severe tricuspid regurgitation. Estimated pulmonary artery systolic pressure is consistent with moderate pulmonary hypertension (45- 60mmHg). 7. There is severe global hypokinesis. MEASUREMENTS: 2D/MM Value Range Doppler Value LVIDd 2D 7.97 cm [ 3.50 - 5.70 ] AV Peak Celestine 1.41 m/s LVIDs 2D 7.04 cm [ 3.10 - 4.60 ] AV Peak PG 7.95 mmHg IVSd 2D 1.17 cm [ 0.60 - 1.20 ] AV Mean PG 4.00 mmHg LVPWd 2D 1.25 cm [ 0.60 - 1.10 ] AV VTI 22.90 cm LV Thickness Ratio 0.94 LVOT Peak Celestine 0.66 m/s LV Mass 2D 528.78 g LVOT Peak PG 1.74 mmHg LV Mass Index 2D 229.90 g/m2 LVOT Mean PG 1.00 mmHg RWT 0.31 LVOT VTI 9.25 cm EDV Mod BP 556.00 ml [ 62.00 - 150.00 ] LVOT Diam 2.30 cm LV EDV Index 241.74 ml/m2 SV LVOT 38.00 cm3 ESV Mod BP 409.00 ml [ 21.00 - 61.00 ] DINESH VTI 1.68 cm2 EF Mod BP 26 % [ 52 - 72 ] DINESH Vmax 1.94 cm2 Visually Estimated EF 25-30 % LVOT/AV VTI 0.40 - Dimensionless index (DVI) LA Dimension 2D 6.60 cm [ 1.90 - 4.00 ] MV E Peak Celestine 1.71 m/s LA Length 2C 7.90 cm MV A Peak Celestine 0.67 m/s LA Length 4C 8.26 cm MV E/A 2.60 ratio LA Volume BP 188.00 ml MV Peak Celestine 1.99 m/s LA Volume Index 81.74 ml/m2 [ 16.00 - 34.00 ] MV Peak PG 15.84 mmHg MVA Planim 4.13 cm2 MV Mean PG 5.00 mmHg RV Base Dimen 2D 6.0 cm [ 2.5 - 4.2 ] MV VTI 47.90 cm RV Mid Dimen 2D 4.5 cm MV Decel Time 158.00 msec RV Length Dimen 2D 11.8 cm MR Peak Celestine 4.85 m/s TAPSE 2.13 cm [ 1.71 - 5.00 ] MR Peak PG 94.09 mmHg RA Volume 123.00 ml MR Mean PG 56.00 mmHg RA Volume Index 53.48 ml/m2 MV Alias Celestine 0.31 m/s AoR Diam 2D 3.50 cm [ 2.00 - 3.70 ] MR VTI 137.0 cm Ao Root Index 1.52 cm/m2 [ 1.00 - 2.00 ] MR Flow 1.58 ml/sec Asc Ao Diam 2D 3.30 cm MR PISA 0.9 cm Asc Ao Index 1.43 cm/m2 TV Peak Celestine 1.10 m/s TV Peak PG 4.84 mmHg RV S` 0.07 m/s TR Peak Celestine 3.31 m/s TR Peak PG 43.8 mmHg RA Pressure 8.00 mmHg RVSP 51.80 mmHg PV Peak Celestine 0.68 m/s PV Peak PG 1.85 mmHg PV Mean PG 1.00 mmHg PI ED Celestine 179.00 cm/sec RVOT VTI 8.09 - ATTESTATION: I have reviewed and interpreted the pertinent images and measurements of this study. I attest to the conclusions in the final report that is provided above. DISCLAIMER: The study images and the final report will be retained in the patient chart by the [facility] for the legally required time period. This chart constitutes the legal record of any testing performed. Electronically Signed By: Ronnie Pena MD 09/29/2024 6:29:58 PM CDT Procedure Note Ronnie Pena MD - 09/29/2024 Transthoracic Echocardiographic Report Patient Name: ISAIAH LA J : 1980 (44y 5m) Gender: M Study Date: 09/28/2024 03:51:26 PM Ht(Inch): 68 Wt(Lb): 242.99 BSA: 2.3 Clothing Patternmaker: Janet Lyn [facility] Location: [id number] Order Provider:RONNIE PENA Heart Rate: 71 BMI: 36.94 BP: 131 / 91 Ref Provider: RONNIE PENA PROCEDURES: Echocardiographic Report: ([id number]) Transthoracic complete echo withcontrast, 2D, spectral and tissue Doppler, color flow Doppler, M-mode. Contrast: A contrast injection of Definity was performed to improveassessment of LV function. Definity Lot Number: [id number]. INDICATIONS: Congestive heart failure. FINDINGS: Left Ventricle: Severely dilated left ventricle cavity . Mild concentricleft ventricular hypertrophy. Severely depressed left ventricular systolic function. TheEjection Fraction (Servin's) is measured at 26 %. The Ejection Fraction is visuallyestimated to be 25-30 %. Diastolic Function Left ventricular diastolic parameters are consistentwith Grade III diastolic dysfunction (elevated LA pressure, restrictive physiology). NoThrombus noted in Left Ventricle. Regional Wall Motion: There is severe global hypokinesis. Right Ventricle: Right ventricular dilatation. Normal right ventricularsystolic function. Wire noted in the right heart. Left Atrium: Severely dilated left atrium. Right Atrium: Severely dilated right atrium. Atrial Septum: The interatrial septum is normal in appearance. Mitral Valve: There is severe mitral regurgitation. No mitral valvestenosis. The mean transmitral gradient is: 5 mmHg. Aortic Valve: Trileaflet aortic valve. No aortic regurgitation seen. Noaortic valve stenosis. The mean transaortic gradient is 4 mmHg. Tricuspid Valve: There is moderate to severe tricuspid regurgitation. Theestimated right ventricular systolic pressure is 52 mmHg. Estimated pulmonary arterysystolic pressure is consistent with moderate pulmonary hypertension (45-60mmHg). Pulmonic Valve: There is mild pulmonic regurgitation. Aorta: Normal aortic root. IVC: IVC Not well visualized due to poor echo windows. The estimated RApressure is 8 mmHg. CONCLUSIONS: 1. Severely dilated left ventricle cavity . Mild concentric leftventricular hypertrophy. Severely depressed left ventricular systolic function. The EjectionFraction (Servin's) is measured at 26 %. The Ejection Fraction is visually estimated to be25-30 %. Diastolic Function Left ventricular diastolic parameters are consistent with GradeIII diastolic dysfunction (elevated LA pressure, restrictive physiology). No Thrombusnoted in Left Ventricle. 2. Right ventricular dilatation. Normal right ventricular systolicfunction. Wire noted in the right heart. 3. Severely dilated left atrium. 4. There is severe mitral regurgitation. 5. There is mild pulmonic regurgitation. 6. There is moderate to severe tricuspid regurgitation. Estimatedpulmonary artery systolic pressure is consistent with moderate pulmonary hypertension(45-60mmHg). 7. There is severe global hypokinesis. MEASUREMENTS: 2D/MM Value Range DopplerValue LVIDd 2D 7.97 cm [ 3.50 - 5.70 ] AV Peak Vel1.41 m/s LVIDs 2D 7.04 cm [ 3.10 - 4.60 ] AV Peak PG7.95 mmHg IVSd 2D 1.17 cm [ 0.60 - 1.20 ] AV Mean PG4.00 mmHg LVPWd 2D 1.25 cm [ 0.60 - 1.10 ] AV VTI22.90 cm LV Thickness Ratio 0.94 LVOT PeakVel 0.66 m/s LV Mass 2D 528.78 g LVOT PeakPG 1.74 mmHg LV Mass Index 2D 229.90 g/m2 LVOT MeanPG 1.00 mmHg RWT 0.31 LVOT VTI9.25 cm EDV Mod BP 556.00 ml [ 62.00 - 150.00 ] LVOT Diam2.30 cm LV EDV Index 241.74 ml/m2 SV LVOT38.00 cm3 ESV Mod BP 409.00 ml [ 21.00 - 61.00 ] DINESH VTI1.68 cm2 EF Mod BP 26 % [ 52 - 72 ] DINESH Vmax1.94 cm2 Visually Estimated EF 25-30 % LVOT/AV VTI0.40 - Dimensionless index (DVI) LA Dimension 2D 6.60 cm [ 1.90 - 4.00 ] MV E PeakVel 1.71 m/s LA Length 2C 7.90 cm MV A PeakVel 0.67 m/s LA Length 4C 8.26 cm MV E/A2.60 ratio LA Volume BP 188.00 ml MV Peak Vel1.99 m/s LA Volume Index 81.74 ml/m2 [ 16.00 - 34.00 ] MV Peak PG15.84 mmHg MVA Planim 4.13 cm2 MV Mean PG5.00 mmHg RV Base Dimen 2D 6.0 cm [ 2.5 - 4.2 ] MV VTI47.90 cm RV Mid Dimen 2D 4.5 cm MV DecelTime 158.00 msec RV Length Dimen 2D 11.8 cm MR Peak Vel4.85 m/s TAPSE 2.13 cm [ 1.71 - 5.00 ] MR Peak PG94.09 mmHg RA Volume 123.00 ml MR Mean PG56.00 mmHg RA Volume Index 53.48 ml/m2 MV AliasVel 0.31 m/s AoR Diam 2D 3.50 cm [ 2.00 - 3.70 ] MR KMW734.0 cm Ao Root Index 1.52 cm/m2 [ 1.00 - 2.00 ] MR Flow1.58 ml/sec Asc Ao Diam 2D 3.30 cm MR PISA0.9 cm Asc Ao Index 1.43 cm/m2 TV Peak Vel1.10 m/s TV Peak PG 4.84 mmHg RV S` 0.07 m/s TR Peak Celestine 3.31 m/s TR Peak PG 43.8 mmHg RA Pressure 8.00 mmHg RVSP 51.80 mmHg PV Peak Celestine 0.68 m/s PV Peak PG 1.85 mmHg PV Mean PG 1.00 mmHg PI ED Celestine 179.00 cm/sec RVOT VTI 8.09 - ATTESTATION: I have reviewed and interpreted the pertinent images and measurements ofthis study. I attest to the conclusions in the final report that is provided above. DISCLAIMER: The study images and the final report will be retained in the patientchart by the [facility] Laboratory for the legally required time period. This chart constitutesthe legal record of any testing performed. Electronically Signed By: Ronnie Pena MD 09/29/2024 6:29:58 PM CDT us Ronnie Pena MD CV ECHO PROCEDURES Nohemi l Result * (ABNORMAL) Troponin T high-sensitivity 4-hour (09/28/2024 12:48 PM CDT) Trop T hs 93(H) <=22 ng/L Comment: Interpretive Data For further hscTnT resources including the diagnostic algorithm and an aid in interpretation, copy and paste this link: https://nrl.testcatalog.org/show/hsTrop Current Interpretive Data last revised 2019. Testing performed by: [address] [address] Trop T hs delta 7 ng/L NARCISO Comment:Testing performed by : [address] [address] Trop T hs interp Equivocal NARCISO CHAPARRO Comment:Testing performed by : [address] [address] Blood 09/28/2024 12:4 8 PM CDT 09/28/2024 1:42 PM CDT us Rizwan Estrada DO LAB BLOOD ORDERABLES Final Res ult Performing Organization Address City/[facility] Co de Phone Number NARCISO [facility] [place] [address] * (ABNORMAL) Iron profile w/ IBC (09/28/2024 12:48 PM CDT) Iron 35(L) 50 - 150 mcg/dL Comment:Testing performed by : [address] [address] TIBC 442(H) 250 - 400 mcg/dL NARCISO Comment:Testing performed by : [address] [address] Transferrin saturation 8(L) 20 - 50 % NARCISO Comment:Testing performed by : [address] [address] Blood 09/28/2024 12:4 8 PM CDT 09/28/2024 1:42 PM CDT us Md Ramon Hughes MD LAB BLOOD ORDERABLES Final Resu lt Performing Organization Address [facility] Co de Phone Number NARCISO [address] [place] [address] * (ABNORMAL) Vitamin B12 (09/28/2024 12:48 PM CDT) Vitamin B12 >2,000(H) 230 - 1,250 pg/mL Comment:Testing performed by : [address] [address] Blood 09/28/2024 12:4 8 PM CDT 09/28/2024 1:42 PM CDT Md Ramon Hughes MD LAB BLOOD ORDERABLES Final Resu lt Performing Organization Address City/[facility]/ZIP Co de Phone Number NARCISO [facility] [place] [address] * (ABNORMAL) POC Blood Gas and Chemistries, Arterial - (09/28/2024 9:43 AM CDT) pH, art POC 7.46(H) 7.35 - 7.45 Comment:Testing performed by : [address] [address] pCO2, art POC 34(L) 35 - 45 mmHg NARCISO Comment:Testing performed by : [address] [address] pO2, art POC 87 83 - 108 mmHg NARCISO Comment:Testing performed by : [address] [address] HCO3, art (Calc) POC 24 20 - 30 mmol/L NARCISO Comment:Testing performed by : [address] [address] Base excess, art POC 1 mmol/L NARCISO Comment: Interpretive Data No reference range established. Current interpretive data was last revised 2019. Testing performed by: [address] [address] Blood 09/28/2024 9:43 AM CDT 09/28/2024 9:43 AM CDT us Md Ramon Hughes MD LAB POCT ORDERABLES - DEVICE Fi nal Result Performing Organization Address City/[facility]/ZIP Co de Phone Number NARCISO [facility] [place] [address] * (ABNORMAL) Troponin T high-sensitivity 2-hour (09/28/2024 9:41 AM CDT) Trop T hs 86(H) <=22 ng/L Comment: Interpretive Data For further hscTnT resources including the diagnostic algorithm and an aid in interpretation, copy and paste this link: https://nrl.testcatalog.org/show/hsTrop Current Interpretive Data last revised 2019. Testing performed by: [address] [address] Trop T hs delta 0 ng/L NARCISO Comment:Testing performed by : [facility], [address] [place] [address], [place]., [address] Trop T hs interp Insignificant NARCISO Comment:Testing performed by : [address] [address] Blood 09/28/2024 9:41 AM CDT 09/28/2024 9:43 AM CDT iRzwan Estrada DO LAB BLOOD ORDERABLES Final Res ult NARCISO [address] [facility] [place] [address] * (ABNORMAL) Lipid panel (09/28/2024 9:41 AM CDT) Cholesterol 93 30 - 199 mg/dL Comment: Interpretive Data Ages < or = 19 years Acceptable: <170 mg/dL Borderline high: 170-199 mg/dL High: >or= 200 mg/dL Ages > or = 20 years Desirable: <200 mg/dL Borderline high: 200-239 mg/dL High: >or= 240 mg/dL Literature References: 1. Expert Panel on Integrated Guidelines for Cardiovascular Health and Risk Reduction in Children and Adolescents. Pediatrics 2011;128:S213 2. NCEP Expert Panel. Circulation 2004;110:227 Current Interpretive Data was last revised on 2017. Testing performed by: [address] [address] Triglycerides 80 <=149 mg/dL NARCISO Comment: Interpretive Data Ages < or = 9 years Acceptable: <75 mg/dL Borderline high: 75-99 mg/dL High: >or= 100 mg/dL Ages 10 to 20 years Acceptable: <90 mg/dL Borderline high: 90-129 mg/dL High: >or= 130 mg/dL Ages > or = 20 years Desirable: <150 mg/dL Borderline high: 150-199 mg/dL High: 200-499 mg/dL Very high: >or= 499 mg/dL Literature References: 1. Expert Panel on Integrated Guidelines for Cardiovascular Health and Risk Reduction in Children and Adolescents. Pediatrics 2011;128:S213 2. NCEP Expert Panel. Circulation 2004;110:227 Current Interpretive Data was last revised on 2017. Testing performed by: [address] [address] HDL 21(L) >=40 mg/dL NARCISO Comment: Interpretive Data Ages < or = 19 years Acceptable: >45 mg/dL Borderline low: 40-45 mg/dL Low: <40 mg/dL Ages > or = 20 years Desirable: >or= 60 mg/dL Low: <40 mg/dL Literature References: 1. Expert Panel on Integrated Guidelines for Cardiovascular Health and Risk Reduction in Children and Adolescents. Pediatrics 2011;128:S213 2. NCEP Expert Panel. Circulation 2004;110:227 Current Interpretive Data was last revised on 2017. Testing performed by: [address] [address] LDL, calculated 55 <=129 mg/dL NARCISO Comment: Interpretive Data Ages < or = 19 years Acceptable: <110 mg/dL Borderline high: 110-129 mg/dL High: >or= 130 mg/dL Ages > or = 20 years Optimal: <100 mg/dL Near optimal: 100-129 mg/dL Borderline high: 130-159 mg/dL High: >160 mg/dL Calculated using the Tung LDL-C estimating equation. This equation was implemented on 2023. Prior to this date LDL-C was estimated using the Friedewald equation. Literature References: 1. Expert Panel on Integrated Guidelines for Cardiovascular Health and Risk Reduction in Children and Adolescents. Pediatrics 2011;128:S213 2. NCEP Expert Panel. Circulation 2004;110:227 3. Tung Wiley et al. JUNI Cardiol. 2020 June 21;5(5):540-548. doi: 10.1001/jamacardio.2020.0013 Current Interpretive Data was last revised on 2023. Testing performed by: [address] [address] Non-HDL Cholesterol 72 mg/dL NARCISO Comment: Interpretive Data Ages < or = 19 years Acceptable: <120 mg/dL Borderline high: 120-144 mg/dL High: >145 mg/dL Ages > or = 20 years When triglycerides are >200 mg/dL, Non-HDL cholesterol is a secondary target of therapy with treatment goals that are 30 mg/dL greater than the LDL cholesterol target. Literature References: 1. Expert Panel on Integrated Guidelines for Cardiovascular Health and Risk Reduction in Children and Adolescents. Pediatrics 2011;128:S213 2. NCEP Expert Panel. Circulation 2004;110:227 Current Interpretive Data was last revised on 2017. Testing performed by: [address] [address] Chol/HDL ratio 4 NARCISO Comment:Testing performed by : [address] [address] Blood 09/28/2024 9:41 AM CDT 09/28/2024 9:43 AM CDT Md Ramon Hughes MD LAB BLOOD ORDERABLES Final Resu lt NARCISO [address] [facility] [place] [address] * (ABNORMAL) Urinalysis reflex to microscopic and culture Urine (09/28/2024 9:07 AM CDT) Color, ur Yellow Yellow Comment:Testing performed by : [address] [address] Clarity, ur Clear Clear NARCISO Comment:Testing performed by : [address] [address] Specific gravity, ur 1.013 1.003 - 1.030 NARCISO Comment:Testing performed by : [address] [address] pH, urine 6.0 NARCISO Comment: Interpretive Data U rine pH is affected by diet, medications, systemic acid-base disturbances, and renal tubular function. pH may affect urinary stone formation. For example, urine pH below 6.0 may help reduce the tendency for calcium phosphate stones and pH greater than 6.0 may reduce the tendency for uric acid stone formation. Source: [facility] imeem Current Interpretive Data was last revised on 2017 Testing performed by: [facility], [address] [place] [address]., [address] Protein, ur ql 1+(A) Negative NARCISO Comment:Testing performed by : [address], [place]., [address] Glucose, ur ql Negative Negative NARCISO Comment:Testing performed by : [address] [address] Ketones, ur Negative Negative NARCISO Comment:Testing performed by : [address], [place]., [address] Bilirubin, ur Negative Negative NARCISO Comment:Testing performed by : [address], [place]., [address] Blood, ur Negative Negative NARCISO Comment:Testing performed by : [address], [place]., [address] Urobilinogen, ur 2.0(A) <2.0 mg/dL NARCISO Comment:Testing performed by : [address] [address] Nitrite, ur Negative Negative NARCISO Comment:Testing performed by : [address] [address] Leukocyte esterase, ur Negative Negative NARCISO Comment:Testing performed by : [address] [address] UA reflex comment Reflex to microscopic UA will be performed. NARCISO Comment:Testing performed by : [address] [address] Urine 09/28/2024 9:07 AM CDT 09/28/2024 9:10 AM CDT Rizwan Estrada DO LAB MICROBIOLOGY - GENERAL ORD ERABLES Final Result NARCISO [address] [facility] Department of Laboratories [place], [place] [id number] * (ABNORMAL) Drugs of Abuse Screen, Urine without Confirmation (09/28/2024 9:07 AM CDT) Amphetamine, ur Screen Positive, presumptive (A) CutOff 500ng/mL Comment: Interpretive Data - Amphetamines: Samples containing greater than 500 ng/mL d-methamphetamine or other cross-reacting amphetamine compounds are reported as positive. Amphetamine immunoassays are subject to significant false positive rates due to cross-reactivity of non-amphetamine drugs. Confirmatory testing required for definitive results. Current Interpretive Data was last reviewed 2022. Testing performed by: [address] [address] Barbiturates, ur Not Detected CutOff 200ng/mL [facility] Comment: Interpretive Data - Barbiturates: Samples containing greater than 200 ng/mL secobarbital or other cross-reacting barbiturate compounds are reported as positive. False positive and false negative results are possible. Confirmatory testing required for definitive results. Current Interpretive Data was last reviewed 2022. Testing performed by: [address] [address] Benzodiazepines, ur Not Detected CutOff 100ng/mL [facility] Comment: Interpretive Data - Benzodiazepines: Samples containing greater than 100 ng/mL nordiazepam or other cross-reacting compounds are reported as positive. False positive and false negative results are possible. Confirmatory testing required for definitive results. Current Interpretive Data was last reviewed 2022. Testing performed by: [address] [address] Cannabinoids, ur Not Detected CutOff 50 ng/mL [facility] Comment: Interpretive Data - Cannabinoids: Samples containing greater than 50 ng/mL delta-9 THC -COOH or other cross- reacting compounds are reported as positive. False positive and false negative results are possible. Confirmatory testing required for definitive results. Current Interpretive Data was last reviewed 2022. Testing performed by: [address] [address] Cocaine, ur Not Detected CutOff 150ng/mL [facility] Comment: Interpretive Data - Cocaine: Samples containing greater than 150 ng/mL benzoylecgonine or other cross- reacting compounds are reported as positive. False positive and false negative results are possible. Confirmatory testing required for definitive results. Current Interpretive Data was last reviewed 2022. Testing performed by: [facility], [address] [place] [address]., [address] Fentanyl, Ur Not Detected CutOff 5 ng/mL [facility] Comment: Interpretive Data - Fentanyl: Samples containing greater than 1 ng/mL fentanyl or other cross-reacting fentanyl compounds are reported as positive. False positive and false negative results are possible. Confirmatory testing required for definitive results. Current Interpretive Data was last reviewed 2022. Testing performed by: [address] [address] Methadone, ur Not Detected CutOff 300ng/mL [facility] Comment: Interpretive Data - Methadone: Samples containing greater than 300 ng/mL d,l-methadone or other cross-reacting compounds are reported as positive. False positive and false negative results are possible. Confirmatory testing required for definitive results. Current Interpretive Data was last reviewed 2022. Testing performed by: [address] [address] Opiates, ur Not Detected CutOff 300ng/mL [facility] Comment: Interpretive Data - Opiates: Samples containing greater than 300 ng/mL morphine or other cross-reacting compounds are reported as positive. False positive and false negative results are possible. Confirmatory testing required for definitive results. Current Interpretive Data was last reviewed 2022. Testing performed by: [address] [address] Oxycodone, ur Not Detected CutOff 100ng/mL [facility] Comment: Interpretive Data - Oxycodone: Samples containing greater than 100 ng/mL oxycodone or other cross-reacting compounds are reported as positive. False positive and false negative results are possible. Confirmatory testing required for definitive results. Current Interpretive Data was last reviewed 2022. Testing performed by: [address] [address] Phencyclidine, ur Not Detected CutOff 25 ng/[facility] Comment: Interpretive Data - Phencyclidine: Samples containing greater than 25 ng/mL phencyclidine or other cross-reacting compounds are reported as positive. False positive and false negative results are possible. Confirmatory testing required for definitive results. Current Interpretive Data was last reviewed 2022. Testing performed by: [address] [address] Urine Creatinine 92 mg/dL NARCISO Comment: Interpretive Data Urine Creatinine: < 10 mg/dL is extremely dilute = or > 10 but < 20 mg/dL is dilute = or > 20 mg/dL is normal Current Interpretive Data was last revised on 2017. Testing performed by: [address] [address] Urine 09/28/2024 9:07 AM CDT 09/28/2024 9:11 AM CDT Narrative NARCISO - 09/28/2024 9:35 AM CDT Drug of Abuse screening is performed by immunoassay for medical purposes only. This is not to be used for Pain Management purposes. us Rizwan Estrada DO LAB URINE ORDERABLES Final Res ult NARCISO [address] [facility] [place] [address] * (ABNORMAL) Urinalysis, microscopic only (09/28/2024 9:07 AM CDT) WBC, ur 0-5 0 - 5 /HPF Comment:Testing performed by : [address] [address] RBC, ur 0-2 0 - 2 /HPF NARCISO Comment:Testing performed by : [address] [address] Mucous, ur Present(A) NARCISO Comment:Testing performed by : [address] [address] Hyaline casts, ur 1-5 0 - 10 /LPF NARCISO Comment:Testing performed by : [address] [address] Culture Reflex Comment Reflex conditions for urine culture (WBC >10) not met. NARCISO CHAPARRO Comment:Testing performed by : [facility], [address] [place] [address], [place]., [address] Urine 09/28/2024 9:07 AM CDT 09/28/2024 9:10 AM CDT us Rizwan Estrada DO LAB URINE ORDERABLES Final Res ult NARCISO CHAPARRO [address] [facility] [place] [address] * XR Chest 1 Vw Portable (09/28/2024 8:00 AM CDT) Anatomical Region Laterality Modality Body, Chest N/A Computed Radiogr aphy 09/28/2024 8:2 5 AM CDT Narrative 09/28/2024 8:26 AM CDT EXAM DESCRIPTION: XR CHEST 1 VIEW REASON FOR STUDY: sob Increased SOB over the past 2 days TECHNIQUE: Single-view COMPARISON: 10/07/2023 FINDINGS: Central vascularity are prominent and ill-defined. Perihilar interstitial densities persist and may be slightly increased from prior exam. Consider vascular congestion and edema that is recurrent. Scarring or perihilar inflammatory changes not excluded. Pacing wires noted, AICD noted. No effusion or pneumothorax. IMPRESSION: Concern for vascular congestion and edema versus perihilar inflammatory change. THIS IS AN ELECTRONICALLY VERIFIED FINAL REPORT 09/28/2024 8:26 AM - Electronically signed by Leighton Harmon M.D. RB: TIMOTEO Report ID: [id number] Reading Location: [id number] Procedure Note Leighton Harmon MD - 09/28/2024 EXAM DESCRIPTION: XR CHEST 1 VIEW REASON FOR STUDY: sob Increased SOB over the past 2 days TECHNIQUE: Single-view COMPARISON: 10/07/2023 FINDINGS: Central vascularity are prominent and ill-defined. Perihilar interstitial densities persist and may be slightly increased from prior exam. Consider vascular congestion and edema that is recurrent. Scarring or perihilar inflammatory changes not excluded. Pacing wires noted, AICD noted. No effusion or pneumothorax. IMPRESSION: Concern for vascular congestion and edema versus perihilar inflammatory change. THIS IS AN ELECTRONICALLY VERIFIED FINAL REPORT 09/28/2024 8:26 AM - Electronically signed by Leightno Harmon M.D. RB: TIMOTEO Report ID: [id number] Reading Location: [place] [address] us Rizwan Estrada DO IMG XR PROCEDURES Final Result * (ABNORMAL) Troponin T high-sensitivity series (baseline, 2hr, 4hr, 6hr) (09/28/2024 7:57 AM CDT) Trop T hs 86(H) <=22 ng/L Comment: Interpretive Data For further hscTnT resources including the diagnostic algorithm and an aid in interpretation, copy and paste this link: https://nrl.testcatalog.org/show/hsTrop Current Interpretive Data last revised 2019. Testing performed by: [facility], [address] [place] [address]., [address] Blood 09/28/2024 7:57 AM CDT 09/28/2024 8:08 AM CDT us Rizwan Estrada DO LAB BLOOD ORDERABLES Final Res ult NARCISO [address] [facility] [place] [address] * (ABNORMAL) eGFR (09/28/2024 7:57 AM CDT) eGFR 40(L) >=60 mL/min/1. 73 m2 Comment: Interpretive Data Reference Interval Normal >/= 90 mL/min/1.73m2 Mildly decreased* 60 - 89 mL/min/1.73m2 Mildly to moderately decreased 45 - 59 mL/min/1.73m2 Moderately to severely decreased 30 - 44 mL/min/1.73m2 Severely decreased 15 - 29 mL/min/1.73m2 Kidney Failure < 15 mL/min/1.73m2 *Relative to young adult level Estimated glomerular filtration rate is determined by the 2020 CKD-EPI equation recommended by the National Kidney Foundation (A Unifying Approach to GFR Estimation: Recommendations of the NKF-ASK Task Force on Reassessing the Inclusion of Race in Diagnosing Kidney Disease, JASN 2020). The CKD-EPI equation should not be used for patients with unstable renal function and has not been validated in children and those over 70. Current interpretive data was last reviewed 2020. Testing performed by: [address] [address] Blood 09/28/2024 7:57 AM CDT 09/28/2024 8:08 AM CDT us Rizwan Estrada DO LAB BLOOD ORDERABLES Final Res ult NARCISO [facility] [place] [address] * Differential, auto (09/28/2024 7:57 AM CDT) Neutrophil abs 4.80 1.50 - 6.50 K/cumm Comment:Testing performed by : [address] [address] Imm gran abs 0.03 0.00 - 0.10 K/cumm NARCISO Comment:Testing performed by : [address] [address] Lymphocyte abs 0.94 0.80 - 3.30 K/cumm NARCISO Comment:Testing performed by : [address] [address] Monocyte abs 0.67 0.20 - 0.80 K/cumm NARCISO Comment:Testing performed by : [address] [address] Eosinophil abs 0.26 0.00 - 0.50 K/cumm NARCISO Comment:Testing performed by : [address] [address] Basophil abs 0.08 0.00 - 0.10 K/cumm NARCISO Comment:Testing performed by : [address] [address] Neutrophil pct 70.8 % [facility] Comment: Interpretive Data Percent cell count reference ranges are not reported, since discordance with absolute values may lead to misinterpretation of CBC data. Current Interpretive Data was last revised on 2017. Testing performed by: [address] [address] Imm gran pct 0.4 % [facility] Comment: Interpretive Data Percent cell count reference ranges are not reported, since discordance with absolute values may lead to misinterpretation of CBC data. Current Interpretive Data was last revised on 2017. Testing performed by: [address] [address] Lymphocyte pct 13.9 % [facility] Comment: Interpretive Data Percent cell count reference ranges are not reported, since discordance with absolute values may lead to misinterpretation of CBC data. Current Interpretive Data was last revised on 2017. Testing performed by: [address] [address] Monocyte pct 9.9 % [facility] Comment: Interpretive Data Percent cell count reference ranges are not reported, since discordance with absolute values may lead to misinterpretation of CBC data. Current Interpretive Data was last revised on 2017. Testing performed by: [address] [address] Eosinophil pct 3.8 % [facility] Comment: Interpretive Data Percent cell count reference ranges are not reported, since discordance with absolute values may lead to misinterpretation of CBC data. Current Interpretive Data was last revised on 2017. Testing performed by: [address] [address] Basophil pct 1.2 % [facility] Comment: Interpretive Data Percent cell count reference ranges are not reported, since discordance with absolute values may lead to misinterpretation of CBC data. Current Interpretive Data was last revised on 2017. Testing performed by: [address] [address] Blood 09/28/2024 7:57 AM CDT 09/28/2024 8:08 AM CDT us Rizwan Estrada DO LAB BLOOD ORDERABLES Final Res ult NARCISO [address] [facility] [place] [address] * (ABNORMAL) Pro B-type natriuretic peptide (09/28/2024 7:57 AM CDT) NT-proBNP 10,356(H) <=300 pg/mL Comment: Interpretive Comments: A. Dyspnea in Acute Care Setting All Ages: < 300 pg/ml, acute heart failure unlikely. < 50 yrs: 300 - 450 pg/ml, further investigation warranted. > 450 pg/ml, acute heart failure likely. 50 - 74 yrs: 300 - 900 pg/ml, further investigation warranted. > 900 pg/ml, acute heart failure likely . > or = 75 yrs: 450 - 1800 pg/ml, further investigation warranted. > 1800 pg/ml, acute heart failure likely. B. Non-acute Setting < 75 yrs < 125 pg/ml, rules out heart failure. > or = 125 pg/ml, further investigation warranted. > or = 75 yrs < 450 pg/ml, rules out heart failure. > or = 450 pg/ml, further investigation warranted. - Knowledge of each individual patient's NT-proBNP range may be more useful than using similar cut-points for every patient. Please note that marked elevations in NT-proBNP levels may be observed in state other than Left Ventricular Congestive Failure, including: acute coronary syndromes, right heart strain/failure (including pulmonary embolism and cor pulmonale), critical illness, renal failure, as well as advanced age. - References: 1. Hua HIDALGO et.al. Eur Heart J. 2006:27:330-337. 2. Milena BONILLA, Brina DIETRICH. J. AM Gonzalez Cardiol: Cardiovasc Imag. 2009;2: 216- 225. Interpretive Data Last Revised Date: 2017. Testing performed by: [facility], [address] [place] [address]., [address] Blood 09/28/2024 7:57 AM CDT 09/28/2024 8:08 AM CDT us Rizwan Estrada DO LAB BLOOD ORDERABLES Final Res ult NARCISO [address] [facility] [place] [address] * (ABNORMAL) CBC with auto differential (09/28/2024 7:57 AM CDT) WBC 6.78 3.80 - 9.90 K/cumm Comment:Testing performed by : [address] [address] Hgb 10.9(L) 13.0 - 17.5 g/dL NARCISO Comment:Testing performed by : [address] [address] Hct 35.7(L) 38.9 - 50.3 % NARCISO Comment:Testing performed by : [address] [address] Plt 262 150 - 400 K/cumm NARCISO Comment:Testing performed by : [address], [address] MPV 10.5 9.1 - 12.3 fL NARCISO Comment:Testing performed by : [address] [address] RBC 4.23(L) 4.30 - 5.80 M/cumm NARCISO Comment:Testing performed by : [address] [address] MCV 84.4 81.3 - 96.4 fL NARCISO Comment:Testing performed by : [address] [address] MCH 25.8(L) 27.1 - 33.3 pg NARCISO CHAPARRO Comment:Testing performed by : [address] [address] MCHC 30.5(L) 32.3 - 35.7 g/dL NARCISO CHAPARRO Comment:Testing performed by : [address], [address] RDW CV 19.6(H) 11.1 - 14.9 % NARCISO CHAPARRO Comment:Testing performed by : [address] [address] RDW SD 58.6(H) 35.7 - 48.1 fL NARCISO CHAPARRO Comment:Testing performed by : [address] [address] NRBC abs 0.02(H) 0.00 - 0.01 K/cumm NARCISO CHAPARRO Comment:Testing performed by : [address] [address] Blood 09/28/2024 7:57 AM CDT 09/28/2024 8:08 AM CDT us Rizwan Estrada DO LAB BLOOD ORDERABLES Final Res ult NARCISO [address] [facility] [place] [address] * (ABNORMAL) Comprehensive metabolic panel (09/28/2024 7:57 AM CDT) Sodium 138 135 - 145 mmol/L Comment:Testing performed by : [address] [address] Potassium, pl 3.7 3.3 - 4.9 mmol/L NARCISO CHAPARRO Comment: Hemolyzed; Potassium value may be falsely elevated by as much as 1.0 mmol/L. Suggest redraw and reanalysis. Testing performed by: [address] [address] Chloride 98 97 - 110 mmol/L NARCISO Comment:Testing performed by : [address] [address] CO2 24 22 - 32 mmol/L NARCISO CHAPARRO Comment:Testing performed by : [address] [address] Anion gap 16(H) 2 - 15 mmol/L NARCISO CHAPARRO Comment:Testing performed by : [address] [address] BUN 49(H) 6 - 25 mg/dL [facility] Comment:Testing performed by : [address] [address] Creatinine 2.05(H) 0.80 - 1.30 mg/dL [facility] Comment:Testing performed by : [address] [address] Glucose 117 70 - 199 mg/dL [facility] Comment: Interpretive Data Fasting glucose >/= 126 mg/dl is diagnostic for diabetes. Fasting is defined as no caloric intake for at least 8 hours. Fasting glucose between 100 mg/dl to 125 mg/dl is diagnostic of prediabetes. In a patient with classic symptoms of hyperglycemia or hyperglycemic crisis, a random glucose >/= 200 mg/dl is diagnostic for diabetes. In the absence of unequivocal hyperglycemia, results should be confirmed by repeat testing. The classification and Diagnosis of Diabetes Diabetes Care 202; 46: S19-S40. Current interpretive data was last revised 2022. Testing performed by: [address] [address] Calcium 9.3 8.5 - 10.3 mg/dL [facility] Comment:Testing performed by : [address] [address] Bilirubin, total 2.0(H) 0.1 - 1.2 mg/dL [facility] Comment:Testing performed by : [address] [address] Protein, pl 7.6 6.5 - 8.5 g/dL [facility] Comment:Testing performed by : [address] [address] Albumin 3.6 3.5 - 5.0 g/dL [facility] Comment:Testing performed by : [address] [address] Alk phos 152(H) 40 - 130 Units/L [facility] Comment:Testing performed by : [address] [address] ALT 309(H) 7 - 55 Units/L [facility] Comment:Testing performed by : [address] [address] AST 376(H) 10 - 50 Units/L [facility] Comment: Hemolyzed; result may be falsely elevated Testing performed by: [address] [address] Blood 09/28/2024 7:57 AM CDT 09/28/2024 8:08 AM CDT Rizwan Estrada DO LAB BLOOD ORDERABLES Final Res ult Performing Organization Address [facility] de Phone Number [address] [address] * POCT glucose (09/28/2024 7:47 AM CDT) [facility] Glucose, POC 127 70 - 199 mg/dL Comment:Testing performed by : [address] [address] Blood 09/28/2024 7:47 AM CDT 09/28/2024 7:47 AM CDT Rizwan Estrada DO LAB POCT ORDERABLES - DEVICE F inal Result Performing Organization Address [facility] de Phone Number [address] [address] * ECG 12 lead (09/28/2024 7:41 AM CDT) [facility] Ventricular Rate EKG/Min 88 BPM [facility] Atrial Rate 88 BPM [facility] NC-Interval (MSEC) 178 ms [facility] QRS-Interval (MSEC) 162 ms [facility] QT-Interval (MSEC) 436 ms [facility] QTc 527 ms [facility] P Bayside 54 degrees [facility] R [place]ide 196 degrees [facility] T Bayside 17 degrees [facility] Diagnosis AV dual-paced rhythm Abnormal ECG When compared with ECG of 07-OCT-2023 08:28, Vent. rate has increased BY 10 BPM Confirmed by RONNIE PENA M.D. ([id number]) on 09/28/2024 1:46:33 PM [facility] 09/28/2024 7:41 AM CDT 09/28/2024 1:46 PM CDT Rizwan Estrada DO ECG ORDERABLES Final Result [facility] from Last 3 Months Insurance [facility] MEDICARE ADVANTAGE [employer] MEDICARE ADVANTAGE Advance Directives For more information, please contact: [phone] * Full Code (Latest Code Status on File) Date Activated Date Inactivated Comments 10/08/2024 7:52 AM 10/11/2024 4:22 PM * Full Code Date Activated Date Inactivated Comments 09/28/2024 10:00 AM 10/03/2024 5:54 AM * Full Code Date Activated Date Inactivated Comments 09/30/2023 12:31 AM 10/04/2023 9:39 PM * Full Code Date Activated Date Inactivated Comments 09/27/2023 4:56 AM 09/28/2023 10:25 PM * Full Code Date Activated Date Inactivated Comments 09/10/2023 3:46 PM 09/10/2023 11:57 PM Care Teams Software Computer Specialist Relationship Specialty Start Date End Date Kenyatta Boucher DO [address] [facility] [address] [place] [address] PCP - General Family Medicine 09/08/23
--- OUTSIDE RECORDS SUMMARY | 2024-10-25 04:48 | XMS_ITS | Encounter Summary ---
Author Organization [facility] Address [facility] [place] [address] Care Team Providers Care Final Assembly Worker Name Role Phone CitlalyKenyatta hendrix Primary Care Provider [phone] Tone Cisneros MD Unavailable [phone] Dre Matamoros MD Unavailable Robel Basilio MD Unavailable [phone] Carmela Paez MD Unavailable [phone] Minh Sánchez MD Unavailable [phone] Stevo Wild MD Unavailable [phone] Encounter Details Date Type Department Care Team (Late st Contact Info) Description 02/07/2024 [employer] Message Enc [facility], [address] [address] Aaliyah, [facility] Provider APPOINTMENT TIME Social History Tobacco Use Types Packs/Day Years Used Date Smoking Tobacco: Some Days Cigarettes 0.5 25 Started: 03/1998; Last attempted to quit: 03/2023 Passive Smoke Exposure: Past Smokeless Tobacco: Never Comments:Wish i never starte d Alcohol Use Standard Drinks/Week Comments Never 0 (1 standard drink = 0.6 oz pur e alcohol) [facility] Utilities Answer Date Recorded In the past 12 months has e [employer], gas, oil, or water company threatened to [...] any time in the past 12 m [facility], were you homeless or living in a fdc (including now)? No 10/11/2023 Sex and Gender Information Value Date Recorded Sex Assigned at Male 04/15/2023 8:00 AM PERMASTONE MECHANIC Legal Sex Male 6:53 PM CDT Gender Identity Male 10/12/2021 6:16 AM CDT Sexual Orientation Straight 10/29/2021 5: 40 AM CDT documented as of this encounter Functional Status * Are you deaf or do you have serious difficulty hearing Answer Date of Assessment Author Status No 10/11/2023 2:02 AM ELVIAT Raffi Fernandes RN Active * Are you blind or do you have serious difficulty seeing, even when wearing glasses? Answer Date of Assessment Author Status No 10/11/2023 2:02 AM ELVIAT Raffi Fernandes RN Active * Do you have serious difficulty walking or climbing stairs? Answer Date of Assessment Author Status No 10/11/2023 2:02 AM Raffi Zhang RN Active * Do you have difficulty dressing or bathing? Answer Date of Assessment Author Status No 10/11/2023 2:02 AM Raffi Zhang RN Active * Because of a physical, mental, or emotional condition, do you have difficulty doing errands alone such as visiting a doctor's office or shopping? Answer Date of Assessment Author Status No 10/11/2023 2:02 AM Raffi Zhang RN Active documented as of this encounter Mental Status * Because of a physical, mental, or emotional condition, do you have serious difficulty concentrating, remembering, or making decisions? Answer Entry Date Author Status No 10/11/2023 2:02 AM Raffi Zhang RN Active documented in this encounter Plan of Treatment Upcoming Encounters Date Type Department Care Team (Late st Contact Info) Description 10/29/2024 11:20 AM CDT Office Visit [facility] [address], [address] [place] [id number] Kenyatta Boucher, [address] [facility] [place] [address] 10/29/2024 1:40 PM CDT Office Visit [facility] [address] [facility] [address] [address] [place] [id number] Robel Basilio MD [address] [facility], [address] [place] [address] 12/17/2024 2:00 PM CDT Office Visit [facility], [address] [place] [address] Dre Matamoros MD [facility]. [address] [place] [address] 01/14/2025 3:05 PM PERMASTONE MECHANIC Allied Health/Nurse Visit [facility], [address] [place] [address] Stevo Junior MD [facility]. [address] [place], [place] [id number] documented as of this encounter Goals Goal Patient Goal Type Associated Problems Recent Progress Patient-Stated? Author Patient will return to prior living situation and remain independent in ADLs upon discharge from hospital Lifestyle Felisha Gates, RN documented as of this encounter Visit Diagnoses Not on filedocumented in this encounter Additional Health Concerns Assessment Noted Time PHQ-9 Depression Total Score: 19 07/22/2 024 1:50 PM CDT documented as of this encounter Care Teams Final Assembly Worker Relationship Specialty Start Date End Date Kenyatta Boucher DO [facility] [place] [address] PCP - General FAMILY PRACTICE 12/25/21 Tone Cisneros MD [address] [facility] [address] [place] [address] Consulting Physician CARDIOVASCULAR DISEASE 05/04/23 Dre Matamoros MD [facility]. [facility] [address] [place] [address] Consulting Physician CLINICAL CARDIAC ELECTROPHYSIOLOGY 05/04/23 Robel Basilio MD [address] [place] [address], [facility] [address] [place] [address] Consulting Physician NEPHROLOGY 05/04/23 Carmela Paez MD [facility] [address] [place] [address] Consulting Physician ANESTHESIOLOGY PAIN MEDICINE 05/04/23 Minh Sánchez MD [address] [facility] [address] [place] [address] Consulting Physician Internal Medicine Pulmonary Disease 05/04/23 Stevo Wild MD [address] [place] [id number] Surgeon SURGERY 08/28/23 documented as of this encounter
--- OUTSIDE RECORDS SUMMARY | 2024-10-25 04:48 | XMS_ITS | Encounter Summary ---
Author Organization [facility] Address [facility] [place] [address] Care Team Providers Care Horticultural Specialty Grower Name Role Phone Kenyatta Boucher Primary Care Provider [phone] Tone Cisneros MD Unavailable [phone] Dre Matamoros MD Unavailable Robel Basilio MD Unavailable [phone] Carmela Paez MD Unavailable [phone] Minh Sánchez MD Unavailable [phone] Stevo Wild MD Unavailable [phone] Encounter Details Date Type Department Care Team (Late st Contact Info) Description 02/27/2024 [employer] Message Enc [facility] [place] [address] [id number] Carmela Paez MD Three [facility] [address] [place] [address] Information Social History Tobacco Use Types Packs/Day Years Used Date Smoking Tobacco: Some Days Cigarettes 0.5 25 Started: 03/1998; Last attempted to quit: 03/2023 Passive Smoke Exposure: Past Smokeless Tobacco: Never Comments:Wish i never starte d Alcohol Use Standard Drinks/Week Comments Never 0 (1 standard drink = 0.6 oz pur e alcohol) [facility] Utilities Answer Date Recorded In the [...] place to sleep or slept in a usp (including now)? No 05/18/2023 Housing Stability Vital Sign Answer Forrest e Recorded In the last 12 months, was t here a time when you were not able to pay the mortgage or rent on time? No 10/11/2023 In the past 12 months, how m any times have you moved where you were living? 1 10/11/2023 At any time in the past 12 m [facility], were you homeless or living in a usp (including now)? No 10/11/2023 Sex and Gender Information Value Date Recorded Sex Assigned at Male 04/15/2023 8:00 AM BLOW MOLD OPERATOR Legal Sex Male 6:53 PM CDT [...] AM ELVIAT Raffi Fernandes RN Active * Over the past 2 weeks, how often have you been bothered by any of the following problems? Question Answer Date of Assessment Author Status Little interest or pleasure in doing things Nearly every day 03/01/2024 1:56 PM BLOW MOLD OPERATOR Mulu Helton MA Active Feeling down, depressed, or hopeless Nearly every day 03/01/2024 1:56 PM BLOW MOLD OPERATOR Mulu Helton MA Active Patient Health Questionnaire-2 Score 6 03/01/2024 1:56 PM BLOW MOLD OPERATOR Mulu Helton MA Active documented as of this encounter Mental [...] Description 10/29/2024 11:20 AM CDT Office Visit [facility] Family Medicine - [place] [id number] [facility], [address] [place] [address] Kenyatta Boucher, DO [address] [place] [address] 10/29/2024 1:40 PM CDT Office Visit [facility] Multispecialty Care - [facility] 3 [facility], [facility] [address] [place] [address] Robel Basilio MD [address] [place] [address], [facility] [address] [place] [address] 12/17/2024 2:00 PM CDT Office Visit [facility] THREE [facility], [facility] [address] [place] [address] [facility]. [facility] [address] [place] [address] 01/14/2025 3:05 PM BLOW MOLD OPERATOR Allied Health/Nurse Visit [facility], [place] [address] [place], [place] [address] Stevo Junior MD Three [facility]. [place] [address] [place] [address] documented as of this encounter Goals Goal [...] documented as of this encounter Care Teams Horticultural Specialty Grower Relationship Specialty Start Date End Date Kenyatta Boucher DO [address] [place] [phone] PCP - General FAMILY PRACTICE 12/25/21 Tone Cisneros MD Three [facility] [address] [place] [address] Consulting Physician CARDIOVASCULAR DISEASE 05/04/23 Dre Matamoros MD Three [facility]. [facility] [address] [place] [address] Consulting Physician CLINICAL CARDIAC ELECTROPHYSIOLOGY 05/04/23 Robel Basilio MD 3 [facility], [facility] [address] [place] [address] Consulting Physician NEPHROLOGY 05/04/23 Carmela Paez MD Three [facility] [address] [place] [address] Consulting Physician ANESTHESIOLOGY PAIN MEDICINE 05/04/23 Minh Sánchez MD [address] [place] [address] Consulting Physician Internal Medicine Pulmonary Disease 05/04/23 Stevo Wild MD [address] [place] [address] Surgeon SURGERY 08/28/23 documented as of this encounter
--- OUTSIDE RECORDS SUMMARY | 2024-10-25 04:48 | XMS_ITS | Encounter Summary ---
Author Organization [facility] Address [facility] [place] [address] Care Team Providers Care Automatic Buffer Name Role Phone Kenyatta Boucher Primary Care Provider [phone] Tone Cisneros MD Unavailable [phone] Dre Matamoros MD Unavailable Robel Basilio MD Unavailable [phone] Carmela Paez MD Unavailable [phone] Minh Sánchez MD Unavailable [phone] Stevo Wild MD Unavailable [phone] Encounter Details Date Type Department Care Team (Late st Contact Info) Description 04/04/2023 [employer] Message Enc [facility] THREE [facility], [address] [place] [address] Tone Cisneros MD Three [facility] [address] [place] [address] Clearance request Social History Tobacco Use Types Packs/Day Years Used Date Smoking Tobacco: Every Day Cigarettes 0.5 25 Smokeless Tobacco: Never Comments:I wish i never woul d have started. Alcohol Use Standard Drinks/Week Comments Never 0 (1 standard drink = 0.6 oz pur e alcohol) [facility] Utilities Answer Date Recorded In [...] Date Recorded Patient Health Questionnaire-2 Score 6 03/22/2023 Hunger Vital Sign Answer Date Recorded Within [...] place to sleep or slept in a correction (including now)? No 02/28/2023 Sex and Gender Information Value Date Recorded Sex Assigned at Male 04/15/2023 8:00 AM SLOT SHIFT SUPERVISOR Legal Sex Male 6:53 PM CDT Gender Identity Male 10/12/2021 6:16 AM CDT Sexual Orientation Straight 10/29/2021 5: 40 AM CDT documented as of this encounter Functional Status * Are you deaf or do you have serious difficulty hearing Answer Date of Assessment Author Status No 02/28/2023 2:45 PM SLOT SHIFT SUPERVISOR Irene Garcia R N Active * Are you blind or do you have serious difficulty seeing, even when wearing glasses? Answer Date of Assessment Author Status No 02/28/2023 2:45 PM Irene Velez R N Active * Do you have serious difficulty walking or climbing stairs? Answer Date of Assessment Author Status No 02/28/2023 2:45 PM SLOT SHIFT SUPERVISOR Irene Garcia R N Active * Do you have difficulty dressing or bathing? Answer Date of Assessment Author Status No 02/28/2023 2:45 PM SLOT SHIFT SUPERVISOR Irene Garcia R N Active * Because of a physical, mental, or emotional condition, do you have difficulty doing errands alone such as visiting a doctor's office or shopping? Answer Date of Assessment Author Status No 02/28/2023 2:45 PM SLOT SHIFT SUPERVISOR Irene Garcia R N Active documented as of this encounter Mental Status * Because of a physical, mental, or emotional condition, do you have serious difficulty concentrating, remembering, or making decisions? Answer Entry Date Author Status No 02/28/2023 2:45 PM Irene Velez R N Active documented in this encounter Progress Notes * Roz Dior RN - 04/07/2023 10:12 AM CST He doesn't need to be on asa. Can hold eliquis 2-3 days prior. Above message from Dr. Cisneros. MyChart message sent to the patient with the above information. Message to the secretary board of commissioners. SHIFT SUPERVISOR * Roz Dior RN - 04/06/2023 3:51 PM CST I called [facility] re: medication hold. Mena (Dr. Michaud's office) states that the patient is having a left inguinal repair with mesh. They request instructions on how long to hold Aspirin and Eliquis. The clearance needs to be faxed to [phone]. I informed Mena of the above information from Dr. Cisneros but I will need to ask about the medication. Mena verbalized understanding and had no further questions. Message to Dr. Cisneros. SHIFT SUPERVISOR * Roz Dior RN - 2023 4:50 PM CST At least moderate risk for surgery. No further cardiac evaluation prior to surgery. Above message from Dr. Cisneros. [employer] message sent to the patient with the above information. SHIFT SUPERVISOR * Roz Dior RN - 2023 9:29 AM CST I reviewed the patient's chart - recent office visit with PCP. The patient is having hernia surgery. Message to Dr. Cisneros. SHIFT SUPERVISOR documented in this encounter Plan of Treatment Upcoming Encounters Date Type Department Care Team (Late st Contact Info) Description 10/29/2024 11:20 AM CDT Office Visit [facility] Family Medicine - [address], [address] [place] [phone] Kenyatta Boucher, DO [address] [place], [place] [phone] 10/29/2024 1:40 PM CDT Office Visit [facility] Multispecialty Care - [facility] 3 [facility], [facility] [address] [place] [address] Robel Basilio MD 3 [facility], [facility] [address] [place] [address] 12/17/2024 2:00 PM CDT Office Visit [facility] THREE [facility], [address] [place], [place] [address] Dre Matamoros MD Three [facility]. [place] [address] [place], [place] [address] 01/14/2025 3:05 PM SLOT SHIFT SUPERVISOR Allied Health/Nurse Visit [facility] THREE [facility], [facility] [address] [place], [place] [address] Stevo Junior MD Three [facility]. [facility] [address] [place], [place] [address] documented as of this encounter Goals Goal [...] Assessment Noted Time PHQ-9 Depression Total Score: 18 024 11:02 AM SLOT SHIFT SUPERVISOR documented as of this encounter Care Teams Automatic Buffer Relationship Specialty Start Date End Date Kenyatta Boucher DO [address] [facility] [place] [address] PCP - General FAMILY PRACTICE 12/25/21 Tone Cisneros MD Three [facility] [address] [place] [address] Consulting Physician CARDIOVASCULAR DISEASE 05/04/23 Dre Matamoros MD Three [facility]. [facility] [address] [place] [address] Consulting Physician CLINICAL CARDIAC ELECTROPHYSIOLOGY 05/04/23 Robel Basilio MD [address] [place] [address], [facility] [address] [place] [address] Consulting Physician NEPHROLOGY 05/04/23 Carmela Paez MD [facility] [address] [place] [address] Consulting Physician ANESTHESIOLOGY PAIN MEDICINE 05/04/23 Minh Sánchez MD [address] [place] [address] [address] [place] [address] Consulting Physician Internal Medicine Pulmonary Disease 05/04/23 Stevo Wild MD [address] [place] [address] Surgeon SURGERY 08/28/23 documented as of this encounter
--- OUTSIDE RECORDS SUMMARY | 2024-10-25 04:48 | XMS_ITS | Clinical Summary ---
Author Organization [facility] Paula gutierrez Address [address] [place] [address] Phone Care Team Providers Care Wellness Guide Name Role Phone Romeo Neville MD Primary Care Provider [phone] Allergies Active Allergy Reactions Criticality Noted Date Comments Lisinopril Cough High 11/04/2020 Chronic cough. Chronic cough. Medications albuterol HFA (PROVENTIL HFA) 108 (90 Base) MCG/ACT inhaler albuterol sulfate HFA 90 mcg/actuation aerosol inhaler Active Alcohol Swabs (Pharmacist Choice Alcohol) pads USE DIRECTED. CHECK 1-2 TIMES PER DAY. 2 Active allopurinol (ZYLOPRIM) 100 MG tablet every 12 hours 2 Active aspirin (ST PAT) 81 MG EC tablet aspirin 81 mg tablet,delayed release TAKE 1 TABLET BY MOUTH ONCE DAILY DIRECTED FOR 30 DAYS 2 Active atorvastatin (LIPITOR) 20 MG tablet TAKE 1 TABLET BY MOUTH ONCE DAILY AT BEDTIME FOR 90 DAYS 2 Active carvedilol (COREG) 25 MG tablet carvedilol 25 mg tablet TAKE 1 TABLET BY MOUTH TWICE DAILY 1 Active cyclobenzaprine (FLEXERIL) 10 MG tablet 2 Active Farxiga 10 MG tablet 2 Active DULoxetine (CYMBALTA) [address] capsule duloxetine 30 mg capsule,delayed release Active ergocalciferol (VITAMIN D-2) 1.25 MG (90132 UT) capsule 1 capsule Active Advair Diskus 250-50 MCG/ACT aerosol powder INHALE 1 PUFF TWICE DAILY, RINSE AND SPIT AFTER EACH DOSE. 2 Active furosemide (LASIX) 80 MG tablet Take 80 mg by mouth 2 (two) times a day 2 Active Tradjenta 5 MG tablet 2 Active losartan (COZAAR) 50 MG tablet Take 50 mg by mouth 1 (one) time each day 2 Active meloxicam (MOBIC) 7.5 MG tablet meloxicam 7.5 mg tablet TAKE 1 TABLET BY MOUTH ONCE DAILY NEEDED FOR 30 DAYS Active metOLazone (ZAROXOLYN) 2.5 MG tablet TAKE 1 TABLET BY MOUTH 3 TIMES A WEEK. TAKE TUESDAY, TUESDAY, AND TUESDAY 30 MINUTES PRIOR TO MORNING LASIX DOSE 2 Active pantoprazole (PROTONIX) 20 MG EC tablet pantoprazole 20 mg tablet,delayed release TAKE 1 TABLET BY MOUTH ONCE DAILY Active potassium chloride (KLOR-CON M10) 10 MEQ CR tablet Take 10 mEq by mouth 1 (one) time each day 2 Active spironolactone (ALDACTONE) 25 MG tablet 2 Active Active Problems Problem Noted Date Diagnosed Date Heart failure with reduced ejection fraction 09/2021 Edema of lower extremity 08/28/2021 Nicotine dependence 08/28/2021 Dyspnea on exertion 08/28/2021 Pain of right shoulder joint 08/27/2021 Hypoxia 08/14/2021 Shortness of breath 08/14/2021 Diabetes mellitus 07/22/2021 Gout 07/22/2021 Hyperlipidemia 07/22/2021 Hypertriglyceridemia 07/22/2021 Type II diabetes mellitus uncontrolled 2 Vitamin D deficiency 07/22/2021 Allergic bronchitis 06/16/2021 Chronic kidney disease stage 3 06/16/2021 Chronic obstructive pulmonary disease 06/16/2021 Cough 06/16/2021 Chronic low back pain 02/26/2021 Chronic thoracic back pain 02/26/2021 Degeneration of intervertebral disc 02/26/2021 Chronic neck pain 12/31/2020 Congestive heart failure 11/10/2020 Depressive disorder 11/10/2020 Gastro-esophageal reflux disease without esophag itis 11/10/2020 Morbid obesity 11/10/2020 Obstructive sleep apnea syndrome 11/10/2020 Smoker 11/10/2020 Acute on chronic combined sy stolic and diastolic heart failure 08/26/2020 Dyslipidemia 08/26/2020 Essential hypertension 08/26/2020 Nonischemic congestive cardiomyopathy 08/26/2020 Nonrheumatic mitral valve regurgitation 08/27/19 21 Chest pain 07/30/2019 Family History Medical History Relation Comments Lung cancer Father Hypertension Mother Relation Status Comments Father Mother Social History Tobacco Use Types Packs/Day Years Used Date Smoking Tobacco: Every Day Cigarettes 0.5 25 Smokeless Tobacco: Never Tobacco Cessation:Ready to Q uit: No; Counseling Given: Yes Alcohol Use Standard Drinks/Week Comments Never 0 (1 standard drink = 0.6 oz pur e alcohol) Sex and Gender Information Value Date Recorded Sex Assigned at Not on file Legal Sex Male 8:59 AM MDT Gender Identity Not on file Sexual Orientation Not on file Last Filed Vital Signs Vital Sign Reading Time Taken Comments Blood Pressure 128/88 10/15/2021 9:54 AM CDT Pulse - - Temperature 35.3 C (95.5 F) 10/15/2021 9:54 AM CDT Respiratory Rate 18 10/15/2021 9:54 AM CDT Oxygen Saturation - - Inhaled Oxygen Concentration - - Weight 142 kg (313 lb 3.2 oz) 10/15/2021 9:54 AM CDT Height 172.7 cm (5' 8) 10/15/2021 9:54 AM CDT Body Mass Index 47.62 10/15/2021 9:54 AM CDT Plan of Treatment Health Maintenance Due Date Last Done Comments Influenza Vaccine (#1) 2024 Insurance MEDICARE [place] [place] [address] [place] [address] [facility] Care Teams Wellness Guide Relationship Specialty Start Date End Date Romeo Neville MD [address] [place] [address] Iván [place] [address] PCP - General Internal Medicine 10/01/21
--- OUTSIDE RECORDS SUMMARY | 2024-10-25 04:48 | XMS_ITS | Encounter Summary ---
Author Organization [facility] Address [facility] [place] [address] Care Team Providers Care Fixture Repairer Fabricator Name Role Phone Kenyatta Boucher Primary Care Provider [phone] Tone Cisneros MD Unavailable [phone] Dre Matamoros MD Unavailable Robel Basilio MD Unavailable [phone] Carmela Paez MD Unavailable [phone] Minh Sánchez MD Unavailable [phone] Stevo Wild MD Unavailable [phone] Encounter Details Date Type Department Care Team (Late st Contact Info) Description 08/22/2023 [employer] Message Enc [facility] Multispecialty Care - [facility] 3 [facility] [address], [place] [address] [place] [phone] Aaliyah, [facility] Provider appt Social History Tobacco Use Types Packs/Day Years Used Date Smoking Tobacco: Former Cigarettes 0.5 25 0 03/1998 - 03/2023 Smokeless Tobacco: Never Comments:I wish i never woul d have started. Alcohol Use Standard Drinks/Week Comments Never 0 (1 standard drink = 0.6 oz pur e alcohol) [facility] Utilities Answer Date Recorded In the past 12 months has th e electric, gas, oil, or water [employer] threatened to shut off services in your home? No 06/23/2023 Humiliation, Afraid, Rape, and Kick questionnair e Answer Date Recorded Within the last year, have y ou been afraid of your partner or ex-partner? No 06/23/2023 Within the last year, have y ou been humiliated or emotionally abused in other ways by your partner or ex-partner? No Within the last year, have y ou been kicked, hit, slapped, or otherwise physically hurt by your partner or ex-partner? No 06/23/2023 Within the last year, have y ou been raped or forced to have any kind of sexual activity by your partner or ex-partner? No 06/23/2023 [employer]UD[employer]-C Answer Date Recorded Frequency of Alcohol Consumption Never 07/29/2019 Average Number of Drinks Not on file 020 Frequency of Binge Drinking Not on file 08/2019 Overall Financial Resource Strain (CARDIA) Answe r Date Recorded How hard is it for you to pa y for the very basics like food, housing, medical care, and heating? Not hard at all 06/23/2023 PHQ-2 Answer Date Recorded Patient Health Questionnaire-2 Score 0 08/22/2023 Hunger Vital Sign Answer Date Recorded Within the past 12 months, y ou worried that your food would run out before you got the money to buy more. Never true 06/23/19 24 Within the past 12 months, t he food you bought just didn't last and you didn't have money to get more. Never true 06/23/2023 PRAPARE - Transportation Answer Date Re corded In the past 12 months, has l ack of transportation kept you from medical appointments or from getting medications? No 03/2023 In the past 12 months, has l ack of transportation kept you from meetings, work, or from getting things needed for daily living? No 06/23/2023 Housing Stability Vital Sign Answer Forrest e [...] to sleep or slept in a senior living (including now)? No 05/18/2023 Housing Stability Vital Sign Answer Forrest e Recorded In the last 12 months, was t here a time when you were not able to pay the mortgage or rent on time? No 06/23/2023 In the past 12 months, how m any times have you moved where you were living? 1 06/23/2023 At any time in the past [address] [facility], were you homeless or living in a senior living (including now)? No 06/23/2023 Sex and Gender Information Value Date Recorded Sex Assigned at Male 04/15/2023 8:00 AM CONTRACT RECRUITER Legal Sex Male 6:53 PM CDT Gender Identity Male 10/12/2021 6:16 AM CDT Sexual Orientation Straight 10/29/2021 5: 40 AM CDT documented as of this encounter Functional Status * Are you deaf or do you have serious difficulty hearing Answer Date of Assessment Author Status No 06/23/2023 7:00 AM CDT Alec Ramos RN Active * Are you blind or do you have serious difficulty seeing, even when wearing glasses? Answer Date of Assessment Author Status No 06/23/2023 7:00 AM CDT Alec Ramos RN Active * Do you have serious difficulty walking or climbing stairs? Answer Date of Assessment Author Status Yes 06/23/2023 7:00 AM CDT Alec Ramos RN Active * Do you have difficulty dressing or bathing? Answer Date of Assessment Author Status No 06/23/2023 7:00 AM CDT Alec Ramos RN Active * Because of a physical, mental, or emotional condition, do you have difficulty doing errands alone such as visiting a doctor's office or shopping? Answer Date of Assessment Author Status No 06/23/2023 7:00 AM CDT Alec Ramos RN Active * Over the past 2 weeks, how often have you been bothered by any of the following problems? Question Answer Date of Assessment Author Status Little interest or pleasure in doing things Not at all 08/22/2023 12:04 PM CDT Rosana Jean Baptiste LPN Acti ve Feeling down, depressed, or hopeless Not at all 08/22/2023 12:04 PM CDT Rosana Jean Baptiste L PN Active Patient Health Questionnaire-2 Score 0 08/22/2023 12:04 PM CDT Rosana Jean Baptiste, LP N Active documented as of this encounter Mental Status * Because of a physical, mental, or emotional condition, do you have serious difficulty concentrating, remembering, or making decisions? Answer Entry Date Author Status Yes 06/23/2023 7:00 AM CDT Alec Ramos RN Active documented in this encounter Plan of Treatment Upcoming Encounters Date Type Department Care Team (Late st Contact Info) Description 10/29/2024 11:20 AM CDT Office Visit [facility] Family Medicine - [place] [address] [facility], [address] [place] [phone] Kenyatta Boucher, DO [address] [facility] [address] [place], [place] [address] 10/29/2024 1:40 PM CDT Office Visit [facility] Multispecialty Care - [facility] 3 [facility], [facility] [address] [place] [phone] Robel Basilio MD [address] [place] [address], [facility] [address] [place] [address] 12/17/2024 2:00 PM CDT [facility] [place] [address] [place] [address] Dre Matamoros MD [facility]. [facility] [address] [place], [place] [address] 01/14/2025 3:05 PM CONTRACT RECRUITER Allied Health/Nurse [facility] [place] [facility] [address] [place], [place] [address] Stevo Junior MD Three [facility]. [facility] [address] [place], [place] [id number] documented as of this encounter Goals Goal [...] Depression Total Score: 18 024 11:02 AM CONTRACT RECRUITER documented as of this encounter Care Teams Fixture Repairer Fabricator Relationship Specialty Start Date End Date Kenyatta Boucher DO [address] [place], [place] [phone] PCP - General FAMILY PRACTICE 12/25/21 Tone Cisneros MD [facility] [address] [place], [place] [address] Consulting Physician CARDIOVASCULAR DISEASE 05/04/23 Dre Matamoros MD [facility]. [facility] [address] [place], [place] [address] Consulting Physician CLINICAL CARDIAC ELECTROPHYSIOLOGY 05/04/23 Robel Basilio MD 3 [facility], [facility] [address] [place] [address] Consulting Physician NEPHROLOGY 05/04/23 Carmela Paez MD [facility] [address] [place], [place] [address] Consulting Physician ANESTHESIOLOGY PAIN MEDICINE 05/04/23 Minh Sánchez MD [address] [address] Consulting Physician Internal Medicine Pulmonary Disease 05/04/23 [place] [address] [place] [address] Surgeon SURGERY 08/28/23 documented as of this encounter
--- OUTSIDE RECORDS SUMMARY | 2024-10-25 04:48 | XMS_ITS | Clinical Summary ---
Author Organization [facility] Address [address] [place] [address] Care Team Providers Care Induction Furnace Operator Name Role Phone Unavailable Primary Care Provider [...] Diabetes: Hemoglobin A1C 03/27/2022 12/25/2021 Influenza Vaccine (#1) 2024 Insurance Medicare
--- OUTSIDE RECORDS SUMMARY | 2024-10-25 04:48 | XMS_ITS | Encounter Summary ---
Author Organization [facility] Address [facility] [place] [address] Care Team Providers Care Healthcare Educator Name Role Phone Kenyatta Boucher Primary Care Provider [phone] Tone Cisneros MD Unavailable [phone] Dre Matamoros MD Unavailable Robel Basilio MD Unavailable [phone] Carmela Paez MD Unavailable [phone] Minh Sánchez MD Unavailable [phone] Stevo Wild MD Unavailable [phone] Encounter Details Date Type Department Care Team (Late st Contact Info) Description 07/16/2022 EchoFirst Message Enc [facility] THREE [facility], [address] [place] [address] Tone Cisneros MD Three [facility] [address] [place] [address] Request Social History Tobacco Use [...] place to sleep or slept in a detention (including now)? No 04/04/2022 Sex and Gender Information Value Date Recorded Sex Assigned at Male 04/15/2023 8:00 AM LIFE UNDERWRITER Legal Sex Male 6:53 PM CDT Gender [...] Author Status No 05/27/2022 5:51 PM CDT aOnh Bates RN Active documented as of this [...] Description 10/29/2024 11:20 AM CDT Office Visit [facility] Family Medicine - [place] [address] [facility], [address] [place] [address] Kenyatta Boucher DO [address] [place] [address] 10/29/2024 1:40 PM CDT Office Visit [facility] Multispecialty Care - [facility] 3 [facility], [address] [place] [address] Robel Basilio MD 3 [facility], [address] [place] [address] 12/17/2024 2:00 PM CDT Office Visit [facility] THREE [facility], [address] [place] [address] Dre Matamoros MD Three [facility]. [address] [place] [address] 01/14/2025 3:05 PM LIFE UNDERWRITER Allied Health/Nurse Visit [facility] THREE [facility], [facility] [address] [place] [address] Stevo Junior MD Three [facility]. [facility] [address] [place] [address] documented as of this encounter Visit Diagnoses Not on filedocumented in this encounter Additional Health Concerns Infection Onset Date Last Indicated Resolved Time COVID-19 Rule Out 06/24/2023 06/24/2023 06/24/2023 2:10 PM CDT Assessment Noted Time PHQ-9 Depression Total Score: 0 02/05/20 22 1:34 PM LIFE UNDERWRITER documented as of this encounter Care Teams Healthcare Educator Relationship Specialty Start Date End Date CitlalyKelleyaDO [address] [facility] [place] [address] PCP - General FAMILY PRACTICE 12/25/21 Tone Cisneros MD Three [facility] [address] [place] [address] Consulting Physician CARDIOVASCULAR DISEASE 05/04/23 Dre Matamoros MD Three [facility]. [facility] [address] [place] [address] Consulting Physician CLINICAL CARDIAC ELECTROPHYSIOLOGY 05/04/23 Robel Basilio MD 3 [facility], [facility] [address] [place] [address] Consulting Physician NEPHROLOGY 05/04/23 Carmela Paez MD Three [facility] [address] [place] [address] Consulting Physician ANESTHESIOLOGY PAIN MEDICINE 05/04/23 Minh Sánchez MD 3 [facility] [address] [place] [address] Consulting Physician Internal Medicine Pulmonary Disease 05/04/23 Stevo Wild MD [address] [place] [id number] Surgeon SURGERY 08/28/23 documented as of this encounter
--- OUTSIDE RECORDS SUMMARY | 2024-10-25 04:48 | XMS_ITS | Encounter Summary ---
Author Organization [facility] Address [facility] [place] [address] Care Team Providers Care Firebrick Layer Helper Name Role Phone None, Provider Primary Care Provider Unavaila Romeo Iraheta MD Primary Care Provider [phone] Kenyatta Boucher DO Primary Care Provider [phone] Tone Cisneros MD Unavailable [phone] Dre Matamoros MD Unavailable Robel Basilio MD Unavailable [phone] Carmela Paez MD Unavailable [phone] Minh Sánchez MD Unavailable [phone] Stevo Wild MD Unavailable [phone] Encounter Details Date Type Department Care Team (Late st Contact Info) Description 07/30/2019 Hospital Follow-up Call [facility] Telemetry Unit [address] [facility] [place] [address] Sarai Quinonez, RN Social History Tobacco Use Types Packs/Day Years [...] Sex Assigned at Male 04/15/2023 8:00 AM REPEAT PHOTOCOMPOSING MACHINE OPERATOR Legal Sex Male 6:53 PM CDT Gender Identity Male 10/12/2021 6:16 AM CDT Sexual Orientation Straight 10/29/2021 5: 40 AM CDT COVID-19 Exposure Response Date Recorded In the last month, have you been in contact with someone who was confirmed or suspected to have Coronavirus / COVID-19? No / Unsure 07/29/2019 9:31 PM CDT documented as of this encounter Functional Status * Question Answer Date of Assessment Author Status Do you have serious difficulty walking or climbing stairs? No 07/30/2019 1:20 AM CDT Cely Weir RN A ctive * Question Answer Date of Assessment Author Status Do you have difficulty dressing or bathing? No 07/30/2019 1:20 AM CDT Cely Weir RN Active Because of a physical, mental, or emotional condition, do you have difficulty doing errands alone such as visiting a doctor's office or shopping? No 07/30/2019 1:20 AM CDT Cely Weir RN Ac tive * RETIRED Are you deaf or do you have serious difficulty hearing Answer Date of Assessment Author Status No 07/30/2019 1:20 AM CDT Activ e * RETIRED Are you blind or do you have serious difficulty seeing, even when wearing glasses? Answer Date of Assessment Author Status No 07/30/2019 1:20 AM CDT Activ e * Do you have serious difficulty walking or climbing stairs? Answer Date of Assessment Author Status No 07/30/2019 1:20 AM CDT Cely Weir RN Active * Do you have difficulty dressing or bathing? Answer Date of Assessment Author Status No 07/30/2019 1:20 AM CDT Cely Weir RN Active * Because of a physical, mental, or emotional condition, do you have difficulty doing errands alone such as visiting a doctor's office or shopping? Answer Date of Assessment Author Status No 07/30/2019 1:20 AM ELVIAT Cely Weir RN Active documented as of this encounter Mental Status * Question Answer Entry Date Author Status Because of a physical, mental, or emotional condition, do you have serious difficulty concentrating, remembering, or making decisions? No 07/30/2019 1:20 AM CDT Cely Weir RN Active * Because of a physical, mental, or emotional condition, do you have serious difficulty concentrating, remembering, or making decisions? Answer Entry Date Author Status No 07/30/2019 1:20 AM CDT Cely Weir RN Active documented in this encounter Plan of Treatment Upcoming Encounters Date Type Department Care Team (Late st Contact Info) Description 10/29/2024 11:20 AM CDT Office Visit [facility] [place] [address] [facility], [address] [place] [phone] Kenyatta Boucher, DO [address] [facility] [place] [address] 10/29/2024 1:40 PM CDT Office Visit [facility] Multispecialty Care - [facility] 3 [facility], [facility] [address] [place] [address] Robel Basilio MD [address] [place] [address], [facility] [address] [place] [address] 12/17/2024 2:00 PM CDT Office [facility] THREE [facility], [facility] [address] [place] [address] Dre Matamoros MD [facility]. [facility] [address] [place] [address] 01/14/2025 3:05 PM REPEAT PHOTOCOMPOSING MACHINE OPERATOR Allied Health[facility] [address] [place] [address] Stevo Junior MD [facility]. [place] [address] [place], [place] [address] documented as of this encounter Visit Diagnoses Not on filedocumented in this encounter Additional Health Concerns Infection Onset Date Last Indicated Resolved Time COVID-19 Rule Out 08/17/2021 08/17/2021 08/17/2021 10:44 AM CDT COVID-19 Rule Out 11/13/2021 11/13/2021 11/13/2021 9:58 AM CDT COVID-19 Rule Out 06/24/2023 06/24/2023 06/24/2023 2:10 PM CDT documented as of this encounter Care Teams Firebrick Layer Helper Relationship Specialty Start Date End Date None, Wilberto, PCP - General 07/29/19 08/20/21 Romeo Neville MD PCP - General HOSPITALIST 08/21/21 12/24/21 Kenyatta Boucher DO [address] [place] [id number] PCP - General FAMILY PRACTICE 12/25/21 Tone Cisneros MD Three [facility] [address] [place], [place] [id number] Consulting Physician CARDIOVASCULAR DISEASE 05/04/23 Dre Matamoros MD Three [facility]. [place] [address] [place], [place] [id number] Consulting Physician CLINICAL CARDIAC ELECTROPHYSIOLOGY 05/04/23 Robel Basilio MD 3 [facility], [address] [place], [place] [address] Consulting Physician NEPHROLOGY 05/04/23 Carmela Paez MD Three [facility] [address] [place] [address] Consulting Physician ANESTHESIOLOGY PAIN MEDICINE 05/04/23 Minh Sánchez MD 3 [facility] [address] [address] [place], [place] [address] Consulting Physician Internal Medicine Pulmonary Disease 05/04/23 Stevo Wild MD [address] [place] [phone] Surgeon SURGERY 08/28/23 documented as of this encounter
--- OUTSIDE RECORDS SUMMARY | 2024-10-25 04:48 | XMS_ITS | Encounter Summary ---
Author Organization [facility] Address [facility] [place] [address] Care Team Providers Care Measurement Superintendent Name Role Phone Romeo Neville MD Primary Care Provider [phone] Kenyatta Boucher DO Primary Care Provider [phone] Tone Cisneros MD Unavailable [phone] Dre Matamoros MD Unavailable Robel Basilio MD Unavailable [phone] Carmela Paez MD Unavailable [phone] Minh Sánchez MD Unavailable [phone] Stevo Wild MD Unavailable [phone] Reason for Visit * Reason Onset Date Comments Schedule Procedure 10/27/2021 Encounter Details Date Type Department Care Team (Late st Contact Info) Description 10/27/2021 Online Milestone Platform Message Enc [facility] [facility] THREE [facility], [facility] [address] [place], [place] [id number] Dre Matamoros MD [facility]. [address] [place], [place] [id number] Procedure Social History Tobacco Use Types Packs/Day Years [...] Sex Assigned at Male 04/15/2023 8:00 AM MANAGER PORT Legal Sex Male 6:53 PM CDT Gender [...] documented in this encounter Progress Notes * Margot Sandoval - 10/28/2021 6:35 PM CDT Procedure scheduled. * Margot Sandoval - 10/28/2021 3:18 PM CDTFrom: Margot Gillespie To: Isaiah Tanner La Sent: 10/27/2021 4:43 PM CDT Subject: Procedure Onel Larry, The label sewermalthouse laborer got back with me about the anesthesia schedule. She can schedule your procedure for 11/13/21 at 11:00 am with a 9:00 am arrival. Just let elisew if that day will work. If not I can get ahold of her again and try for something else. Thank you, Margot documented in this encounter Plan of Treatment Upcoming Encounters Date Type Department Care Team (Late st Contact Info) Description 10/29/2024 11:20 AM CDT Office Visit [facility] Family Medicine - [place] [id number] [facility], [address] [place] [address] Kenyatta Boucher, DO [address] [place] [address] 10/29/2024 1:40 PM CDT Office Visit [facility]ty Care - [facility] 3 [facility], [facility] [address] [place] [phone] Robel Basilio MD 3 [facility] [place], [facility] [address] [place] [address] 12/17/2024 2:00 PM CDT Office Visit [facility] THREE [facility], [facility] [address] [place] [address] Dre Matamoros MD Three [facility]. [facility] [address] [place] [address] 01/14/2025 3:05 PM MANAGER PORT Allied Health/Nurse Visit [facility], [facility] [address] [place] [address] Stevo Junior MD Three [facility]. [facility] [address] [place] [address] documented as of this encounter Visit Diagnoses Not on filedocumented in this encounter Additional Health Concerns Infection Onset Date Last Indicated Resolved Time COVID-19 Rule Out 11/13/2021 11/13/2021 11/13/2021 9:58 AM CDT COVID-19 Rule Out 06/24/2023 06/24/2023 06/24/2023 2:10 PM CDT documented as of this encounter Care Teams Measurement Superintendent Relationship Specialty Start Date End Date Romeo Neville MD PCP - General HOSPITALIST 08/21/21 12/24/21 Kenyatta Boucher DO [address] [place] [id number] PCP - General FAMILY PRACTICE 12/25/21 Tone Cisneros MD [facility] [address] [place] [address] Consulting Physician CARDIOVASCULAR DISEASE 05/04/[address] [facility]. [facility] [address] [place] [address] Consulting Physician CLINICAL CARDIAC ELECTROPHYSIOLOGY 05/04/23 Robel Basilio MD [address] [place] [address], [facility] [address] [place] [address] Consulting Physician NEPHROLOGY 05/04/[address] [facility] [address] [place] [address] Consulting Physician ANESTHESIOLOGY PAIN MEDICINE 05/04/23 Minh Sánchez MD [address] [place] [address] [address] [place] [address] Consulting Physician Internal Medicine Pulmonary Disease 05/04/23 Stevo Wild MD [address] [place] [address] Surgeon SURGERY 08/28/23 documented as of this encounter
[2024-10-25 04:51] LABS: Lipase 106 U/L (23-300)
[2024-10-25 05:24] LABS: Hypochromasia 1+
[2024-10-25 05:25] LABS: Ovalocytes 1+; Schistocytes None Seen
[2024-10-25 06:14] LABS: Alanine Aminotransferase 35 U/L (6-50); Albumin Level 4.2 g/dL (3.5-5.1); Alkaline Phosphatase 144 U/L (38-126); Anion Gap 15 mmol/L (4-12); Aspartate Amino Transferase 81 U/L (17-59); Bilirubin,Total 4.0 mg/dL (0.2-1.3); Blood Urea Nitrogen 64 mg/dL (9-20); Calcium 9.9 mg/dL (8.4-10.2); Carbon Dioxide 20 mmol/L (22-30); Chloride 100 mmol/L (98-107); Estimated CRCL calculation 38 ml/min; Estimated Glomerular Filt Rate 26; Glucose 76 mg/dL (65-110); Potassium 4.5 mmol/L (3.4-5.0); Sodium 135 mmol/L (137-145); Total Protein 8.4 g/dL (6.3-8.2)
[2024-10-25 06:14] LABS: Troponin I 0.081 ng/mL (0.000-0.034)
[2024-10-25] MEDS: SODIUM CHLORIDE 0.9% IV 500 ML 999 ML IV CONT (06:24)
[2024-10-25] MEDS: HYDROmorphone HCL INJ (*CRX) 1 MG/ML SYR IV PUSH (08:10)
--- NOTE | 2024-10-25 08:15 | ECG_ITS ---
Test Date: 2024-10-25 08:25:11 Measurements Intervals Bend Rate: 69 P: 199 OK: 162 QRS: 199 QRSD: 186 T: 29 QT: 474 QTc: 511 Interpretive Statements ELECTRONIC ATRIAL PACEMAKER ELECTRONIC BIVENTRICULAR PACEMAKER ABNORMAL RHYTHM ECG Compared to ECG 10/25/2024 04:05:26 No significant changes Electronically Signed On 10-25-2024 11:40:19 CDT by Vito Reyes M.D.
[2024-10-25 08:56] LABS: Troponin I 0.071 ng/mL (0.000-0.034)
--- NOTE | 2024-10-25 09:13 | PC.NURSE ---
Meal tray ordered for pt
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
--- NOTE | 2024-10-25 10:48 | ADMGEN ---
This patient, Isaiah La, was admitted to IMU Room 211-01. Patient/family oriented to hospital policies and general routines including ID bracelet, bed and alarms, visiting hours, pain management, procedures, bathroom and other care routines, personal items, smoking policy, room service/diet, and visiting hours. Information on how to activate the Rapid Response Team has been discussed. Patient/Family are encouraged to report perceived risks to care and to ask questions if they do not understand what they are told or what they should do.
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
[2024-10-25] MEDS: BUMETANIDE INJ 1 MG/4 ML VIAL 2 MG IV PUSH ×2 (13:20→17:35)
[2024-10-25] MEDS: POTASSIUM CHLORIDE 10 MEQ ER TABLET PO (17:35)
[2024-10-25] MEDS: IVABRADINE 5 MG PO (17:35)
[2024-10-25] MEDS: [UNRECOGNIZED DRUG - OTHER] PO (17:35)
[2024-10-25] MEDS: ACETAMINOPHEN 500 MG TABLET PO (19:17)
[2024-10-25 20:19] LABS: Alanine Aminotransferase 46 U/L (6-50); Albumin Level 3.9 g/dL (3.5-5.1); Alkaline Phosphatase 123 U/L (38-126); Anion Gap 12 mmol/L (4-12); Aspartate Amino Transferase 91 U/L (17-59); Bilirubin,Total 4.3 mg/dL (0.2-1.3); Blood Urea Nitrogen 61 mg/dL (9-20); Calcium 9.4 mg/dL (8.4-10.2); Carbon Dioxide 23 mmol/L (22-30); Chloride 96 mmol/L (98-107); Estimated CRCL calculation 40 ml/min; Estimated Glomerular Filt Rate 28; Glucose 143 mg/dL (65-110); Potassium 4.5 mmol/L (3.4-5.0); Sodium 131 mmol/L (137-145); Total Protein 7.9 g/dL (6.3-8.2)
[2024-10-25] MEDS: FAMOTIDINE 20 MG TABLET PO (20:25)
[2024-10-25] MEDS: HYDROcodone/acetaminophen (*CRX) 5-325 MG TABLET 1 TAB PO (20:25)
[2024-10-25] MEDS: APIXABAN 5 MG TABLET PO (20:25)
[2024-10-25 20:41] LABS: Troponin I 0.049 ng/mL (0.000-0.034)
[2024-10-26] VITALS (18 sets, daily range): BP systolic 99–115; BP diastolic 74–85; PULSE 70–85; RESP 18–20; TEMP 36.4–36.9; O2SAT 95–100
--- NOTE | 2024-10-26 | ECHO_ITS ---
Patient Info Name: Isaiah La Age: 44 years : 1980 Gender: Male HR: 78 bpm BP: 103 / 85 mmHg Technical Quality: Good Exam Date: 10/26/2024 1:53 PM Patient Status: I Admit Date: 10/26/2024 Exam Type: CA echo doppler color flow Complete two-dimensional, color flow and Doppler transthoracic echocardiogram is performed. Staff Referring Physician: Noel Guardado Glove Finisher: Chun Frias III Attending Provider: Shayna Zuniga Summary 1. Complete two-dimensional, color flow and Doppler transthoracic echocardiogram is performed. 2. The left ventricle is severely dilated with severely reduced systolic function. LVEDD 9.2cm. LVEF visually 10%. There is severe global hypokinesis. 3. The right ventricle is dilated with mildly reduced systolic function. There is a echodense structure in the right ventricle that is likely a pacemaker lead. 4. There is severely reduced cardiac output. 5. There is malcoaptation of the mitral valve leaflets lab with a restricted posterior mitral valve leaflet resulting in severe eccentric mitral regurgitation. 6. Dilated inferior vena cava with <50% collapse upon inspiration consistent with significantly elevated right atrial pressure, 15 mmHg. Left Ventricle The left ventricle is severely dilated with severely reduced systolic function. LVEDD 9.2cm. LVEF visually 10%. There is severe global hypokinesis. Right Ventricle The right ventricle is dilated with mildly reduced systolic function. There is a echodense structure in the right ventricle that is likely a pacemaker lead. Left Atria The left atrium is dilated. Right Atria The right atrium is dilated. There is an echodense structure in the right atrium that is likely a pacemaker lead. Atrial Septum The atrial septum is normal. Aortic Valve The aortic valve is trileaflet and opens well. There is no aortic regurgitation. Pulmonic Valve The pulmonic valve is normal. There is mild pulmonic valve regurgitation. Mitral Valve There is malcoaptation of the mitral valve leaflets lab with a restricted posterior mitral valve leaflet resulting in severe eccentric mitral regurgitation. Tricuspid Valve The tricuspid valve is normal. There is mild tricuspid regurgitation. Pericardium/Pleural Pericardium is normal in appearance with no evidence for significant pericardial effusion. Inferior Vena Cava Dilated inferior vena cava with <50% collapse upon inspiration consistent with significantly elevated right atrial pressure, 15 mmHg. Aorta The aortic root at the level of the sinus of Valsalva measures 2.7 cm in diameter. Left Ventricular Outflow Tract Name Value Normal LVOT 2D LVOT Diameter 2.5 cm LVOT Doppler LVOT Peak Velocity 73 cm/s LVOT Peak Gradient 2 mmHg LVOT Mean Gradient 1 mmHg LVOT VTI 11 cm LVOT VTI/AV VTI Ratio 0.9 LVOT Stroke Volume 56 ml LVOT CO 15.5 l/min Pulmonic Valve Name Value Normal PV Regurgitation Doppler SD Peak End Diastolic Velocity 166 cm/s Mitral Valve Name Value Normal MV Doppler MV Peak Gradient 9 mmHg MV Mean Gradient 3 mmHg MV Area (Cont Eq VTI) 1.5 cm2 MV Regurgitation Doppler MR Peak Gradient 84 mmHg MV Diastolic Function MV E Peak Velocity 131 cm/s MV A Peak Velocity 71 cm/s MV E/A 1.9 MV Decel Time (PW) 167 ms MV Annular TDI MV E/e' (Septal) 28.3 MV E/e' (Lateral) 41.8 MV E/e' (Average) 35.0 Tricuspid Valve Name Value Normal TV Regurgitation Doppler TR Peak Velocity 206 cm/s TR Peak Gradient 17 mmHg Estimated PAP/RSVP RA Pressure 15 mmHg <=5 PA Systolic Pressure 32 mmHg <36 RV Systolic Pressure 32 mmHg <36 TV Annular TDI TV Lateral Josy s' Velocity 12.1 cm/s >=9.5 Aortic Valve Name Value Normal AV Doppler AV Peak Velocity 84 cm/s AV Peak Gradient 3 mmHg AV Mean Gradient 2 mmHg AV VTI 12 cm AV Area (Cont Eq VTI) 4.6 cm2 >=3.0 AV Area (Cont Eq Celestine) 4.3 cm2 AV DI (Celestine) 0.87 AV Regurgitation 2D LVOT Area 5.0 cm2 Ventricles Name Value Normal LV Dimensions 2D/MM IVS Diastolic Thickness (2D) 9.2 cm 0.6-1.0 LVID Diastole (2D) 9.2 cm 4.2-5.8 LVID Systole (2D) 8.5 cm 2.5-4.0 LVOT Diameter 2.5 cm LV Fractional Shortening/Ejection Fraction 2D/MM LV Fractional Shortening (2D) 7 % 25-43 LV EF (2D Teichholz) 16 % LV Diastolic Volume (4C MOD) 451 ml LV EF (4C MOD) 19 % LV Diastolic Volume (2C MOD) 448 ml LV EF (2C MOD) 15 % LV Diastolic Volume (BP MOD) 453 ml 62-150 LV Systolic Volume (BP MOD) 381 ml 21-61 LV EF (BP MOD) 16 % 52-72 LV Diastolic Length (4C) 10.8 cm LV Systolic Length (4C) 10.2 cm LV Stroke Volume (4C MOD) 84 ml Atria Name Value Normal LA Dimensions LA Volume (4C A-L) 162 ml LA Volume (BP A-L) 188 ml RA Dimensions RA Area (4C) 35.6 cm2 <=18.0 Report Signatures
[2024-10-26] MEDS: HYDROcodone/acetaminophen (*CRX) 5-325 MG TABLET 1 TAB PO ×3 (02:11→15:13)
[2024-10-26 04:22] LABS: Hematocrit 38.0 % (42.0-52.0); Hemoglobin 11.5 g/dL (14.0-18.0); Immature Granulocyte Percent A 0.2 % (0-0.5); Lymphocytes Absolute Auto 1.10 K/mm3 (0.9-3.2); Mean Corpuscular HGB Conc 30.3 g/dl (32-36); Mean Corpuscular Hemoglobin 26.9 pg (26-34); Mean Corpuscular Volume 89.0 fl (80-100); Nucleated Red Blood Cells Absolute Auto 0.000 K/mm3 (0.0-0.012); Nucleated Red Blood Cells Perc 0.0 % (0.0-0.2); Platelet Count Result 266 k/mm3 (150-375); Red Blood Count 4.27 M/mm3 (4.6-6.20); White Blood Count 4.4 K/mm3 (4.5-10.0)
[2024-10-26 04:30] LABS: Hemoglobin A1C 6.0 % (<5.7)
[2024-10-26 04:35] LABS: Alanine Aminotransferase 46 U/L (6-50); Albumin Level 3.9 g/dL (3.5-5.1); Alkaline Phosphatase 124 U/L (38-126); Anion Gap 12 mmol/L (4-12); Aspartate Amino Transferase 96 U/L (17-59); Bilirubin,Total 4.1 mg/dL (0.2-1.3); Blood Urea Nitrogen 63 mg/dL (9-20); Calcium 9.3 mg/dL (8.4-10.2); Carbon Dioxide 25 mmol/L (22-30); Chloride 97 mmol/L (98-107); Estimated CRCL calculation 40 ml/min; Estimated Glomerular Filt Rate 28; Glucose 86 mg/dL (65-110); Potassium 4.1 mmol/L (3.4-5.0); Sodium 134 mmol/L (137-145); Total Protein 7.9 g/dL (6.3-8.2)
[2024-10-26 04:41] LABS: Anisocytosis 1+; Hypochromasia 1+; Ovalocytes 1+; Schistocytes None Seen
[2024-10-26] MEDS: FAMOTIDINE 20 MG TABLET PO ×2 (09:04→20:31)
[2024-10-26] MEDS: APIXABAN 5 MG TABLET PO ×2 (09:04→20:31)
[2024-10-26] MEDS: POTASSIUM CHLORIDE 20 MEQ ER TABLET PO (09:05)
[2024-10-26] MEDS: BUMETANIDE INJ 1 MG/4 ML VIAL 2 MG IV PUSH ×2 (09:06→18:17)
[2024-10-26] MEDS: [UNRECOGNIZED DRUG - OTHER] PO (09:07)
[2024-10-26] MEDS: IVABRADINE 5 MG PO (09:07)
--- NOTE | 2024-10-26 11:35 | P.PNIM_ITS ---
Progress Note: A&P Assessment and Plan (1) Heart failure with reduced ejection fraction: Code(s): I50.20 - Unspecified systolic (congestive) heart failure Status: Acute Assessment and Plan: - acute on chronic CHF exacerbation with significantly reduced EF - most recent echo (08/2023): LV chamber severely enlarged, systolic function severely reduced with an estimated EF of 15-20%, RV systolic function normal, biatrial enlargement (mild to severe), valvular disease. Continue Bumex 2mg IV bid, ivabradine per cards ECHO pending Cardiology following - monitor I&Os and daily weights (2) Acute on chronic renal failure: Qualifiers: Acute renal failure type: unspecified Chronic kidney disease stage: unspecified stage Qualified Code(s): N17.9 - Acute kidney failure, unspecified; N18.9 - Chronic kidney disease, unspecified Code(s): N17.9 - Acute kidney failure, unspecified; N18.9 - Chronic kidney disease, unspecified Status: Acute Assessment and Plan: - creatinine 2.64 on admission, Creatinine 1.6 -2.2 baseline - Cr 2.49 continue Bumex and monitor renal function (3) Elevated troponin: Code(s): R79.89 - Other specified abnormal findings of blood chemistry Status: Acute Assessment and Plan: Cardiology evaluated and noted it is related to CNF (4) Abdominal pain: Qualifiers: Abdominal location: generalized Qualified Code(s): R10.84 - Generalized abdominal pain Code(s): R10.9 - Unspecified abdominal pain Status: Acute Assessment and Plan: - CT abdomen/pelvis: 1. Moderate cardiomegaly. 2. Diffuse intra-abdominal and body wall edema as well as small amount of ascites likely related to congestive heart failure. 3. Diffuse hepatic steatosis with suggestion of some liver surface nodularity raising some suspicion for cirrhosis. 4. Wall thickening of the gallbladder due to at least in part to decompressed state which would argue against acute cholecystitis. This could also be due to congestive heart failure or chronic cholecystitis. If there is continued clinical concern for acute cholecystitis could consider HIDA scan for further evaluation. 5. Mild emphysema. 6. Moderate bilateral sacroiliitis which is relatively symmetric, which can be seen with ankylosing spondylitis, enteropathic arthritis and rheumatoid arthritis with differential also including psoriatic arthritis and reactive arthritis and osteoarthritis. - abdominal ultrasound: 1. Increased portal venous pulsatility consistent with congestive heart failure. 2. Normal gallbladder with no cholelithiasis with negative sonographic Johnson's sign. 3. Suggestion of some liver surface nodularity on the larger [id number] images which is not appreciated on the single high-resolution image which remains equivocal for cirrhosis. - total bilirubin 4.0, AST 81, ALT 35 -> imaging equivocal for cirrhosis. Trend LFTs - antiemetics prn No abdominal tenderness on exam. No cholelithiasis or sonographic Johnson sign the ultrasound. CT showed GB wall thickening which could be due to CHF for chronic cholecystitis. Continue diuretics (5) Type 2 diabetes mellitus: Qualifiers: Diabetes mellitus superintendent container terminal insulin use: without superintendent container terminal use Diabetes mellitus complication status: with kidney complications Diabetes mellitus complication detail: with chronic kidney disease Chronic kidney disease stage: stage 3 (moderate) Chronic kidney disease stage 3 subtype: stage 3a (GFR 45-59) Qualified Code(s): E11.22 - Type 2 diabetes mellitus with diabetic chronic kidney disease; N18.31 - Chronic kidney disease, stage 3a Code(s): E11.9 - Type 2 diabetes mellitus without complications Status: Acute Assessment and Plan: - hypoglycemia protocol - POC blood glucose ACHS - correct regimen ordered - high dose TIDWM based off BMI - A1C 6.2% on 09/13/2023, update (6) HTN (hypertension): Qualifiers: Hypertension type: unspecified Qualified Code(s): I10 - Essential (primary) hypertension Code(s): I10 - Essential (primary) hypertension Status: Chronic Assessment and Plan: - chronic, currently 131/83 - continue home medications: Coreg - monitor Plan Diet: Heart healthy DVT Prophylaxis: Eliquis Code Status: Full code Subjective Date/time seen: 10/26/24 11:35 Interval history: Comfortable at bedside ECHO and pacemaker interrogation ordered Review of Systems Review of Systems: All systems reviewed & are unremarkable except as noted in HPI and below Exam Narrative: no abdominal tenderness, mild conversational dyspnea but clear on exam. fidgety, anxious. Const: General: uncomfortable Other: , male, chronically ill-appearing HENMT: Face/Nose/Sinus: Normal nares present Mouth: Yes moist mucous membranes Eyes: General: appearance normal, both eyes and all related structures Sclera: sclerae normal Pupils: Equal, round and reactive pupils present EOM: EOMs intact bilaterally Resp: Auscultation: clear to auscultation bilaterally Other: No respiratory distress noted, mild conversational dyspnea. Cardio: Rate: regular rate Rhythm: regular rhythm Other: +murmur GI: Other: Abdomen soft, nondistended, nontender. Normoactive bowel sounds in all quadrants. Skin: General skin exam: normal color and no rashes or lesions noted Wounds: no wounds Neuro: Cranial nerves: Yes Equal, round and reactive pupils present Speech: normal speech Motor exam (neuro): 5/5 motor strength present throughout Sensory Exam: normal sensation Other: A&O x4 Extrem: Other: Trace edema to bilateral ankles, nonpitting and symmetric. Psych: Other: Fair insight and judgment. Patient is fidgety/restless, mildly anxious, tangential thinking. Objective Data Vital Signs Vital Signs: Vital Signs - 24 hr 10/25/24 11:53 10/25/24 12:00 10/25/24 14:00 Temperature 97.4 F L Pulse Rate 71 70 93 Respiratory Rate 16 Blood Pressure 131/83 Pulse Oximetry 96 Oxygen Delivery 10/25/24 16:00 10/25/24 16:00 10/25/24 18:00 Temperature 97.4 F L Pulse Rate 71 71 72 Respiratory Rate 20 Blood Pressure 101/66 Pulse Oximetry 92 Oxygen Delivery 10/25/24 19:43 10/25/24 20:00 10/25/24 20:00 Temperature 97.6 F Pulse Rate 84 84 72 Respiratory Rate 18 18 Blood Pressure 108/92 H Pulse Oximetry 96 96 Oxygen Delivery Room Air 10/25/24 22:00 10/25/24 23:22 10/26/24 00:00 Temperature 97.6 F Pulse Rate 74 81 84 Respiratory Rate 15 18 Blood Pressure 115/79 Pulse Oximetry 98 96 Oxygen Delivery Room Air 10/26/24 00:00 10/26/24 02:00 10/26/24 04:00 Temperature Pulse Rate 70 72 71 Respiratory Rate Blood Pressure Pulse Oximetry Oxygen Delivery Room Air 10/26/24 04:00 10/26/24 04:31 10/26/24 06:00 Temperature 97.7 F Pulse Rate 71 73 80 Respiratory Rate 20 Blood Pressure 115/74 Pulse Oximetry 95 Oxygen Delivery 10/26/24 08:00 10/26/24 09:12 10/26/24 11:33 Temperature 97.5 F L 97.9 F Pulse Rate 85 72 78 Respiratory Rate 18 18 Blood Pressure 99/76 L 103/85 Pulse Oximetry 99 100 Oxygen Delivery Intake/Output Intake/Output: Intake & Output 10/23/24 10/24/24 10/25/24 10/26/24 23:59 23:59 23:59 23:59 Intake Total 720 2164 Output Total 800 1025 Balance -80 1139 Meds/Results Medications: Active Medications Generic Name Dose Route Start Last Admin Trade Name Freq PRN Reason Stop Dose Admin Acetaminophen 500 mg 10/25/24 14:09 10/25/24 19:17 Acetaminophen 500 Mg Tablet PO 500 mg Q4H PRN Administration Mild Pain (1-3) or Fever Hydrocodone Bitart/Acetaminophen 1 tab 10/25/24 14:09 10/26/24 09:05 Hydrocodone/Acetaminophen (*Crx) 5-325 Mg Tablet PO 1 tab Q6H PRN Administration Pain Rated 4-6 Albuterol 2 puff 10/25/24 14:10 Albuterol Sulfate (*Sp) Aerosol 1 Puff INHALATION Q6-8H PRN Shortness Of Breath Or Wheezing Allopurinol 100 mg 10/25/24 14:15 10/26/24 09:04 Allopurinol 100 Mg Tablet PO 100 mg DAILY MAYELA Administration Apixaban 5 mg 10/25/24 21:00 10/26/24 09:04 Apixaban 5 Mg Tablet PO 5 mg Q12HR MAYELA Administration Bumetanide 2 mg 10/25/24 11:00 10/26/24 09:06 Bumetanide Inj 1 Mg/4 Ml Vial IV PUSH 2 mg BID MAYELA Administration Buspirone HCl 10 mg 10/25/24 17:00 10/26/24 09:04 Buspirone Hcl 10 Mg Tablet PO 10 mg BID MAYELA Administration Carvedilol 3.125 mg 10/25/24 17:00 10/26/24 09:12 Carvedilol 3.125 Mg Tablet PO 3.125 mg BIDWM MAYELA Administration Dextrose 12.5 gm 10/25/24 14:09 Dextrose 50% 25 Gm/50 Ml Syringe IV PUSH PRN PRN Hypoglycemia Protocol Famotidine 20 mg 10/25/24 21:00 10/26/24 09:04 Famotidine 20 Mg Tablet PO 20 mg Q12HR MAYELA Administration Glucagon 1 mg 10/25/24 14:09 Glucagon For Inj 1 Mg Vial IM PRN PRN Hypoglycemia Protocol Glucose 15 gm 10/25/24 14:09 Glucose Oral Gel 15 Gm Of Glucse In 37.5 Gm Tube PO PRN PRN Hypoglycemia Protocol Dextrose 1,000 mls @ 100 mls/hr 10/25/24 14:09 Dextrose 5% 1,000 Ml IVPB PRN PRN Hypoglycemia Protocol Insulin Aspart 4 - 8 units 10/25/24 17:00 10/26/24 09:05 Insulin Aspart (*Bkc) 100 Units/Ml SUB-Q Not Given TIDWM [facility] Protocol Miscellaneous Information 0 each 10/25/24 00:01 Please Verify Once Daily On The Ivabradine. Usual Dose Of This Med Is 5mg Twice A Day. Ext XX 11/24/24 00:00 CLARIFY [facility] Nonformulary Drug 0 mg 10/25/24 14:20 10/26/24 09:07 Ivabradine 5 Mg PO 11/24/24 14:19 5 mg Tablet DAILY MAYELA Administration Ondansetron HCl 4 mg 10/25/24 14:09 Ondansetron Inj 4 Mg/2 Ml Vial IV PUSH Q6H PRN Nausea And Vomiting Potassium Chloride 20 meq 10/26/24 09:00 10/26/24 09:05 Potassium Chloride 20 Meq Er Tablet PO 20 meq DAILY MAYELA Administration Potassium Chloride 10 meq 10/25/24 18:00 10/25/24 17:35 Potassium Chloride 10 Meq Er Tablet PO 10 meq QPM MAYELA Administration Radiology Results: ITS Impressions Abdomen/Pelvis CT 10/25/24 07:31 IMPRESSION: 1. Moderate cardiomegaly. 2. Diffuse intra-abdominal and body wall edema as well as small amount of ascites likely related to congestive heart failure. 3. Diffuse hepatic steatosis with suggestion of some liver surface nodularity raising some suspicion for cirrhosis. 4. Wall thickening of the gallbladder due to at least in part to decompressed state which would argue against acute cholecystitis. This could also be due to congestive heart failure or chronic cholecystitis. If there is continued clinical concern for acute cholecystitis could consider HIDA scan for further evaluation. 5. Mild emphysema. 6. Moderate bilateral sacroiliitis which is relatively symmetric, which can be seen with ankylosing spondylitis, enteropathic arthritis and rheumatoid arthritis with differential also including psoriatic arthritis and reactive arthritis and osteoarthritis. Abdomen Ultrasound 10/25/24 08:07 IMPRESSION: 1. Increased portal venous pulsatility consistent with congestive heart failure. 2. Normal gallbladder with no cholelithiasis with negative sonographic Johnson's sign. 3. Suggestion of some liver surface nodularity on the larger [id number] images which is not appreciated on the single high-resolution image which remains equivocal for cirrhosis. Chest X-Ray 10/25/24 08:13 IMPRESSION: Moderate cardiomegaly and pulmonary vascular congestion. Superimposed infection cannot be excluded. Labs Labs: Laboratory Results - last 24 hr 10/25/24 10/25/24 10/25/24 11:28 16:45 19:50 WBC RBC Hgb Hct MCV MCH MCHC RDW Plt Count MPV Immature Gran % (Auto) Neut % (Auto) Lymph % (Auto) Bureau % (Auto) Eos % (Auto) Baso % (Auto) Lymph # (Auto) Bureau # (Auto) Eos # (Auto) Baso # (Auto) Abs Immat Gran (auto) Absolute Neuts (auto) Absolute Nucleated RBC Band Neutrophils % Nucleated RBC % Platelet Estimate Hypochromasia Anisocytosis Ovalocytes Schistocytes Sodium Cancelled Potassium Cancelled Chloride Cancelled Carbon Dioxide Cancelled Anion Gap Cancelled BUN Cancelled Creatinine Cancelled Estim Creat Clear Calc Cancelled Estimated GFR Cancelled Glucose Cancelled POC Capillary Glucose 136 H 80 141 H Hemoglobin A1c Lactic Acid 2.5 H Calcium Cancelled Total Bilirubin Cancelled AST Cancelled ALT Cancelled Alkaline Phosphatase Cancelled Troponin I Total Protein Cancelled Albumin Cancelled 10/25/24 10/25/24 10/26/24 19:51 22:18 04:03 WBC 4.4 L RBC 4.27 L Hgb 11.5 L Hct 38.0 L MCV 89.0 MCH 26.9 MCHC 30.3 L RDW 22.9 H Plt Count 266 MPV 10.8 H Immature Gran % (Auto) 0.2 Neut % (Auto) 57.4 Lymph % (Auto) 25.2 Bureau % (Auto) 13.8 H Eos % (Auto) 1.8 Baso % (Auto) 1.6 H Lymph # (Auto) 1.10 Bureau # (Auto) 0.6 Eos # (Auto) 0.1 Baso # (Auto) 0.1 Abs Immat Gran (auto) 0.01 Absolute Neuts (auto) 2.5 Absolute Nucleated RBC 0.000 Band Neutrophils % Not Reportable Nucleated RBC % 0.0 Platelet Estimate Adequate Hypochromasia 1+ Anisocytosis 1+ Ovalocytes 1+ Schistocytes None seen Sodium 131 L 134 L Potassium 4.5 4.1 Chloride 96 L 97 L Carbon Dioxide 23 25 Anion Gap 12 12 BUN 61 H 63 H Creatinine 2.50 H 2.49 H Estim Creat Clear Calc 40 40 Estimated GFR 28 L 28 L Glucose 143 H 86 POC Capillary Glucose Hemoglobin A1c 6.0 H Lactic Acid 2.3 H Calcium 9.4 9.3 Total Bilirubin 4.3 H 4.1 H AST 91 H 96 H ALT 46 46 Alkaline Phosphatase 123 124 Troponin I 0.049 H* Total Protein 7.9 7.9 Albumin 3.9 3.9 10/26/24 10/26/24 07:28 11:03 WBC RBC Hgb Hct MCV MCH MCHC RDW Plt Count MPV Immature Gran % (Auto) Neut % (Auto) Lymph % (Auto) Bureau % (Auto) Eos % (Auto) Baso % (Auto) Lymph # (Auto) Bureau # (Auto) Eos # (Auto) Baso # (Auto) Abs Immat Gran (auto) Absolute Neuts (auto) Absolute Nucleated RBC Band Neutrophils % Nucleated RBC % Platelet Estimate Hypochromasia Anisocytosis Ovalocytes Schistocytes Sodium Potassium Chloride Carbon Dioxide Anion Gap BUN Creatinine Estim Creat Clear Calc Estimated GFR Glucose POC Capillary Glucose 77 110 H Hemoglobin A1c Lactic Acid Calcium Total Bilirubin AST ALT Alkaline Phosphatase Troponin I Total Protein Albumin Quality VTE Prophylaxis VTE prophylaxis: pharmacologic ordered
--- NOTE | 2024-10-26 11:53 | P.PNCA_ITS ---
Progress Note: A&P Assessment and Plan (1) Acute on chronic heart failure with reduced ejection fraction (HFrEF, <= 40%): Code(s): I50.23 - Acute on chronic systolic (congestive) heart failure Status: Acute (2) Mitral regurgitation: Qualifiers: Cardiac valve disease etiology: nonrheumatic Qualified Code(s): I34.0 - Nonrheumatic mitral (valve) insufficiency Code(s): I34.0 - Nonrheumatic mitral (valve) insufficiency Status: Acute (3) Elevated troponin: Code(s): R79.89 - Other specified abnormal findings of blood chemistry Status: Acute Plan 44-year-old man with chronic systolic heart failure (nonischemic LVEF 15-20%) status post BiV ICD, severe mitral regurgitation, chronic kidney disease stage IIIB, diabetes type 2, CARRIE on CPAP, history of medication noncompliance, and history of methamphetamine abuse now presents with 3 days of weakness Acute on chronic systolic heart failure -recommend interrogation the device to determine if he has any arrhythmias causing worsening congestion -he is on Bumex 3 mg p.o. b.i.d. at home and would recommend Bumex 2 mg IV b.i.d.; may consider metolazone -would repeat a transthoracic echocardiogram to evaluate LV size/systolic function and worsening valvular disease causing worsening congestion -if blood pressure increases above 130/80, would start isosorbide mononitrate in lieu of Entresto at this time given acute renal injury -continue to hold carvedilol; may consider dobutamine Severe mitral regurgitation -repeat transthoracic echocardiogram -follows up outpatient at [facility] with plans for MitraClip Troponin elevation -likely secondary to acute congestive heart failure Subjective Date/time seen: 10/26/24 11:53 Interval history: Continues to be weak and feeling short of breath with orthopnea. Lower extremity swelling. Review of Systems Cardiovascular: Cardiovascular: Reports as per HPI Respiratory: Respiratory: Reports as per HPI Objective Data Vital Signs Vital Signs: Vital Signs - 24 hr 10/25/24 12:00 10/25/24 14:00 10/25/24 16:00 Temperature 36.3 C L Pulse Rate 70 93 71 Respiratory Rate 20 Blood Pressure 101/66 Pulse Oximetry 92 Oxygen Delivery 10/25/24 16:00 10/25/24 18:00 10/25/24 19:43 Temperature 36.4 C Pulse Rate 71 72 84 Respiratory Rate 18 Blood Pressure 108/92 H Pulse Oximetry 96 Oxygen Delivery 10/25/24 20:00 10/25/24 20:00 10/25/24 22:00 Temperature Pulse Rate 84 72 74 Respiratory Rate 18 Blood Pressure Pulse Oximetry 96 Oxygen Delivery Room Air 10/25/24 23:22 10/26/24 00:00 10/26/24 00:00 Temperature 36.4 C Pulse Rate 81 84 70 Respiratory Rate 15 18 Blood Pressure 115/79 Pulse Oximetry 98 96 Oxygen Delivery Room Air 10/26/24 02:00 10/26/24 04:00 10/26/24 04:00 Temperature Pulse Rate 72 71 71 Respiratory Rate Blood Pressure Pulse Oximetry Oxygen Delivery Room Air 10/26/24 04:31 10/26/24 06:00 10/26/24 08:00 Temperature 36.5 C 36.4 C L Pulse Rate 73 80 85 Respiratory Rate 20 18 Blood Pressure 115/74 99/76 L Pulse Oximetry 95 99 Oxygen Delivery 10/26/24 09:12 10/26/24 11:33 Temperature 36.6 C Pulse Rate 72 78 Respiratory Rate 18 Blood Pressure 103/85 Pulse Oximetry 100 Oxygen Delivery Intake/Output Intake/Output: Intake & Output 10/23/24 10/24/24 10/25/24 10/26/24 23:59 23:59 23:59 23:59 Intake Total 720 2164 Output Total 800 1025 Balance -80 1139 Meds/Results Medications: Active Medications Generic Name Dose Route Start Last Admin Trade Name Freq PRN Reason Stop Dose Admin Acetaminophen 500 mg 10/25/24 14:09 10/25/24 19:17 Acetaminophen 500 Mg Tablet PO 500 mg Q4H PRN Administration Mild Pain (1-3) or Fever Hydrocodone Bitart/Acetaminophen 1 tab 10/25/24 14:09 10/26/24 09:05 Hydrocodone/Acetaminophen (*Crx) 5-325 Mg Tablet PO 1 tab Q6H PRN Administration Pain Rated 4-6 Albuterol 2 puff 10/25/24 14:10 Albuterol Sulfate (*Sp) Aerosol 1 Puff INHALATION Q6-8H PRN Shortness Of Breath Or Wheezing Allopurinol 100 mg 10/25/24 14:15 10/26/24 09:04 Allopurinol 100 Mg Tablet PO 100 mg DAILY MAYELA Administration Apixaban 5 mg 10/25/24 21:00 10/26/24 09:04 Apixaban 5 Mg Tablet PO 5 mg Q12HR MAYELA Administration Bumetanide 2 mg 10/25/24 11:00 10/26/24 09:06 Bumetanide Inj 1 Mg/4 Ml Vial IV PUSH 2 mg BID MAYELA Administration Buspirone HCl 10 mg 10/25/24 17:00 10/26/24 09:04 Buspirone Hcl 10 Mg Tablet PO 10 mg BID MAYELA Administration Carvedilol 3.125 mg 10/25/24 17:00 10/26/24 09:12 Carvedilol 3.125 Mg Tablet PO 3.125 mg On Hold: 10/26/24 11:51 BIDWM MAYELA Administration Dextrose 12.5 gm 10/25/24 14:09 Dextrose 50% 25 Gm/50 Ml Syringe IV PUSH PRN PRN Hypoglycemia Protocol Famotidine 20 mg 10/25/24 21:00 10/26/24 09:04 Famotidine 20 Mg Tablet PO 20 mg Q12HR MAYELA Administration Glucagon 1 mg 10/25/24 14:09 Glucagon For Inj 1 Mg Vial IM PRN PRN Hypoglycemia Protocol Glucose 15 gm 10/25/24 14:09 Glucose Oral Gel 15 Gm Of Glucse In 37.5 Gm Tube PO PRN PRN Hypoglycemia Protocol Dextrose 1,000 mls @ 100 mls/hr 10/25/24 14:09 Dextrose 5% 1,000 Ml IVPB PRN PRN Hypoglycemia Protocol Insulin Aspart 4 - 8 units 10/25/24 17:00 10/26/24 09:05 Insulin Aspart (*Bk) 100 Units/Ml SUB-Q Not Given TIDWM [facility] Protocol Miscellaneous Information 0 each 10/25/24 00:01 Please Verify Once Daily On The Ivabradine. Usual Dose Of This Med Is 5mg Twice A Day. Ext XX 11/24/24 00:00 CLARIFY [facility] Nonformulary Drug 0 mg 10/25/24 14:20 10/26/24 09:07 Ivabradine 5 Mg PO 11/24/24 14:19 5 mg Tablet DAILY MAYELA Administration Ondansetron HCl 4 mg 10/25/24 14:09 Ondansetron Inj 4 Mg/2 Ml Vial IV PUSH Q6H PRN Nausea And Vomiting Perflutren Lipid Microsphere 0 ml 10/26/24 11:34 Perflutren Lipid Microspheres 1.5 Ml Vial Diluted To 10 Ml Total Volume IV PUSH 10/29/24 11:34 ONCE PRN adequate visualization Protocol Potassium Chloride 20 meq 10/26/24 09:00 10/26/24 09:05 Potassium Chloride 20 Meq Er Tablet PO 20 meq DAILY MAYELA Administration Potassium Chloride 10 meq 10/25/24 18:00 10/25/24 17:35 Potassium Chloride 10 Meq Er Tablet PO 10 meq QPM MAYELA Administration Radiology Results: ITS Impressions Abdomen/Pelvis CT 10/25/24 07:31 IMPRESSION: 1. Moderate cardiomegaly. 2. Diffuse intra-abdominal and body wall edema as well as small amount of ascites likely related to congestive heart failure. 3. Diffuse hepatic steatosis with suggestion of some liver surface nodularity raising some suspicion for cirrhosis. 4. Wall thickening of the gallbladder due to at least in part to decompressed state which would argue against acute cholecystitis. This could also be due to congestive heart failure or chronic cholecystitis. If there is continued clinical concern for acute cholecystitis could consider HIDA scan for further evaluation. 5. Mild emphysema. 6. Moderate bilateral sacroiliitis which is relatively symmetric, which can be seen with ankylosing spondylitis, enteropathic arthritis and rheumatoid arthritis with differential also including psoriatic arthritis and reactive arthritis and osteoarthritis. Abdomen Ultrasound 10/25/24 08:07 IMPRESSION: 1. Increased portal venous pulsatility consistent with congestive heart failure. 2. Normal gallbladder with no cholelithiasis with negative sonographic Johnson's sign. 3. Suggestion of some liver surface nodularity on the larger [id number] images which is not appreciated on the single high-resolution image which remains equivocal for cirrhosis. Chest X-Ray 10/25/24 08:13 IMPRESSION: Moderate cardiomegaly and pulmonary vascular congestion. Superimposed infection cannot be excluded. Labs Labs: Laboratory Results - last 24 hr 10/25/24 10/25/24 10/25/24 16:45 19:50 19:51 WBC RBC Hgb Hct MCV MCH MCHC RDW Plt Count MPV Immature Gran % (Auto) Neut % (Auto) Lymph % (Auto) [place] % (Auto) Eos % (Auto) Baso % (Auto) Lymph # (Auto) [place] # (Auto) Eos # (Auto) Baso # (Auto) Abs Immat Gran (auto) Absolute Neuts (auto) Absolute Nucleated RBC Band Neutrophils % Nucleated RBC % Platelet Estimate Hypochromasia Anisocytosis Ovalocytes Schistocytes Sodium Cancelled 131 L Potassium Cancelled 4.5 Chloride Cancelled 96 L Carbon Dioxide Cancelled 23 Anion Gap Cancelled 12 BUN Cancelled 61 H Creatinine Cancelled 2.50 H Estim Creat Clear Calc Cancelled 40 Estimated GFR Cancelled 28 L Glucose Cancelled 143 H POC Capillary Glucose 80 141 H Hemoglobin A1c Lactic Acid 2.5 H Calcium Cancelled 9.4 Total Bilirubin Cancelled 4.3 H AST Cancelled 91 H ALT Cancelled 46 Alkaline Phosphatase Cancelled 123 Troponin I 0.049 H* Total Protein Cancelled 7.9 Albumin Cancelled 3.9 10/25/24 10/26/24 10/26/24 22:18 04:03 07:28 WBC 4.4 L RBC 4.27 L Hgb 11.5 L Hct 38.0 L MCV 89.0 MCH 26.9 MCHC 30.3 L RDW 22.9 H Plt Count 266 MPV 10.8 H Immature Gran % (Auto) 0.2 Neut % (Auto) 57.4 Lymph % (Auto) 25.2 [place] % (Auto) 13.8 H Eos % (Auto) 1.8 Baso % (Auto) 1.6 H Lymph # (Auto) 1.10 [place] # (Auto) 0.6 Eos # (Auto) 0.1 Baso # (Auto) 0.1 Abs Immat Gran (auto) 0.01 Absolute Neuts (auto) 2.5 Absolute Nucleated RBC 0.000 Band Neutrophils % Not Reportable Nucleated RBC % 0.0 Platelet Estimate Adequate Hypochromasia 1+ Anisocytosis 1+ Ovalocytes 1+ Schistocytes None seen Sodium 134 L Potassium 4.1 Chloride 97 L Carbon Dioxide 25 Anion Gap 12 BUN 63 H Creatinine 2.49 H Estim Creat Clear Calc 40 Estimated GFR 28 L Glucose 86 POC Capillary Glucose 77 Hemoglobin A1c 6.0 H Lactic Acid 2.3 H Calcium 9.3 Total Bilirubin 4.1 H AST 96 H ALT 46 Alkaline Phosphatase 124 Troponin I Total Protein 7.9 Albumin 3.9 10/26/24 11:03 WBC RBC Hgb Hct MCV MCH MCHC RDW Plt Count MPV Immature Gran % (Auto) Neut % (Auto) Lymph % (Auto) [place] % (Auto) Eos % (Auto) Baso % (Auto) Lymph # (Auto) [place] # (Auto) Eos # (Auto) Baso # (Auto) Abs Immat Gran (auto) Absolute Neuts (auto) Absolute Nucleated RBC Band Neutrophils % Nucleated RBC % Platelet Estimate Hypochromasia Anisocytosis Ovalocytes Schistocytes Sodium Potassium Chloride Carbon Dioxide Anion Gap BUN Creatinine Estim Creat Clear Calc Estimated GFR Glucose POC Capillary Glucose 110 H Hemoglobin A1c Lactic Acid Calcium Total Bilirubin AST ALT Alkaline Phosphatase Troponin I Total Protein Albumin
[2024-10-26] MEDS: ONDANSETRON INJ 4 MG/2 ML VIAL IV PUSH (15:16)
[2024-10-26] MEDS: POTASSIUM CHLORIDE 10 MEQ ER TABLET PO (18:20)
[2024-10-27] VITALS (55 sets, daily range): BP systolic 104–124; BP diastolic 69–108; PULSE 70–95; RESP 10–33; TEMP 36.4–37.1; O2SAT 85–100
[2024-10-27] MEDS: HYDROcodone/acetaminophen (*CRX) 5-325 MG TABLET 1 TAB PO ×2 (00:37→06:30)
[2024-10-27 04:06] LABS: Hematocrit 39.0 % (42.0-52.0); Hemoglobin 11.8 g/dL (14.0-18.0); Immature Granulocyte Percent A 0.2 % (0-0.5); Lymphocytes Absolute Auto 1.05 K/mm3 (0.9-3.2); Mean Corpuscular HGB Conc 30.3 g/dl (32-36); Mean Corpuscular Hemoglobin 26.9 pg (26-34); Mean Corpuscular Volume 89.0 fl (80-100); Nucleated Red Blood Cells Absolute Auto 0.020 K/mm3 (0.0-0.012); Nucleated Red Blood Cells Perc 0.4 % (0.0-0.2); Platelet Count Result 259 k/mm3 (150-375); Red Blood Count 4.38 M/mm3 (4.6-6.20); White Blood Count 5.1 K/mm3 (4.5-10.0)
[2024-10-27 04:27] LABS: Alanine Aminotransferase 51 U/L (6-50); Albumin Level 3.8 g/dL (3.5-5.1); Alkaline Phosphatase 129 U/L (38-126); Anion Gap 10 mmol/L (4-12); Aspartate Amino Transferase 99 U/L (17-59); Bilirubin,Total 3.3 mg/dL (0.2-1.3); Blood Urea Nitrogen 59 mg/dL (9-20); Calcium 9.0 mg/dL (8.4-10.2); Carbon Dioxide 25 mmol/L (22-30); Chloride 100 mmol/L (98-107); Estimated CRCL calculation 46 ml/min; Estimated Glomerular Filt Rate 33; Glucose 92 mg/dL (65-110); Magnesium 2.7 mg/dL (1.6-2.3); Potassium 4.3 mmol/L (3.4-5.0); Sodium 135 mmol/L (137-145); Total Protein 7.8 g/dL (6.3-8.2)
[2024-10-27 04:34] LABS: Anisocytosis 1+; Ovalocytes 1+
[2024-10-27 04:35] LABS: Schistocytes None Seen
[2024-10-27 04:38] LABS: Polychromasia 1+
[2024-10-27] MEDS: BUMETANIDE INJ 1 MG/4 ML VIAL 2 MG IV PUSH ×2 (08:16→17:28)
[2024-10-27] MEDS: APIXABAN 5 MG TABLET PO ×2 (08:17→20:26)
[2024-10-27] MEDS: POTASSIUM CHLORIDE 20 MEQ ER TABLET PO (08:17)
[2024-10-27] MEDS: ACETAMINOPHEN 500 MG TABLET PO (08:17)
[2024-10-27] MEDS: FAMOTIDINE 20 MG TABLET PO ×2 (08:17→20:26)
[2024-10-27] MEDS: IVABRADINE 5 MG PO (08:18)
[2024-10-27] MEDS: [UNRECOGNIZED DRUG - OTHER] PO (08:18)
[2024-10-27] MEDS: ONDANSETRON INJ 4 MG/2 ML VIAL IV PUSH (08:26)
--- NOTE | 2024-10-27 11:58 | P.PNIM_ITS ---
Progress Note: A&P Assessment and Plan (1) Heart failure with reduced ejection fraction: Code(s): I50.20 - Unspecified systolic (congestive) heart failure Status: Acute Assessment and Plan: - acute on chronic CHF exacerbation with significantly reduced EF - most recent echo (08/2023): LV chamber severely enlarged, systolic function severely reduced with an estimated EF of 15-20%, RV systolic function normal, biatrial enlargement (mild to severe), valvular disease. Continue Bumex 2mg IV bid, ivabradine per cards ECHO 10% Cardiology following - monitor I&Os and daily weights awaiting cardiology eval today (2) Acute on chronic renal failure: Qualifiers: Acute renal failure type: unspecified Chronic kidney disease stage: unspecified stage Qualified Code(s): N17.9 - Acute kidney failure, unspecified; N18.9 - Chronic kidney disease, unspecified Code(s): N17.9 - Acute kidney failure, unspecified; N18.9 - Chronic kidney disease, unspecified Status: Acute Assessment and Plan: - creatinine 2.64 on admission, Creatinine 1.6 -2.2 baseline - Cr 2.49 continue Bumex and monitor renal function (3) Elevated troponin: Code(s): R79.89 - Other specified abnormal findings of blood chemistry Status: Acute Assessment and Plan: Cardiology evaluated and noted it is related to CHF (4) Abdominal pain: Qualifiers: Abdominal location: generalized Qualified Code(s): R10.84 - Generalized abdominal pain Code(s): R10.9 - Unspecified abdominal pain Status: Acute Assessment and Plan: - CT abdomen/pelvis: 1. Moderate cardiomegaly. 2. Diffuse intra-abdominal and body wall edema as well as small amount of ascites likely related to congestive heart failure. 3. Diffuse hepatic steatosis with suggestion of some liver surface nodularity raising some suspicion for cirrhosis. 4. Wall thickening of the gallbladder due to at least in part to decompressed state which would argue against acute cholecystitis. This could also be due to congestive heart failure or chronic cholecystitis. If there is continued clinical concern for acute cholecystitis could consider HIDA scan for further evaluation. 5. Mild emphysema. 6. Moderate bilateral sacroiliitis which is relatively symmetric, which can be seen with ankylosing spondylitis, enteropathic arthritis and rheumatoid a rthritis with differential also including psoriatic arthritis and reactive arthritis and osteoarthritis. - abdominal ultrasound: 1. Increased portal venous pulsatility consistent with congestive heart failure. 2. Normal gallbladder with no cholelithiasis with negative sonographic Johnson's sign. 3. Suggestion of some liver surface nodularity on the larger [id number] images which is not appreciated on the single high-resolution image which remains equivocal for cirrhosis. - total bilirubin 4.0, AST 81, ALT 35 -> imaging equivocal for cirrhosis. Trend LFTs - antiemetics PRN No abdominal tenderness on exam. No cholelithiasis or sonographic Johnson sign the ultrasound. CT showed GB wall thickening which could be due to CHF for chronic cholecystitis. 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 Diabetes mellitus complication status: with kidney complications Diabetes mellitus complication detail: with chronic kidney disease Chronic kidney disease stage: stage 3 (moderate) Chronic kidney disease stage 3 subtype: stage 3a (GFR 45-59) Qualified Code(s): E11.22 - Type 2 diabetes mellitus with diabetic chronic kidney disease; N18.31 - Chronic kidney disease, stage 3a Code(s): E11.9 - Type 2 diabetes mellitus without complications Status: Acute Assessment and Plan: - hypoglycemia protocol - POC blood glucose ACHS - correct regimen ordered - high dose TIDWM based off BMI - A1C 6.2% on 09/13/2023, update (6) HTN (hypertension): Qualifiers: Hypertension type: unspecified Qualified Code(s): I10 - Essential (primary) hypertension Code(s): I10 - Essential (primary) hypertension Status: Chronic Assessment and Plan: - chronic, currently 131/83 - continue home medications: Coreg - monitor Plan Diet: Heart healthy DVT Prophylaxis: Eliquis Code Status: Full code Subjective Date/time seen: 10/27/24 11:58 Interval history: Patient comfortable at bedside ECHO pending, cardiology following Review of Systems Review of Systems: All systems reviewed & are unremarkable except as noted in HPI and below Exam Narrative: no abdominal tenderness, mild conversational dyspnea but clear on exam. fidgety, anxious. Const: General: uncomfortable Other: , male, chronically ill-appearing HENMT: Face/Nose/Sinus: Normal nares present Mouth: Yes moist mucous membranes Eyes: General: appearance normal, both eyes and all related structures Sclera: sclerae normal Pupils: Equal, round and reactive pupils present EOM: EOMs intact bilaterally Resp: Auscultation: clear to auscultation bilaterally Other: No respiratory distress noted, mild conversational dyspnea. Cardio: Rate: regular rate Rhythm: regular rhythm Other: +murmur GI: Other: Abdomen soft, nondistended, nontender. Normoactive bowel sounds in all quadrants. Skin: General skin exam: normal color and no rashes or lesions noted Wounds: no wounds Neuro: Cranial nerves: Yes Equal, round and reactive pupils present Speech: normal speech Motor exam (neuro): 5/5 motor strength present throughout Sensory Exam: normal sensation Other: A&O x4 Extrem: Other: Trace edema to bilateral ankles, nonpitting and symmetric. Psych: Other: Fair insight and judgment. Patient is fidgety/restless, mildly anxious, tangential thinking. Objective Data Vital Signs Vital Signs: Vital Signs - 24 hr 10/26/24 12:00 10/26/24 12:00 10/26/24 14:00 Temperature Pulse Rate 70 70 Respiratory Rate Blood Pressure Pulse Oximetry 100 Oxygen Delivery Nasal Cannula Oxygen Flow Rate 3 10/26/24 16:00 10/26/24 16:00 10/26/24 16:00 Temperature 97.7 F Pulse Rate 73 70 Respiratory Rate 20 Blood Pressure 102/76 Pulse Oximetry 100 100 Oxygen Delivery Nasal Cannula Oxygen Flow Rate 2 10/26/24 18:00 10/26/24 19:43 10/26/24 20:00 Temperature 98.2 F Pulse Rate 70 71 Respiratory Rate 20 Blood Pressure 105/78 Pulse Oximetry 100 100 Oxygen Delivery Nasal Cannula Oxygen Flow Rate 2 10/26/24 20:00 10/26/24 22:00 10/26/24 22:24 Temperature Pulse Rate 70 70 Respiratory Rate Blood Pressure Pulse Oximetry 100 Oxygen Delivery Nasal Cannula Oxygen Flow Rate 2 10/26/24 23:48 10/27/24 00:00 10/27/24 00:00 Temperature 98.4 F Pulse Rate 77 70 Respiratory Rate 18 Blood Pressure 114/74 Pulse Oximetry 96 100 Oxygen Delivery Nasal Cannula Oxygen Flow Rate 2 10/27/24 02:00 10/27/24 03:57 10/27/24 04:00 Temperature 98.5 F Pulse Rate 79 71 Respiratory Rate 18 Blood Pressure 112/89 Pulse Oximetry 97 100 Oxygen Delivery Nasal Cannula Oxygen Flow Rate 2 10/27/24 04:00 10/27/24 06:00 10/27/24 07:58 Temperature 97.8 F Pulse Rate 71 70 71 Respiratory Rate 18 Blood Pressure 108/81 Pulse Oximetry 100 Oxygen Delivery Oxygen Flow Rate Intake/Output Intake/Output: Intake & Output 10/24/24 10/25/24 10/26/24 10/27/24 23:59 23:59 23:59 23:59 Intake Total 720 2384 390 Output Total 800 2325 600 Balance -80 59 -210 Meds/Results Medications: Active Medications Generic Name Dose Route Start Last Admin Trade Name Freq PRN Reason Stop Dose Admin Acetaminophen 500 mg 10/25/24 14:09 10/27/24 08:17 Acetaminophen 500 Mg Tablet PO 500 mg Q4H PRN Administration Mild Pain (1-3) or Fever Hydrocodone Bitart/Acetaminophen 1 tab 10/25/24 14:09 10/27/24 06:30 Hydrocodone/Acetaminophen (*Crx) 5-325 Mg Tablet PO 1 tab Q6H PRN Administration Pain Rated 4-6 Albuterol 2 puff 10/25/24 14:10 Albuterol Sulfate (*Sp) Aerosol 1 Puff INHALATION Q6-8H PRN Shortness Of Breath Or Wheezing Allopurinol 100 mg 10/25/24 14:15 10/27/24 08:17 Allopurinol 100 Mg Tablet PO 100 mg DAILY MAYELA Administration Apixaban 5 mg 10/25/24 21:00 10/27/24 08:17 Apixaban 5 Mg Tablet PO 5 mg Q12HR MAYELA Administration Bumetanide 2 mg 10/25/24 11:00 10/27/24 08:16 Bumetanide Inj 1 Mg/4 Ml Vial IV PUSH 2 mg BID MAYELA Administration Bumetanide 1 mg 10/27/24 12:00 Bumetanide 1 Mg Tablet PO Q12H MAYELA Buspirone HCl 10 mg 10/25/24 17:00 10/27/24 08:17 Buspirone Hcl 10 Mg Tablet PO 10 mg BID MAYELA Administration Carvedilol 3.125 mg 10/25/24 17:00 10/26/24 09:12 Carvedilol 3.125 Mg Tablet PO 3.125 mg On Hold: 10/26/24 11:51 BIDWM MAYELA Administration Dextrose 12.5 gm 10/25/24 14:09 Dextrose 50% 25 Gm/50 Ml Syringe IV PUSH PRN PRN Hypoglycemia Protocol Diclofenac Sodium 1 applic 10/27/24 13:00 Diclofenac Sodium 1% 100 Gm Gel (*Bkc) TOPICAL QID MAYELA Famotidine 20 mg 10/25/24 21:00 10/27/24 08:17 Famotidine 20 Mg Tablet PO 20 mg Q12HR MAYELA Administration Glucagon 1 mg 10/25/24 14:09 Glucagon For Inj 1 Mg Vial IM PRN PRN Hypoglycemia Protocol Glucose 15 gm 10/25/24 14:09 Glucose Oral Gel 15 Gm Of Glucse In 37.5 Gm Tube PO PRN PRN Hypoglycemia Protocol Dextrose 1,000 mls @ 100 mls/hr 10/25/24 14:09 Dextrose 5% 1,000 Ml IVPB PRN PRN Hypoglycemia Protocol Insulin Aspart 4 - 8 units 10/25/24 17:00 10/27/24 11:53 Insulin Aspart (*Bkc) 100 Units/Ml SUB-Q Not Given TIDWM MAYELA Protocol Miscellaneous Information 0 each 10/25/24 00:01 Please Verify Once Daily On The Ivabradine. Usual Dose Of This Med Is 5mg Twice A Day. Ext XX 11/24/24 00:00 CLARIFY MAYELA Nonformulary Drug 0 mg 10/25/24 14:20 10/27/24 08:18 Ivabradine 5 Mg PO 11/24/24 14:19 5 mg Tablet DAILY MAYELA Administration Ondansetron HCl 4 mg 10/25/24 14:09 10/27/24 08:26 Ondansetron Inj 4 Mg/2 Ml Vial IV PUSH 4 mg Q6H PRN Administration Nausea And Vomiting Perflutren Lipid Microsphere 0 ml 10/26/24 11:34 Perflutren Lipid Microspheres 1.5 Ml Vial Diluted To 10 Ml Total Volume IV PUSH 10/29/24 11:34 ONCE PRN adequate visualization Protocol Potassium Chloride 20 meq 10/26/24 09:00 10/27/24 08:17 Potassium Chloride 20 Meq Er Tablet PO 20 meq DAILY MAYELA Administration Potassium Chloride 10 meq 10/25/24 18:00 10/26/24 18:20 Potassium Chloride 10 Meq Er Tablet PO 10 meq QPM MAYELA Administration Radiology Results: ITS Impressions Abdomen/Pelvis CT 10/25/24 07:31 IMPRESSION: 1. Moderate cardiomegaly. 2. Diffuse intra-abdominal and body wall edema as well as small amount of ascites likely related to congestive heart failure. 3. Diffuse hepatic steatosis with suggestion of some liver surface nodularity raising some suspicion for cirrhosis. 4. Wall thickening of the gallbladder due to at least in part to decompressed state which would argue against acute cholecystitis. This could also be due to congestive heart failure or chronic cholecystitis. If there is continued clinical concern for acute cholecystitis could consider HIDA scan for further evaluation. 5. Mild emphysema. 6. Moderate bilateral sacroiliitis which is relatively symmetric, which can be seen with ankylosing spondylitis, enteropathic arthritis and rheumatoid arthritis with differential also including psoriatic arthritis and reactive arthritis and osteoarthritis. Abdomen Ultrasound 10/25/24 08:07 IMPRESSION: 1. Increased portal venous pulsatility consistent with congestive heart failure. 2. Normal gallbladder with no cholelithiasis with negative sonographic Johnson's sign. 3. Suggestion of some liver surface nodularity on the larger [id number] images which is not appreciated on the single high-resolution image which remains equivocal for cirrhosis. Chest X-Ray 10/25/24 08:13 IMPRESSION: Moderate cardiomegaly and pulmonary vascular congestion. Superimposed infection cannot be excluded. Labs Labs: Laboratory Results - last 24 hr 10/26/24 10/26/24 10/27/24 16:28 20:27 03:45 WBC 5.1 RBC 4.38 L Hgb 11.8 L Hct 39.0 L MCV 89.0 MCH 26.9 MCHC 30.3 L RDW 22.6 H Plt Count 259 MPV 10.7 H Immature Gran % (Auto) 0.2 Neut % (Auto) 64.3 Lymph % (Auto) 20.5 [place] % (Auto) 11.5 H Eos % (Auto) 2.1 Baso % (Auto) 1.4 H Lymph # (Auto) 1.05 [place] # (Auto) 0.6 Eos # (Auto) 0.1 Baso # (Auto) 0.1 Abs Immat Gran (auto) 0.01 Absolute Neuts (auto) 3.3 Absolute Nucleated RBC 0.020 H Band Neutrophils % Not Reportable Nucleated RBC % 0.4 H Platelet Estimate Adequate Polychromasia 1+ Anisocytosis 1+ Ovalocytes 1+ Schistocytes None seen Sodium 135 L Potassium 4.3 Chloride 100 Carbon Dioxide 25 Anion Gap 10 BUN 59 H Creatinine 2.19 H Estim Creat Clear Calc 46 Estimated GFR 33 L Glucose 92 POC Capillary Glucose 86 103 Lactic Acid 1.6 Calcium 9.0 Magnesium 2.7 H Total Bilirubin 3.3 H AST 99 H ALT 51 H Alkaline Phosphatase 129 H Total Protein 7.8 Albumin 3.8 10/27/24 10/27/24 07:37 11:52 WBC RBC Hgb Hct MCV MCH MCHC RDW Plt Count MPV Immature Gran % (Auto) Neut % (Auto) Lymph % (Auto) [place] % (Auto) Eos % (Auto) Baso % (Auto) Lymph # (Auto) [place] # (Auto) Eos # (Auto) Baso # (Auto) Abs Immat Gran (auto) Absolute Neuts (auto) Absolute Nucleated RBC Band Neutrophils % Nucleated RBC % Platelet Estimate Polychromasia Anisocytosis Ovalocytes Schistocytes Sodium Potassium Chloride Carbon Dioxide Anion Gap BUN Creatinine Estim Creat Clear Calc Estimated GFR Glucose POC Capillary Glucose 132 H 123 H Lactic Acid Calcium Magnesium Total Bilirubin AST ALT Alkaline Phosphatase Total Protein Albumin Quality VTE Prophylaxis VTE prophylaxis: pharmacologic ordered
[2024-10-27] MEDS: DICLOFENAC SODIUM 1% 100 GM GEL (*BKC) 1 APPLIC TOPICAL ×3 (12:18→20:27)
--- NOTE | 2024-10-27 12:41 | PM.PNCARD ---
Progress Note: A&P Assessment and Plan (1) Acute on chronic heart failure with reduced ejection fraction (HFrEF, <= 40%): Code(s): I50.23 - Acute on chronic systolic (congestive) heart failure Status: Acute (2) Mitral regurgitation: Qualifiers: Cardiac valve disease etiology: nonrheumatic Qualified Code(s): I34.0 - Nonrheumatic mitral (valve) insufficiency Code(s): I34.0 - Nonrheumatic mitral (valve) insufficiency Status: Acute (3) Elevated troponin: Code(s): R79.89 - Other specified abnormal findings of blood chemistry Status: Acute Plan 44-year-old man with chronic systolic heart failure (nonischemic LVEF 15-20%) status post BiV ICD, severe mitral regurgitation, chronic kidney disease stage IIIB, diabetes type 2, CARRIE on CPAP, history of medication noncompliance, and history of methamphetamine abuse now presents with 3 days of weakness Acute on chronic systolic heart failure -recommend interrogation the device to determine if he has any arrhythmias causing worsening congestion -he is on Bumex 3 mg p.o. b.i.d. 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 Continues to feel generalized fatigue. Has shortness of breath at rest. Occasionally has paroxysmal nocturnal dyspnea as well as orthopnea. Continues to have lower extremity swelling. Review of Systems Cardiovascular: Cardiovascular: Reports as per HPI Respiratory: Respiratory: Reports as per HPI Exam Const: Other: Lethargic HENMT: Mouth: Yes moist mucous membranes Eyes: EOM: EOMs intact bilaterally Neck: Other: JVD greater than 15 cm Resp: Effort & Inspection: normal respiratory effort Auscultation: rales Cardio: Rate: regular rate Rhythm: regular rhythm Heart sounds: Murmur heart sound present Extrem: General: pedal edema Other: Cool Objective Data Vital Signs Vital Signs: Vital Signs - 24 hr 10/26/24 14:00 10/26/24 16:00 10/26/24 16:00 Temperature 36.5 C Pulse Rate 70 73 70 Respiratory Rate 20 Blood Pressure 102/76 Pulse Oximetry 100 Oxygen Delivery Oxygen Flow Rate 10/26/24 16:00 10/26/24 18:00 10/26/24 19:43 Temperature 36.8 C Pulse Rate 70 71 Respiratory Rate 20 Blood Pressure 105/78 Pulse Oximetry 100 100 Oxygen Delivery Nasal Cannula Oxygen Flow Rate 2 10/26/24 20:00 10/26/24 20:00 10/26/24 22:00 Temperature Pulse Rate 70 70 Respiratory Rate Blood Pressure Pulse Oximetry 100 Oxygen Delivery Nasal Cannula Oxygen Flow Rate 2 10/26/24 22:24 10/26/24 23:48 10/27/24 00:00 Temperature 36.9 C Pulse Rate 77 Respiratory Rate 18 Blood Pressure 114/74 Pulse Oximetry 100 96 100 Oxygen Delivery Nasal Cannula Nasal Cannula Oxygen Flow Rate 2 2 10/27/24 00:00 10/27/24 02:00 10/27/24 03:57 Temperature 36.9 C Pulse Rate 70 79 71 Respiratory Rate 18 Blood Pressure 112/89 Pulse Oximetry 97 Oxygen Delivery Oxygen Flow Rate 10/27/24 04:00 10/27/24 04:00 10/27/24 06:00 Temperature Pulse Rate 71 70 Respiratory Rate Blood Pressure Pulse Oximetry 100 Oxygen Delivery Nasal Cannula Oxygen Flow Rate 2 10/27/24 07:58 Temperature 36.6 C Pulse Rate 71 Respiratory Rate 18 Blood Pressure 108/81 Pulse Oximetry 100 Oxygen Delivery Oxygen Flow Rate Intake/Output Intake/Output: Intake & Output 10/24/24 10/25/24 10/26/24 10/27/24 23:59 23:59 23:59 23:59 Intake Total 720 2384 390 Output Total 800 2325 600 Balance -80 59 -210 Meds/Results Medications: Active Medications Generic Name Dose Route Start Last Admin Trade Name Freq PRN Reason Stop Dose Admin Acetaminophen 500 mg 10/25/24 14:09 10/27/24 08:17 Acetaminophen 500 Mg Tablet PO 500 mg Q4H PRN Administration Mild Pain (1-3) or Fever Hydrocodone Bitart/Acetaminophen 1 tab 10/25/24 14:09 10/27/24 06:30 Hydrocodone/Acetaminophen (*Crx) 5-325 Mg Tablet PO 1 tab Q6H PRN Administration Pain Rated 4-6 Albuterol 2 puff 10/25/24 14:10 Albuterol Sulfate (*Sp) Aerosol 1 Puff INHALATION Q6-8H PRN Shortness Of Breath Or Wheezing Allopurinol 100 mg 10/25/24 14:15 10/27/24 08:17 Allopurinol 100 Mg Tablet PO 100 mg DAILY MAYELA Administration Apixaban 5 mg 10/25/24 21:00 10/27/24 08:17 Apixaban 5 Mg Tablet PO 5 mg Q12HR MAYELA Administration Bumetanide 2 mg 10/25/24 11:00 10/27/24 08:16 Bumetanide Inj 1 Mg/4 Ml Vial IV PUSH 2 mg BID MAYELA Administration Buspirone HCl 10 mg 10/25/24 17:00 10/27/24 08:17 Buspirone Hcl 10 Mg Tablet PO 10 mg BID MAYELA Administration Carvedilol 3.125 mg 10/25/24 17:00 10/26/24 09:12 Carvedilol 3.125 Mg Tablet PO 3.125 mg On Hold: 10/26/24 11:51 BIDWM MAYELA Administration Dextrose 12.5 gm 10/25/24 14:09 Dextrose 50% 25 Gm/50 Ml Syringe IV PUSH PRN PRN Hypoglycemia Protocol Diclofenac Sodium 1 applic 10/27/24 13:00 10/27/24 12:18 Diclofenac Sodium 1% 100 Gm Gel (*Bkc) TOPICAL 1 applic QID MAYELA Administration Famotidine 20 mg 10/25/24 21:00 10/27/24 08:17 Famotidine 20 Mg Tablet PO 20 mg Q12HR MAYELA Administration Glucagon 1 mg 10/25/24 14:09 Glucagon For Inj 1 Mg Vial IM PRN PRN Hypoglycemia Protocol Glucose 15 gm 10/25/24 14:09 Glucose Oral Gel 15 Gm Of Glucse In 37.5 Gm Tube PO PRN PRN Hypoglycemia Protocol Dextrose 1,000 mls @ 100 mls/hr 10/25/24 14:09 Dextrose 5% 1,000 Ml IVPB PRN PRN Hypoglycemia Protocol Dobutamine HCl/Dextrose 250 mg in 250 mls @ 32.4 mls/hr 10/27/24 12:40 Dobutamine 250 Mg/D5w 250 Ml IV CONT .Q7H43M MAYELA 5 MCG/KG/MIN Insulin Aspart 4 - 8 units 10/25/24 17:00 10/27/24 11:53 Insulin Aspart (*Bkc) 100 Units/Ml SUB-Q Not Given TIDWM [facility] Protocol Miscellaneous Information 0 each 10/25/24 00:01 Please Verify Once Daily On The Ivabradine. Usual Dose Of This Med Is 5mg Twice A Day. Ext XX 11/24/24 00:00 CLARIFY [facility] Nonformulary Drug 0 mg 10/25/24 14:20 10/27/24 08:18 Ivabradine 5 Mg PO 11/24/24 14:19 5 mg Tablet DAILY MAYELA Administration On Hold: 10/27/24 12:24 Ondansetron HCl 4 mg 10/25/24 14:09 10/27/24 08:26 Ondansetron Inj 4 Mg/2 Ml Vial IV PUSH 4 mg Q6H PRN Administration Nausea And Vomiting Perflutren Lipid Microsphere 0 ml 10/26/24 11:34 Perflutren Lipid Microspheres 1.5 Ml Vial Diluted To 10 Ml Total Volume IV PUSH 10/29/24 11:34 ONCE PRN adequate visualization Protocol Potassium Chloride 20 meq 10/26/24 09:00 10/27/24 08:17 Potassium Chloride 20 Meq Er Tablet PO 20 meq DAILY MAYELA Administration Potassium Chloride 10 meq 10/25/24 18:00 10/26/24 18:20 Potassium Chloride 10 Meq Er Tablet PO 10 meq QPM MAYELA Administration Radiology Results: ITS Impressions Abdomen/Pelvis CT 10/25/24 07:31 IMPRESSION: 1. Moderate cardiomegaly. 2. Diffuse intra-abdominal and body wall edema as well as small amount of ascites likely related to congestive heart failure. 3. Diffuse hepatic steatosis with suggestion of some liver surface nodularity raising some suspicion for cirrhosis. 4. Wall thickening of the gallbladder due to at least in part to decompressed state which would argue against acute cholecystitis. This could also be due to congestive heart failure or chronic cholecystitis. If there is continued clinical concern for acute cholecystitis could consider HIDA scan for further evaluation. 5. Mild emphysema. 6. Moderate bilateral sacroiliitis which is relatively symmetric, which can be seen with ankylosing spondylitis, enteropathic arthritis and rheumatoid arthritis with differential also including psoriatic arthritis and reactive arthritis and osteoarthritis. Abdomen Ultrasound 10/25/24 08:07 IMPRESSION: 1. Increased portal venous pulsatility consistent with congestive heart failure. 2. Normal gallbladder with no cholelithiasis with negative sonographic Johnson's sign. 3. Suggestion of some liver surface nodularity on the larger [id number] images which is not appreciated on the single high-resolution image which remains equivocal for cirrhosis. Chest X-Ray 10/25/24 08:13 IMPRESSION: Moderate cardiomegaly and pulmonary vascular congestion. Superimposed infection cannot be excluded. Labs Labs: Laboratory Results - last 24 hr 10/26/24 10/26/24 10/27/24 16:28 20:27 03:45 WBC 5.1 RBC 4.38 L Hgb 11.8 L Hct 39.0 L MCV 89.0 MCH 26.9 MCHC 30.3 L RDW 22.6 H Plt Count 259 MPV 10.7 H Immature Gran % (Auto) 0.2 Neut % (Auto) 64.3 Lymph % (Auto) 20.5 [place] % (Auto) 11.5 H Eos % (Auto) 2.1 Baso % (Auto) 1.4 H Lymph # (Auto) 1.05 [place] # (Auto) 0.6 Eos # (Auto) 0.1 Baso # (Auto) 0.1 Abs Immat Gran (auto) 0.01 Absolute Neuts (auto) 3.3 Absolute Nucleated RBC 0.020 H Band Neutrophils % Not Reportable Nucleated RBC % 0.4 H Platelet Estimate Adequate Polychromasia 1+ Anisocytosis 1+ Ovalocytes 1+ Schistocytes None seen Sodium 135 L Potassium 4.3 Chloride 100 Carbon Dioxide 25 Anion Gap 10 BUN 59 H Creatinine 2.19 H Estim Creat Clear Calc 46 Estimated GFR 33 L Glucose 92 POC Capillary Glucose 86 103 Lactic Acid 1.6 Calcium 9.0 Magnesium 2.7 H Total Bilirubin 3.3 H AST 99 H ALT 51 H Alkaline Phosphatase 129 H Total Protein 7.8 Albumin 3.8 10/27/24 10/27/24 07:37 11:52 WBC RBC Hgb Hct MCV MCH MCHC RDW Plt Count MPV Immature Gran % (Auto) Neut % (Auto) Lymph % (Auto) [place] % (Auto) Eos % (Auto) Baso % (Auto) Lymph # (Auto) [place] # (Auto) Eos # (Auto) Baso # (Auto) Abs Immat Gran (auto) Absolute Neuts (auto) Absolute Nucleated RBC Band Neutrophils % Nucleated RBC % Platelet Estimate Polychromasia Anisocytosis Ovalocytes Schistocytes Sodium Potassium Chloride Carbon Dioxide Anion Gap BUN Creatinine Estim Creat Clear Calc Estimated GFR Glucose POC Capillary Glucose 132 H 123 H Lactic Acid Calcium Magnesium Total Bilirubin AST ALT Alkaline Phosphatase Total Protein Albumin
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
[2024-10-27] MEDS: DOBUTamine 250 MG/D5W 250 ML 250 MG/250 ML BAG 16.2 MG IV CONT (13:33)
--- NOTE | 2024-10-27 15:44 | WNDPHOTO ---
PHOTO ONLY - See Nursing Notes and/ or assessments for documentation.
[2024-10-27] MEDS: POTASSIUM CHLORIDE 10 MEQ ER TABLET PO (17:28)
[2024-10-27] MEDS: DOBUTamine 250 MG/D5W 250 ML 250 MG/250 ML BAG 32.4 MG IV CONT (21:43)
[2024-10-28] VITALS (72 sets, daily range): BP systolic 94–142; BP diastolic 61–111; PULSE 69–95; RESP 9–27; TEMP 36.4–36.7; O2SAT 70–100
[2024-10-28] MEDS: HYDROcodone/acetaminophen (*CRX) 5-325 MG TABLET 1 TAB PO ×2 (00:30→20:01)
[2024-10-28 01:09] LABS: MRSA (PCR) DETECTED (NOT DETECTE)
[2024-10-28 04:11] LABS: Hematocrit 36.7 % (42.0-52.0); Hemoglobin 10.9 g/dL (14.0-18.0); Immature Granulocyte Percent A 0.4 % (0-0.5); Lymphocytes Absolute Auto 0.68 K/mm3 (0.9-3.2); Mean Corpuscular HGB Conc 29.7 g/dl (32-36); Mean Corpuscular Hemoglobin 27.2 pg (26-34); Mean Corpuscular Volume 91.5 fl (80-100); Nucleated Red Blood Cells Absolute Auto 0.000 K/mm3 (0.0-0.012); Nucleated Red Blood Cells Perc 0.0 % (0.0-0.2); Platelet Count Result 208 k/mm3 (150-375); Red Blood Count 4.01 M/mm3 (4.6-6.20); White Blood Count 5.4 K/mm3 (4.5-10.0)
[2024-10-28 04:24] LABS: Alanine Aminotransferase 45 U/L (6-50); Albumin Level 3.5 g/dL (3.5-5.1); Alkaline Phosphatase 130 U/L (38-126); Anion Gap 7 mmol/L (4-12); Aspartate Amino Transferase 83 U/L (17-59); Bilirubin,Total 2.8 mg/dL (0.2-1.3); Blood Urea Nitrogen 57 mg/dL (9-20); Calcium 8.9 mg/dL (8.4-10.2); Carbon Dioxide 30 mmol/L (22-30); Chloride 99 mmol/L (98-107); Estimated CRCL calculation 43 ml/min; Estimated Glomerular Filt Rate 30; Glucose 125 mg/dL (65-110); Magnesium 2.6 mg/dL (1.6-2.3); Potassium 4.3 mmol/L (3.4-5.0); Sodium 136 mmol/L (137-145); Total Protein 7.5 g/dL (6.3-8.2)
[2024-10-28 04:30] LABS: Anisocytosis 1+; Hypochromasia 1+; Macrocytosis 1+ (NORMAL); Ovalocytes 1+; Schistocytes None Seen
[2024-10-28] MEDS: DOBUTamine 250 MG/D5W 250 ML 250 MG/250 ML BAG 32.4 MG IV CONT ×3 (05:39→17:16)
--- NOTE | 2024-10-28 08:34 | P.PNINT_ITS ---
Progress Note: A&P Assessment and Plan (1) Acute on chronic heart failure with reduced ejection fraction (HFrEF, <= 40%): Code(s): I50.23 - Acute on chronic systolic (congestive) heart failure Status: Acute Assessment and Plan: Nonischemic cardiomyopathy with decompensated congestive heart failure. He gets his care from [place] [facility] at [facility] Case discussed with Cardiology Continue dobutamine for inotropic support. Discontinue beta-maira Telemetry shows paced rhythm Continue Bumex IV b.i.d.. Continue Eliquis Fluid restriction diet IO monitoring (2) Type 2 diabetes mellitus: Qualifiers: Diabetes mellitus skilled nursing insulin use: without skilled nursing use Diabetes mellitus complication status: with kidney complications Diabetes mellitus complication detail: with chronic kidney disease Chronic kidney disease stage: stage 3 (moderate) Chronic kidney disease stage 3 subtype: stage 3a (GFR 45-59) Qualified Code(s): E11.22 - Type 2 diabetes mellitus with diabetic chronic kidney disease; N18.31 - Chronic kidney disease, stage 3a Code(s): E11.9 - Type 2 diabetes mellitus without complications Status: Acute Assessment and Plan: Sliding scale insulin (3) Abdominal pain: Qualifiers: Abdominal location: generalized Qualified Code(s): R10.84 - Generalized abdominal pain Code(s): R10.9 - Unspecified abdominal pain Status: Acute Assessment and Plan: Patient presented with abdominal pain. Appears to have resolved patient denies any nausea vomiting also at this time Lipase normal LFT shows slightly elevated bilirubin and AST 10/25 CT abdomen IMPRESSION: 1. Moderate cardiomegaly. 2. Diffuse intra-abdominal and body wall edema as well as small amount of ascites likely related to congestive heart failure. 3. Diffuse hepatic steatosis with suggestion of some liver surface nodularity raising some suspicion for cirrhosis. 4. Wall thickening of the gallbladder due to at least in part to decompressed state which would argue against acute cholecystitis. This could also be due to congestive heart failure or chronic cholecystitis. If there is continued clinical concern for acute cholecystitis could consider HIDA scan for further evaluation. 5. Mild emphysema. 6. Moderate bilateral sacroiliitis which is relatively symmetric, which can be seen with ankylosing spondylitis, enteropathic arthritis and rheumatoid arthritis with differential also including psoriatic arthritis and reactive arthritis and osteoarthritis. 10/25 abdominal ultrasound IMPRESSION: 1. Increased portal venous pulsatility consistent with congestive heart failure. 2. Normal gallbladder with no cholelithiasis with negative sonographic Johnson's sign. 3. Suggestion of some liver surface nodularity on the larger [id number] brendon ges which is not appreciated on the single high-resolution image which remains equivocal for cirrhosis. (4) Chronic kidney disease, stage 3: Qualifiers: Chronic kidney disease stage 3 subtype: stage 3a (GFR 45-59) Qualified Code(s): N18.31 - Chronic kidney disease, stage 3a Code(s): N18.30 - Chronic kidney disease, stage 3 unspecified Status: Acute Assessment and Plan: Patient has chronic kidney disease and presented with creatinine of 2.6 for which may be acute worsening. Patient did get a small amount of fluids on presentation but overall is volume overloaded Suspect cardiorenal syndrome CT scan of the abdomen does not show any stone or obstruction Continue dobutamine Bumex IV b.i.d. Monitor urine output electrolytes and creatinine Discussed with nephrology (5) Obstructive sleep apnea: Code(s): G47.33 - Obstructive sleep apnea (adult) (pediatric) Status: Acute Assessment and Plan: CPAP ordered but patient refused last night (6) Drug abuse: Code(s): F19.10 - Other psychoactive substance abuse, uncomplicated Status: Acute Assessment and Plan: Patient was counseled and encouraged to quit abusing drugs Plan DVT prophylaxis -patient is on Eliquis Stress ulcer prophylaxis -Pepcid Nutrition -heart healthy and fluid restriction diet Code Status - Full Code Total Critical Care Time - 30 minutes Due to a high probability of clinically significant, life threatening deterioration, the patient required my highest level of preparedness to intervene emergently and I personally spent this critical care time directly and personally managing the patient. This critical care time included obtaining a history; examining the patient; pulse oximetry; ordering and review of studies; arranging urgent treatment with development of a management plan; evaluation of patient's response to treatment; frequent reassessment; and discussions with other providers. It was exclusive of separately billable procedures and treating other patients and teaching time. Please see Assessment and Plan section and the rest of the note for further information on patient assessment and treatment Subjective Date/time seen: 10/28/24 Patient states he feels tired otherwise no new complaints. He denies any shortness a breath or pain. He states the pain he was having yesterday has resolved with a heat bed. Patient denies fever, chest pain, shortness of breath, cough, nausea vomiting, abdominal pain,, diarrhea, headache or constipation. He he is on dobutamine at 5 mcg infusion and currently in paced r hythm. He has been drinking lot of water as per the nursing staff. All other systems were reviewed and were negative Patient refused to wear CPAP last night Review of Systems Review of Systems: All systems reviewed & are unremarkable except as noted in HPI and below (HPI) Exam Narrative: General: Pt is alert awake and in NAD Lungs/Chest: Trachea central Clear BS B/L, No crackles or wheezing. Cardiac: RRR. Normal S1 S2. No murmurs Circulation: Bilateral dorsalis pedis pulses are palpable but feet are cold bilaterally Abdomen: Normal bowel sounds.. Soft. NT. ND. Extremities: Bilateral mild pitting edema, feet are cold : Membreno in place Neurologic: AOx3. Moves all 4 extremities PERRL Skin: No Rash Objective Data Vital Signs Vital Signs: Vital Signs - 24 hr 10/27/24 12:00 10/27/24 12:00 10/27/24 12:00 Temperature 36.4 C L Pulse Rate 71 70 Respiratory Rate 18 Blood Pressure 119/83 Pulse Oximetry 100 100 Oxygen Delivery Nasal Cannula Oxygen Flow Rate 3 Fraction of Inspired Oxygen 10/27/24 13:00 10/27/24 13:00 10/27/24 13:00 Temperature 36.5 C Pulse Rate 70 70 Respiratory Rate 15 Blood Pressure 107/79 Pulse Oximetry 98 97 Oxygen Delivery Nasal Cannula Oxygen Flow Rate 3 Fraction of Inspired Oxygen 10/27/24 13:30 10/27/24 13:33 10/27/24 14:00 Temperature Pulse Rate 70 70 70 Respiratory Rate 19 Blood Pressure 110/85 107/79 Pulse Oximetry 100 Oxygen Delivery Oxygen Flow Rate Fraction of Inspired Oxygen 10/27/24 14:00 10/27/24 15:10 10/27/24 16:00 Temperature Pulse Rate 72 70 70 Respiratory Rate 18 12 Blood Pressure 116/86 114/88 110/69 Pulse Oximetry 99 100 Oxygen Delivery Oxygen Flow Rate Fraction of Inspired Oxygen 10/27/24 16:00 10/27/24 16:00 10/27/24 16:00 Temperature Pulse Rate 74 70 Respiratory Rate Blood Pressure 122/78 Pulse Oximetry 100 Oxygen Delivery Nasal Cannula Oxygen Flow Rate 2 Fraction of Inspired Oxygen 10/27/24 17:44 10/27/24 18:00 10/27/24 18:00 Temperature 36.4 C L Pulse Rate 75 77 82 Respiratory Rate 16 Blood Pressure 116/79 Pulse Oximetry 100 98 Oxygen Delivery Nasal Cannula Oxygen Flow Rate 2 Fraction of Inspired Oxygen 10/27/24 18:00 10/27/24 19:00 10/27/24 19:01 Temperature Pulse Rate 70 80 76 Respiratory Rate 20 19 Blood Pressure 112/91 H 122/91 H Pulse Oximetry 100 Oxygen Delivery Oxygen Flow Rate Fraction of Inspired Oxygen 10/27/24 19:15 10/27/24 19:16 10/27/24 19:30 Temperature Pulse Rate 74 72 71 Respiratory Rate 22 H 17 20 Blood Pressure 111/90 124/104 H Pulse Oximetry 100 99 96 Oxygen Delivery Oxygen Flow Rate Fraction of Inspired Oxygen 10/27/24 19:32 10/27/24 19:34 10/27/24 19:45 Temperature Pulse Rate 83 88 86 Respiratory Rate 17 33 H 17 Blood Pressure 115/79 Pulse Oximetry 100 99 Oxygen Delivery Oxygen Flow Rate Fraction of Inspired Oxygen 10/27/24 19:47 10/27/24 20:00 10/27/24 20:00 Temperature Pulse Rate 80 71 Respiratory Rate 24 H Blood Pressure 112/81 Pulse Oximetry 99 Oxygen Delivery Nasal Cannula Oxygen Flow Rate 3 Fraction of Inspired Oxygen 10/27/24 20:00 10/27/24 20:00 10/27/24 20:00 Temperature 36.9 C Pulse Rate 80 72 72 Respiratory Rate 15 11 L Blood Pressure 118/80 118/80 118/80 Pulse Oximetry 100 97 Oxygen Delivery Oxygen Flow Rate Fraction of Inspired Oxygen 10/27/24 20:01 10/27/24 20:15 10/27/24 20:16 Temperature Pulse Rate 71 72 73 Respiratory Rate 11 L 13 13 Blood Pressure 120/86 Pulse Oximetry 94 94 97 Oxygen Delivery Oxygen Flow Rate Fraction of Inspired Oxygen 10/27/24 20:30 10/27/24 20:31 10/27/24 20:35 Temperature Pulse Rate 72 71 71 Respiratory Rate 19 13 20 Blood Pressure 124/108 H Pulse Oximetry 100 100 100 Oxygen Delivery Nasal Cannula Oxygen Flow Rate 3 Fraction of Inspired Oxygen 32 10/27/24 20:45 10/27/24 20:46 10/27/24 21:00 Temperature Pulse Rate 70 70 74 Respiratory Rate 23 H 10 L 17 Blood Pressure 113/78 113/86 Pulse Oximetry 96 Oxygen Delivery Oxygen Flow Rate Fraction of Inspired Oxygen 10/27/24 21:01 10/27/24 21:15 10/27/24 21:16 Temperature Pulse Rate 71 72 73 Respiratory Rate 14 16 14 Blood Pressure 119/97 H Pulse Oximetry 100 Oxygen Delivery Oxygen Flow Rate Fraction of Inspired Oxygen 10/27/24 21:30 10/27/24 21:31 10/27/24 21:43 Temperature Pulse Rate 71 71 75 Respiratory Rate 10 L 14 Blood Pressure 121/85 121/85 Pulse Oximetry 93 Oxygen Delivery Oxygen Flow Rate Fraction of Inspired Oxygen 10/27/24 21:43 10/27/24 21:45 10/27/24 21:46 Temperature Pulse Rate 75 72 73 Respiratory Rate 26 H 11 L Blood Pressure 121/85 114/73 Pulse Oximetry 94 97 Oxygen Delivery Oxygen Flow Rate Fraction of Inspired Oxygen 10/27/24 21:50 10/27/24 22:00 10/27/24 22:00 Temperature Pulse Rate 95 70 70 Respiratory Rate Blood Pressure 104/78 Pulse Oximetry 95 Oxygen Delivery Autopap Oxygen Flow Rate Fraction of Inspired Oxygen 10/27/24 22:00 10/27/24 22:00 10/27/24 22:01 Temperature 37.1 C Pulse Rate 85 70 70 Respiratory Rate 22 H 16 12 Blood Pressure 104/78 104/78 Pulse Oximetry 100 Oxygen Delivery Oxygen Flow Rate Fraction of Inspired Oxygen 10/27/24 22:15 10/27/24 22:16 10/27/24 22:28 Temperature Pulse Rate 72 71 Respiratory Rate 15 14 Blood Pressure 113/74 Pulse Oximetry 99 85 L 96 Oxygen Delivery Nasal Cannula Oxygen Flow Rate 3 Fraction of Inspired Oxygen 10/27/24 22:30 10/27/24 22:31 10/27/24 22:45 Temperature Pulse Rate 76 72 70 Respiratory Rate 16 19 16 Blood Pressure 109/69 117/88 Pulse Oximetry 100 100 Oxygen Delivery Oxygen Flow Rate Fraction of Inspired Oxygen 10/27/24 22:46 10/27/24 23:00 10/27/24 23:01 Temperature Pulse Rate 70 75 73 Respiratory Rate 14 10 L 10 L Blood Pressure 119/84 Pulse Oximetry Oxygen Delivery Oxygen Flow Rate Fraction of Inspired Oxygen 10/28/24 00:00 10/28/24 00:00 10/28/24 00:00 Temperature 36.5 C Pulse Rate 84 Respiratory Rate Blood Pressure 111/87 Pulse Oximetry 100 Oxygen Delivery Nasal Cannula Oxygen Flow Rate 3 Fraction of Inspired Oxygen 10/28/24 00:00 10/28/24 00:01 10/28/24 00:02 Temperature Pulse Rate 72 73 83 Respiratory Rate 27 H 13 Blood Pressure 111/87 Pulse Oximetry 100 100 Oxygen Delivery Oxygen Flow Rate Fraction of Inspired Oxygen 10/28/24 00:15 10/28/24 00:16 10/28/24 00:25 Temperature Pulse Rate 71 71 Respiratory Rate 16 17 Blood Pressure 142/111 H Pulse Oximetry 70 L Oxygen Delivery Oxygen Flow Rate 3 Fraction of Inspired Oxygen 10/28/24 00:30 10/28/24 00:31 10/28/24 00:45 Temperature Pulse Rate 73 71 73 Respiratory Rate 18 16 25 H Blood Pressure 105/78 109/79 Pulse Oximetry 100 100 100 Oxygen Delivery Oxygen Flow Rate Fraction of Inspired Oxygen 10/28/24 00:46 10/28/24 01:00 10/28/24 01:01 Temperature Pulse Rate 72 72 71 Respiratory Rate 22 H 24 H 18 Blood Pressure 112/83 Pulse Oximetry 100 100 99 Oxygen Delivery Oxygen Flow Rate Fraction of Inspired Oxygen 10/28/24 01:08 10/28/24 01:15 10/28/24 01:16 Temperature Pulse Rate 70 71 71 Respiratory Rate 22 H 18 Blood Pressure 115/79 Pulse Oximetry 100 100 100 Oxygen Delivery Nasal Cannula Oxygen Flow Rate Fraction of Inspired Oxygen 10/28/24 01:30 10/28/24 01:31 10/28/24 01:45 Temperature Pulse Rate 73 75 90 Respiratory Rate 21 H 19 13 Blood Pressure 115/81 127/83 Pulse Oximetry 100 100 100 Oxygen Delivery Oxygen Flow Rate Fraction of Inspired Oxygen 10/28/24 01:46 10/28/24 02:00 10/28/24 02:00 Temperature Pulse Rate 90 77 77 Respiratory Rate 14 Blood Pressure 117/81 Pulse Oximetry 100 Oxygen Delivery Oxygen Flow Rate Fraction of Inspired Oxygen 10/28/24 02:00 10/28/24 02:01 10/28/24 02:02 Temperature Pulse Rate 71 70 70 Respiratory Rate 17 25 H 15 Blood Pressure 117/81 Pulse Oximetry 100 100 100 Oxygen Delivery Oxygen Flow Rate Fraction of Inspired Oxygen 10/28/24 02:15 10/28/24 02:16 10/28/24 02:30 Temperature Pulse Rate 70 70 70 Respiratory Rate 13 16 15 Blood Pressure 105/68 108/97 H Pulse Oximetry 90 94 99 Oxygen Delivery Oxygen Flow Rate Fraction of Inspired Oxygen 10/28/24 02:31 10/28/24 02:45 10/28/24 02:46 Temperature Pulse Rate 70 86 80 Respiratory Rate 18 12 17 Blood Pressure 113/92 H Pulse Oximetry 99 100 99 Oxygen Delivery Oxygen Flow Rate Fraction of Inspired Oxygen 10/28/24 03:00 10/28/24 03:01 10/28/24 03:15 Temperature Pulse Rate 70 70 70 Respiratory Rate 15 21 H 18 Blood Pressure 114/86 Pulse Oximetry 99 100 100 Oxygen Delivery Oxygen Flow Rate Fraction of Inspired Oxygen 10/28/24 03:16 10/28/24 03:30 10/28/24 03:31 Temperature Pulse Rate 71 73 91 Respiratory Rate 16 24 H 12 Blood Pressure 111/66 117/90 Pulse Oximetry 100 100 Oxygen Delivery Oxygen Flow Rate Fraction of Inspired Oxygen 10/28/24 03:45 10/28/24 03:46 10/28/24 04:00 Temperature Pulse Rate 71 71 72 Respiratory Rate 13 15 Blood Pressure 109/70 118/74 Pulse Oximetry 100 100 Oxygen Delivery Oxygen Flow Rate Fraction of Inspired Oxygen 10/28/24 04:00 10/28/24 04:00 10/28/24 04:00 Temperature 36.6 C Pulse Rate 72 76 Respiratory Rate 14 Blood Pressure 118/74 Pulse Oximetry 99 100 Oxygen Delivery Nasal Cannula Oxygen Flow Rate 4 Fraction of Inspired Oxygen 10/28/24 04:00 10/28/24 04:01 10/28/24 04:15 Temperature Pulse Rate 73 72 95 Respiratory Rate 10 L 10 L 19 Blood Pressure 118/74 Pulse Oximetry 100 96 Oxygen Delivery Oxygen Flow Rate Fraction of Inspired Oxygen 10/28/24 04:16 10/28/24 04:30 10/28/24 04:31 Temperature Pulse Rate 91 80 77 Respiratory Rate 16 18 22 H Blood Pressure 117/76 94/61 L Pulse Oximetry 100 100 100 Oxygen Delivery Oxygen Flow Rate Fraction of Inspired Oxygen 10/28/24 04:45 10/28/24 05:00 10/28/24 05:01 Temperature Pulse Rate 77 70 69 Respiratory Rate 23 H 14 14 Blood Pressure 125/86 Pulse Oximetry 100 87 L 94 Oxygen Delivery Oxygen Flow Rate Fraction of Inspired Oxygen 10/28/24 05:15 10/28/24 05:16 10/28/24 05:26 Temperature Pulse Rate 70 70 71 Respiratory Rate 23 H 13 Blood Pressure 131/81 122/91 H Pulse Oximetry 99 100 Oxygen Delivery Oxygen Flow Rate Fraction of Inspired Oxygen 10/28/24 05:30 10/28/24 05:31 10/28/24 05:39 Temperature Pulse Rate 70 69 71 Respiratory Rate 9 L 14 Blood Pressure 122/91 H 122/91 H Pulse Oximetry 99 99 Oxygen Delivery Oxygen Flow Rate Fraction of Inspired Oxygen 10/28/24 05:45 10/28/24 05:46 10/28/24 06:00 Temperature Pulse Rate 71 83 75 Respiratory Rate 15 14 Blood Pressure 111/90 Pulse Oximetry 100 89 L Oxygen Delivery Oxygen Flow Rate Fraction of Inspired Oxygen 10/28/24 06:00 10/28/24 06:00 10/28/24 06:00 Temperature 36.6 C Pulse Rate 75 76 95 Respiratory Rate 16 16 Blood Pressure 126/96 H 126/96 H 126/96 H Pulse Oximetry 100 Oxygen Delivery Oxygen Flow Rate Fraction of Inspired Oxygen 10/28/24 06:01 10/28/24 06:15 10/28/24 06:16 Temperature Pulse Rate 92 71 78 Respiratory Rate 11 L 17 13 Blood Pressure 109/81 Pulse Oximetry 97 100 Oxygen Delivery Oxygen Flow Rate Fraction of Inspired Oxygen 10/28/24 06:30 10/28/24 07:38 Temperature 36.5 C Pulse Rate 71 70 Respiratory Rate 16 18 Blood Pressure 121/89 Pulse Oximetry 98 100 Oxygen Delivery Oxygen Flow Rate Fraction of Inspired Oxygen Intake/Output Intake/Output: Intake & Output 10/25/24 10/26/24 10/27/24 10/28/24 23:59 23:59 23:59 23:59 Intake Total 720 2384 1357.6 642.1 Output Total 800 2325 1100 500 Balance -80 59 257.6 142.1 Meds/Results Medications: Active Medications Generic Name Dose Route Start Last Admin Trade Name Freq PRN Reason Stop Dose Admin Acetaminophen 500 mg 10/25/24 14:09 10/27/24 08:17 Acetaminophen 500 Mg Tablet PO 500 mg Q4H PRN Administration Mild Pain (1-3) or Fever Hydrocodone Bitart/Acetaminophen 1 tab 10/25/24 14:09 10/28/24 00:30 Hydrocodone/Acetaminophen (*Crx) 5-325 Mg Tablet PO 1 tab Q6H PRN Administration Pain Rated 4-6 Albuterol 2 puff 10/25/24 14:10 Albuterol Sulfate (*Sp) Aerosol 1 Puff INHALATION Q6-8H PRN Shortness Of Breath Or Wheezing Allopurinol 100 mg 10/25/24 14:15 10/27/24 08:17 Allopurinol 100 Mg Tablet PO 100 mg DAILY MAYELA Administration Apixaban 5 mg 10/25/24 21:00 10/27/24 20:26 Apixaban 5 Mg Tablet PO 5 mg Q12HR MAYELA Administration Bumetanide 2 mg 10/25/24 11:00 10/27/24 17:28 Bumetanide Inj 1 Mg/4 Ml Vial IV PUSH 2 mg BID MAYELA Administration Buspirone HCl 10 mg 10/25/24 17:00 10/27/24 17:28 Buspirone Hcl 10 Mg Tablet PO 10 mg BID MAYELA Administration Carvedilol 3.125 mg 10/25/24 17:00 10/26/24 09:12 Carvedilol 3.125 Mg Tablet PO 3.125 mg On Hold: 10/26/24 11:51 BIDWM MAYELA Administration Dextrose 12.5 gm 10/25/24 14:09 Dextrose 50% 25 Gm/50 Ml Syringe IV PUSH PRN PRN Hypoglycemia Protocol Diclofenac Sodium 1 applic 10/27/24 13:00 10/27/24 20:27 Diclofenac Sodium 1% 100 Gm Gel (*Bkc) TOPICAL 1 applic QID MAYELA Administration Famotidine 20 mg 10/25/24 21:00 10/27/24 20:26 Famotidine 20 Mg Tablet PO 20 mg Q12HR MAYELA Administration Glucagon 1 mg 10/25/24 14:09 Glucagon For Inj 1 Mg Vial IM PRN PRN Hypoglycemia Protocol Glucose 15 gm 10/25/24 14:09 Glucose Oral Gel 15 Gm Of Glucse In 37.5 Gm Tube PO PRN PRN Hypoglycemia Protocol Dextrose 1,000 mls @ 100 mls/hr 10/25/24 14:09 Dextrose 5% 1,000 Ml IVPB PRN PRN Hypoglycemia Protocol Dobutamine HCl/Dextrose 250 mg in 250 mls @ 32.4 mls/hr 10/27/24 12:45 10/28/24 06:00 Dobutamine 250 Mg/D5w 250 Ml IV CONT 5 mcg/kg/min .Q7H43M MAYELA 32.4 mls/hr 5 MCG/KG/MIN Infusion Insulin Aspart 4 - 8 units 10/25/24 17:00 10/28/24 07:33 Insulin Aspart (*Bkc) 100 Units/Ml SUB-Q Not Given TIDWM [facility] Protocol Miscellaneous Information 0 each 10/25/24 00:01 Please Verify Once Daily On The Ivabradine. Usual Dose Of This Med Is 5mg Twice A Day. Ext XX 11/24/24 00:00 CLARIFY [facility] Nonformulary Drug 0 mg 10/25/24 14:20 10/27/24 08:18 Ivabradine 5 Mg PO 11/24/24 14:19 5 mg Tablet DAILY MAYELA Administration On Hold: 10/27/24 12:24 Ondansetron HCl 4 mg 10/25/24 14:09 10/27/24 08:26 Ondansetron Inj 4 Mg/2 Ml Vial IV PUSH 4 mg Q6H PRN Administration Nausea And Vomiting Perflutren Lipid Microsphere 0 ml 10/26/24 11:34 Perflutren Lipid Microspheres 1.5 Ml Vial Diluted To 10 Ml Total Volume IV PUSH 10/29/24 11:34 ONCE PRN adequate visualization Protocol Potassium Chloride 20 meq 10/26/24 09:00 10/27/24 08:17 Potassium Chloride 20 Meq Er Tablet PO 20 meq DAILY MAYELA Administration Potassium Chloride 10 meq 10/25/24 18:00 10/27/24 17:28 Potassium Chloride 10 Meq Er Tablet PO 10 meq QPM MAYELA Administration Radiology Results: ITS Impressions Abdomen/Pelvis CT 10/25/24 07:31 IMPRESSION: 1. Moderate cardiomegaly. 2. Diffuse intra-abdominal and body wall edema as well as small amount of ascites likely related to congestive heart failure. 3. Diffuse hepatic steatosis with suggestion of some liver surface nodularity raising some suspicion for cirrhosis. 4. Wall thickening of the gallbladder due to at least in part to decompressed state which would argue against acute cholecystitis. This could also be due to congestive heart failure or chronic cholecystitis. If there is continued clinical concern for acute cholecystitis could consider HIDA scan for further evaluation. 5. Mild emphysema. 6. Moderate bilateral sacroiliitis which is relatively symmetric, which can be seen with ankylosing spondylitis, enteropathic arthritis and rheumatoid arthritis with differential also including psoriatic arthritis and reactive arthritis and osteoarthritis. Abdomen Ultrasound 10/25/24 08:07 IMPRESSION: 1. Increased portal venous pulsatility consistent with congestive heart failure. 2. Normal gallbladder with no cholelithiasis with negative sonographic Johnson's sign. 3. Suggestion of some liver surface nodularity on the larger [id number] images which is not appreciated on the single high-resolution image which remains equivocal for cirrhosis. Chest X-Ray 10/25/24 08:13 IMPRESSION: Moderate cardiomegaly and pulmonary vascular congestion. Superimposed infection cannot be excluded. Labs Labs: Laboratory Results - last 24 hr 10/27/24 10/27/24 10/27/24 11:52 17:26 20:23 WBC RBC Hgb Hct MCV MCH MCHC RDW Plt Count MPV Immature Gran % (Auto) Neut % (Auto) Lymph % (Auto) Wells % (Auto) Eos % (Auto) Baso % (Auto) Lymph # (Auto) Wells # (Auto) Eos # (Auto) Baso # (Auto) Abs Immat Gran (auto) Absolute Neuts (auto) Absolute Nucleated RBC Band Neutrophils % Nucleated RBC % Platelet Estimate Hypochromasia Anisocytosis Macrocytosis Ovalocytes Schistocytes Sodium Potassium Chloride Carbon Dioxide Anion Gap BUN Creatinine Estim Creat Clear Calc Estimated GFR Glucose POC Capillary Glucose 123 H 128 H 123 H Calcium Phosphorus Magnesium Total Bilirubin AST ALT Alkaline Phosphatase Total Protein Albumin Nasal MRSA (PCR) 10/27/24 10/28/24 10/28/24 23:54 04:03 07:16 WBC 5.4 RBC 4.01 L Hgb 10.9 L Hct 36.7 L MCV 91.5 MCH 27.2 MCHC 29.7 L RDW 22.3 H Plt Count 208 MPV 10.8 H Immature Gran % (Auto) 0.4 Neut % (Auto) 75.3 H Lymph % (Auto) 12.6 L Wells % (Auto) 8.7 H Eos % (Auto) 1.9 Baso % (Auto) 1.1 Lymph # (Auto) 0.68 L Wells # (Auto) 0.5 Eos # (Auto) 0.1 Baso # (Auto) 0.1 Abs Immat Gran (auto) 0.02 Absolute Neuts (auto) 4.1 Absolute Nucleated RBC 0.000 Band Neutrophils % Not Reportable Nucleated RBC % 0.0 Platelet Estimate Adequate Hypochromasia 1+ Anisocytosis 1+ Macrocytosis 1+ Ovalocytes 1+ Schistocytes None seen Sodium 136 L Potassium 4.3 Chloride 99 Carbon Dioxide 30 Anion Gap 7 BUN 57 H Creatinine 2.35 H Estim Creat Clear Calc 43 Estimated GFR 30 L Glucose 125 H POC Capillary Glucose 117 H Calcium 8.9 Phosphorus 4.5 Magnesium 2.6 H Total Bilirubin 2.8 H AST 83 H ALT 45 Alkaline Phosphatase 130 H Total Protein 7.5 Albumin 3.5 Nasal MRSA (PCR) Detected A* Quality VTE Prophylaxis VTE prophylaxis: pharmacologic ordered
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
[2024-10-28] MEDS: POTASSIUM CHLORIDE 20 MEQ ER TABLET PO (08:46)
[2024-10-28] MEDS: APIXABAN 5 MG TABLET PO ×2 (08:46→20:02)
[2024-10-28] MEDS: BUMETANIDE INJ 1 MG/4 ML VIAL 2 MG IV PUSH ×2 (08:46→17:14)
[2024-10-28] MEDS: FAMOTIDINE 20 MG TABLET PO ×2 (08:46→20:02)
[2024-10-28] MEDS: DICLOFENAC SODIUM 1% 100 GM GEL (*BKC) 1 APPLIC TOPICAL ×4 (08:47→20:02)
--- NOTE | 2024-10-28 09:46 | PCPTNOTE ---
Attempted to see at 930, but patient states he just doesn't want to do it today, maybe tomorrow.
[2024-10-28 09:57] LABS: Creatine Kinase 109 U/L (55-170)
[2024-10-28 10:05] LABS: Total Protein Urine Random 17 mg/dL; Ur Ttl Prot Creatinine Ratio 0.23 mg/mg (0-0.20)
[2024-10-28 10:10] LABS: Urea Random Urine 510 MG/DL
[2024-10-28 10:29] LABS: Need Manual Microscopic Reviewed
[2024-10-28 10:30] LABS: Add Urine Microscopic? NO
[2024-10-28 10:48] LABS: Appearance Urine Clear (Clear); Glucose Urine UA Negative (Negative); Specific Grav Ur 1.020 (1.001-1.035)
[2024-10-28 10:49] LABS: Leukocyte Esterase Ur Negative LEU/UL (Negative); Nitrate Urine Negative (Negative)
[2024-10-28] MEDS: ONDANSETRON INJ 4 MG/2 ML VIAL IV PUSH (13:12)
[2024-10-28] MEDS: POTASSIUM CHLORIDE 10 MEQ ER TABLET PO (17:14)
--- NOTE | 2024-10-28 18:18 | PM.PNCARD ---
Progress Note: A&P Assessment and Plan (1) Acute on chronic heart failure with reduced ejection fraction (HFrEF, <= 40%): Code(s): I50.23 - Acute on chronic systolic (congestive) heart failure Status: Acute (2) Mitral regurgitation: Qualifiers: Cardiac valve disease etiology: nonrheumatic Qualified Code(s): I34.0 - Nonrheumatic mitral (valve) insufficiency Code(s): I34.0 - Nonrheumatic mitral (valve) insufficiency Status: Acute (3) Elevated troponin: Code(s): R79.89 - Other specified abnormal findings of blood chemistry Status: Acute Plan 44-year-old man with chronic systolic heart failure (nonischemic LVEF 15-20%) status post BiV ICD, severe mitral regurgitation, chronic kidney disease stage IIIB, diabetes type 2, CARRIE on CPAP, history of medication noncompliance, and history of methamphetamine abuse now presents with 3 days of weakness Acute on chronic systolic heart failure -recommend interrogation the device to determine if he has any arrhythmias causing worsening congestion -he is on Bumex 3 mg p.o. b.i.d. 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 Review of Systems Cardiovascular: Cardiovascular: Reports as per HPI Respiratory: Respiratory: Reports as per HPI Exam Const: General: comfortable HENMT: Mouth: Yes moist mucous membranes Eyes: EOM: EOMs intact bilaterally Neck: Other: JVD 15 cm Resp: Effort & Inspection: normal respiratory effort Auscultation: rales Cardio: Rate: regular rate Rhythm: regular rhythm Heart sounds: Murmur heart sound present Neuro: Speech: normal speech Extrem: General: edema and pedal edema Objective Data Vital Signs Vital Signs: Vital Signs - 24 hr 10/27/24 19:00 10/27/24 19:01 10/27/24 19:15 Temperature Pulse Rate 80 76 74 Respiratory Rate 20 19 22 H Blood Pressure 122/91 H Pulse Oximetry 100 100 Oxygen Delivery Oxygen Flow Rate Fraction of Inspired Oxygen 10/27/24 19:16 10/27/24 19:30 10/27/24 19:32 Temperature Pulse Rate 72 71 83 Respiratory Rate 17 20 17 Blood Pressure 111/90 124/104 H Pulse Oximetry 99 96 100 Oxygen Delivery Oxygen Flow Rate Fraction of Inspired Oxygen 10/27/24 19:34 10/27/24 19:45 10/27/24 19:47 Temperature Pulse Rate 88 86 80 Respiratory Rate 33 H 17 24 H Blood Pressure 115/79 112/81 Pulse Oximetry 99 Oxygen Delivery Oxygen Flow Rate Fraction of Inspired Oxygen 10/27/24 20:00 10/27/24 20:00 10/27/24 20:00 Temperature Pulse Rate 71 80 Respiratory Rate Blood Pressure 118/80 Pulse Oximetry 99 Oxygen Delivery Nasal Cannula Oxygen Flow Rate 3 Fraction of Inspired Oxygen 10/27/24 20:00 10/27/24 20:00 10/27/24 20:01 Temperature 36.9 C Pulse Rate 72 72 71 Respiratory Rate 15 11 L 11 L Blood Pressure 118/80 118/80 Pulse Oximetry 100 97 94 Oxygen Delivery Oxygen Flow Rate Fraction of Inspired Oxygen 10/27/24 20:15 10/27/24 20:16 10/27/24 20:30 Temperature Pulse Rate 72 73 72 Respiratory Rate 13 13 19 Blood Pressure 120/86 124/108 H Pulse Oximetry 94 97 100 Oxygen Delivery Oxygen Flow Rate Fraction of Inspired Oxygen 10/27/24 20:31 10/27/24 20:35 10/27/24 20:45 Temperature Pulse Rate 71 71 70 Respiratory Rate 13 20 23 H Blood Pressure Pulse Oximetry 100 100 96 Oxygen Delivery Nasal Cannula Oxygen Flow Rate 3 Fraction of Inspired Oxygen 32 10/27/24 20:46 10/27/24 21:00 10/27/24 21:01 Temperature Pulse Rate 70 74 71 Respiratory Rate 10 L 17 14 Blood Pressure 113/78 113/86 Pulse Oximetry Oxygen Delivery Oxygen Flow Rate Fraction of Inspired Oxygen 10/27/24 21:15 10/27/24 21:16 10/27/24 21:30 Temperature Pulse Rate 72 73 71 Respiratory Rate 16 14 10 L Blood Pressure 119/97 H 121/85 Pulse Oximetry 100 93 Oxygen Delivery Oxygen Flow Rate Fraction of Inspired Oxygen 10/27/24 21:31 10/27/24 21:43 10/27/24 21:43 Temperature Pulse Rate 71 75 75 Respiratory Rate 14 Blood Pressure 121/85 121/85 Pulse Oximetry Oxygen Delivery Oxygen Flow Rate Fraction of Inspired Oxygen 10/27/24 21:45 10/27/24 21:46 10/27/24 21:50 Temperature Pulse Rate 72 73 95 Respiratory Rate 26 H 11 L Blood Pressure 114/73 Pulse Oximetry 94 97 95 Oxygen Delivery Autopap Oxygen Flow Rate Fraction of Inspired Oxygen 10/27/24 22:00 10/27/24 22:00 10/27/24 22:00 Temperature 37.1 C Pulse Rate 70 70 85 Respiratory Rate 22 H Blood Pressure 104/78 104/78 Pulse Oximetry 100 Oxygen Delivery Oxygen Flow Rate Fraction of Inspired Oxygen 10/27/24 22:00 10/27/24 22:01 10/27/24 22:15 Temperature Pulse Rate 70 70 72 Respiratory Rate 16 12 15 Blood Pressure 104/78 113/74 Pulse Oximetry 99 Oxygen Delivery Oxygen Flow Rate Fraction of Inspired Oxygen 10/27/24 22:16 10/27/24 22:28 10/27/24 22:30 Temperature Pulse Rate 71 76 Respiratory Rate 14 16 Blood Pressure Pulse Oximetry 85 L 96 100 Oxygen Delivery Nasal Cannula Oxygen Flow Rate 3 Fraction of Inspired Oxygen 10/27/24 22:31 10/27/24 22:45 10/27/24 22:46 Temperature Pulse Rate 72 70 70 Respiratory Rate 19 16 14 Blood Pressure 109/69 117/88 Pulse Oximetry 100 Oxygen Delivery Oxygen Flow Rate Fraction of Inspired Oxygen 10/27/24 23:00 10/27/24 23:01 10/28/24 00:00 Temperature Pulse Rate 75 73 84 Respiratory Rate 10 L 10 L Blood Pressure 119/84 111/87 Pulse Oximetry Oxygen Delivery Oxygen Flow Rate Fraction of Inspired Oxygen 10/28/24 00:00 10/28/24 00:00 10/28/24 00:00 Temperature 36.5 C Pulse Rate 72 Respiratory Rate Blood Pressure Pulse Oximetry 100 Oxygen Delivery Nasal Cannula Oxygen Flow Rate 3 Fraction of Inspired Oxygen 10/28/24 00:01 10/28/24 00:02 10/28/24 00:15 Temperature Pulse Rate 73 83 71 Respiratory Rate 27 H 13 16 Blood Pressure 111/87 142/111 H Pulse Oximetry 100 100 Oxygen Delivery Oxygen Flow Rate Fraction of Inspired Oxygen 10/28/24 00:16 10/28/24 00:25 10/28/24 00:30 Temperature Pulse Rate 71 73 Respiratory Rate 17 18 Blood Pressure Pulse Oximetry 70 L 100 Oxygen Delivery Oxygen Flow Rate 3 Fraction of Inspired Oxygen 10/28/24 00:31 10/28/24 00:45 10/28/24 00:46 Temperature Pulse Rate 71 73 72 Respiratory Rate 16 25 H 22 H Blood Pressure 105/78 109/79 Pulse Oximetry 100 100 100 Oxygen Delivery Oxygen Flow Rate Fraction of Inspired Oxygen 10/28/24 01:00 10/28/24 01:01 10/28/24 01:08 Temperature Pulse Rate 72 71 70 Respiratory Rate 24 H 18 Blood Pressure 112/83 Pulse Oximetry 100 99 100 Oxygen Delivery Nasal Cannula Oxygen Flow Rate Fraction of Inspired Oxygen 10/28/24 01:15 10/28/24 01:16 10/28/24 01:30 Temperature Pulse Rate 71 71 73 Respiratory Rate 22 H 18 21 H Blood Pressure 115/79 115/81 Pulse Oximetry 100 100 100 Oxygen Delivery Oxygen Flow Rate Fraction of Inspired Oxygen 10/28/24 01:31 10/28/24 01:45 10/28/24 01:46 Temperature Pulse Rate 75 90 90 Respiratory Rate 19 13 14 Blood Pressure 127/83 Pulse Oximetry 100 100 100 Oxygen Delivery Oxygen Flow Rate Fraction of Inspired Oxygen 10/28/24 02:00 10/28/24 02:00 10/28/24 02:00 Temperature Pulse Rate 77 77 71 Respiratory Rate 17 Blood Pressure 117/81 Pulse Oximetry 100 Oxygen Delivery Oxygen Flow Rate Fraction of Inspired Oxygen 10/28/24 02:01 10/28/24 02:02 10/28/24 02:15 Temperature Pulse Rate 70 70 70 Respiratory Rate 25 H 15 13 Blood Pressure 117/81 105/68 Pulse Oximetry 100 100 90 Oxygen Delivery Oxygen Flow Rate Fraction of Inspired Oxygen 10/28/24 02:16 10/28/24 02:30 10/28/24 02:31 Temperature Pulse Rate 70 70 70 Respiratory Rate 16 15 18 Blood Pressure 108/97 H Pulse Oximetry 94 99 99 Oxygen Delivery Oxygen Flow Rate Fraction of Inspired Oxygen 10/28/24 02:45 10/28/24 02:46 10/28/24 03:00 Temperature Pulse Rate 86 80 70 Respiratory Rate 12 17 15 Blood Pressure 113/92 H 114/86 Pulse Oximetry 100 99 99 Oxygen Delivery Oxygen Flow Rate Fraction of Inspired Oxygen 10/28/24 03:01 10/28/24 03:15 10/28/24 03:16 Temperature Pulse Rate 70 70 71 Respiratory Rate 21 H 18 16 Blood Pressure 111/66 Pulse Oximetry 100 100 100 Oxygen Delivery Oxygen Flow Rate Fraction of Inspired Oxygen 10/28/24 03:30 10/28/24 03:31 10/28/24 03:45 Temperature Pulse Rate 73 91 71 Respiratory Rate 24 H 12 13 Blood Pressure 117/90 Pulse Oximetry 100 100 Oxygen Delivery Oxygen Flow Rate Fraction of Inspired Oxygen 10/28/24 03:46 10/28/24 04:00 10/28/24 04:00 Temperature Pulse Rate 71 72 Respiratory Rate 15 Blood Pressure 109/70 118/74 Pulse Oximetry 100 99 Oxygen Delivery Nasal Cannula Oxygen Flow Rate 4 Fraction of Inspired Oxygen 10/28/24 04:00 10/28/24 04:00 10/28/24 04:00 Temperature 36.6 C Pulse Rate 72 76 73 Respiratory Rate 14 10 L Blood Pressure 118/74 118/74 Pulse Oximetry 100 100 Oxygen Delivery Oxygen Flow Rate Fraction of Inspired Oxygen 10/28/24 04:01 10/28/24 04:15 10/28/24 04:16 Temperature Pulse Rate 72 95 91 Respiratory Rate 10 L 19 16 Blood Pressure 117/76 Pulse Oximetry 96 100 Oxygen Delivery Oxygen Flow Rate Fraction of Inspired Oxygen 10/28/24 04:30 10/28/24 04:31 10/28/24 04:45 Temperature Pulse Rate 80 77 77 Respiratory Rate 18 22 H 23 H Blood Pressure 94/61 L Pulse Oximetry 100 100 100 Oxygen Delivery Oxygen Flow Rate Fraction of Inspired Oxygen 10/28/24 05:00 10/28/24 05:01 10/28/24 05:15 Temperature Pulse Rate 70 69 70 Respiratory Rate 14 14 23 H Blood Pressure 125/86 Pulse Oximetry 87 L 94 99 Oxygen Delivery Oxygen Flow Rate Fraction of Inspired Oxygen 10/28/24 05:16 10/28/24 05:26 10/28/24 05:30 Temperature Pulse Rate 70 71 70 Respiratory Rate 13 9 L Blood Pressure 131/81 122/91 H Pulse Oximetry 100 99 Oxygen Delivery Oxygen Flow Rate Fraction of Inspired Oxygen 10/28/24 05:31 10/28/24 05:39 10/28/24 05:45 Temperature Pulse Rate 69 71 71 Respiratory Rate 14 15 Blood Pressure 122/91 H 122/91 H 111/90 Pulse Oximetry 99 100 Oxygen Delivery Oxygen Flow Rate Fraction of Inspired Oxygen 10/28/24 05:46 10/28/24 06:00 10/28/24 06:00 Temperature Pulse Rate 83 75 75 Respiratory Rate 14 Blood Pressure 126/96 H Pulse Oximetry 89 L Oxygen Delivery Oxygen Flow Rate Fraction of Inspired Oxygen 10/28/24 06:00 10/28/24 06:00 10/28/24 06:01 Temperature 36.6 C Pulse Rate 76 95 92 Respiratory Rate 16 16 11 L Blood Pressure 126/96 H 126/96 H Pulse Oximetry 100 Oxygen Delivery Oxygen Flow Rate Fraction of Inspired Oxygen 10/28/24 06:15 10/28/24 06:16 10/28/24 06:30 Temperature Pulse Rate 71 78 71 Respiratory Rate 17 13 16 Blood Pressure 109/81 Pulse Oximetry 97 100 98 Oxygen Delivery Oxygen Flow Rate Fraction of Inspired Oxygen 10/28/24 07:38 10/28/24 08:00 10/28/24 08:00 Temperature 36.5 C Pulse Rate 70 73 Respiratory Rate 18 Blood Pressure 121/89 120/90 Pulse Oximetry 100 99 Oxygen Delivery Nasal Cannula Oxygen Flow Rate 3 Fraction of Inspired Oxygen 10/28/24 08:00 10/28/24 09:46 10/28/24 10:00 Temperature 36.5 C Pulse Rate 79 72 71 Respiratory Rate 18 Blood Pressure 126/80 Pulse Oximetry 98 Oxygen Delivery Oxygen Flow Rate Fraction of Inspired Oxygen 10/28/24 10:00 10/28/24 12:00 10/28/24 12:00 Temperature Pulse Rate 71 70 70 Respiratory Rate Blood Pressure 126/80 119/82 119/82 Pulse Oximetry Oxygen Delivery Oxygen Flow Rate Fraction of Inspired Oxygen 10/28/24 12:00 10/28/24 12:00 10/28/24 12:00 Temperature 36.4 C Pulse Rate 79 75 Respiratory Rate 19 Blood Pressure 119/82 Pulse Oximetry 93 99 Oxygen Delivery Room Air Oxygen Flow Rate Fraction of Inspired Oxygen 10/28/24 14:00 10/28/24 14:00 10/28/24 14:00 Temperature Pulse Rate 72 70 70 Respiratory Rate 19 Blood Pressure 114/91 H 114/91 H Pulse Oximetry 95 Oxygen Delivery Oxygen Flow Rate Fraction of Inspired Oxygen 10/28/24 15:52 10/28/24 16:00 10/28/24 16:00 Temperature 36.7 C Pulse Rate 73 72 Respiratory Rate 17 Blood Pressure 110/78 Pulse Oximetry 98 98 Oxygen Delivery Room Air Oxygen Flow Rate Fraction of Inspired Oxygen 10/28/24 16:00 10/28/24 17:16 10/28/24 17:16 Temperature Pulse Rate 72 77 77 Respiratory Rate Blood Pressure 110/78 115/89 115/89 Pulse Oximetry Oxygen Delivery Oxygen Flow Rate Fraction of Inspired Oxygen Intake/Output Intake/Output: Intake & Output 10/25/24 10/26/24 10/27/24 10/28/24 23:59 23:59 23:59 23:59 Intake Total 720 2384 1357.6 1637.1 Output Total 800 2325 2075 1575 Balance -80 59 -717.4 62.1 Meds/Results Medications: Active Medications Generic Name Dose Route Start Last Admin Trade Name Freq PRN Reason Stop Dose Admin Acetaminophen 500 mg 10/25/24 14:09 10/27/24 08:17 Acetaminophen 500 Mg Tablet PO 500 mg Q4H PRN Administration Mild Pain (1-3) or Fever Hydrocodone Bitart/Acetaminophen 1 tab 10/25/24 14:09 10/28/24 00:30 Hydrocodone/Acetaminophen (*Crx) 5-325 Mg Tablet PO 1 tab Q6H PRN Administration Pain Rated 4-6 Albuterol 2 puff 10/25/24 14:10 Albuterol Sulfate (*Sp) Aerosol 1 Puff INHALATION Q6-8H PRN Shortness Of Breath Or Wheezing Allopurinol 100 mg 10/25/24 14:15 10/28/24 08:45 Allopurinol 100 Mg Tablet PO 100 mg DAILY MAYELA Administration Apixaban 5 mg 10/25/24 21:00 10/28/24 08:46 Apixaban 5 Mg Tablet PO 5 mg Q12HR MAYELA Administration Bumetanide 2 mg 10/25/24 11:00 10/28/24 17:14 Bumetanide Inj 1 Mg/4 Ml Vial IV PUSH 2 mg BID MAYELA Administration Buspirone HCl 10 mg 10/25/24 17:00 10/28/24 17:14 Buspirone Hcl 10 Mg Tablet PO 10 mg BID MAYELA Administration Carvedilol 3.125 mg 10/25/24 17:00 10/26/24 09:12 Carvedilol 3.125 Mg Tablet PO 3.125 mg On Hold: 10/26/24 11:51 BIDWM MAYELA Administration Dextrose 12.5 gm 10/25/24 14:09 Dextrose 50% 25 Gm/50 Ml Syringe IV PUSH PRN PRN Hypoglycemia Protocol Diclofenac Sodium 1 applic 10/27/24 13:00 10/28/24 17:14 Diclofenac Sodium 1% 100 Gm Gel (*Bkc) TOPICAL 1 applic QID MAYELA Administration Famotidine 20 mg 10/25/24 21:00 10/28/24 08:46 Famotidine 20 Mg Tablet PO 20 mg Q12HR MAYELA Administration Glucagon 1 mg 10/25/24 14:09 Glucagon For Inj 1 Mg Vial IM PRN PRN Hypoglycemia Protocol Glucose 15 gm 10/25/24 14:09 Glucose Oral Gel 15 Gm Of Glucse In 37.5 Gm Tube PO PRN PRN Hypoglycemia Protocol Dextrose 1,000 mls @ 100 mls/hr 10/25/24 14:09 Dextrose 5% 1,000 Ml IVPB PRN PRN Hypoglycemia Protocol Dobutamine HCl/Dextrose 250 mg in 250 mls @ 32.4 mls/hr 10/27/24 12:45 10/28/24 17:16 Dobutamine 250 Mg/D5w 250 Ml IV CONT 5 mcg/kg/min .Q7H43M MAYELA 32.4 mls/hr 5 MCG/KG/MIN Administration Insulin Aspart 4 - 8 units 10/25/24 17:00 10/28/24 17:15 Insulin Aspart (*Bkc) 100 Units/Ml SUB-Q Not Given TIDWM [facility] Protocol Miscellaneous Information 0 each 10/25/24 00:01 Please Verify Once Daily On The Ivabradine. Usual Dose Of This Med Is 5mg Twice A Day. Ext XX 11/24/24 00:00 CLARIFY [facility] Nonformulary Drug 0 mg 10/25/24 14:20 10/27/24 08:18 Ivabradine 5 Mg PO 11/24/24 14:19 5 mg Tablet DAILY MAYELA Administration On Hold: 10/27/24 12:24 Ondansetron HCl 4 mg 10/25/24 14:09 10/28/24 13:12 Ondansetron Inj 4 Mg/2 Ml Vial IV PUSH 4 mg Q6H PRN Administration Nausea And Vomiting Perflutren Lipid Microsphere 0 ml 10/26/24 11:34 Perflutren Lipid Microspheres 1.5 Ml Vial Diluted To 10 Ml Total Volume IV PUSH 10/29/24 11:34 ONCE PRN adequate visualization Protocol Potassium Chloride 20 meq 10/26/24 09:00 10/28/24 08:46 Potassium Chloride 20 Meq Er Tablet PO 20 meq DAILY MAYELA Administration Potassium Chloride 10 meq 10/25/24 18:00 10/28/24 17:14 Potassium Chloride 10 Meq Er Tablet PO 10 meq QPM MAYELA Administration Radiology Results: ITS Impressions Abdomen/Pelvis CT 10/25/24 07:31 IMPRESSION: 1. Moderate cardiomegaly. 2. Diffuse intra-abdominal and body wall edema as well as small amount of ascites likely related to congestive heart failure. 3. Diffuse hepatic steatosis with suggestion of some liver surface nodularity raising some suspicion for cirrhosis. 4. Wall thickening of the gallbladder due to at least in part to decompressed state which would argue against acute cholecystitis. This could also be due to congestive heart failure or chronic cholecystitis. If there is continued clinical concern for acute cholecystitis could consider HIDA scan for further evaluation. 5. Mild emphysema. 6. Moderate bilateral sacroiliitis which is relatively symmetric, which can be seen with ankylosing spondylitis, enteropathic arthritis and rheumatoid arthritis with differential also including psoriatic arthritis and reactive arthritis and osteoarthritis. Abdomen Ultrasound 10/25/24 08:07 IMPRESSION: 1. Increased portal venous pulsatility consistent with congestive heart failure. 2. Normal gallbladder with no cholelithiasis with negative sonographic Johnson's sign. 3. Suggestion of some liver surface nodularity on the larger [id number] images which is not appreciated on the single high-resolution image which remains equivocal for cirrhosis. Chest X-Ray 10/25/24 08:13 IMPRESSION: Moderate cardiomegaly and pulmonary vascular congestion. Superimposed infection cannot be excluded. Labs Labs: Laboratory Results - last 24 hr 10/27/24 10/27/24 10/28/24 20:23 23:54 04:03 WBC 5.4 RBC 4.01 L Hgb 10.9 L Hct 36.7 L MCV 91.5 MCH 27.2 MCHC 29.7 L RDW 22.3 H Plt Count 208 MPV 10.8 H Immature Gran % (Auto) 0.4 Neut % (Auto) 75.3 H Lymph % (Auto) 12.6 L [place] % (Auto) 8.7 H Eos % (Auto) 1.9 Baso % (Auto) 1.1 Lymph # (Auto) 0.68 L [place] # (Auto) 0.5 Eos # (Auto) 0.1 Baso # (Auto) 0.1 Abs Immat Gran (auto) 0.02 Absolute Neuts (auto) 4.1 Absolute Nucleated RBC 0.000 Band Neutrophils % Not Reportable Nucleated RBC % 0.0 Platelet Estimate Adequate Hypochromasia 1+ Anisocytosis 1+ Macrocytosis 1+ Ovalocytes 1+ Schistocytes None seen Sodium 136 L Potassium 4.3 Chloride 99 Carbon Dioxide 30 Anion Gap 7 BUN 57 H Creatinine 2.35 H Estim Creat Clear Calc 43 Estimated GFR 30 L Glucose 125 H POC Capillary Glucose 123 H Calcium 8.9 Phosphorus 4.5 Magnesium 2.6 H Total Bilirubin 2.8 H AST 83 H ALT 45 Alkaline Phosphatase 130 H Total Creatine Kinase Total Protein 7.5 Albumin 3.5 Urine Color Urine Appearance Urine pH Ur Specific [place] Urine Protein Urine Glucose (UA) Urine Ketones Ur Blood (Man) Urine Nitrate Urine Bilirubin Urine Urobilinogen Ur Leukocyte Esterase Add Ur Microanalysis Urine RBC Urine WBC Ur Squamous Epith Cells Urine Bacteria Urine Casts Hyaline Casts U Random Total Protein Ur Random Sodium Ur Random Urea Urine Creatinine Protein/Creat Ratio 2 Nasal MRSA (PCR) Detected A* 10/28/24 10/28/24 10/28/24 07:16 09:41 09:45 WBC RBC Hgb Hct MCV MCH MCHC RDW Plt Count MPV Immature Gran % (Auto) Neut % (Auto) Lymph % (Auto) [place] % (Auto) Eos % (Auto) Baso % (Auto) Lymph # (Auto) [place] # (Auto) Eos # (Auto) Baso # (Auto) Abs Immat Gran (auto) Absolute Neuts (auto) Absolute Nucleated RBC Band Neutrophils % Nucleated RBC % Platelet Estimate Hypochromasia Anisocytosis Macrocytosis Ovalocytes Schistocytes Sodium Potassium Chloride Carbon Dioxide Anion Gap BUN Creatinine Estim Creat Clear Calc Estimated GFR Glucose POC Capillary Glucose 117 H Calcium Phosphorus Magnesium Total Bilirubin AST ALT Alkaline Phosphatase Total Creatine Kinase 109 Total Protein Albumin Urine Color Yellow Urine Appearance Clear Urine pH 5.5 Ur Specific [place] 1.020 Urine Protein Negative Urine Glucose (UA) Negative Urine Ketones Negative Ur Blood (Man) Negative Urine Nitrate Negative Urine Bilirubin Negative Urine Urobilinogen 1.0 Ur Leukocyte Esterase Negative Add Ur Microanalysis Reviewed Urine RBC 0-2 Urine WBC 0-5 Ur Squamous Epith Cells None seen Urine Bacteria None seen Urine Casts 6-10 Hyaline Casts Present U Random Total Protein 17 Ur Random Sodium 22 Ur Random Urea 510 Urine Creatinine 73.8 Protein/Creat Ratio 2 0.23 H Nasal MRSA (PCR) 10/28/24 10/28/24 13:06 17:11 WBC RBC Hgb Hct MCV MCH MCHC RDW Plt Count MPV Immature Gran % (Auto) Neut % (Auto) Lymph % (Auto) [place] % (Auto) Eos % (Auto) Baso % (Auto) Lymph # (Auto) [place] # (Auto) Eos # (Auto) Baso # (Auto) Abs Immat Gran (auto) Absolute Neuts (auto) Absolute Nucleated RBC Band Neutrophils % Nucleated RBC % Platelet Estimate Hypochromasia Anisocytosis Macrocytosis Ovalocytes Schistocytes Sodium Potassium Chloride Carbon Dioxide Anion Gap BUN Creatinine Estim Creat Clear Calc Estimated GFR Glucose POC Capillary Glucose 108 H 145 H Calcium Phosphorus Magnesium Total Bilirubin AST ALT Alkaline Phosphatase Total Creatine Kinase Total Protein Albumin Urine Color Urine Appearance Urine pH Ur Specific [place] Urine Protein Urine Glucose (UA) Urine Ketones Ur Blood (Man) Urine Nitrate Urine Bilirubin Urine Urobilinogen Ur Leukocyte Esterase Add Ur Microanalysis Urine RBC Urine WBC Ur Squamous Epith Cells Urine Bacteria Urine Casts Hyaline Casts U Random Total Protein Ur Random Sodium Ur Random Urea Urine Creatinine Protein/Creat Ratio 2 Nasal MRSA (PCR)
[2024-10-28] MEDS: ZOLPIDEM TARTRATE (*CRX) 5 MG TABLET PO (21:04)
--- NOTE | 2024-10-28 21:38 | PC.NURSE ---
[facility]'s transfer line called with accepting providers. is accpeting hospitalist. Dr. Davis is accepting technical stenographer. Dr. Arreola is accepting laboratory immunologist. Patient is on waitlist and will call when room available.
--- NOTE | 2024-10-28 22:32 | PC.NURSE ---
Attempted to call report to [facility] RN Darren at [phone] waiting for a return call.
--- NOTE | 2024-10-28 23:01 | PC.NURSE ---
Gave report to Darren at [facility]. Patient is going to room 203. Waiting for ambulance for transfer.
[2024-10-29] VITALS: BP 138/78; PULSE 73; PULSE 82; RESP 15; TEMP 36.3; O2SAT 100
[2024-10-29 00:59] VITALS: BP 111/71; PULSE 75
[2024-10-29 01:04] VITALS: BP 111/71; PULSE 75
[2024-10-29] MEDS: DOBUTamine 250 MG/D5W 250 ML 250 MG/250 ML BAG 32.4 MG IV CONT (01:04)
[2024-10-29 02:00] VITALS: BP 113/79; PULSE 74; PULSE 83; RESP 15; O2SAT 96
[2024-10-29] MEDS: HYDROcodone/acetaminophen (*CRX) 5-325 MG TABLET 1 TAB PO (02:36)
--- NOTE | 2024-10-29 03:54 | PC.NURSE ---
Left message for Sussy to call for update to notify of transfer. Patient had me talk to his sister earlier in shift and update her on his transfer. She is aware he would be transferred to [place].
--- NOTE | 2024-10-29 09:19 | PM.TDS ---
Transfer Discharge Sum: Prov Provider Date of admission: 10/26/24 09:04 Primary care physician: Kenyatta Boucher, DO Admitting clinician: Shayna Zuniga MD Attending physician on admission: Shayna Zuniga Consults: 10/25/24 Consult to Physician Routine Comment: Consulting Provider: Vito Reyes at home independent call center agent/MD group to consult: cardiology Reason for consultation: acute heart failure, s/p AICD Has provider been notified: Yes 10/27/24 Consult to Physician Routine Comment: Consulting Provider: Krishan Gonzalez at home independent call center agent/MD group to consult: Nephrology Reason for consultation: CHAN, CKD Has provider been notified: Yes Consult to Physician Routine Comment: Consulting Provider: Saravanan Shah at home independent call center agent/ group to consult: ICU check scaler Reason for consultation: icu admission Has provider been notified: Yes Attending physician on discharge: Vito Reyes Discharging clinician: Vito Reyes Anticipated date of transfer: 10/29/24 Receiving physician/facility: [facility] DS: Admitting Diagnosis Discharge Date 10/29/24 Admitting Diagnosis Acute decompensated systolic heart failure DS: Discharge Diagnosis Discharge Diagnosis Plan 44-year-old man nonischemic cardiomyopathy, dilated cardiomyopathy chronic systolic heart failure status post Bi V ICD and severe mitral regurgitation presented with generalized weakness and short of breath found to be clinically in acute decompensated systolic heart failure in the setting of severe mitral regurgitation for which his beta-maira and ivabradine had been held and he was started on Bumex IV push b.i.d. along with dobutamine drip ventrally with improvement in his clinical condition. Acute on chronic systolic heart failure status post Bi V ICD -continue dobutamine drip and Bumex IV 2 mg b.i.d. Transfer Discharge Sum: Med Medications Active and Home Medications: Home Medications potassium chloride 20 mEq tablet,extended release 20 meq PO DAILY 11/04/22 [History Confirmed 10/25/24] bumetanide 1 mg tablet 1 mg PO Q12H 09/12/23 [History Confirmed 10/25/24] allopurinol 100 mg tablet 100 mg PO DAILY 07/29/24 [History Confirmed 10/25/24] apixaban 5 mg tablet (Eliquis) 5 mg PO Q12H 07/29/24 [History Confirmed 10/25/24] buspirone 10 mg tablet 10 mg PO BID 07/29/24 [History Confirmed 10/25/24] famotidine 20 mg tablet 20 mg PO Q12H 07/29/24 [History Confirmed 10/25/24] ivabradine 5 mg tablet 5 mg PO DAILY 07/29/24 [History Confirmed 10/25/24] albuterol sulfate 90 mcg/actuation aerosol inhaler 2 inh inhalation Q6-8H PRN shortness of breath or wheezing 10/25/24 [History Confirmed 10/25/24] carvedilol 3.125 mg tablet 3.125 mg PO BIDWM 10/25/24 [History Confirmed 10/25/24] Transfer Discharge Sum: Hosp Hospital Course Hospital course: Isaiah La is a 44 year old male Patient Condition: Gaurded Prognosis Time Spent with Patient Time attestation: Total time spent providing and/or coordinating transfer services: Total time spent: Less than 30 minutes Exam Const: General: comfortable HENMT: Mouth: Yes moist mucous membranes Eyes: EOM: EOMs intact bilaterally Neck: Other: JVD 15 cm Resp: Effort & Inspection: normal respiratory effort Auscultation: rales Cardio: Rate: regular rate Rhythm: regular rhythm Heart sounds: Murmur heart sound present Neuro: Speech: normal speech Extrem: General: edema and pedal edema DS: Data Data Completed and Pending Labs on day of discharge: Labs from last 24 hours 10/28/24 10/28/24 10/28/24 20:04 17:11 13:06 POC Capillary Glucose 99 145 H 108 H Total Creatine Kinase Urine Color Urine Appearance Urine pH Ur Specific [place] Urine Protein Urine Glucose (UA) Urine Ketones Ur Blood (Man) Urine Nitrate Urine Bilirubin Urine Urobilinogen Ur Leukocyte Esterase Add Ur Microanalysis Urine RBC Urine WBC Ur Squamous Epith Cells Urine Bacteria Urine Casts Hyaline Casts U Random Total Protein Ur Random Sodium Ur Random Urea Urine Creatinine Protein/Creat Ratio 2 10/28/24 10/28/24 09:45 09:41 POC Capillary Glucose Total Creatine Kinase 109 Urine Color Yellow Urine Appearance Clear Urine pH 5.5 Ur Specific [place] 1.020 Urine Protein Negative Urine Glucose (UA) Negative Urine Ketones Negative Ur Blood (Man) Negative Urine Nitrate Negative Urine Bilirubin Negative Urine Urobilinogen 1.0 Ur Leukocyte Esterase Negative Add Ur Microanalysis Reviewed Urine RBC 0-2 Urine WBC 0-5 Ur Squamous Epith Cells None seen Urine Bacteria None seen Urine Casts 6-10 Hyaline Casts Present U Random Total Protein 17 Ur Random Sodium 22 Ur Random Urea 510 Urine Creatinine 73.8 Protein/Creat Ratio 2 0.23 H
== END 2024-10-29 03:51 | disposition short-term general hospital (02) | DRG 291 ==
LOC: ANHED 08:58 → ANHIMU 09:44 → ANHICU 10-29 03:43 → ANHIMU 10-31 13:36
PROVIDERS: Internal Medicine; Internal Medicine Nephrology; Student in an Organized Health Care Education/Training Program; Admitting Provider General Practice; Emergency Provider Student in an Organized Health Care Education/Training Program; PCP Family Medicine; Visit Provider Internal Medicine
DX: I13.0 Hypertensive heart and chronic kidney disease with heart failure and stage 1 through stage 4 chronic kidney disease, or unspecified chronic kidney disease (principal); I50.23 Acute on chronic systolic (congestive) heart failure; F15.20 Other stimulant dependence, uncomplicated; N17.9 Acute kidney failure, unspecified; I34.0 Nonrheumatic mitral (valve) insufficiency; E11.22 Type 2 diabetes mellitus with diabetic chronic kidney disease; N18.32 Chronic kidney disease, stage 3b; R79.89 Other specified abnormal findings of blood chemistry; Z91.148 Patient's other noncompliance with medication regimen for other reason; G47.33 Obstructive sleep apnea (adult) (pediatric); D64.9 Anemia, unspecified; I42.8 Other cardiomyopathies; F41.8 Other specified anxiety disorders; E78.5 Hyperlipidemia, unspecified; F31.9 Bipolar disorder, unspecified; I25.2 Old myocardial infarction; L30.9 Dermatitis, unspecified; Z87.891 Personal history of nicotine dependence
CPT/HCPCS: 36415; 71046; 74176; 76705; 76770; 80053; 81003; 82550; 82570; 82948; 83036; 83605; 83690; 83735; 84100; 84156; 84300; 84484; 84540; 85025; 87641; 93005; 93306; 94002; 96374; 99285; A9270; G0378; J1171; J1250; J1885; J1939; J2405; J7040